=== PATIENT | female | born 1940 | race Caucasian/White ===

== ENCOUNTER → 2017-11-21 | Outpatient (CLI) | payer MEDICARE, BC, SELFPAY | PROVIDERS: Family Provider Family Medicine; Visit Provider Family Medicine | DX: I48.91 Unspecified atrial fibrillation (principal) | CPT/HCPCS: 93005 ==

== ENCOUNTER 2017-12-07 12:31 | Inpatient (IN) | payer MEDICARE, BC, SELFPAY ==
--- NOTE | 2017-12-07 | CT_ITS ---
CT hip RT wo con COMPARISON: None HISTORY: Recent injection for pain control right hip now complaining swelling and pain, mildly elevated white count TECHNIQUE: Multiple axial scans obtained from the iliac crests to the upper thighs and were performed without IV contrast in view of the decreased GFR. FINDINGS: There is an abnormal somewhat oval-shaped mass almost isodense to the major muscle groups of the hip and upper thigh. It measures 10.0 superior inferior dimension x 6.5 cm lateral to medial x 8.8 cm anterior posterior dimension. The CT number is most consistent with a seroma and/or evolving hematoma to seroma. The mass appears be located primarily in the trochanteric bursa centered around the greater trochanter causing only minimal mass effect on the gluteus minimus muscle. There is no significant inflammatory changes of the subcutaneous fat immediately superficial to the mass and therefore I favor a developing seroma versus abscess. There is minor asymmetrical joint space narrowing of the right hip joint. IMPRESSION: Probable seroma arising in and expanding the greater trochanteric bursa. Percutaneous drainage of this mass is consideration, the center of the mass is probably 7.5 cm deep to the skin surface.
[2017-12-07 12:46] VITALS: BP 120/53; PULSE 71; RESP 20; TEMP 36.7; O2SAT 95; BMI 24.3
--- NOTE | 2017-12-07 14:30 | HMH.ACPN ---
Internal Medicine - PN: Subj *Date: 12/07/17 *Time: 14:30 Interval history: Admitted with abscess versus hematoma of the right buttock. See the A history and physical. Exam Vital signs and Labs for Last 24 Hours: Temp Pulse Resp BP Pulse Ox 98.0 F 71 20 120/53 95 12/07/17 12:46 12/07/17 12:46 12/07/17 12:46 12/07/17 12:46 12/07/17 12:46 I & O for Last 24 hours: Intake & Output 12/05/17 12/06/17 12/07/17 12/08/17 11:59 11:59 11:59 11:59 Weight 155 lb 6.991 oz Assessment and Plan (1) Abscess Current visit: Yes Status: Acute Category: Medical Code(s): L02.91 - Cutaneous abscess, unspecified (2) Lumbar disc disease Current visit: Yes Status: Chronic Category: Medical Code(s): M51.9 - Unspecified thoracic, thoracolumbar and lumbosacral intervertebral disc disorder (3) Atrial fibrillation Current visit: Yes Status: Chronic Qualifiers: Atrial fibrillation type: chronic Qualified Code(s): I48.2 - Chronic atrial fibrillation Category: Medical Code(s): I48.91 - Unspecified atrial fibrillation (4) Multinodular goiter Current visit: Yes Status: Chronic Category: Medical Code(s): E04.2 - Nontoxic multinodular goiter (5) Valvular heart disease Current visit: Yes Status: Chronic Category: Medical Code(s): I38 - Endocarditis, valve unspecified (6) Asthma Current visit: Yes Status: Chronic Qualifiers: Asthma persistence: intermittent Category: Medical Code(s): J45.909 - Unspecified asthma, uncomplicated (7) Hyperuricemia Current visit: Yes Status: Chronic Category: Medical Code(s): E79.0 - Hyperuricemia without signs of inflammatory arthritis and tophaceous disease
[2017-12-07 14:46] LABS: Basophils % 0.2 % (0.1-2.0); Eosinophils # 0.1 K/mm3 (0.0-0.4); Hematocrit 41.2 % (37.0-47.0); Hemoglobin 13.5 g/dL (12.2-16.2); Lymphocytes # 0.5 K/mm3 (0.7-4.5); Lymphocytes % 5.6 K/mm3 (10-50); Mean Corpuscular HGB Conc 32.7 g/dL (31.8-35.4); Mean Corpuscular Hemoglobin 30.9 pg (27.0-31.2); Mean Corpuscular Volume 94.5 fl (81-99); Mean Platelet Volume 7.7 fl (7.4-10.4); Monocytes # 0.4 K/mm3 (0.1-1.0); Monocytes % 3.7 % (1.7-9.3); Neutrophils # 8.5 K/mm3 (1.8-7.8); Neutrophils % 89.6 % (37.0-80.0); Platelet Count 166 K/mm3 (142-424); Red Blood Count 4.36 M/mm3 (4.20-5.40); Red Cell Distribution Width 16.2 % (11.5-17.5); White Blood Count 9.4 K/mm3 (4.8-10.8)
[2017-12-07 14:51] LABS: MANUAL DIFFERENTIAL MANUAL DIFFERENTIAL (MANUAL DIFF)
[2017-12-07 15:07] LABS: Lymphocytes % 2 % (10-50); Monocytes % 4 % (2-9); Neutrophils % 91 % (42-76); Platelet Estimate Normal; RBC Morphology Normal; Total Cells Counted 100
[2017-12-07 15:38] LABS: Alanine Aminotransferase 33 U/L (12-78); Albumin/Globulin Ratio 1.7 (1.1-1.8); Alkaline Phosphatase 92 U/L (46-116); Anion Gap 8.9 mEq/L (5-15); Aspartate Amino Transferase 29 U/L (15-37); Bilirubin,Total 0.8 mg/dL (0.2-1.0); Blood Urea Nitrogen 24 mg/dL (7-18); Calcium 8.5 mg/dL (8.5-10.1); Carbon Dioxide 33 mmol/L (21.0-32.0); Chloride 103 mmol/L (98-107); Creatinine Clearance Estimated 37 mL/min (0-300); Estimated Glomerular Filt Rate 36 ml/min (>60); GFR (African American) 44 ML/MIN (>60); Globulin 2.4 gm/dl (1.3-3.2); Glucose 121 mg/dL (74-106); Potassium 3.9 mmoL/L (3.5-5.1); Sodium 141 mmol/L (136-145); Total Protein,Serum 6.4 gm/dL (6.4-8.2)
[2017-12-07 16:00] VITALS: BP 107/41; PULSE 78; RESP 20; TEMP 36.6; O2SAT 97
--- NOTE | 2017-12-07 17:23 | PC.NURSE ---
PATIENT WAS DIRECT ADMIT TODAY FROM OFFICE. PATIENT HAS AN ABCESS AND BRUISE ON HER RIGHT HIP FROM A INJECTION AT [facility] OCTOBER. PATIENT IS RECEIVING IV ANTIBOTICS AT THIS TIME. PATIENT RATED HER PAIN A 7 OUT OF 10, PAIN MEDICATIONS GIVEN. PATIENT IS RESTING IN BED, VITAL SIGNS ARE STABLE , LUNG SOUNDS CLEAR. NO DISTRESS NOTED, CALL MCCANN WITHIN REACH, WILL CONTINUE TO MONITOR.
[2017-12-07 19:58] VITALS: O2SAT 97
[2017-12-07 21:31] VITALS: BP 96/56; PULSE 77; RESP 20; TEMP 36.3; O2SAT 93
--- NOTE | 2017-12-08 05:55 | PC.NURSE ---
PT ASSEESSED AND NOTED TO HAVE BRUISING FROM (R) HIP TO (R) BUTTOCK. SHE C/O EARLY IN SHIFT ABOUT CRAMPING TO LEGS AND FEET. PT WAS CONCERNED ABOUT POTASSIUM LEVEL. IT WAS NOTED UPON REVIEW OF LABS THAT POTASSIUM LEVEL WAS 3.9. K-PAD WAS APPLIED TO PT PER MD ORDER. PT WAS ALSO CONCERNED ABOUT PM DOSE OF GABAPENTIN AND ZARELTO. MD WAS NOTIFIED OF PT CONCERNS. MD WAS ALSO CONSULTED ABOUT LOVENOX ORDER THAT WAS D/C. MD DID NOT WANT TO GIVE ZARELTO AND LOVENOX DUE TO PT HIP. METOPROLOL WAS ALSO HELD DUE TO LOW B/P. NO OTHER CONERNS AT THIS TIME. WILL CONTINUE TO MONITOR.
[2017-12-08 07:18] VITALS: BP 101/79; PULSE 68; RESP 18; TEMP 36.6; O2SAT 94
[2017-12-08 08:00] VITALS: BP 103/67; PULSE 71; RESP 18; TEMP 36.2; O2SAT 93
--- NOTE | 2017-12-08 08:08 | PC.NURSE ---
RECEIVED REPORT FROM RAHDA VEGA RN
--- NOTE | 2017-12-08 11:10 | HMH.GSCON ---
*Admission Date: 12/07/17 *Chief complaint: right hip pain *History of present illness: Ms. Gutierrez is a pleasant 77 year old lady with a history of multiple lower back surgeries with Dr. Sorin August at [facility] in [place], who also sees Dr. Kyler Elizalde at [facility] in [place] for related chronic pain. She had a right hip bursa injection with Dr. Elizalde in early October, which resulted in an enlarging, discolored and painful mass over the right hip. This has been ongoing for the past month, and the pain has been getting progressively worse. She presented to the hospital yesterday due to significant pain and difficulty getting around. Since admission, she says the pain has improved. Her nurse notes that she has been able to ambulate with minimal assistance to the bathroom. She is afebrile and hemodynamically stable. Her labs are normal except for a mildly elevated creatinine (1.4) with unknown baseline. Review of Systems - Review of Systems Review of systems:: pertinent systems reviewed and negative unless documented below [facility] History Medical History: Reports:: Atrial Fibrillation, Congestive Heart Failure Denies:: Cancer, Diabetes Mellitus Type 1, Diabetes Mellitus Type 2, MRSA Other Medical History: Reports: Arthritis, Cataracts, Fibromyalgia, Thyroid Disease Other Surgeries: Yes: Other (lower back surgery x3). No: Pacemaker Amputation: No Fractures: No - *Social History Educational Level: Completed High School Alcohol Intake: never Occupational Status: retired Housing: house Household Members: none - Psychiatric History Expresses thoughts of harming self/others: None Suicide Plan Description: No Plan *Family Hx:: Asthma Meds Home Medications Medication Instructions Recorded Confirmed Type Esomeprazole Magnesium [Nexium] 40 mg PO DAILY 12/07/17 12/07/17 History Furosemide [Furosemide 80mg Tab] 80 mg PO DAILY 12/07/17 12/07/17 History Potassium Chloride [Pot Chlor 10 10 meq PO DAILY 12/07/17 12/07/17 History mEq Tab] Sertraline HCl [Zoloft] 100 mg PO DAILY 12/07/17 12/07/17 History Spironolactone [Spironolactone 25 mg PO DAILY 12/07/17 12/07/17 History 25mg Tab] Allergies Allergy/AdvReac Type Severity Reaction Status Date / Time No Known Allergies Allergy Unverified 11/12/17 14:46 Exam Vital signs and Labs for Last 24 Hours: Temp Pulse Resp BP Pulse Ox 97.2 F L 71 18 103/67 93 L 12/08/17 08:00 12/08/17 08:00 12/08/17 08:00 12/08/17 08:00 12/08/17 08:00 Laboratory Results - last 24 hr 12/07/17 14:35: WBC 9.4, RBC 4.36, Hgb 13.5, Hct 41.2, MCV 94.5, MCH 30.9, MCHC 32.7, RDW 16.2, Plt Count 166, MPV 7.7, Neut % (Auto) 89.6 H, Lymph % (Auto) 5.6 L, [place] % (Auto) 3.7, Eos % (Auto) 1.0, Baso % (Auto) 0.2, Neut # (Auto) 8.5 H, Lymph # (Auto) 0.5 L, [place] # (Auto) 0.4, Eos # (Auto) 0.1, Baso # (Auto) 0.0, Total Counted 100, Neutrophils % (Manual) 91 H, Lymphocytes % (Manual) 2 L, Atypical Lymphs % 3.0, Monocytes % (Manual) 4, Platelet Estimate Normal, RBC Morphology Normal 12/07/17 14:35: Sodium 141, Potassium 3.9, Chloride 103, Carbon Dioxide 33 H, Anion Gap 8.9, BUN 24 H, Creatinine 1.40 H, Estimated Creat Clear 37, Estimated GFR 36 L, Est GFR ( Amer) 44 L, Glucose 121 H, Calcium 8.5, Total Bilirubin 0.8, AST 29, ALT 33, Alkaline Phosphatase 92, Total Protein 6.4, Albumin 4.0, Globulin 2.4, Albumin/Globulin Ratio 1.7 I & O for Last 24 hours: Intake & Output 12/05/17 12/06/17 12/07/17 12/08/17 23:59 23:59 23:59 23:59 Intake Total 660 / 660 50 / 50 Balance 660 / 660 50 / 50 Weight 155 lb 6.991 oz - Constitutional no acute distress, thin, cooperative - *Routine Respiratory Exam Absent: accessory muscle use, patient mechanically ventilated, wheezes - *Routine Cardiovascular Exam Present: RRR - *Routine Abdominal Exam Present: soft. Absent: tenderness, distended, rebound, guarding - Routine Back/Spine/Pelvis Exam Back/Spine: Absent
--- NOTE | 2017-12-08 11:16 | P.CONS_ITS ---
*Admission Date: 12/07/17 *Chief complaint: right hip pain *History of present illness: Ms. Gutierrez is a pleasant 77 year old lady with a history of multiple lower back surgeries with Dr. Sorin August at [facility] in [place], who also sees Dr. Kyler Elizalde at [facility] in [place] for related chronic pain. She had a right hip bursa injection with Dr. Elizalde in early October, which resulted in an enlarging, discolored and painful mass over the right hip. This has been ongoing for the past month, and the pain has been getting progressively worse. She presented to the hospital yesterday due to significant pain and difficulty getting around. Since admission, she says the pain has improved. Her nurse notes that she has been able to ambulate with minimal assistance to the bathroom. She is afebrile and hemodynamically stable. Her labs are normal except for a mildly elevated creatinine (1.4) with unknown baseline. Review of Systems - Review of Systems Review of systems:: pertinent systems reviewed and negative unless documented below [facility] History Medical History: Reports:: Atrial Fibrillation, Congestive Heart Failure Denies:: Cancer, Diabetes Mellitus Type 1, Diabetes Mellitus Type 2, MRSA Other Medical History: Reports: Arthritis, Cataracts, Fibromyalgia, Thyroid Disease Other Surgeries: Yes: Other (lower back surgery x3). No: Pacemaker Amputation: No Fractures: No - *Social History Educational Level: Completed High School Alcohol Intake: never Occupational Status: retired Housing: house Household Members: none - Psychiatric History Expresses thoughts of harming self/others: None Suicide Plan Description: No Plan *Family Hx:: Asthma Meds Home Medications Medication Instructions Recorded Confirmed Type Esomeprazole Magnesium [Nexium] 40 mg PO DAILY 12/07/17 12/07/17 History Furosemide [Furosemide 80mg Tab] 80 mg PO DAILY 12/07/17 12/07/17 History Potassium Chloride [Pot Chlor 10 10 meq PO DAILY 12/07/17 12/07/17 History mEq Tab] Sertraline HCl [Zoloft] 100 mg PO DAILY 12/07/17 12/07/17 History Spironolactone [Spironolactone 25 mg PO DAILY 12/07/17 12/07/17 History 25mg Tab] Allergies Allergy/AdvReac Type Severity Reaction Status Date / Time No Known Allergies Allergy Unverified 11/12/17 14:46 Exam Vital signs and Labs for Last 24 Hours: Temp Pulse Resp BP Pulse Ox 97.2 F L 71 18 103/67 93 L 12/08/17 08:00 12/08/17 08:00 12/08/17 08:00 12/08/17 08:00 12/08/17 08:00 Laboratory Results - last 24 hr 12/07/17 14:35: WBC 9.4, RBC 4.36, Hgb 13.5, Hct 41.2, MCV 94.5, MCH 30.9, MCHC 32.7, RDW 16.2, Plt Count 166, MPV 7.7, Neut % (Auto) 89.6 H, Lymph % (Auto) 5.6 L, [place] % (Auto) 3.7, Eos % (Auto) 1.0, Baso % (Auto) 0.2, Neut # (Auto) 8.5 H, Lymph # (Auto) 0.5 L, [place] # (Auto) 0.4, Eos # (Auto) 0.1, Baso # (Auto) 0.0, Total Counted 100, Neutrophils % (Manual) 91 H, Lymphocytes % (Manual) 2 L , Atypical Lymphs % 3.0, Monocytes % (Manual) 4, Platelet Estimate Normal, RBC Morphology Normal 12/07/17 14:35: Sodium 141, Potassium 3.9, Chloride 103, Carbon Dioxide 33 H, Anion Gap 8.9, BUN 24 H, Creatinine 1.40 H, Estimated Creat Clear 37, Estimated GFR 36 L, Est GFR ( Amer) 44 L, Glucose 121 H, Calcium 8.5, Total Bilirubin 0.8, AST 29, ALT 33, Alkaline Phosphatase 92, Total Protein 6.4, Albumin 4.0, Globulin 2.4, Albumin/Globulin Ratio 1.7 I & O for Last 24 hours: Intake & Output 12/05/17 12/06/17
--- NOTE | 2017-12-08 11:36 | P.CONPHA_ITS ---
- Pharmacy Consult Date: 12/08/17 Time: 11:34 Referring provider: DR. MCBRIDE Reason for Consult:: VANCOMYCIN DOSING Allergies and ADEs:: Allergies Allergy/AdvReac Type Severity Reaction Status Date / Time No Known Allergies Allergy Unverified 11/12/17 14:46 Home Medications:: Home Medications Medication Instructions Recorded Confirmed Type Esomeprazole Magnesium [Nexium] 40 mg PO DAILY 12/07/17 12/07/17 History Furosemide [Furosemide 80mg Tab] 80 mg PO DAILY 12/07/17 12/07/17 History Potassium Chloride [Pot Chlor 10 10 meq PO DAILY 12/07/17 12/07/17 History mEq Tab] Sertraline HCl [Zoloft] 100 mg PO DAILY 12/07/17 12/07/17 History Spironolactone [Spironolactone 25 mg PO DAILY 12/07/17 12/07/17 History 25mg Tab] Height: 1.7 m Weight: 70.505 kg Laboratory Results:: Laboratory Results - last 24 hr 12/07/17 14:35: WBC 9.4, RBC 4.36, Hgb 13.5, Hct 41.2, MCV 94.5, MCH 30.9, MCHC 32.7, RDW 16.2, Plt Count 166, MPV 7.7, Neut % (Auto) 89.6 H, Lymph % (Auto) 5.6 L, [place] % (Auto) 3.7, Eos % (Auto) 1.0, Baso % (Auto) 0.2, Neut # (Auto) 8.5 H, Lymph # (Auto) 0.5 L, [place] # (Auto) 0.4, Eos # (Auto) 0.1, Baso # (Auto) 0.0, Total Counted 100, Neutrophils % (Manual) 91 H, Lymphocytes % (Manual) 2 L , Atypical Lymphs % 3.0, Monocytes % (Manual) 4, Platelet Estimate Normal, RBC Morphology Normal 12/07/17 14:35: Sodium 141, Potassium 3.9, Chloride 103, Carbon Dioxide 33 H, Anion Gap 8.9, BUN 24 H, Creatinine 1.40 H, Estimated Creat Clear 37, Estimated GFR 36 L, Est GFR ( Amer) 44 L, Glucose 121 H, Calcium 8.5, Total Bilirubin 0.8, AST 29, ALT 33, Alkaline Phosphatase 92, Total Protein 6.4, Albumin 4.0, Globulin 2.4, Albumin/Globulin Ratio 1.7 Medical History: Reports:: Atrial Fibrillation, Congestive Heart Failure Denies:: Cancer, Diabetes Mellitus Type 1, Diabetes Mellitus Type 2, MRSA Assessment and Plan (1) Abscess Current visit: Yes Status: Acute Category: Medical Code(s): L02.91 - Cutaneous abscess, unspecified - Assessment and plan all Dx Assessment and Plan for all problems:: BASED ON PATIENT FACTORS, RECOMMEND VANCOMYCIN 1500 MG IV ONCE, FOLLOWED BY VANCOMYCIN 1 GM IV Q24H. PHARMACY WILL FOLLOW DAILY AND ADJUST APPROPRIATE.
--- NOTE | 2017-12-08 13:32 | HMH.ORTHOCON ---
*Admission Date: 12/07/17 *Chief complaint: Right buttock pain/ecchymosis *History of present illness: Ms. Gutierrez is a pleasant 77 year old lady with a history of multiple lower back surgeries with Dr. Sorin August at [facility] in [place], who also sees Dr. Kyler Elizalde at [facility] in [place] for related chronic pain. She had a right hip bursa injection with Dr. Elizalde in early October, which resulted in an enlarging, discolored and painful mass over the right hip. This has been ongoing for the past month, and the pain has been getting progressively worse. She presented to the hospital yesterday due to significant pain and difficulty getting around. Since admission, she says the pain has improved. Her nurse notes that she has been able to ambulate with minimal assistance to the bathroom. She is afebrile and hemodynamically stable. Her labs are normal except for a mildly elevated creatinine (1.4) with unknown baseline. [facility] History Medical History: Reports:: Atrial Fibrillation, Congestive Heart Failure Denies:: Cancer, Diabetes Mellitus Type 1, Diabetes Mellitus Type 2, MRSA Other Medical History: Reports: Arthritis, Cataracts, Fibromyalgia, Thyroid Disease Other Surgeries: Yes: Other (lower back surgery x3). No: Pacemaker Amputation: No Fractures: No - *Social History Educational Level: Completed High School Alcohol Intake: never Occupational Status: retired Housing: house Household Members: none - Psychiatric History Expresses thoughts of harming self/others: None Suicide Plan Description: No Plan *Family Hx:: Asthma Meds Home Medications Medication Instructions Recorded Confirmed Type Esomeprazole Magnesium [Nexium] 40 mg PO DAILY 12/07/17 12/07/17 History Furosemide [Furosemide 80mg Tab] 80 mg PO DAILY 12/07/17 12/07/17 History Potassium Chloride [Pot Chlor 10 10 meq PO DAILY 12/07/17 12/07/17 History mEq Tab] Sertraline HCl [Zoloft] 100 mg PO DAILY 12/07/17 12/07/17 History Spironolactone [Spironolactone 25 mg PO DAILY 12/07/17 12/07/17 History 25mg Tab] Allergies Allergy/AdvReac Type Severity Reaction Status Date / Time No Known Allergies Allergy Unverified 11/12/17 14:46 Exam Vital signs and Labs for Last 24 Hours: Temp Pulse Resp BP Pulse Ox 97.2 F L 71 18 103/67 93 L 12/08/17 08:00 12/08/17 08:00 12/08/17 08:00 12/08/17 08:00 12/08/17 08:00 Laboratory Results - last 24 hr 12/07/17 14:35: WBC 9.4, RBC 4.36, Hgb 13.5, Hct 41.2, MCV 94.5, MCH 30.9, MCHC 32.7, RDW 16.2, Plt Count 166, MPV 7.7, Neut % (Auto) 89.6 H, Lymph % (Auto) 5.6 L, [place] % (Auto) 3.7, Eos % (Auto) 1.0, Baso % (Auto) 0.2, Neut # (Auto) 8.5 H, Lymph # (Auto) 0.5 L, [place] # (Auto) 0.4, Eos # (Auto) 0.1, Baso # (Auto) 0.0, Total Counted 100, Neutrophils % (Manual) 91 H, Lymphocytes % (Manual) 2 L, Atypical Lymphs % 3.0, Monocytes % (Manual) 4, Platelet Estimate Normal, RBC Morphology Normal 12/07/17 14:35: Sodium 141, Potassium 3.9, Chloride 103, Carbon Dioxide 33 H, Anion Gap 8.9, BUN 24 H, Creatinine 1.40 H, Estimated Creat Clear 37, Estimated GFR 36 L, Est GFR ( Amer) 44 L, Glucose 121 H, Calcium 8.5, Total Bilirubin 0.8, AST 29, ALT 33, Alkaline Phosphatase 92, Total Protein 6.4, Albumin 4.0, Globulin 2.4, Albumin/Globulin Ratio 1.7 I & O for Last 24 hours: Intake & Output 12/06/17 12/07/17 12/08/17 12/09/17 11:59 11:59 11:59 11:59 Intake Total 710 / 710 Balance 710 / 710 Weight 155 lb 7 oz Narrative: The patient has resolving ecchymosis in the area of the right greater trochanter and a mass somewhat more posterior to the trochanter which appears somewhat fluctuant. NV is grossly intact in the involved R LE. Well healed incision from spine surgery is present.Her CT was reviewed on my home computer however I cannot seem to successfully log on to PACS on this one to review association of fluid with the hip joint vs a separate fluid collection. Aspiration of the f
--- NOTE | 2017-12-08 13:36 | P.CONS_ITS ---
*Admission Date: 12/07/17 *Chief complaint: Right buttock pain/ecchymosis *History of present illness: Ms. Gutierrez is a pleasant 77 year old lady with a history of multiple lower back surgeries with Dr. Sorin August at [facility] in [place], who also sees Dr. Kyler Elizalde at [facility] in [place] for related chronic pain. She had a right hip bursa injection with Dr. Elizalde in early October, which resulted in an enlarging, discolored and painful mass over the right hip. This has been ongoing for the past month, and the pain has been getting progressively worse. She presented to the hospital yesterday due to significant pain and difficulty getting around. Since admission, she says the pain has improved. Her nurse notes that she has been able to ambulate with minimal assistance to the bathroom. She is afebrile and hemodynamically stable. Her labs are normal except for a mildly elevated creatinine (1.4) with unknown baseline. [facility] History Medical History: Reports:: Atrial Fibrillation, Congestive Heart Failure Denies:: Cancer, Diabetes Mellitus Type 1, Diabetes Mellitus Type 2, MRSA Other Medical History: Reports: Arthritis, Cataracts, Fibromyalgia, Thyroid Disease Other Surgeries: Yes: Other (lower back surgery x3). No: Pacemaker Amputation: No Fractures: No - *Social History Educational Level: Completed High School Alcohol Intake: never Occupational Status: retired Housing: house Household Members: none - Psychiatric History Expresses thoughts of harming self/others: None Suicide Plan Description: No Plan *Family Hx:: Asthma Meds Home Medications Medication Instructions Recorded Confirmed Type Esomeprazole Magnesium [Nexium] 40 mg PO DAILY 12/07/17 12/07/17 History Furosemide [Furosemide 80mg Tab] 80 mg PO DAILY 12/07/17 12/07/17 History Potassium Chloride [Pot Chlor 10 10 meq PO DAILY 12/07/17 12/07/17 History mEq Tab] Sertraline HCl [Zoloft] 100 mg PO DAILY 12/07/17 12/07/17 History Spironolactone [Spironolactone 25 mg PO DAILY 12/07/17 12/07/17 History 25mg Tab] Allergies Allergy/AdvReac Type Severity Reaction Status Date / Time No Known Allergies Allergy Unverified 11/12/17 14:46 Exam Vital signs and Labs for Last 24 Hours: Temp Pulse Resp BP Pulse Ox 97.2 F L 71 18 103/67 93 L 12/08/17 08:00 12/08/17 08:00 12/08/17 08:00 12/08/17 08:00 12/08/17 08:00 Laboratory Results - last 24 hr 12/07/17 14:35: WBC 9.4, RBC 4.36, Hgb 13.5, Hct 41.2, MCV 94.5, MCH 30.9, MCHC 32.7, RDW 16.2, Plt Count 166, MPV 7.7, Neut % (Auto) 89.6 H, Lymph % (Auto) 5.6 L, [place] % (Auto) 3.7, Eos % (Auto) 1.0, Baso % (Auto) 0.2, Neut # (Auto) 8.5 H, Lymph # (Auto) 0.5 L, [place] # (Auto) 0.4, Eos # (Auto) 0.1, Baso # (Auto) 0.0, Total Counted 100, Neutrophils % (Manual) 91 H, Lymphocytes % (Manual) 2 L , Atypical Lymphs % 3.0, Monocytes % (Manual) 4, Platelet Estimate Normal, RBC Morphology Normal 12/07/17 14:35: Sodium 141, Potassium 3.9, Chloride 103, Carbon Dioxide 33 H, Anion Gap 8.9, BUN 24 H, Creatinine 1.40 H, Estimated Creat Clear 37, Estimated GFR 36 L, Est GFR ( Amer) 44 L, Glucose 121 H, Calcium 8.5, Total Bilirubin 0.8, AST 29, ALT 33, Alkaline Phosphatase 92, Total Protein 6.4, Albumin 4.0, Globulin 2.4, Albumin/Globulin Ratio 1.7 I & O for Last 24 hours: Intake & Output 12/06/17 12/07/17 12/08/17 12/09/17 11:59 11:59 11:59 11:59 Intake Total 710 / 710 Balance 710 / 710 [place]
--- NOTE | 2017-12-08 14:42 | HMH.ACPN ---
Internal Medicine - PN: Subj *Date: 12/08/17 *Time: 14:42 Interval history: She continues to have good pain and states that her pain medicine does not control her discomfort. See the consult reports by both Dr. Mclain and Dr. Nowak. Dr. Griffin was unsuccessful in aspirating fluid from the lesion. A seroma seems to be more likely than an abscess at this point. Dr. Griffin would like for radiology to evaluate the patient for possible fluoroscopic attempt at aspiration. The patient's son and his family were present and discussed all aspects of the case with them. Exam Vital signs and Labs for Last 24 Hours: Temp Pulse Resp BP Pulse Ox 97.2 F L 71 18 103/67 93 L 12/08/17 08:00 12/08/17 08:00 12/08/17 08:00 12/08/17 08:00 12/08/17 08:00 Laboratory Results - last 24 hr 12/07/17 14:35: WBC 9.4, RBC 4.36, Hgb 13.5, Hct 41.2, MCV 94.5, MCH 30.9, MCHC 32.7, RDW 16.2, Plt Count 166, MPV 7.7, Neut % (Auto) 89.6 H, Lymph % (Auto) 5.6 L, [place] % (Auto) 3.7, Eos % (Auto) 1.0, Baso % (Auto) 0.2, Neut # (Auto) 8.5 H, Lymph # (Auto) 0.5 L, [place] # (Auto) 0.4, Eos # (Auto) 0.1, Baso # (Auto) 0.0, Total Counted 100, Neutrophils % (Manual) 91 H, Lymphocytes % (Manual) 2 L, Atypical Lymphs % 3.0, Monocytes % (Manual) 4, Platelet Estimate Normal, RBC Morphology Normal 12/07/17 14:35: Sodium 141, Potassium 3.9, Chloride 103, Carbon Dioxide 33 H, Anion Gap 8.9, BUN 24 H, Creatinine 1.40 H, Estimated Creat Clear 37, Estimated GFR 36 L, Est GFR ( Amer) 44 L, Glucose 121 H, Calcium 8.5, Total Bilirubin 0.8, AST 29, ALT 33, Alkaline Phosphatase 92, Total Protein 6.4, Albumin 4.0, Globulin 2.4, Albumin/Globulin Ratio 1.7 Laboratory Tests 12/07/17 12/07/17 14:35 14:35 WBC 9.4 Potassium 3.9 BUN 24 H Creatinine 1.40 H I & O for Last 24 hours: Intake & Output 12/06/17 12/07/17 12/08/17 12/09/17 11:59 11:59 11:59 11:59 Intake Total 710 / 710 Balance 710 / 710 Weight 155 lb 7 oz - Constitutional no acute distress Comments: She is resting in bed. - *Routine Respiratory Exam Present: CTA bilaterally - *Routine Cardiovascular Exam Present: irregular rhythm - *Routine Abdominal Exam Present: soft. Absent: tenderness - Routine Back/Spine/Pelvis Exam Comments: Unchanged on exam. See Dr. Nowak's note. Assessment and Plan (1) Seroma Current visit: Yes Status: Acute Category: Medical (2) Abscess Current visit: Yes Status: Acute Category: Medical Code(s): L02.91 - Cutaneous abscess, unspecified (3) Lumbar disc disease Current visit: Yes Status: Chronic Category: Medical Code(s): M51.9 - Unspecified thoracic, thoracolumbar and lumbosacral intervertebral disc disorder (4) Atrial fibrillation Current visit: Yes Status: Chronic Qualifiers: Atrial fibrillation type: chronic Qualified Code(s): I48.2 - Chronic atrial fibrillation Category: Medical Code(s): I48.91 - Unspecified atrial fibrillation (5) Multinodular goiter Current visit: Yes Status: Chronic Category: Medical Code(s): E04.2 - Nontoxic multinodular goiter (6) Valvular heart disease Current visit: Yes Status: Chronic Category: Medical Code(s): I38 - Endocarditis, valve unspecified (7) Asthma Current visit: Yes Status: Chronic Qualifiers: Asthma persistence: intermittent Category: Medical Code(s): J45.909 - Unspecified asthma, uncomplicated (8) Hyperuricemia Current visit: Yes Status: Chronic Category: Medical Code(s): E79.0 - Hyperuricemia without signs of inflammatory arthritis and tophaceous disease Is the patient receiving the right drug, dose, and route?: Yes Could a more targeted ABx be ordered?: No
--- NOTE | 2017-12-08 14:46 | P.PN_ITS ---
Internal Medicine - PN: Subj *Date: 12/08/17 *Time: 14:42 Interval history: She continues to have good pain and states that her pain medicine does not control her discomfort. See the consult reports by both Dr. Mclain and Dr. Nowak. Dr. Griffin was unsuccessful in aspirating fluid from the lesion. A seroma seems to be more likely than an abscess at this point. Dr. Griffin would like for radiology to evaluate the patient for possible fluoroscopic attempt at aspiration. The patient's son and his family were present and discussed all aspects of the case with them. Exam Vital signs and Labs for Last 24 Hours: Temp Pulse Resp BP Pulse Ox 97.2 F L 71 18 103/67 93 L 12/08/17 08:00 12/08/17 08:00 12/08/17 08:00 12/08/17 08:00 12/08/17 08:00 Laboratory Results - last 24 hr 12/07/17 14:35: WBC 9.4, RBC 4.36, Hgb 13.5, Hct 41.2, MCV 94.5, MCH 30.9, MCHC 32.7, RDW 16.2, Plt Count 166, MPV 7.7, Neut % (Auto) 89.6 H, Lymph % (Auto) 5.6 L, [place] % (Auto) 3.7, Eos % (Auto) 1.0, Baso % (Auto) 0.2, Neut # (Auto) 8.5 H, Lymph # (Auto) 0.5 L, [place] # (Auto) 0.4, Eos # (Auto) 0.1, Baso # (Auto) 0.0, Total Counted 100, Neutrophils % (Manual) 91 H, Lymphocytes % (Manual) 2 L , Atypical Lymphs % 3.0, Monocytes % (Manual) 4, Platelet Estimate Normal, RBC Morphology Normal 12/07/17 14:35: Sodium 141, Potassium 3.9, Chloride 103, Carbon Dioxide 33 H, Anion Gap 8.9, BUN 24 H, Creatinine 1.40 H, Estimated Creat Clear 37, Estimated GFR 36 L, Est GFR ( Amer) 44 L, Glucose 121 H, Calcium 8.5, Total Bilirubin 0.8, AST 29, ALT 33, Alkaline Phosphatase 92, Total Protein 6.4, Albumin 4.0, Globulin 2.4, Albumin/Globulin Ratio 1.7 Laboratory Tests 12/07/17 12/07/17 14:35 14:35 WBC 9.4 Potassium 3.9 BUN 24 H Creatinine 1.40 H I & O for Last 24 hours: Intake & Output 12/06/17 12/07/17 12/08/17 12/09/17 11:59 11:59 11:59 11:59 Intake Total 710 / 710 Balance 710 / 710 Weight 155 lb 7 oz - Constitutional no acute distress Comments: She is resting in bed. - *Routine Respiratory Exam Present: CTA bilaterally - *Routine Cardiovascular Exam Present: irregular rhythm - *Routine Abdominal Exam Present: soft. Absent: tenderness - Routine Back/Spine/Pelvis Exam Comments: Unchanged on exam. See Dr. Nowak's note. Assessment and Plan (1) Seroma Current visit: Yes Status: Acute Category: Medical (2) Abscess Current visit: Yes Status: Acute Category: Medical Code(s): L02.91 - Cutaneous abscess, unspecified (3) Lumbar disc disease Current visit: Yes Status: Chronic Category: Medical Code(s): M51.9 - Unspecified thoracic, thoracolumbar and lumbosacral intervertebral disc disorder (4) Atrial fibrillation Current visit: Yes Status: Chronic Qualifiers: Atrial fibrillation type: chronic Qualified Code(s): I48.2 - Chronic atrial fibrillation Category: Medical Code(s): I48.91 - Unspecified atrial fibrillation (5) Multinodular goiter Current visit: Yes Status: Chronic Category: Medical Code(s): E04.2 - Nontoxic multinodular goiter (6) Valvular heart disease Current visit: Yes Status: Chronic Category: Medical Code(s): I38 - Endocarditis, valve unspecified (7) Asthma Current visit: Yes Status: Chronic Qualifiers: Asthma persistence: intermittent Category: Medical Code(s): J45.909 -
[2017-12-08 15:20] LABS: C-Reactive Protein < 0.2 mg/L (0.0-0.9)
--- NOTE | 2017-12-08 15:35 | P.CONPHA_ITS ---
[facility] Pharmacy VTE Monitoring - Patient Demographics Admission date: 12/08/17 Report Date: 12/08/17 Time: 15:35 Allergies/Adverse Reactions: No Known Allergies Allergy (Unverified 11/12/17 14:46) Height: 1.7 m Weight: 70.505 kg Patient Problems: Current Active Problems Abscess (Acute) Lumbar disc disease (Chronic) Atrial fibrillation (Chronic) Multinodular goiter (Chronic) Valvular heart disease (Chronic) Asthma (Chronic) Hyperuricemia (Chronic) Seroma (Acute) - VTE Risk Labs: VTE Related Lab Results Hgb 13.5 g/dL (12.2-16.2) 12/07/17 14:35 Hct 41.2 % (37.0-47.0) 12/07/17 14:35 Plt Count 166 K/mm3 (142-424) 12/07/17 14:35 BUN 24 mg/dL (7-18) H 12/07/17 14:35 Creatinine 1.40 mg/dL (0.55-1.02) H 12/07/17 14:35 Estimated Creat Clear 37 mL/min (0-300) 12/07/17 14:35 Was VTE Risk Assessment Performed: No VTE Risk Level: Low Risk - Prophylaxis VTE Prophylaxis Ordered?: Yes Types of VTE Prophylaxis: TEDS Knee High Location of Applied Device: Bilateral Lower Extremeties
[2017-12-08 16:00] VITALS: BP 109/58; PULSE 72; RESP 18; TEMP 35.9; O2SAT 93
[2017-12-08 16:51] LABS: Erythrocyte Sedimentation Rate 16 mm/hr (0-30)
[2017-12-08 20:00] VITALS: BP 127/59; PULSE 75; RESP 18; TEMP 36.3; O2SAT 94
[2017-12-09 04:00] VITALS: BP 96/59; PULSE 69; RESP 20; TEMP 36.7; O2SAT 90
--- NOTE | 2017-12-09 04:46 | PC.NURSE ---
rn aware of all vital signs
[2017-12-09 07:08] LABS: Basophils % 0.5 % (0.1-2.0); Eosinophils # 0.2 K/mm3 (0.0-0.4); Eosinophils % 2.9 % (0.1-12.0); Hematocrit 37.3 % (37.0-47.0); Hemoglobin 12.2 g/dL (12.2-16.2); Lymphocytes # 0.9 K/mm3 (0.7-4.5); Mean Corpuscular HGB Conc 32.7 g/dL (31.8-35.4); Mean Corpuscular Hemoglobin 31.2 pg (27.0-31.2); Mean Corpuscular Volume 95.4 fl (81-99); Mean Platelet Volume 7.2 fl (7.4-10.4); Monocytes # 0.4 K/mm3 (0.1-1.0); Neutrophils # 4.6 K/mm3 (1.8-7.8); Neutrophils % 75.6 % (37.0-80.0); Platelet Count 131 K/mm3 (142-424); Red Blood Count 3.92 M/mm3 (4.20-5.40); Red Cell Distribution Width 16.5 % (11.5-17.5); White Blood Count 6.1 K/mm3 (4.8-10.8)
[2017-12-09 07:21] LABS: Anion Gap 7.7 mEq/L (5-15); Blood Urea Nitrogen 22 mg/dL (7-18); Carbon Dioxide 33 mmol/L (21.0-32.0); Chloride 103 mmol/L (98-107); Creatinine Clearance Estimated 37 mL/min (0-300); Creatinine,Serum 1.45 mg/dL (0.55-1.02); Estimated Glomerular Filt Rate 35 ml/min (>60); GFR (African American) 42 ML/MIN (>60); Glucose 82 mg/dL (74-106); Potassium 3.7 mmoL/L (3.5-5.1); Sodium 140 mmol/L (136-145)
--- NOTE | 2017-12-09 07:57 | PC.NURSE ---
NO ACUTE CHANGES NOTED. PT HAS RESTED WELL THIS SHIFT. SHE CONTINUES TO HAVE BRUISING TO (R) HIP AND BUTTOCKS. SMALL BANDAID NOTED TO (R) HIP FROM PROCEDURE. SHE STATES THAT SHE STILL HAS SOME PAIN WITH AMBULATION. V/S HAVE REMAINED STABLE. NO OTHER COCNERNS NOTED AT THIS TIME TIME CONTINUE TO MONITOR.
--- NOTE | 2017-12-09 08:01 | PC.NURSE ---
REPORT HANDED OFF TO Александр BREWER
[2017-12-09 08:19] VITALS: BP 98/59; PULSE 72; RESP 18; TEMP 36.6; O2SAT 93
--- NOTE | 2017-12-09 09:00 | HMH.ACPN ---
Internal Medicine - PN: Subj *Date: 12/09/17 *Time: 09:00 Interval history: Hip hurts less and is sore; heat has helped; eating and drinking without problems; bowels have not moved and would like senokot; Has walked in room with walker Exam Vital signs and Labs for Last 24 Hours: Temp Pulse Resp BP Pulse Ox 97.8 F 72 18 98/59 93 L 12/09/17 08:19 12/09/17 08:19 12/09/17 08:19 12/09/17 08:19 12/09/17 08:19 Laboratory Results - last 24 hr 12/08/17 14:42: ESR 16 12/08/17 14:42: C-Reactive Protein < 0.2 12/09/17 06:15: WBC 6.1 D, RBC 3.92 L, Hgb 12.2, Hct 37.3, MCV 95.4, MCH 31.2, MCHC 32.7, RDW 16.5, Plt Count 131 L, MPV 7.2 L, Neut % (Auto) 75.6, Lymph % (Auto) 15.0, [place] % (Auto) 6.0, Eos % (Auto) 2.9, Baso % (Auto) 0.5, Neut # (Auto) 4.6, Lymph # (Auto) 0.9, [place] # (Auto) 0.4, Eos # (Auto) 0.2, Baso # (Auto) 0.0 12/09/17 06:15: Sodium 140, Potassium 3.7, Chloride 103, Carbon Dioxide 33 H, Anion Gap 7.7, BUN 22 H, Creatinine 1.45 H, Estimated Creat Clear 37, Estimated GFR 35 L, Est GFR ( Amer) 42 L, Glucose 82 I & O for Last 24 hours: Intake & Output 12/06/17 12/07/17 12/08/17 12/09/17 11:59 11:59 11:59 11:59 Intake Total 710 / 710 1090 / 1090 Balance 710 / 710 1090 / 1090 Weight 155 lb 7 oz 160 lb - Constitutional no acute distress - *Routine Respiratory Exam Present: CTA bilaterally - *Routine Cardiovascular Exam Present: irregular rhythm - *Routine Abdominal Exam Present: soft, normoactive bowel sounds. Absent: tenderness, distended, guarding - *Routine Rectal Exam Comments: right hip mis tender/sore with palpation - *Routine Extremities Exam Absent: edema, calf tenderness - *Routine Neurological Exam Present: alert, oriented X3 Assessment and Plan - Assessment and plan all Dx Assessment and Plan for all problems:: Dr. Reed will discuss will radiology possible US guided needle aspiration of the right hip mass; continue current TX
--- NOTE | 2017-12-09 09:03 | P.PN_ITS ---
Internal Medicine - PN: Subj *Date: 12/09/17 *Time: 09:00 Interval history: Hip hurts less and is sore; heat has helped; eating and drinking without problems; bowels have not moved and would like senokot; Has walked in room with walker Exam Vital signs and Labs for Last 24 Hours: Temp Pulse Resp BP Pulse Ox 97.8 F 72 18 98/59 93 L 12/09/17 08:19 12/09/17 08:19 12/09/17 08:19 12/09/17 08:19 12/09/17 08:19 Laboratory Results - last 24 hr 12/08/17 14:42: ESR 16 12/08/17 14:42: C-Reactive Protein < 0.2 12/09/17 06:15: WBC 6.1 D, RBC 3.92 L, Hgb 12.2, Hct 37.3, MCV 95.4, MCH 31.2, MCHC 32.7, RDW 16.5, Plt Count 131 L, MPV 7.2 L, Neut % (Auto) 75.6, Lymph % ( Auto) 15.0, [place] % (Auto) 6.0, Eos % (Auto) 2.9, Baso % (Auto) 0.5, Neut # (Auto ) 4.6, Lymph # (Auto) 0.9, [place] # (Auto) 0.4, Eos # (Auto) 0.2, Baso # (Auto) 0.0 12/09/17 06:15: Sodium 140, Potassium 3.7, Chloride 103, Carbon Dioxide 33 H, Anion Gap 7.7, BUN 22 H, Creatinine 1.45 H, Estimated Creat Clear 37, Estimated GFR 35 L, Est GFR ( Amer) 42 L, Glucose 82 I & O for Last 24 hours: Intake & Output 12/06/17 12/07/17 12/08/17 12/09/17 11:59 11:59 11:59 11:59 Intake Total 710 / 710 1090 / 1090 Balance 710 / 710 1090 / 1090 Weight 155 lb 7 oz 160 lb - Constitutional no acute distress - *Routine Respiratory Exam Present: CTA bilaterally - *Routine Cardiovascular Exam Present: irregular rhythm - *Routine Abdominal Exam Present: soft, normoactive bowel sounds. Absent: tenderness, distended, guarding - *Routine Rectal Exam Comments: right hip mis tender/sore with palpation - *Routine Extremities Exam Absent: edema, calf tenderness - *Routine Neurological Exam Present: alert, oriented X3 Assessment and Plan - Assessment and plan all Dx Assessment and Plan for all problems:: Dr. Reed will discuss will radiology possible US guided needle aspiration of the right hip mass; continue current TX
--- NOTE | 2017-12-09 14:07 | PC.NURSE ---
pt took teds off due to going home
--- NOTE | 2017-12-10 13:00 | HMH.DCSUM ---
General - General Admission date: 12/07/17 Discharge date: 12/09/17 HPI HPI: Ms. Gutierrez is a pleasant 77 year old lady with a history of multiple lower back surgeries with Dr. Sorin August at [facility] in [place]. She also sees Dr. Kyler Elizalde at [facility] in [place] for related chronic pain. She had a right hip bursa injection with Dr. Elizalde in early October, which resulted in an enlarging, discolored and painful mass over the right hip. This has been ongoing for the past month, and the pain has been getting progressively worse. She presented to the office and was directly admitted with a dx of abscess vs hematoma of the right buttock. Objective Vital signs: Temp Pulse Resp BP Pulse Ox 97.8 F 72 18 98/59 93 L 12/09/17 08:19 12/09/17 08:19 12/09/17 08:19 12/09/17 08:19 12/09/17 08:19 Narrative: - Constitutional no acute distress, thin, cooperative - *Routine Respiratory Exam Absent: accessory muscle use, wheezes - *Routine Cardiovascular Exam Present: RRR - *Routine Abdominal Exam Present: soft. Absent: tenderness, distended, rebound, guarding - Routine Back/Spine/Pelvis Exam Back/Spine: Absent: paraspinal tenderness, vertebral tenderness, scoliosis Pelvis: Present: buttock ecchymosis, swelling of right buttock with deep fluctuant mass over right greater trochanter, painful with active ROM but nontender to palpation. Hospital Course Hospital Course: The patient was admitted and started on abx and pain control. She had a CT that showed a fluid collection associated with the right hip joint, isointense to the muscle. It was felt to be a seroma but possibly a resolving hematoma. General surgery was consulted and felt this was a right trochanteric bursitis with enlarging hematoma or seroma following bursa injection just over 1 month ago. Given its association with a joint, he did not recommend surgical drainage. He felt she would need an orthopedic evaluation She was seen by Dr. Griffin. He felt she had resolving ecchymosis in the area of the right greater trochanter and a mass somewhat more posterior to the trochanter which appeared somewhat fluctuant. NV was grossly intact in the involved R LE. There was a well healed incision from spinal surgery. Aspiration of the fluid was attempted at her bedside using lidocaine 0.5 mL for the skin and an 18g needle. It was unsuccessful. He felt a specimen of fluid would be the single most useful item for dx. He spoke with radiology about CT or US guided aspiration. They decided against this and sent her home with heat and pain control. DS: Diagnosis - Discharge Diagnosis (1) Seroma Status: Acute (2) Asthma Status: Chronic (3) Atrial fibrillation Status: Chronic (4) Hyperuricemia Status: Chronic (5) Lumbar disc disease Status: Chronic (6) Multinodular goiter Status: Chronic (7) Valvular heart disease Status: Chronic Meds Home Medications Medication Instructions Recorded Confirmed Type Esomeprazole Magnesium [Nexium] 40 mg PO DAILY 12/07/17 12/07/17 History Furosemide [Furosemide 80mg Tab] 80 mg PO DAILY 12/07/17 12/07/17 History Potassium Chloride [Pot Chlor 10 10 meq PO DAILY 12/07/17 12/07/17 History mEq Tab] Sertraline HCl [Zoloft] 100 mg PO DAILY 12/07/17 12/07/17 History Spironolactone [Spironolactone 25 mg PO DAILY 12/07/17 12/07/17 History 25mg Tab] Allopurinol [Allopurinol 100mg 100 mg PO BID 12/08/17 12/08/17 History tablet] Celecoxib 200 mg PO DAILY 12/08/17 12/08/17 History Colchicine 0.6 mg PO DAILY 12/08/17 12/08/17 History Gabapentin [Neurontin 600mg 600 mg PO QID 12/08/17 12/08/17 History tablet] Levothyroxine Sodium 88 mcg PO DAILY 12/08/17 12/08/17 History [Levothyroxine 88mcg (0.088mg) Tab] Montelukast Sodium [Montelukast 10 mg PO DAILY 12/08/17 12/08/17 History 10mg Tab] Allergies Allergy/AdvReac Type Severity Reaction
--- NOTE | 2017-12-10 13:03 | P.DS_ITS ---
General - General Admission date: 12/07/17 Discharge date: 12/09/17 HPI HPI: Ms. Gutierrez is a pleasant 77 year old lady with a history of multiple lower back surgeries with Dr. Sorin August at [facility] in [place]. She also sees Dr. Kyler Elizalde at [facility] in [place] for related chronic pain. She had a right hip bursa injection with Dr. Elizalde in early October, which resulted in an enlarging, discolored and painful mass over the right hip. This has been ongoing for the past month, and the pain has been getting progressively worse. She presented to the office and was directly admitted with a dx of abscess vs hematoma of the right buttock. Objective Vital signs: Temp Pulse Resp BP Pulse Ox 97.8 F 72 18 98/59 93 L 12/09/17 08:19 12/09/17 08:19 12/09/17 08:19 12/09/17 08:19 12/09/17 08:19 Narrative: - Constitutional no acute distress, thin, cooperative - *Routine Respiratory Exam Absent: accessory muscle use, wheezes - *Routine Cardiovascular Exam Present: RRR - *Routine Abdominal Exam Present: soft. Absent: tenderness, distended, rebound, guarding - Routine Back/Spine/Pelvis Exam Back/Spine: Absent: paraspinal tenderness, vertebral tenderness, scoliosis Pelvis: Present: buttock ecchymosis, swelling of right buttock with deep fluctuant mass over right greater trochanter, painful with active ROM but nontender to palpation. Hospital Course Hospital Course: The patient was admitted and started on abx and pain control. She had a CT that showed a fluid collection associated with the right hip joint, isointense to the muscle. It was felt to be a seroma but possibly a resolving hematoma. General surgery was consulted and felt this was a right trochanteric bursitis with enlarging hematoma or seroma following bursa injection just over 1 month ago. Given its association with a joint, he did not recommend surgical drainage. He felt she would need an orthopedic evaluation She was seen by Dr. Griffin. He felt she had resolving ecchymosis in the area of the right greater trochanter and a mass somewhat more posterior to the trochanter which appeared somewhat fluctuant. NV was grossly intact in the involved R LE. There was a well healed incision from spinal surgery. Aspiration of the fluid was attempted at her bedside using lidocaine 0.5 mL for the skin and an 18g needle. It was unsuccessful. He felt a specimen of fluid would be the single most useful item for dx. He spoke with radiology about CT or US guided aspiration. They decided against this and sent her home with heat and pain control. DS: Diagnosis - Discharge Diagnosis (1) Seroma Status: Acute (2) Asthma Status: Chronic (3) Atrial fibrillation Status: Chronic (4) Hyperuricemia Status: Chronic (5) Lumbar disc disease Status: Chronic (6) Multinodular goiter Status: Chronic (7) Valvular heart disease Status: Chronic Meds Home Medications Medication Instructions Recorded Confirmed Type Esomeprazole Magnesium [Nexium] 40 mg PO DAILY 12/07/17 12/07/17 History Furosemide [Furosemide 80mg Tab] 80 mg PO DAILY 12/07/17 12/07/17 History Potassium Chloride [Pot Chlor 10 10 meq PO DAILY 12/07/17 12/07/17 History mEq Tab] Sertraline HCl [Zoloft] 100 mg PO DAILY 12/07/17 12/07/17 History Spironolactone [Spironolactone 25 mg PO DAILY 12/07/17 12/07/17 History 25mg Tab] Allopurinol
== END 2017-12-09 14:42 | disposition home or self-care (01) | DRG 921 ==
PROVIDERS: Orthopaedic Surgery; Admitting Provider Family Medicine; Family Provider Family Medicine; PCP Family Medicine; Visit Provider Family Medicine
DX: L76.34 Postprocedural seroma of skin and subcutaneous tissue following other procedure (principal); I48.2 Chronic atrial fibrillation; M51.9 Unspecified thoracic, thoracolumbar and lumbosacral intervertebral disc disorder; E04.2 Nontoxic multinodular goiter
CPT/HCPCS: 99222; 36415; 73700; 80048; 80053; 85007; 85025; 85651; 86140; G0378; J3370

== ENCOUNTER → 2018-05-29 17:11 | Outpatient (CLI) | payer MEDICARE, BC, SELFPAY ==
--- NOTE | 2018-05-29 17:26 | XR_ITS ---
XR chest 2V HISTORY: ITS.REASON: BRONCHITIS ORDERING PHYSICIAN: MALACHI Bustillos PATIENT AGE: 78 years COMPARISON: 05/25/2017 FINDINGS: There is mild cardiomegaly without failure. Lungs are clear of acute infiltrate. There is mild hyperinflation which may be seen with air trapping such as bronchitis. No lobar consolidation or collapse. No acute bony anomalies. There is mild chronic wedging of T12. IMPRESSION: Mild hyperinflation which may be seen with bronchitis or COPD with mild cardiomegaly
== END ==
PROVIDERS: Visit Provider Physician Assistant
DX: J40 Bronchitis, not specified as acute or chronic (principal)
CPT/HCPCS: 71046

== ENCOUNTER → 2018-10-06 13:34 | Outpatient (CLI) | payer MEDICARE, BC, SELFPAY ==
--- NOTE | 2018-10-06 13:40 | CI_ITS ---
Cerebrovascular Exam Indications: 780.4 Dizziness and giddiness. IMPRESSIONS 1. The bilateral vertebral arteries are patent with normal antegrade flow. 2. Study suggests 20-49% stenosis involving the right internal carotid artery. No change from the study of 02-Jun-2007. 3. Study suggests 20-49% stenosis involving the left internal carotid artery. No change from the study of 02-Jun-2007. Carotid duplex study. Complete study and Doppler flow study including spectral analysis, color and campo scale imaging. Height: Height: 170.2cm. Height: 67in. Weight: Weight: 71.2kg. Weight: 156.7lb. Body mass index: BMI: 24.6kg/m^2. Body surface area: BSA: 1.84m^2. Location: Vascular laboratory. Patient status: Outpatient. Tables: Arterial flow: + +--------+--------+ Location V sys V ed + +--------+--------+ Right CCA - proximal 44.8cm/s 10.2cm/s + +--------+--------+ Right CCA - distal 55.8cm/s 13.4cm/s + +--------+--------+ Right ECA 69.1cm/s 0.8cm/s + +--------+--------+ Right ICA - proximal 76.2cm/s 15.7cm/s + +--------+--------+ Right ICA - mid 81.7cm/s 15.7cm/s + +--------+--------+ Right ICA - distal 77cm/s 12.6cm/s + +--------+--------+ Right vertebral 77.8cm/s 13.4cm/s + +--------+--------+ Left CCA - proximal 70.7cm/s 12.6cm/s + +--------+--------+ Left CCA - mid 86.4cm/s 12.6cm/s + +--------+--------+ Left CCA - distal 71.5cm/s 10.2cm/s + +--------+--------+ Left ECA 62.9cm/s 1.6cm/s + +--------+--------+ Left ICA - proximal 58.1cm/s 14.9cm/s + +--------+--------+ Left ICA - mid 99.8cm/s 17.3cm/s + +--------+--------+ Left ICA - distal 84.1cm/s 17.3cm/s + +--------+--------+ Left vertebral 70.4cm/s -------- + +--------+--------+ Velocity ratios: + + + + + + Right, V sys Right, V ed Left, V sys Left, V ed + + + + + + Max ICA/dist CCA 1.46 1.17 1.4 1.7 + + + + + + (Report amended ) Electronically signed by: Sebastian Gar [id number]
== END ==
PROVIDERS: PCP Family Medicine; Visit Provider Family Medicine
DX: R42 Dizziness and giddiness (principal)
CPT/HCPCS: 93880

== ENCOUNTER → 2018-12-29 13:10 | Outpatient (POV) | payer MEDICARE, BC, SELFPAY ==
[2018-12-29 13:17] VITALS: BP 100/52; PULSE 64; RESP 18; O2SAT 98
--- NOTE | 2018-12-29 14:05 | XR_ITS ---
XR cervical spine 5V Ordering Physician: Carlene Linda Patient Age: 78 years: Female HISTORY: ITS.REASON: BACK AND NECK PAIN Neck and back pain. TECHNIQUE: Five-view cervical spine series COMPARISON no C-spine studies. CT chest November 2015 partially images lower C-spine FINDINGS Subtle dextrocurvature C-spine Degenerative changes throughout the C-spine. Cervical spondylosis: . Mild degenerative disc space narrowing C5/6, followed by C6/7. Trace Just over 1 mm minor anterior listhesis C5 on C6; and C4 on 5 . Degenerative facet changes bilaterally on left more so than right. Most pronounced degenerative facet changes to the LEFT at C 3/4 followed by C4/5. At C5/6. Less pronounced facet arthropathy hypertrophy on Right at at C3/4. . C7/T1. Mild Facet arthropathy bilaterally . Swimmer's view.. Satisfactory alignment through the cervical thoracic junction. . Demineralization. C1/C2 satisfactory. IMPRESSION: --------- 1 . Moderate Degenerative changes cervical spine.. Cervical spondylosis. Mild dextroscoliosis \ 2. Degenerative facet changes bilaterally, most evident on left.. ] Most pronounced facet arthropathy on left C3/4 followed by C4/5 & C5/C6 3. Degenerative disc space narrowing most evident C5-C6. With trace degenerative anterolisthesis most evident at this level.
--- NOTE | 2018-12-29 14:05 | XR_ITS ---
XR thoracic spine 3V Ordering Physician: Carlene Linda Patient Age: 78 years: Female left-sided HISTORY: ITS.REASON: BACK AND NECK PAIN left-sided back pain area of scapula. TECHNIQUE: AP and lateral thoracic spine COMPARISON :2 view chest May [address] chest November 2015 FINDINGS . Gradual mild levocurvature at the lower T-spine. ( Roughly 10 degrees when measured from inferior T5 to the superior aspect T11). This may have progressed very slightly when compared back to 2015 studies . Mild compensatory dextrocurvature of the above & below this. There is a mild wedge compression fracture at superior aspect T12. This is unchanged since [address] chest. 10 days 15% loss of height here. Stable. Degenerative disc space narrowing is quite pronounced at L1/2. Also narrowing at L 2/3. Posterior fusion lumbar spine with partially imaged pedicle screws entering posteriorly at L3. IMPRESSION: 1.No acute findings T-spine. Mild stable degenerative changes. . mild levoscoliosis lower T-spine. With perhaps scant progression since 2015 & 2017 2. Old stable mild wedge compression fracture T12. Unchanged since prior studies dating back to 2015
--- NOTE | 2018-12-30 08:31 | HMH.PMCON ---
Assessment and Plan (1) Neck pain Current visit: Yes Status: Chronic Category: Medical Code(s): M54.2 - Cervicalgia (2) Lumbar disc disease Current visit: No Status: Chronic Category: Medical Code(s): M51.9 - Unspecified thoracic, thoracolumbar and lumbosacral intervertebral disc disorder (3) Thoracic back pain Current visit: Yes Status: Chronic Category: Medical Code(s): M54.6 - Pain in thoracic spine - Assessment and plan all Dx Assessment and Plan for all problems:: We will get plain film x-rays of both the cervical and thoracic spine we will then do a cervical MRI if warranted and follow-up with patient after this. Dr. Elizabeth has reviewed this note and agrees with this plan of care. This note was dictated using voice recognition software and may contain errors or omissions HPI - Data of Consult Consult date: 12/30/18 Requesting Physician: Carlene Linda APRN Primary Care Provider: Cari Reed MD - Consult Narrative Reason for consult: Neck pain History of present illness: Ms. Gutierrez is a 78 year old female who presents today to discuss her neck pain. Patient had back surgery several years ago. Patient has low back pain as well however her biggest complaint today is her neck and thoracic spine. She has numbness and tingling in both arms and hands. She states standing for long periods of time increases her pain while rest decreases it. Patient has tried and failed physical therapy along with massage therapy. She is also utilized a TENS unit with no relief. She rates her pain today a 5 out of 10. Patient is currently being managed with [place] 7.5 mg 1 p.o. twice daily and gabapentin 600 mg 1 p.o. 4 times a day. She states that this is beneficial to her. I do believe this is a very appropriate regimen. CC: Carlene Linda APRN [facility] History I have reviewed the patient's past medical history: Yes Medical History: Reports:: Atrial Fibrillation, Congestive Heart Failure Denies:: Cancer, Diabetes Mellitus Type 1, Diabetes Mellitus Type 2, Internal Pacemaker, MRSA Other Medical History: Reports: Arthritis, Cataracts, Fibromyalgia, Thyroid Disease Laterality Cases: Right: Total Knee Replacement Other Surgeries: Yes: Cardiac Catheterization, Other (lower back surgery x3). No: Pacemaker Amputation: No Fractures: No - *Social History Smoking Status: Never smoker Alcohol Intake: never Occupational Status: retired Housing: house Household Members: none Travel in the last 8 weeks: None - Psychiatric History Expresses thoughts of harming self/others: None Suicide Plan Description: No Plan *Family Hx:: Asthma Review of Systems - Review of Systems ROS General: no recent weight change, no fever, no sleep disturbances Respiratory: no cough, no shortness of air, no recurring pulmonary infections Cardiovascular/Peripheral Vascular: No chest pain, No palpitations, no edema, no shortness of breath. Gastrointestinal: no incontinence, normal bowel movements reported Genitourinary: no incontinence Musculoskeletal: Neck pain, arm pain, back pain Psychiatric: normal mood/ affect Neurological: [denies weakness in extremities], [denies balance issues] Meds Home Medications Medication Instructions Recorded Confirmed Type Esomeprazole Magnesium [Nexium] 40 mg PO DAILY 12/07/17 12/07/17 History Furosemide [Furosemide 80mg Tab] 80 mg PO DAILY 12/07/17 12/07/17 History Potassium Chloride [Pot Chlor 10 10 meq PO DAILY 12/07/17 12/07/17 History mEq Tab] Sertraline HCl [Zoloft] 100 mg PO DAILY 12/07/17 12/07/17 History Spironolactone [Spironolactone 25 mg PO DAILY 12/07/17 12/07/17 History 25mg Tab] Allopurinol [Allopurinol 100mg 100 mg PO BID 12/08/17 12/08/17 History tablet] Celecoxib 200 mg PO DAILY 12/08/17 12/08/17 History Colchicine 0.6 mg PO DAILY 12/08/17 12/08/17 History Gabapentin [Neurontin 600mg 600 mg PO QID 12/08/17 12/08/17 History tablet]
--- NOTE | 2018-12-30 08:34 | P.CONS_ITS ---
Assessment and Plan (1) Neck pain Current visit: Yes Status: Chronic Category: Medical Code(s): M54.2 - Cervicalgia (2) Lumbar disc disease Current visit: No Status: Chronic Category: Medical Code(s): M51.9 - Unspecified thoracic, thoracolumbar and lumbosacral intervertebral disc disorder (3) Thoracic back pain Current visit: Yes Status: Chronic Category: Medical Code(s): M54.6 - Pain in thoracic spine - Assessment and plan all Dx Assessment and Plan for all problems:: We will get plain film x-rays of both the cervical and thoracic spine we will then do a cervical MRI if warranted and follow-up with patient after this. Dr. Elizabeth has reviewed this note and agrees with this plan of care. This note was dictated using voice recognition software and may contain errors or omissions HPI - Data of Consult Consult date: 12/30/18 Requesting Physician: Carlene Linda APRN Primary Care Provider: Cari Reed MD - Consult Narrative Reason for consult: Neck pain History of present illness: Ms. Gutierrez is a 78 year old female who presents today to discuss her neck pain. Patient had back surgery several years ago. Patient has low back pain as well however her biggest complaint today is her neck and thoracic spine. She has numbness and tingling in both arms and hands. She states standing for long periods of time increases her pain while rest decreases it. Patient has tried and failed physical therapy along with massage therapy. She is also utilized a TENS unit with no relief. She rates her pain today a 5 out of 10. Patient is currently being managed with Need[place] 7.5 mg 1 p.o. twice daily and gabapentin 600 mg 1 p.o. 4 times a day. She states that this is beneficial to her. I do believe this is a very appropriate regimen. CC: Carlene Linda APRN [facility] History I have reviewed the patient's past medical history: Yes Medical History: Reports:: Atrial Fibrillation, Congestive Heart Failure Denies:: Cancer, Diabetes Mellitus Type 1, Diabetes Mellitus Type 2, Internal Pacemaker, MRSA Other Medical History: Reports: Arthritis, Cataracts, Fibromyalgia, Thyroid Disease Laterality Cases: Right: Total Knee Replacement Other Surgeries: Yes: Cardiac Catheterization, Other (lower back surgery x3). No: Pacemaker Amputation: No Fractures: No - *Social History Smoking Status: Never smoker Alcohol Intake: never Occupational Status: retired Housing: house Household Members: none Travel in the last 8 weeks: None - Psychiatric History Expresses thoughts of harming self/others: None Suicide Plan Description: No Plan *Family Hx:: Asthma Review of Systems - Review of Systems ROS General: no recent weight change, no fever, no sleep disturbances Respiratory: no cough, no shortness of air, no recurring pulmonary infections Cardiovascular/Peripheral Vascular: No chest pain, No palpitations, no edema, no shortness of breath. Gastrointestinal: no incontinence, normal bowel movements reported Genitourinary: no incontinence Musculoskeletal: Neck pain, arm pain, back pain Psychiatric: normal mood/ affect Neurological: [denies weakness in extremities], [denies balance issues] Meds Home Medications Medication Instructions Recorded Confirmed Type Esomeprazole Magnesium [Nexium] 40 mg PO DAILY 12/07/17 12/07/17 History Furosemide [Furosemide 80mg Tab] 80 mg PO DAILY 12/07/17 12/07/17 History Potassium Chloride [Pot Chlor
== END ==
PROVIDERS: PCP Family Medicine; Visit Provider Clinical Nurse Specialist Family Health
DX: M54.2 Cervicalgia (principal); M51.36 Other intervertebral disc degeneration, lumbar region; M54.6 Pain in thoracic spine
CPT/HCPCS: 72050; 72072; 99202

== ENCOUNTER → 2019-01-01 13:41 | Outpatient (CLI) | payer MEDICARE, BC, SELFPAY ==
--- NOTE | 2019-01-01 13:44 | MR_ITS ---
MR cervical spine wo con, MR 3-d myelogram/MRCP HISTORY: PT states neck pain with bilateral Shoulder pain, upper and mid back pain. PT also states dizziness when getting up or lying down and some times will be off balance. ITS.REASON: NECK PAIN ORDERING PHYSICIAN: Luis Alfredo Elizabeth MD PATIENT AGE: 78 years Comparison: X-RAY 12/29/18 TECHNIQUE: Standard multiplanar multiecho sequences are performed without contrast. 3-D MIP and myelographic images are also rendered and reviewed FINDINGS: There is a moderate degree of motion artifact which does decrease fine detail. Sagittal images are very limited secondary to the motion artifact. There is normal alignment. There is mild motion artifact which secures fine detail. The craniocervical junction has an unremarkable appearance. C2-C3: Unremarkable. C3-C4: 3 mm anterolisthesis of C3 with bulging disc slightly eccentric toward the left and mild left-sided lateral recess narrowing. There is narrowing of the canal at this level at 9 mm. No cord flattening. There are facet hypertrophic changes on the left at this level C4-C5: Minimal bulging disc. Borderline narrowing of the canal. C5-C6: Degenerative disc disease with bulging disc. Small left paracentral/foraminal disc osteophyte complex is noted at this level. There is mild contour deformity along the anterior aspect of the cord from a bulging disc with narrowing of the canal. C6-C7: Unremarkable. C7-T1 mild degenerative disc disease with minimal bulging disc IMPRESSION: 1. Multilevel cervical spondylosis. These above details. Each level There is considerable motion artifact which does decrease fine detail. 2. C3-C4: 3 mm anterolisthesis of C3 with bulging disc slightly eccentric toward the left and mild left-sided lateral recess narrowing. There is narrowing of the canal at this level at 9 mm. No cord flattening. There are facet hypertrophic changes on the left at this level 3. C4-C5: Minimal bulging disc. Borderline narrowing of the canal. 4. C5-C6: Degenerative disc disease with bulging disc. Small left paracentral/foraminal disc osteophyte complex is noted at this level. There is mild contour deformity along the anterior aspect of the cord from a bulging disc with narrowing of the canal. 5. No extruded herniated disc evident
== END ==
PROVIDERS: PCP Family Medicine; Visit Provider Anesthesiology
DX: M54.2 Cervicalgia (principal)
CPT/HCPCS: 72141; 76376

== ENCOUNTER → 2019-01-13 10:44 | Outpatient (POV) | payer MEDICARE, BC, SELFPAY ==
[2019-01-13 10:57] VITALS: BP 133/56; PULSE 74; RESP 18; O2SAT 98; BMI 25.2
--- NOTE | 2019-01-13 11:39 | P.CONS_ITS ---
[facility] Pain Management SOAP Note Subjective:: Patient is a 78-year-old white female who presents today for follow-up after cervical MRI. She rates her pain today is 6 out of 10. Patient is currently on [place] and gabapentin from her primary care physician. Patient also on blood thinner. Patient has a old thoracic compression fracture that bothers her at times. Patient states that she believes she had a brace she would feel better. We will provide her one today. Patient slightly frustrated because we cannot do an injection today however I tried to explain that she is on blood thinner and were unable to do that today. ROS General: no recent weight change, no fever, no sleep disturbances Respiratory: no cough, no shortness of air, no recurring pulmonary infections Cardiovascular/Peripheral Vascular: No chest pain, No palpitations, no edema, no shortness of breath. Gastrointestinal: no incontinence, normal bowel movements reported Genitourinary: no incontinence Musculoskeletal: Neck pain, thoracic back pain Psychiatric: normal mood/ affect Neurological: [denies weakness in extremities], [denies balance issues] Objective:: Physical Exam General: Alert and oriented x3, no acute distress, pleasant and cooperative, [on room air] Lungs: Resps E/U, Symmetrical chest expansion, Eyes: PERRL Musculoskeletal: Flexion and extension of cervical and thoracic spine somewhat guarded secondary to pain, deep tendon reflexes normal, strength in upper and lower extremities [5/5], [abnormal gait noted] Neurological: speech clear, batch 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 Patient is on blood thinner and will have to come off of it prior to her injective therapy. will also be set up with a thoracic back brace. Dr. Elizabeth has reviewed this note and agrees with this plan of care. This note was dictated using voice recognition software and may contain errors or omissions
== END ==
PROVIDERS: PCP Family Medicine; Visit Provider Clinical Nurse Specialist Family Health
DX: M50.10 Cervical disc disorder with radiculopathy, unspecified cervical region (principal); Z87.39 Personal history of other diseases of the musculoskeletal system and connective tissue
CPT/HCPCS: 99213

== ENCOUNTER → 2019-02-10 09:52 | Outpatient (POV) | payer MEDICARE, BC, SELFPAY ==
[2019-02-10 09:54] VITALS: BP 129/72; PULSE 75; RESP 18; O2SAT 98; BMI 25.0
--- NOTE | 2019-02-10 16:32 | HMH.PAINSOAP ---
[facility] Pain Management SOAP Note Subjective:: Is a pleasant 78-year-old white female who we are treating for neck pain and cervical radiculopathy. Patient is following up after at C5-C6 cervical epidural steroid injection. She states her pain is actually gotten worse. She denies any relief even when she was numb. Patient states that turning her head is much more difficult. Patient would like to start getting her pain down so she can return to physical therapy and help build up some of her muscle strength. Patient does have permission to come off her anticoagulation therapy for injective therapy. Patient is aware of this. Patient has a positive Spurling's test. She is trying to stay as active as possible. She is continuing a home stretching regimen. Patient is unable to take anti-inflammatories due to her comorbidities. ROS General: no recent weight change, no fever, no sleep disturbances Respiratory: no cough, no shortness of air, no recurring pulmonary infections Cardiovascular/Peripheral Vascular: No chest pain, No palpitations, no edema, no shortness of breath. Gastrointestinal: no incontinence, normal bowel movements reported Genitourinary: no incontinence Musculoskeletal: Neck pain, arm pain Psychiatric: normal mood/ affect Neurological: [denies weakness in extremities], [denies balance issues] Objective:: Physical Exam General: Alert and oriented x3, no acute distress, pleasant and cooperative, [on room air] Lungs: Resps E/U, Symmetrical chest expansion, Eyes: PERRL Musculoskeletal: Flexion and extension of cervical spine somewhat guarded secondary to pain, deep tendon reflexes normal, strength in upper and lower extremities [5/5], [abnormal gait noted] Neurological: speech clear, research home 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 I will follow-up with the patient after and reassess her symptoms at that time. Dr. Elizabeth has reviewed this note and agrees with this plan of care. This note was dictated using voice recognition software and may contain errors or omissions
--- NOTE | 2019-02-10 16:35 | P.CONS_ITS ---
[facility] Pain Management SOAP Note Subjective:: Is a pleasant 78-year-old white female who we are treating for neck pain and cervical radiculopathy. Patient is following up after at C5-C6 cervical epidural steroid injection. She states her pain is actually gotten worse. She denies any relief even when she was numb. Patient states that turning her head is much more difficult. Patient would like to start getting her pain down so she can return to physical therapy and help build up some of her muscle strength. Patient does have permission to come off her anticoagulation therapy for injective therapy. Patient is aware of this. Patient has a positive Spurling's test. She is trying to stay as active as possible. She is continuing a home stretching regimen. Patient is unable to take anti- inflammatories due to her comorbidities. ROS General: no recent weight change, no fever, no sleep disturbances Respiratory: no cough, no shortness of air, no recurring pulmonary infections Cardiovascular/Peripheral Vascular: No chest pain, No palpitations, no edema, no shortness of breath. Gastrointestinal: no incontinence, normal bowel movements reported Genitourinary: no incontinence Musculoskeletal: Neck pain, arm pain Psychiatric: normal mood/ affect Neurological: [denies weakness in extremities], [denies balance issues] Objective:: Physical Exam General: Alert and oriented x3, no acute distress, pleasant and cooperative, [on room air] Lungs: Resps E/U, Symmetrical chest expansion, Eyes: PERRL Musculoskeletal: Flexion and extension of cervical spine somewhat guarded secondary to pain, deep tendon reflexes normal, strength in upper and lower extremities [5/5], [abnormal gait noted] Neurological: speech clear, buck presser equal, no gross sensory deficits Assessment:: 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 I will follow-up with the patient after and reassess her symptoms at that time. Dr. Elizabeth has reviewed this note and agrees with this plan of care. This note was dictated using voice recognition software and may contain errors or omissions
== END ==
PROVIDERS: PCP Family Medicine; Visit Provider Clinical Nurse Specialist Family Health
DX: M50.30 Other cervical disc degeneration, unspecified cervical region (principal); M54.02 Panniculitis affecting regions of neck and back, cervical region
CPT/HCPCS: 99213

== ENCOUNTER → 2019-03-23 13:31 | Outpatient (POV) | payer MEDICARE, BC, SELFPAY ==
[2019-03-23 13:51] VITALS: BP 109/38; PULSE 70; RESP 18; O2SAT 98; BMI 25.0
--- NOTE | 2019-03-24 08:54 | HMH.PAINSOAP ---
[facility] Pain Management SOAP Note Subjective:: Patient is a pleasant 79-year-old white female who presents today for follow-up after cervical medial branch block. Patient has gotten no relief of her pain she is continually wearing a cervical collar. She rates her pain a 4 out of 10 when she is not moving she is currently on [place]. Patient states that her family doctor has offered her morphine or OxyContin however she is in interested in moving forward with more oral narcotics due to side effects. Patient and I discussed an intrathecal pain pump I do believe it would be beneficial for her. She did not had a long discussion in regards to this. Patient is on anticoagulation therapy however she can come off of it for her injections. She states she is unable to do most things during the day. Patient's failed conservative therapy including oral narcotics, physical therapy, injection therapy both epidural injections and facet joint injections. ROS General: no recent weight change, no fever, no sleep disturbances Respiratory: no cough, no shortness of air, no recurring pulmonary infections Cardiovascular/Peripheral Vascular: No chest pain, No palpitations, no edema, no shortness of breath. Gastrointestinal: no incontinence, normal bowel movements reported Genitourinary: no incontinence Musculoskeletal: Neck pain Psychiatric: normal mood/ affect Neurological: [denies weakness in extremities], [denies balance issues] Objective:: Physical Exam General: Alert and oriented x3, no acute distress, pleasant and cooperative, [on room air] Lungs: Resps E/U, Symmetrical chest expansion, Eyes: PERRL Musculoskeletal: Flexion and extension of cervical spine somewhat guarded secondary to pain, deep tendon reflexes normal, strength in upper and lower extremities [5/5], [abnormal gait noted] Neurological: speech clear, dried fruit washer equal, no gross sensory deficits Assessment:: This is a cervical spine with cervical spondylosis and cervical facet arthropathy, postlaminectomy syndrome Plan:: I believe the patient will be a good candidate for intrathecal therapy. We will set her up for intrathecal pain pump trial. Along with psychological evaluation. Patient knows that she needs to be off of her [place] 48 hours prior to her intrathecal pain pump trial she also knows that she needs the office afterwards. Patient and I talked about realistic goal setting. I will follow-up with the patient after her trial and reassess her symptoms at that time. Dr. Elizabeth has reviewed this note and agrees with this plan of care. This note was dictated using voice recognition software and may contain errors or omissions
--- NOTE | 2019-03-24 08:58 | P.CONS_ITS ---
[facility] Pain Management SOAP Note Subjective:: Patient is a pleasant 79-year-old white female who presents today for follow-up after cervical medial branch block. Patient has gotten no relief of her pain she is continually wearing a cervical collar. She rates her pain a 4 out of 10 when she is not moving she is currently on [place]. Patient states that her family doctor has offered her morphine or OxyContin however she is in interested in moving forward with more oral narcotics due to side effects. Patient and I discussed an intrathecal pain pump I do believe it would be beneficial for her. She did not had a long discussion in regards to this. Patient is on anticoagulation therapy however she can come off of it for her injections. She states she is unable to do most things during the day. Patient's failed conservative therapy including oral narcotics, physical therapy, injection therapy both epidural injections and facet joint injections. ROS General: no recent weight change, no fever, no sleep disturbances Respiratory: no cough, no shortness of air, no recurring pulmonary infections Cardiovascular/Peripheral Vascular: No chest pain, No palpitations, no edema, no shortness of breath. Gastrointestinal: no incontinence, normal bowel movements reported Genitourinary: no incontinence Musculoskeletal: Neck pain Psychiatric: normal mood/ affect Neurological: [denies weakness in extremities], [denies balance issues] Objective:: Physical Exam General: Alert and oriented x3, no acute distress, pleasant and cooperative, [on room air] Lungs: Resps E/U, Symmetrical chest expansion, Eyes: PERRL Musculoskeletal: Flexion and extension of cervical spine somewhat guarded secondary to pain, deep tendon reflexes normal, strength in upper and lower extremities [5/5], [abnormal gait noted] Neurological: speech clear, logging supervisor equal, no gross sensory deficits Assessment:: This is a cervical spine with cervical spondylosis and cervical facet arthropathy, postlaminectomy syndrome Plan:: I believe the patient will be a good candidate for intrathecal therapy. We will set her up for intrathecal pain pump trial. Along with psychological evaluation. Patient knows that she needs to be off of her [place] 48 hours prior to her intrathecal pain pump trial she also knows that she needs the office afterwards. Patient and I talked about realistic goal setting. I will follow- up with the patient after her trial and reassess her symptoms at that time. Dr. Elizabeth has reviewed this note and agrees with this plan of care. This note was dictated using voice recognition software and may contain errors or omissions
--- NOTE | 2019-05-06 09:22 | PC.PHONENOTE ---
Pt called and talked to myself at 09 to let staff knows she does not want to have the pain pump trial because god has answered her prayers and pt also stated she want not having that much pain and she wanted to cancel her appointment at this time.
== END ==
PROVIDERS: PCP Family Medicine; Visit Provider Clinical Nurse Specialist Family Health
DX: M47.812 Spondylosis without myelopathy or radiculopathy, cervical region; M54.03 Panniculitis affecting regions of neck and back, cervicothoracic region; M96.1 Postlaminectomy syndrome, not elsewhere classified
CPT/HCPCS: 99212

== ENCOUNTER → 2019-08-20 15:05 | Outpatient (CLI) | payer MEDICARE, BC, SELFPAY ==
--- NOTE | 2019-08-20 | ECG_ITS ---
APPROVED REPORT Exam: Resting ECG HR:113 bpm ECG Measurements Heart Rate 113 AXES CA P 76 QRSd 78 QRS 61 QT 308 T 46 QTc 422 <Conclusion> Atrial flutter with variable AV block Nonspecific ST abnormality Abnormal ECG Electronically signed by : Jairon Andrade, 08/21/2019 09:44:43
--- NOTE | 2019-08-20 15:13 | XR_ITS ---
PROCEDURE: XR CHEST 2V CLINICAL HISTORY: SOB Shortness of air COMPARISON: [facility] CT CHEST W/O CONTRAST from 11/30/2015 CXR CHEST(2 VIEWS-NOT PORTABLE) from 10/12/2016 CXR CHEST(2 VIEWS-NOT PORTABLE) from 05/25/2017 CXR2V XR chest 2V from 05/29/2018 FINDINGS: Mild cardiomegaly without failure. There are coronary artery calcifications. Mild atelectatic changes in the right lung base. There is mild chronic wedging involving T12. Inter pedicular screws are present at L2 and L3. No acute bony abnormalities. IMPRESSION: Cardiomegaly with right basilar atelectasis Dictated by: Sebastian Gar MD 08/20/2019 17:28 Electronically signed by Sebastian Gar MD in [place] 08/20/2019 17:28
== END ==
PROVIDERS: PCP Family Medicine; Visit Provider Family Medicine
DX: R06.02 Shortness of breath (principal)
CPT/HCPCS: 71046; 93005

== ENCOUNTER → 2019-09-18 11:46 | Outpatient (CLI) | payer MEDICARE, BC, SELFPAY ==
--- NOTE | 2019-09-18 | CA_ITS ---
APPROVED REPORT Exam: Pharmacologic Technologist: frankie schneider, Ht: 5 ft 8 in Wt: 158 lbs BSA: 1.85 m2 HR: 68 bpm BP: 151/62 mmHg Rhythm: NSR Indications: SOB< Palpatations Medical History Medical History: HTN, Smoking Medications: Metoprolol,,,,, Gabapentin,,,,, Synthroid,,,,, Lasix,,,,, Nexium,,,,, XaRELTO,,,,, CeleBREX,,,,, Singulair,,,,, SpirOnolactone,,,,, Potassium,,,,, SertraliINE,,,,, Allergies: No known drug allergies Cardiac Risk Factors: Smoking, HTN Stress Test Details Test: LEXISCAN HR Resting HR: 68 bpm Max Heart Rate (APMHR): 140 bpm Max HR Achieved: 91 bpm Target HR (85% APMHR): 119 bpm % of APMHR: 65 Recovery HR: 80 bpm BP Resting BP: 151.0/62.0 mmHg Max BP: 151.0/62.0 mmHg Recovery BP: 144.0/63.0 mmHg ECG Resting ECG: NSR Clinical Reason for Termination: Completed Protocol Exercise duration: 04:05 min Highest Stage Achieved: Stress ECG Conclusion DURING INFUSION OF LEXISCAN PATIENT HAD NO CHEST PAIN BUT DID HAVE SOA. NO ARRHYTHMIAS/ECTOPY. <1.5MM ST SEGMENT CHANGES. NON-DIAGNOSTIC. Test Summary REST . . . . . . . Sitting REST 07:43 . . 68 . 151/ 62 . . Stage 1 . . . . . . . Cardiolite injected Stage 1 01:00 . . 79 . . . . Stage 2 01:00 . . 87 . . . . Stage 3 01:00 . . 88 . 134/ 69 . . Stage 4 01:00 . . 86 . . . . Stage 4 01:05 . . 84 . 139/ 56 . Stop exercise at 04:05 RECOVERY 01:00 . . 84 . . . . RECOVERY 02:00 . . 80 . . . . RECOVERY 03:00 . . 84 . . . . RECOVERY 04:00 . . 82 . 142/ 56 . . RECOVERY 04:17 . . 78 . 142/ 56 . . Electronically signed by : Levon Lewis, 09/22/2019 14:58:10
--- NOTE | 2019-09-18 11:59 | NM_ITS ---
APPROVED REPORT Exam: Nuclear Stress Test Indication: SHORT OF BREATH, A-FIB, PALPITATION Patient Location: Outpatient Stress Tech: Rosemarie JOE Tech:Ami CainringtonBERTRAM RT(R)(N) Ht: 5 ft 7 in Wt: 158 lbs Bra Size: 40 B HR: 68 bpm BP: 151/62 mmHg BSA: 1.83 m2 BMI: 24.7 History: SHORT OF BREATH, A-FIB, PALPITATION Procedure: Patient received a 0.4 mg of intravenous Lexiscan, resting heart rate 62 bpm, resting blood pressure 161/62 mmHg, with Lexiscan maximum heart rate achived was 87 bpm which is % of the maximum predicted heart rate and blood pressure was 134/69 mmHg. With Lexiscan, patient denied any complaint of chest pain. Cardiac Stress and Resting SPECT Images: Cardiac Stress and Resting SPECT images were obtained using technetium 99m Myoview 31.7 mCi stress and 10.20 mCi at rest. NORMAL EF 68% No fixed or revwersable defects that would indicate infarction or ischemia Conclusion: NORMAL EF 68% No fixed or revwersable defects that would indicate infarction or ischemia Electronically signed by : Sebastian Gar MD 09/18/2019 18:17:14
--- NOTE | 2019-09-18 13:31 | HMH.ITSHM ---
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 [] SINGULAR METOPROLOL NEXIUM XARELTO CELBREX FUROSEMIDE
== END ==
PROVIDERS: PCP Family Medicine; Visit Provider Internal Medicine Cardiovascular Disease
DX: I20.8 Other forms of angina pectoris (principal)
CPT/HCPCS: 78452; 93017; A9502; J2785

== ENCOUNTER → 2019-12-29 12:28 | Outpatient (CLI) | payer MEDICARE, BC, SELFPAY ==
[2019-12-29 12:39] LABS: Adenovirus F 40/41, stool Not Detected (NotDetected); Astrovirus Not Detected (NotDetected); Campylobacter Not Detected (NotDetected); Clostridium Difficile A/B, PCR Not Detected (NotDetected); Cryptosporidium Not Detected (NotDetected); Cyclospora Cayetanesis Not Detected (NotDetected); Entamoeba histolytica Not Detected (NotDetected); Enteroaggregative E coli Not Detected (NotDetected); Enterotoxigenic E coli Not Detected (NotDetected); Giardia lamblia Not Detected (NotDetected); Norovirus Not Detected (NotDetected); Plesimonas Shigalloides, PCR Not Detected (NotDetected); Rotavirus A Not Detected (NotDetected); Salmonella, PCR Not Detected (NotDetected); Sapovirus Not Detected (NotDetected); Shiga-like toxin E coli Not Detected (NotDetected); Shigella Enterovasive E coli Not Detected (NotDetected); Vibrio Cholerae Not Detected (NotDetected); Vibrio, PCR Not Detected (NotDetected); Yersinia Entercolitica, PCR Not Detected (NotDetected)
[2019-12-29 16:23] LABS: Enteropathogenic E coli Detected (NotDetected)
== END ==
PROVIDERS: Visit Provider Family Medicine
DX: R19.7 Diarrhea, unspecified (principal); A04.0 Enteropathogenic Escherichia coli infection
CPT/HCPCS: 87506

== ENCOUNTER → 2019-12-30 15:44 | Outpatient (CLI) | payer MEDICARE, BC, SELFPAY ==
--- NOTE | 2019-12-30 16:31 | XR_ITS ---
PROCEDURE: XR KNEE RT 3V CLINICAL INDICATION: ACUTE RIGHT KNEE PAIN COMPARISON: KNEE3L KNEE-3 VIEWS-LT from 02/01/2014 FINDINGS: There has been a prior total knee replacement with good alignment. No evidence of orthopedic complication. There is a small suprapatellar effusion. IMPRESSION: Status post total knee replacement with small effusion Dictated by: Sebastian Gar MD 12/30/2019 19:07 Electronically signed by Sebastian Gar MD in [place] 12/30/2019 19:07
== END ==
PROVIDERS: PCP Nurse Practitioner Family; Visit Provider Nurse Practitioner Family
DX: M25.562 Pain in left knee (principal)
CPT/HCPCS: 73562

== ENCOUNTER → 2020-04-21 17:47 | Outpatient (CLI) | payer MEDICARE, BC, SELFPAY ==
[2020-04-21 20:10] LABS: Magnesium 2.1 mg/dl (1.6-2.3)
== END ==
DX: I48.19 Other persistent atrial fibrillation (principal)
CPT/HCPCS: 36415; 83735

== ENCOUNTER → 2020-06-21 12:08 | Outpatient (CLI) | payer MEDICARE, BC, SELFPAY | PROVIDERS: PCP Family Medicine; Visit Provider Family Medicine | DX: I48.0 Paroxysmal atrial fibrillation (principal) | CPT/HCPCS: 93225; 93226 ==

== ENCOUNTER 2020-07-12 14:40 | Inpatient (IN) | payer MEDICARE, BC, SELFPAY ==
[2020-07-12] VITALS (23 sets, daily range): BP systolic 99–125; BP diastolic 39–84; PULSE 67–89; RESP 16–20; TEMP 36.4–37.2; O2SAT 95–99; BMI 25.7
--- NOTE | 2020-07-12 14:53 | PC.NURSE ---
Pt arrived to the floor at this time via w/c
--- NOTE | 2020-07-12 14:57 | XR_ITS ---
PROCEDURE: XR CHEST 2V CLINICAL HISTORY: shortness of breath COMPARISON: CT [facility] CT CHEST W/O CONTRAST from 11/30/2015 CR CXR CHEST(2 VIEWS-NOT PORTABLE) from 05/25/2017 CR CXR2V XR chest 2V from 05/29/2018 CR XR CHEST 2V from 08/20/2019 FINDINGS: There is mild cardiomegaly without failure. The lungs are clear without infiltrates, suspicious nodules, or pleural effusions. Chronic wedging is noted at T12 unchanged IMPRESSION: No acute findings. Dictated by: Sebastian Gar MD 07/12/2020 21:31 Sebastian Gar MD in [place] 07/12/2020 21:31
--- NOTE | 2020-07-12 15:29 | P.CONPHA_ITS ---
[facility] Pharmacy VTE Monitoring - Patient Demographics Admission date: 07/12/20 Report Date: 07/12/20 Time: 15:30 Allergies/Adverse Reactions: Patient Allergies No Known Allergies Allergy (Verified 02/20/19 09:38) Height: 1.7 m Weight: 74.644 kg - Prophylaxis VTE Prophylaxis Ordered?: Yes Types of VTE Prophylaxis: TEDS Knee High, Pharmacological Location of Applied Device: Bilateral Lower Extremeties Pharmacologic Type: Other (XARELTO) - VTE Diagnosis Confirmed Treatment or plan recommended: Continue Current Treatment
[2020-07-12 15:37] LABS: Basophils % 0.3 % (0.1-2.0); Eosinophils # 0.1 K/mm3 (0.0-0.4); Eosinophils % 0.8 % (0.1-12.0); Lymphocytes # 0.4 K/mm3 (0.7-4.5); Lymphocytes % 6.2 % (10-50); Mean Corpuscular HGB Conc 31.6 g/dL (31.8-35.4); Mean Corpuscular Hemoglobin 31.8 pg (27.0-31.2); Mean Corpuscular Volume 100.5 fl (81-99); Mean Platelet Volume 9.6 fl (7.4-10.4); Monocytes # 0.1 K/mm3 (0.1-1.0); Monocytes % 2.1 % (1.7-9.3); Neutrophils # 5.6 K/mm3 (1.8-7.8); Neutrophils % 90.6 % (37.0-80.0); Platelet Count 163 K/mm3 (142-424); Red Blood Count 2.51 M/mm3 (4.20-5.40); Red Cell Distribution Width 17.2 % (11.5-17.5); White Blood Count 6.2 K/mm3 (4.8-10.8)
[2020-07-12 15:43] LABS: Hematocrit 25.2 % (37.0-47.0)
[2020-07-12 15:44] LABS: MANUAL DIFFERENTIAL MANUAL DIFFERENTIAL (MANUAL DIFF)
[2020-07-12 15:45] LABS: Alanine Aminotransferase 14 U/L (12-78); Albumin Level 3.9 g/dl (3.5-5.0); Albumin/Globulin Ratio 1.7 (1.1-1.8); Alkaline Phosphatase 53 U/L (38-126); Anion Gap 9.3 mEq/L (5-15); Aspartate Amino Transferase 33 U/L (14-36); Bilirubin,Total 0.6 mg/dl (0.2-1.3); Blood Urea Nitrogen 16 mg/dl (7-17); Calcium 8.6 mg/dl (8.4-10.2); Carbon Dioxide 35 mmol/L (22.0-30.0); Chloride 96 mmol/L (98-107); Creatinine Clearance Estimated 52 mL/min (50-200); Estimated Glomerular Filt Rate 60 ml/min (>60); GFR (African American) 73 ML/MIN (>60); Globulin 2.3 g/dL (1.3-3.2); Glucose 128 mg/dl (74-100); Potassium 3.3 mmoL/L (3.5-5.1); Sodium 137 mmol/L (136-145); Total Protein,Serum 6.2 g/dl (6.3-8.2)
--- NOTE | 2020-07-12 15:46 | PC.NURSE ---
reported critical h/h to rianna avitia. also verified that she wanted to continue with the xarelto.
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
[2020-07-12 16:12] LABS: Troponin I < 0.01 ng/ml (0.00-0.034)
[2020-07-12 16:16] LABS: Thyroid Stimulating Hormone 6.49 uIU/mL (0.465-4.68)
--- NOTE | 2020-07-12 16:25 | HMH.PHAINT ---
HOME MEDICATIONS RECONCILED FROM MD OFFICE MED LIST AND FILL HISTORY.
--- NOTE | 2020-07-12 16:47 | INFXCTL.NOTE ---
Notified Dr. Henry of consult. Stated he would see her in the AM.
[2020-07-12 17:08] LABS: Lymphocytes % 8 % (10-50); Monocytes % 1 % (2-9); Neutrophils % 91 % (42-76); Platelet Estimate Normal; RBC Morphology Normal; Total Cells Counted 100
[2020-07-12 17:09] LABS: Macrocytosis 1+
[2020-07-12 17:10] LABS: Hypochromasia 1+
--- NOTE | 2020-07-12 18:18 | PC.NURSE ---
blood ready at this time
--- NOTE | 2020-07-12 19:43 | PC.NURSE ---
PT DIRECT ADMIT FOR INFUSION OF RBC'S, CURRENTLY ON 2L NC WHICH SHE STATES THAT SHE WEARS AT HOME, HISTORY OF CHF NOTED PT HAS MILD BILATERAL EDEMA OF THE LOWER EXT. PT AO*4 AND ABLE TO FOLLOW ALL COMMANDS AND ANSWER QUESTIONS. PT DENIES LOWER BACK PAIN AND IS NEGATIVE FOR S/S OF TRANSFUSION REACTIONS. PT ABLE TO AMBULATE TO RR PER SELF WITH MINIMUM ASSISTANCE, DOES COMPLAIN OF SOME SOA WITH AMBULATION BUT O2 SATS REMAIN IN THE MID TO HIGH 90'S. BOWEL SOUNDS ARE ACTIVE *4, ABD IS SOFT AND NON-TENDER ON PALPATION.
[2020-07-13] VITALS (22 sets, daily range): BP systolic 93–129; BP diastolic 34–60; PULSE 50–76; RESP 14–19; TEMP 36.4–37; O2SAT 88–99; BMI 25.3; BMI 25.2
[2020-07-13 00:44] LABS: Hemoglobin 8.7 g/dL (12.2-16.2)
--- NOTE | 2020-07-13 01:26 | PC.NURSE ---
Pt received @ [facility] no reaction noted
--- NOTE | 2020-07-13 04:34 | PC.NURSE ---
pt A&OX4 . lungs CTA. pt denies any pain. 02 @ 2L pt c/o of SOA on exertion but returns back to baseline quickly. 02 sats 95-98. pt ambulates to BR with stand by assistance.
[2020-07-13 06:35] LABS: Basophils % 0.4 % (0.1-2.0); Eosinophils # 0.1 K/mm3 (0.0-0.4); Eosinophils % 2.4 % (0.1-12.0); Hematocrit 27.2 % (37.0-47.0); Lymphocytes # 0.7 K/mm3 (0.7-4.5); Lymphocytes % 21.2 % (10-50); Mean Corpuscular HGB Conc 32.9 g/dL (31.8-35.4); Mean Corpuscular Hemoglobin 30.6 pg (27.0-31.2); Mean Corpuscular Volume 92.8 fl (81-99); Mean Platelet Volume 7.7 fl (7.4-10.4); Monocytes # 0.2 K/mm3 (0.1-1.0); Monocytes % 6.6 % (1.7-9.3); Neutrophils # 2.4 K/mm3 (1.8-7.8); Neutrophils % 69.4 % (37.0-80.0); Platelet Count 151 K/mm3 (142-424); Red Blood Count 2.94 M/mm3 (4.20-5.40); Red Cell Distribution Width 18.5 % (11.5-17.5); White Blood Count 3.5 K/mm3 (4.8-10.8)
--- NOTE | 2020-07-13 06:54 | HMH.GSCON ---
*Admission Date: 07/12/20 *Reason for consult:: Symtomatic anemia *History of present illness: Ms. Gutierrez is an 80-year-old female with a history of hyperlipidemia, lumbar disc disease, fibromyalgia, multinodular goiter, paroxysmal atrial fibrillation/flutter, valvular heart disease, who presented to the office of [facility] today feeling extremely weak, muscle weakness with difficulty with walking, shortness of breath, and intermittent chest pain. She is on home oxygen. She states the chest pain comes and goes. The shortness of breath is mainly with exertion. She does wear her oxygen when not sitting. She is afraid that she is losing blood. She was seen in the office also on June 25, 2020 complaining with black stools and some blood in the toilet. Hemoglobin and hematocrit at that time were 11.4 and 33.8. Stool for occult blood was positive. She was started on iron and was to have a GI appointment which was scheduled for August 04, 2020. She states that initially she cured see the blood in the stool. When she was started on iron supplementation she developed black stools however. She does state that she had a colonoscopy several years ago in [place]. Review of Systems - Review of Systems Review of systems:: pertinent systems reviewed and negative unless documented below - *Neurologic Reports abnormal walking, Denies abnormal speech, Denies confusion, Denies frequent falls, Denies headache(s) [facility] History Medical History: Reports:: Arrhythmia, Atrial Fibrillation, Congestive Heart Failure, Chronic Obstructive Pulmonary Disease (COPD), Coronary Artery Disease, Depression, Gastroesophageal Reflux Disease(GERD), Home Oxygen, Hyperlipidemia Denies:: Cancer, Diabetes Mellitus Type 1, Diabetes Mellitus Type 2, Internal Pacemaker, MRSA, Seizures *Have you ever received a pneumonia vaccine?: Yes *Have you received a flu vaccine this season?: Yes Other Medical History: Reports: Anemia, Arthritis, Cataracts, Fibromyalgia, Thyroid Disease Laterality Cases: Right: Total Knee Replacement, Bilateral: Tonsillectomy Other Surgeries: Yes: Cardiac Catheterization, Thyroidectomy, Other (lower back surgery x3). No: Pacemaker Amputation: No Fractures: No - *Social History Last grade of school completed: High school graduate Smoking Status: Never smoker Alcohol Intake: never *Occupational Status:: retired Housing: house Household Members: none *Travel in the last 8 weeks: None - Psychiatric History Pschychiatric History:: Reports:: Depression Family Hx:: Stroke Meds Home Medications Medication Instructions Recorded Confirmed Type Esomeprazole Magnesium [Nexium] 40 mg PO DAILY 12/07/17 07/12/20 History Potassium Chloride [Pot Chlor 10 10 meq PO DAILY 12/07/17 07/12/20 History mEq Tab] Sertraline HCl [Zoloft] 100 mg PO DAILY 12/07/17 07/12/20 History Gabapentin [Neurontin 600mg 600 mg PO QID 12/08/17 07/12/20 History tablet] Levothyroxine Sodium 88 mcg PO DAILY 12/08/17 07/12/20 History [Levothyroxine 88mcg (0.088mg) Tab] allopurinoL [Allopurinol 100mg 200 mg PO DAILY 12/08/17 07/12/20 History tablet] Rivaroxaban [Xarelto 15mg tablet] 15 mg PO PM 12/29/18 07/12/20 History Acetaminophen [Tylenol 500mg 1,000 mg PO Q6HP PRN 07/12/20 07/12/20 History tablet] Aspirin [Aspirin 81mg EC Tab] 81 mg PO DAILY 07/12/20 07/12/20 History Atorvastatin Calcium [Lipitor 40mg 40 mg PO HS 07/12/20 07/12/20 History Tab] Budesonide/Formoterol Fumarate 2 puffs IH BID 07/12/20 07/12/20 History [Symbicort 160-4.5 Mcg Inhaler] Ferrous Gluconate [Ferrous 324 mg PO BID 07/12/20 07/12/20 History Gluconate 324mg Tab] Furosemide [Furosemide 40MG tAB] 40 mg PO DAILY 07/12/20 07/12/20 History Hydrocodone/Acetaminophen [Lortab 1 tab PO TIDP PRN 07/12/20 07/12/20 History 7.5/325mg tablet] Metoprolol Succinate [Metoprolol 50 mg PO DAILY 07/12/20 07/12/20 History Succinate 50mg Tablet*] Montelukast
--- NOTE | 2020-07-13 07:54 | HMH.ACPN2 ---
Internal Medicine - PN: Subj *Date: 07/13/20 *Time: 07:54 Interval history: Patient states she had an okay night. She slept at intervals. Her back and neck have been bothering her. She is ambulated to the bathroom with help. She has had no further stools. She denies nausea, vomiting, and abdominal pain. She states her breathing is okay. She is had no further chest pain. She did receive 2 units of packed red blood cells after which her hemoglobin was 8.7. This a.m. her hemoglobin is 9 with a white blood cell count of 3.5. Hematocrit is 27.2. Blood chemistries show slightly low potassium at 3.3. Troponin I was normal. TSH was slightly elevated at 6.49.Chest x-ray revealed no acute findings. She was seen by Dr. Henry in consultation who plans for EGD today. Exam Vital signs and Labs for Last 24 Hours: Temp Pulse Resp BP Pulse Ox 98.3 F 75 16 121/59 L 98 07/13/20 04:00 07/13/20 04:00 07/13/20 04:00 07/13/20 04:00 07/13/20 04:00 Laboratory Results - last 24 hr 07/12/20 15:27: WBC 6.2, RBC 2.51 L, Hgb 8.0 L, Hct 25.2 L, MCV 100.5 H, MCH 31.8 H, MCHC 31.6 L, RDW 17.2, Plt Count 163, MPV 9.6, Neut % (Auto) 90.6 H, Lymph % (Auto) 6.2 L, [place] % (Auto) 2.1, Eos % (Auto) 0.8, Baso % (Auto) 0.3, Neut # (Auto) 5.6, Lymph # (Auto) 0.4 L, [place] # (Auto) 0.1, Eos # (Auto) 0.1, Baso # (Auto) 0.0, Total Counted 100, Neutrophils % (Manual) 91 H, Lymphocytes % (Manual) 8 L, Monocytes % (Manual) 1 L, Platelet Estimate Normal, RBC Morphology Normal, Hypochromasia 1+, Macrocytosis 1+ 07/12/20 15:27: Sodium 137, Potassium 3.3 L, Chloride 96 L, Carbon Dioxide 35 H, Anion Gap 9.3, BUN 16, Creatinine 0.90, Estimated Creat Clear 52, Estimated GFR 60, Est GFR ( Amer) 73, Glucose 128 H, Calcium 8.6, Total Bilirubin 0.6, AST 33, ALT 14, Alkaline Phosphatase 53, Total Protein 6.2 L, Albumin 3.9, Globulin 2.3, Albumin/Globulin Ratio 1.7 07/12/20 15:27: Troponin I < 0.01, TSH 6.49 H 07/12/20 15:27: Blood Type O Positive, Antibody Screen Negative, Crossmatch (AHG) See Detail 07/12/20 17:19: Blood Type Confirm O Positive 07/13/20 00:35: Hgb 8.7 L, Hct 27.0 L 07/13/20 05:45: WBC 3.5 L D, RBC 2.94 L, Hgb 9.0 L, Hct 27.2 L, MCV 92.8, MCH 30.6, MCHC 32.9, RDW 18.5 H, Plt Count 151, MPV 7.7, Neut % (Auto) 69.4, Lymph % (Auto) 21.2, [place] % (Auto) 6.6, Eos % (Auto) 2.4, Baso % (Auto) 0.4, Neut # (Auto) 2.4, Lymph # (Auto) 0.7, [place] # (Auto) 0.2, Eos # (Auto) 0.1, Baso # (Auto) 0.0 I & O for Last 24 hours: Intake & Output 07/10/20 07/11/20 07/12/20 07/13/20 11:59 11:59 11:59 11:59 Intake Total 971 / 971 Balance 971 / 971 Weight 161 lb 8 oz Microbiology Reports for the Last 24 Hours: Microbiology 07/12/20 15:00 Nasopharyngeal Coronavirus COVID-19 PCR - Final - Constitutional no acute distress Comments: Getting ready to go to the bathroom. - *Routine Respiratory Exam Present: CTA bilaterally (Anteriorly and posteriorly) - *Routine Cardiovascular Exam Present: RRR (Monitor showing sinus rhythm.) - *Routine Abdominal Exam Present: soft, normoactive bowel sounds. Absent: tenderness, distended - *Routine Extremities Exam Present: TATY stockings. Absent: edema - *Routine Neurological Exam Present: alert, oriented X3 Assessment and Plan (1) Symptomatic anemia Current visit: Yes Status: Acute Category: Medical Code(s): D64.9 - Anemia, unspecified (2) Shortness of breath Current visit: Yes Status: Acute Category: Medical Code(s): R06.02 - Shortness of breath (3) Chest pain Current visit: Yes Status: Acute Category: Medical Code(s): R07.9 - Chest pain, unspecified (4) Paroxysmal atrial fibrillation Current visit: Yes Status: Chronic Category: Medical Code(s): I48.0 - Paroxysmal atrial fibrillation (5) Hypothyroidism Current visit: Yes Status: Chronic Category: Medical Code(s): E03.9 - Hypothyroidism, unspecified (6) Fibromyalgia Current visit: Yes
--- NOTE | 2020-07-13 08:08 | HMH.SCOPE ---
- Procedure: Date: 07/13/20 Procedure Performed:: Esophagogastroduodenoscopy Indications:: Patient is an 80-year-old female with multiple medical comorbidities on Xarelto for intermittent atrial fibrillation. She had presented to her primary care provider's office several weeks ago with some symptoms consistent with melena and what she describes as visible blood in her stool. She was scheduled for gastroenterology consultation which was scheduled for August 04. She was started on iron supplementation. She presented yesterday with progressive symptomatic anemia and was admitted for inpatient management and surgical consultation. Performing Provider:: Bill Henry MD Referring Provider:: Omkar Reed MD Sedation:: MAC sedation with propofol Procedure:: Patient was taken to endoscopy procedure room. She was positioned in lateral decubitus position. Adequate intravenous sedation was achieved with anesthesia titration of propofol. Olympus endoscope was inserted via the oropharynx and advanced through the esophagus. Between approximately 35 and 37 cm the gastroesophageal junction was encountered. She had minimal Schatzki's ring. Stomach was cannulated and insufflated. Retroflexion revealed moderate sliding hiatal hernia. There is some minor nonerosive gastritis within the antrum. There were no erosions or ulcerations. She has some minor pyloric stenosis but the endoscope was able to be advanced beyond the pylorus and into the duodenum. Duodenal bulb and duodenal sweep are unremarkable. No biopsies were obtained due to the patient's anticoagulation. Stomach was desufflated and the endoscope was withdrawn. Findings:: Moderate hiatal hernia Minimal antral nonerosive gastritis Recommendations:: No source on upper endoscopy as a definite etiologic factor for anemia and GI blood loss. Patient will need colonoscopy at some point. Complications:: None immediately apparent Estimated blood obtained (mL): 0
--- NOTE | 2020-07-13 08:13 | HMH.ANESCL ---
[facility] Anesthesia Checklist - Patient Identification Patient Identification: Arm Band, Verbal (Name & ) - Structural Data Admitted From: Inpatient Planned Operative Procedure/s: EGD Consent for Planned Operative Procedure(s) Verified: Yes Verified Documents: Surgical Consent, History and Physical, Cardiac Clearance - NPO Status Verified Time NPO: 00:00 - Chart Verification Results Verified: CBC, BMP, PT, PTT, INR - Additional verifications Anesthesia Reactions: No - Airway Assessment C-Spine Mobility Assessed: Yes TMJ Mobility Assessed: Yes Dentition: Poor Dentition (No upper teeth) - Neurological Assessment Level of Consciousness: Awake, Alert, Appropriate, Follows Commands Hx Seizures: No Numbness or tingling in extremities: No - Anesthesia Plan Anesthesia Risk discussed: Yes Anesthesia Plan: Verified ASA Class: IV (Emergent) Anesthesia Type: MAC [facility] History I have reviewed the patient's past medical history: Yes Medical History: Reports:: Arrhythmia, Atrial Fibrillation, Congestive Heart Failure, Chronic Obstructive Pulmonary Disease (COPD), Coronary Artery Disease, Depression, Gastroesophageal Reflux Disease(GERD), Home Oxygen, Hyperlipidemia Denies:: Cancer, Diabetes Mellitus Type 1, Diabetes Mellitus Type 2, Internal Pacemaker, MRSA, Seizures *Have you ever received a pneumonia vaccine?: Yes *Have you received a flu vaccine this season?: Yes Other Medical History: Reports: Anemia, Arthritis, Cataracts, Fibromyalgia, Thyroid Disease Anesthesia experience/problems:: None Laterality Cases: Right: Total Knee Replacement, Bilateral: Tonsillectomy Other Surgeries: Yes: Cardiac Catheterization, Thyroidectomy, Other (lower back surgery x3). No: Pacemaker Amputation: No Fractures: No - *Social History Last grade of school completed: High school graduate Smoking Status: Never smoker Alcohol Intake: never Substance Use Type: denies use *Occupational Status:: retired Housing: house Household Members: none *Travel in the last 8 weeks: None - Psychiatric History Pschychiatric History:: Reports:: Depression Family Hx:: Stroke
--- NOTE | 2020-07-13 10:39 | HMH.CNCARD ---
History of Present Illness Consult date: 07/13/20 Requesting physician: Cari Reed Consult reason: atrial fibrillation Chief complaint: fatigue, SOB Additional Medical History:: 1. Atrial fibrillation with cardioversion x2 2. Long-term anticoagulation with Xarelto 3. CHF 4. COPD 5. GERD 6. Hyperlipidemia History of present illness: This is an 80-year-old female who presented to the emergency department with complaints of weakness, fatigue, and shortness of breath. She states that she has not felt well for the last several weeks and she has been having issues with her blood levels being low. She does report that she did have some blood in her stool and she was found to be iron deficient so she started iron supplementation. Since then she has been unable to tell if her stools have blood because they are dark and tarry from the iron. Upon admission her hemoglobin was 8 and her hematocrit was 25.2. The patient states that she has been more short of breath as well since her blood levels have been dropping. She states that just walking from room to room in her house can cause her to be extremely short of breath and fatigued, is most likely secondary to her profound anemia. She did state that she had some chest pain last week. She states that this was a left-sided chest aching. It did not radiate. It was associated with shortness of breath. She does report having a history of atrial fibrillation. She sees Dr. Argueta for this. She has been on long-term anticoagulation with Xarelto for this. This has currently been stopped. She states that she did have a stress test recently and was referred to a Dr. Avila. Her metoprolol and another medication were adjusted and she is supposed to go back to see him in a few weeks. She states that no cardiac catheterization was ordered and she is unable to tell me what the results of the stress test were. We will try to get these results from [facility]. She denies any chest pain or pressure this week. No lower extremity edema. She denies any fever, chills, nausea, vomiting, diarrhea, PND or orthopnea. The patient did undergo an EGD this morning which showed no signs of bleeding. She states that they are discussing a possible colonoscopy as well. The patient denies any history of ID or coronary artery disease. She states that she has had 2 heart caths in the past which were both normal. [facility] History I have reviewed the patient's past medical history: Yes Medical History: Reports:: Arrhythmia, Atrial Fibrillation, Congestive Heart Failure, Chronic Obstructive Pulmonary Disease (COPD), Depression, Gastroesophageal Reflux Disease(GERD), Home Oxygen, Hyperlipidemia Denies:: Cancer, Diabetes Mellitus Type 1, Diabetes Mellitus Type 2, Internal Pacemaker, MRSA, Seizures *Have you ever received a pneumonia vaccine?: Yes *Have you received a flu vaccine this season?: Yes Other Medical History: Reports: Anemia, Arthritis, Cataracts, Fibromyalgia, Thyroid Disease Anesthesia experience/problems:: None Laterality Cases: Right: Total Knee Replacement, Bilateral: Tonsillectomy Other Surgeries: Yes: Cardiac Catheterization, Thyroidectomy, Other (lower back surgery x3). No: Pacemaker Amputation: No Fractures: No - *Social History Last grade of school completed: High school graduate Smoking Status: Never smoker Alcohol Intake: never Substance Use Type: denies use *Occupational Status:: retired Housing: house Household Members: none *Travel in the last 8 weeks: None - Psychiatric History Pschychiatric History:: Reports:: Depression Family Hx:: Stroke Meds Home Medications Medication Instructions Recorded Confirmed Type Esomeprazole Magnesium [Nexium] 40 mg PO DAILY 12/07/17 07/12/20 History Potassium Chloride [Pot Chlor 10 10 meq PO DAILY 12/07/17 07/12/20 History mEq Tab] Sertraline HCl [Zoloft] 100 mg PO DAILY 12/07/17 07/12/20 History Gabapentin [Neurontin 600mg 600 mg PO QID 12/08/17 08
--- NOTE | 2020-07-13 12:40 | ECG_ITS ---
APPROVED REPORT Exam: Resting ECG HR:69 bpm ECG Measurements Heart Rate 69 AXES HI 172 P 71 QRSd 84 QRS 45 QT 404 T 50 QTc 432 <Conclusion> Normal sinus rhythm ST abnormality, unchanged from prior Abnormal ECG Electronically signed by : Jairon Andrade, 07/13/2020 17:31:31
--- NOTE | 2020-07-13 18:16 | PC.NURSE ---
Pt is alert and oriented x4. She has rested in bed this shift except to ambulate to the bathroom. She uses a cane and 1 assist. Appetite has been good. Only complaint was neck/back pain, she was given prn hydrocodone with success. No other complaints or concerns at this time. Will continue to monitor.
[2020-07-13 19:31] LABS: Chloride 105 mmol/L (98-107); Potassium 3.5 mmoL/L (3.5-5.1); Sodium 139 mmol/L (136-145)
[2020-07-13 19:34] LABS: Anion Gap 8.5 mEq/L (5-15); Blood Urea Nitrogen 15 mg/dl (7-17); Calcium 8.1 mg/dl (8.4-10.2); Carbon Dioxide 29 mmol/L (22.0-30.0); Creatinine Clearance Estimated 51 mL/min (50-200); Estimated Glomerular Filt Rate 60 ml/min (>60); GFR (African American) 73 ML/MIN (>60); Glucose 119 mg/dl (74-100)
[2020-07-14] VITALS (8 sets, daily range): BP systolic 110–142; BP diastolic 55–77; PULSE 60–71; RESP 16–18; TEMP 36.8–37.1; O2SAT 92–98; BMI 25.9
--- NOTE | 2020-07-14 05:38 | PC.NURSE ---
Pt is A&Ox4 and has ambulated to the BR several times thi shift with staff SBA and tolerated well. Lungs CTA. Pt denies any SOA. Chronic pain reported to neck and back, medicated with Tylenol and pt resting well on reassessment. TEDS in place to BLE. Pt denies any nausea. VSS, call light within reach, will continue to monitor.
[2020-07-14 06:00] LABS: Basophils % 0.4 % (0.1-2.0); Eosinophils # 0.2 K/mm3 (0.0-0.4); Eosinophils % 5.3 % (0.1-12.0); Hematocrit 29.8 % (37.0-47.0); Hemoglobin 9.4 g/dL (12.2-16.2); Lymphocytes # 0.8 K/mm3 (0.7-4.5); Lymphocytes % 24.8 % (10-50); Mean Corpuscular HGB Conc 31.7 g/dL (31.8-35.4); Mean Corpuscular Hemoglobin 30.8 pg (27.0-31.2); Mean Corpuscular Volume 97.3 fl (81-99); Mean Platelet Volume 8.1 fl (7.4-10.4); Monocytes # 0.2 K/mm3 (0.1-1.0); Monocytes % 7.3 % (1.7-9.3); Neutrophils % 62.3 % (37.0-80.0); Platelet Count 163 K/mm3 (142-424); Red Blood Count 3.06 M/mm3 (4.20-5.40); Red Cell Distribution Width 18.1 % (11.5-17.5); White Blood Count 3.1 K/mm3 (4.8-10.8)
[2020-07-14 06:02] LABS: Chloride 109 mmol/L (98-107)
[2020-07-14 06:03] LABS: Potassium 3.9 mmoL/L (3.5-5.1); Sodium 140 mmol/L (136-145)
[2020-07-14 06:06] LABS: Anion Gap 6.9 mEq/L (5-15); Blood Urea Nitrogen 14 mg/dl (7-17); Calcium 8.2 mg/dl (8.4-10.2); Carbon Dioxide 28 mmol/L (22.0-30.0); Creatinine Clearance Estimated 52 mL/min (50-200); Estimated Glomerular Filt Rate 69 ml/min (>60); GFR (African American) 83 ML/MIN (>60); Glucose 88 mg/dl (74-100)
[2020-07-14 06:20] LABS: CEA 3.9 ng/mL (0.0-4.7)
--- NOTE | 2020-07-14 07:17 | HMH.GSPN ---
Subjective Patient reports: no new complaints Progress Note: A&P (1) Symptomatic anemia Status: Acute Assessment and plan: Currently stable with no sign of definitive ongoing blood loss. Clear liquids for now with GoLYTELY bowel prep ordered for later this afternoon. Gastroenterology consultation pending (likely colonoscopy tomorrow per gastroenterology). Current Visit: Yes (2) Shortness of breath Status: Acute Current Visit: Yes (3) Chest pain Status: Acute Current Visit: Yes (4) Paroxysmal atrial fibrillation Status: Chronic Current Visit: Yes (5) Hypothyroidism Status: Chronic Current Visit: Yes (6) Fibromyalgia Status: Chronic Current Visit: Yes (7) Lumbar disc disease Status: Chronic Current Visit: No (8) Multinodular goiter Status: Chronic Current Visit: No (9) Valvular heart disease Status: Chronic Current Visit: No Exam Vital signs and Labs for Last 24 Hours: Temp Pulse Resp BP Pulse Ox 98.2 F 68 16 120/59 L 92 L 07/14/20 04:03 07/14/20 04:03 07/14/20 04:03 07/14/20 04:03 07/14/20 04:03 Laboratory Results - last 24 hr 07/12/20 15:27: Carcinoembryonic Ag 3.9 07/13/20 19:20: Sodium 139, Potassium 3.5, Chloride 105, Carbon Dioxide 29, Anion Gap 8.5, BUN 15, Creatinine 0.90, Estimated Creat Clear 51, Estimated GFR 60, Est GFR ( Amer) 73, Glucose 119 H, Calcium 8.1 L 07/14/20 05:36: WBC 3.1 L, RBC 3.06 L, Hgb 9.4 L, Hct 29.8 L, MCV 97.3, MCH 30.8, MCHC 31.7 L, RDW 18.1 H, Plt Count 163, MPV 8.1, Neut % (Auto) 62.3, Lymph % (Auto) 24.8, [place] % (Auto) 7.3, Eos % (Auto) 5.3, Baso % (Auto) 0.4, Neut # (Auto) 2.0, Lymph # (Auto) 0.8, [place] # (Auto) 0.2, Eos # (Auto) 0.2, Baso # (Auto) 0.0 07/14/20 05:36: Sodium 140, Potassium 3.9, Chloride 109 H, Carbon Dioxide 28, Anion Gap 6.9, BUN 14, Creatinine 0.80, Estimated Creat Clear 52, Estimated GFR 69, Est GFR ( Amer) 83, Glucose 88 D, Calcium 8.2 L I & O for Last 24 hours: Intake & Output 07/11/20 07/12/20 07/13/20 07/14/20 11:59 11:59 11:59 11:59 Intake Total 971 / 971 1339 / 1339 Output Total Balance 971 / 971 1137 / 1137 Weight 161 lb 8 oz 165 lb 5.723 oz - Constitutional no acute distress - *Routine Respiratory Exam Absent: respiratory distress - *Routine Cardiovascular Exam Present: RRR - *Routine Neurological Exam Present: alert - Routine Psychiatric Exam Present: normal affect
--- NOTE | 2020-07-14 08:35 | HMH.ACPN2 ---
Internal Medicine - PN: Subj *Date: 07/14/20 *Time: 08:35 Interval history: Patient states she is feeling better this morning. Her weakness has improved slightly. She is currently on a liquid diet for possible colonoscopy by Dr. Au tomorrow. Exam Vital signs and Labs for Last 24 Hours: Temp Pulse Resp BP Pulse Ox 98.2 F 71 17 130/77 95 07/14/20 07:51 07/14/20 07:51 07/14/20 07:51 07/14/20 07:51 07/14/20 07:51 Laboratory Results - last 24 hr 07/12/20 15:27: Carcinoembryonic Ag 3.9 07/13/20 19:20: Sodium 139, Potassium 3.5, Chloride 105, Carbon Dioxide 29, Anion Gap 8.5, BUN 15, Creatinine 0.90, Estimated Creat Clear 51, Estimated GFR 60, Est GFR ( Amer) 73, Glucose 119 H, Calcium 8.1 L 07/14/20 05:36: WBC 3.1 L, RBC 3.06 L, Hgb 9.4 L, Hct 29.8 L, MCV 97.3, MCH 30.8, MCHC 31.7 L, RDW 18.1 H, Plt Count 163, MPV 8.1, Neut % (Auto) 62.3, Lymph % (Auto) 24.8, [place] % (Auto) 7.3, Eos % (Auto) 5.3, Baso % (Auto) 0.4, Neut # (Auto) 2.0, Lymph # (Auto) 0.8, [place] # (Auto) 0.2, Eos # (Auto) 0.2, Baso # (Auto) 0.0 07/14/20 05:36: Sodium 140, Potassium 3.9, Chloride 109 H, Carbon Dioxide 28, Anion Gap 6.9, BUN 14, Creatinine 0.80, Estimated Creat Clear 52, Estimated GFR 69, Est GFR ( Amer) 83, Glucose 88 D, Calcium 8.2 L I & O for Last 24 hours: Intake & Output 07/11/20 07/12/20 07/13/20 07/14/20 11:59 11:59 11:59 11:59 Intake Total 971 / 971 1699 / 1699 Output Total 352 / 352 Balance 971 / 971 1347 / 1347 Weight 161 lb 8 oz 165 lb 5.723 oz - Constitutional no acute distress - *Routine Respiratory Exam Present: CTA bilaterally - *Routine Cardiovascular Exam Present: RRR - *Routine Abdominal Exam Present: soft, normoactive bowel sounds. Absent: tenderness - *Routine Extremities Exam Absent: cyanosis, clubbing, edema - *Routine Skin Exam Present: warm. Absent: rash - *Routine Neurological Exam Present: alert, oriented X3 Assessment and Plan (1) Symptomatic anemia Current visit: Yes Status: Acute Category: Medical Code(s): D64.9 - Anemia, unspecified (2) Shortness of breath Current visit: Yes Status: Acute Category: Medical Code(s): R06.02 - Shortness of breath (3) Chest pain Current visit: Yes Status: Acute Category: Medical Code(s): R07.9 - Chest pain, unspecified (4) Paroxysmal atrial fibrillation Current visit: Yes Status: Chronic Category: Medical Code(s): I48.0 - Paroxysmal atrial fibrillation (5) Hypothyroidism Current visit: Yes Status: Chronic Category: Medical Code(s): E03.9 - Hypothyroidism, unspecified (6) Fibromyalgia Current visit: Yes Status: Chronic Category: Medical Code(s): M79.7 - Fibromyalgia (7) Lumbar disc disease Current visit: No Status: Chronic Category: Medical Code(s): M51.9 - Unspecified thoracic, thoracolumbar and lumbosacral intervertebral disc disorder (8) Multinodular goiter Current visit: No Status: Chronic Category: Medical Code(s): E04.2 - Nontoxic multinodular goiter (9) Valvular heart disease Current visit: No Status: Chronic Category: Medical Code(s): I38 - Endocarditis, valve unspecified - Assessment and plan all Dx Assessment and Plan for all problems:: Patient is being followed by surgery. She is on a clear liquid diet in preparation for colonoscopy by GI tomorrow. H&H is stable.
--- NOTE | 2020-07-14 09:54 | P.PN_ITS ---
Subjective Date: 07/14/20 Time: 09:54 Principal diagnosis: Anemia, PAF Interval history: 80-year-old white female in bedside chair in no acute distress. States she is feeling a little bit stronger and better since receiving the blood transfusion yesterday. She is having some neck discomfort related to the weight of her heart monitor and her clothing. She is asking to have it removed. She denies any palpitations, chest pain, pressure or tightness. Exam Vital signs and Labs for Last 24 Hours: Temp Pulse Resp BP Pulse Ox 98.2 F 71 17 130/77 95 07/14/20 07:51 07/14/20 07:51 07/14/20 07:51 07/14/20 07:51 07/14/20 08:00 Laboratory Results - last 24 hr 07/12/20 15:27: Carcinoembryonic Ag 3.9 07/13/20 19:20: Sodium 139, Potassium 3.5, Chloride 105, Carbon Dioxide 29, Anion Gap 8.5, BUN 15, Creatinine 0.90, Estimated Creat Clear 51, Estimated GFR 60, Est GFR ( Amer) 73, Glucose 119 H, Calcium 8.1 L 07/14/20 05:36: WBC 3.1 L, RBC 3.06 L, Hgb 9.4 L, Hct 29.8 L, MCV 97.3, MCH 30.8, MCHC 31.7 L, RDW 18.1 H, Plt Count 163, MPV 8.1, Neut % (Auto) 62.3, Lymph % (Auto) 24.8, [place] % (Auto) 7.3, Eos % (Auto) 5.3, Baso % (Auto) 0.4, Neut # (Auto) 2.0, Lymph # (Auto) 0.8, [place] # (Auto) 0.2, Eos # (Auto) 0.2, Baso # (Auto) 0.0 07/14/20 05:36: Sodium 140, Potassium 3.9, Chloride 109 H, Carbon Dioxide 28, Anion Gap 6.9, BUN 14, Creatinine 0.80, Estimated Creat Clear 52, Estimated GFR 69, Est GFR ( Amer) 83, Glucose 88 D, Calcium 8.2 L I & O for Last 24 hours: Intake & Output 07/11/20 07/12/20 07/13/2020 11:59 11:59 11:59 11:59 Intake Total 971 / 971 1699 / 1699 Output Total 352 / 352 Balance 971 / 971 1347 / 1347 Weight 161 lb 8 oz 165 lb 5.723 oz - *Routine HEENT Exam Head: Present: normocephalic Eye: Present: EOMI, PERRL ENT: Present: mucous membranes moist - *Routine Respiratory Exam Present: CTA bilaterally - *Routine Cardiovascular Exam Present: RRR - *Routine Extremities Exam Absent: cyanosis, clubbing, edema - *Routine Neurological Exam Present: alert, oriented X3 Progress Note: A&P (1) Symptomatic anemia Status: Acute Current Visit: Yes (2) Shortness of breath Status: Acute Current Visit: Yes (3) Chest pain Status: Acute Current Visit: Yes (4) Paroxysmal atrial fibrillation Status: Chronic Current Visit: Yes (5) Hypothyroidism Status: Chronic Current Visit: Yes (6) Fibromyalgia Status: Chronic Current Visit: Yes (7) Lumbar disc disease Status: Chronic Current Visit: No (8) Multinodular goiter Status: Chronic Current Visit: No (9) Valvular heart disease Status: Chronic Current Visit: No Assessment and Plan for All Diagnoses:: 1. Telemetry continues to show sinus rhythm. We will remove the patient's environmental monitoring technician while she is up during the day but she has agreed to have it replaced at night when she is sleeping. Since restarting amiodarone I would like to obtain an EKG tomorrow morning to evaluate the QT interval. We will hold off on anticoagulation due to the patient's anemia. Hopefully the amio darone will hold her in sinus rhythm. 2. Anemia, status post transfusion with hemoglobin now greater than 9. Plans for colonoscopy are tomorrow. 3. Hypertension, controlled on metoprolol. 4. Hyperlipidemia, on statin therapy.
--- NOTE | 2020-07-14 14:22 | PC.NURSE ---
Addendum entered by Darlin Guerra RN 07/14/20 16:43: Pt uses 2L NC prn Original Note: Patient is alert and oriented x4. She has been up to the chair today for a little bit then went back to bed for a nap. She has tolerated her liquid diet well. She has had multiple small loose stools. She states her bottom feels raw, barrier cream given to her for comfort. [place] x1 given for complaint of neck/lower back pain. Upon reassessment she reported relief. Consent for colonoscopy tomorrow is signed and on the chart. No other questions or complaints at this time. Will continue to monitor.
[2020-07-15] VITALS (22 sets, daily range): BP systolic 83–149; BP diastolic 34–71; PULSE 60–90; RESP 14–22; TEMP 36.6–37.2; O2SAT 90–99; BMI 25.5
--- NOTE | 2020-07-15 01:13 | PC.NURSE ---
pt finished golite at 0100
--- NOTE | 2020-07-15 06:19 | PC.NURSE ---
pt has rested well since finishing go lite at 0100, no acute changes this shift, daughter has remained at bedside, no complaints reported this shift
--- NOTE | 2020-07-15 08:38 | HMH.ACPN2 ---
Internal Medicine - PN: Subj *Date: 07/15/20 *Time: 08:38 Interval history: Patient states she is feeling well other than some GI upset from the colon prep. She is scheduled for colonoscopy sometime today. She denies any other pain and states she slept off and on last night. Exam Vital signs and Labs for Last 24 Hours: Temp Pulse Resp BP Pulse Ox 98.4 F 81 22 123/61 97 07/15/20 08:00 07/15/20 08:00 07/15/20 08:00 07/15/20 08:00 07/15/20 08:00 I & O for Last 24 hours: Intake & Output 07/12/20 07/13/20 07/14/20 07/15/20 11:59 11:59 11:59 11:59 Intake Total 971 / 971 1699 / 1699 2801 / 2801 Output Total 352 / 352 200 / 200 Balance 971 / 971 1347 / 1347 2601 / 2601 Weight 161 lb 8 oz 165 lb 5.723 oz 163 lb - Constitutional no acute distress - *Routine Respiratory Exam Present: CTA bilaterally - *Routine Cardiovascular Exam Present: RRR - *Routine Abdominal Exam Present: soft, normoactive bowel sounds. Absent: tenderness - *Routine Extremities Exam Absent: cyanosis, clubbing, edema - *Routine Skin Exam Present: warm. Absent: rash - *Routine Neurological Exam Present: alert, oriented X3 Assessment and Plan (1) Symptomatic anemia Current visit: Yes Status: Acute Category: Medical Code(s): D64.9 - Anemia, unspecified (2) Shortness of breath Current visit: Yes Status: Acute Category: Medical Code(s): R06.02 - Shortness of breath (3) Chest pain Current visit: Yes Status: Acute Category: Medical Code(s): R07.9 - Chest pain, unspecified (4) Paroxysmal atrial fibrillation Current visit: Yes Status: Chronic Category: Medical Code(s): I48.0 - Paroxysmal atrial fibrillation (5) Hypothyroidism Current visit: Yes Status: Chronic Category: Medical Code(s): E03.9 - Hypothyroidism, unspecified (6) Fibromyalgia Current visit: Yes Status: Chronic Category: Medical Code(s): M79.7 - Fibromyalgia (7) Lumbar disc disease Current visit: No Status: Chronic Category: Medical Code(s): M51.9 - Unspecified thoracic, thoracolumbar and lumbosacral intervertebral disc disorder (8) Multinodular goiter Current visit: No Status: Chronic Category: Medical Code(s): E04.2 - Nontoxic multinodular goiter (9) Valvular heart disease Current visit: No Status: Chronic Category: Medical Code(s): I38 - Endocarditis, valve unspecified - Assessment and plan all Dx Assessment and Plan for all problems:: Patient scheduled for colonoscopy today. It will either be performed by Dr. Au or Dr. Henry.
--- NOTE | 2020-07-15 09:04 | HMH.PNCARD ---
Subjective Date: 07/15/20 Time: 09:04 Principal diagnosis: Anemia, PAF Interval history: 80-year-old white female in bed in no acute distress. Some discomfort related to colon prep overnight. Telemetry shows continued sinus rhythm overnight. Discussed need for patient to follow-up with [facility] for further options of her treatment for atrial fibrillation. She relates intolerance to amiodarone on 2 different occasions in the remote past but unable to elaborate on what that intolerance was. Pending results of the colonoscopy today patient may or may not be restarted on anticoagulation therapy. Exam Vital signs and Labs for Last 24 Hours: Temp Pulse Resp BP Pulse Ox 98.4 F 81 22 123/61 97 07/15/20 08:00 07/15/20 08:00 07/15/20 08:00 07/15/20 08:00 07/15/20 08:00 I & O for Last 24 hours: Intake & Output 07/12/20 07/13/20 07/14/20 07/15/20 11:59 11:59 11:59 11:59 Intake Total 971 / 971 1699 / 1699 2801 / 2801 Output Total 352 / 352 200 / 200 Balance 971 / 971 1347 / 1347 2601 / 2601 Weight 161 lb 8 oz 165 lb 5.723 oz 163 lb - *Routine HEENT Exam Head: Present: normocephalic Eye: Present: EOMI, PERRL ENT: Present: mucous membranes moist - *Routine Respiratory Exam Present: CTA bilaterally - *Routine Cardiovascular Exam Present: RRR - *Routine Neurological Exam Present: alert, oriented X3 Progress Note: A&P (1) Symptomatic anemia Status: Acute Current Visit: Yes (2) Shortness of breath Status: Acute Current Visit: Yes (3) Chest pain Status: Acute Current Visit: Yes (4) Paroxysmal atrial fibrillation Status: Chronic Current Visit: Yes (5) Hypothyroidism Status: Chronic Current Visit: Yes (6) Fibromyalgia Status: Chronic Current Visit: Yes (7) Lumbar disc disease Status: Chronic Current Visit: No (8) Multinodular goiter Status: Chronic Current Visit: No (9) Valvular heart disease Status: Chronic Current Visit: No Assessment and Plan for All Diagnoses:: Proceeding with colonoscopy today. Continue amiodarone therapy for maintenance of sinus rhythm in a patient with history of paroxysmal atrial fibrillation and prior ablation therapy. Consideration for anticoagulation pending results of colonoscopy. Possibly home later today.
--- NOTE | 2020-07-15 09:45 | PC.NURSE ---
Pt taken by bed to Pre-Op by OR staff at this time.
--- NOTE | 2020-07-15 11:21 | P.PCN_ITS ---
[facility] Procedure Note Procedure Note:: Colonoscopy Procedure Report: Colonoscopy with cold snare polypectomy Endoscopist: Jone Au II, MD Referring physician: Omkar Reed MD Date of Procedure: July 15, 2020 Equipment: Olympus 180 variable stiffness pediatric colonoscope Sedation: MAC sedation Indication: Mrs. Gutierrez is an 80-year-old female who is here for hospitalization secondary to gastrointestinal hemorrhage. The patient presented with symptomatic anemia with exertional dyspnea. Her hemoglobin and hematocrit had dropped down to 8.0 and 25.2. She did receive iron and blood transfusions to my knowledge. She was on oral iron previously. She did report some black stools but likely associated with the iron supplementation. She did not have hematochezia or bright red rectal bleeding to my knowledge. She was Hemoccult positive. Dr. Bill Henry performed upper endoscopy and she did have a larger hiatal hernia but otherwise normal. The patient did have a colonoscopy 10 to 15 years ago in [place]. She reports no abdominal pain, weight loss or change in bowel habits. Her brother had colon cancer in his late 60s. Procedure: Prior to the procedure, a history and physical exam was performed, and patient's medications and allergies were reviewed. The risks, benefits and alternatives of the sedation and procedure were discussed with the patient. All questions were answered and informed consent was obtained. The patient was brought to the procedure room. Patient identification and proposed procedure were verified by the physician and the nurse. The patient was placed in a left lateral decubitus position and the scope was passed under direct vision. Throughout the procedure, the patient's blood pressure, pulse, and oxygen saturations were monitored continuously. The colonoscopy was accomplished without difficulty. The patient tolerated the procedure well. Findings: On digital rectal examination there was normal rectal tone. There were no external hemorrhoids. The colonoscope was introduced through the anal canal to the rectum and advanced to the cecum. The ileocecal valve and appendiceal orifice were identified. The scope was advanced a short distance into the ileum which appeared grossly normal. The scope was then withdrawn into the colon. There were 7 colon polyps (ascending x3, transverse x3 and descending x1 that ranged in size from 3 to 5 mm) and were all removed via cold snare polypectomy. There were scattered diverticuli throughout the descending and sigmoid colon (LEFT colon). The rectum itself was normal. Upon retroflexion within the rectum there were grade 1-2 internal hemorrhoids. The preparation was excellent throughout with [place] Preparation Score of 9. The cecal time was 12 minutes. Impression: 1. Diminutive colonic polyps x7 2. Extensive left-sided diverticulosis 3. Grade 1 internal hemorrhoids Plan: I do not know whether she had true diverticular hemorrhage since she did not have marked hematochezia/bright red rectal hemorrhage. She may have iron deficiency anemia that is exacerbated by the Xarelto. There was no clear source of iron deficiency anemia on the colonoscopy. Sometimes, a large hiatal hernia can be associated with Charlie's erosions. I would recommend monitoring and if she has recurrent anemia after iron administration, would consider second look endoscopy.
--- NOTE | 2020-07-15 12:07 | PC.NURSE ---
Received report from Christy in post-op @ this time.
--- NOTE | 2020-07-15 19:12 | PC.NURSE ---
Pt has done well since returning from colonoscopy. Pt has c/o chronic back pain in which she was treated per MAR w/ adequate relief. Voiding w/o difficulty. Requires standby assistance and use of cane when ambulating to bathroom. Has tolerated cardiac diet. Pt is currently sitting up in bed talking on telephone. No needs voiced. Report given to Ann Noriega RN.
[2020-07-16] VITALS: BP 119/61; PULSE 69; PULSE 70; RESP 16; TEMP 37.1; O2SAT 99
--- NOTE | 2020-07-16 03:53 | PC.NURSE ---
Pt has rested well with eyes closed this shift with no c/o pain. Alert and oriented x4. Tolerated ra well when awake, requested 2 lnc for comfort while sleeping. Pt noted to get SOA with ambulating to and from bathroom with standby assist from staff and use of cane. Tolerated 2 lnc well with no complaints. Bilateral lungs noted clear t/o upon auscultation. +1 pitting edema noted to ble. NSR noted on member certification manager this shift thus far. Refused teds. VSS. Remains safe. Call light within reach. Will continue to monitor.
[2020-07-16 04:00] VITALS: BP 113/52; PULSE 70; PULSE 83; RESP 18; TEMP 37.1; O2SAT 92
[2020-07-16 05:00] VITALS: BMI 26.4
[2020-07-16 08:00] VITALS: BP 116/48; PULSE 70; PULSE 87; RESP 20; TEMP 37.1; O2SAT 92
[2020-07-16 08:34] LABS: Basophils % 0.8 % (0.1-2.0); Eosinophils # 0.2 K/mm3 (0.0-0.4); Eosinophils % 4.2 % (0.1-12.0); Hematocrit 28.7 % (37.0-47.0); Hemoglobin 9.3 g/dL (12.2-16.2); Lymphocytes # 0.5 K/mm3 (0.7-4.5); Lymphocytes % 12.6 % (10-50); Mean Corpuscular HGB Conc 32.5 g/dL (31.8-35.4); Mean Corpuscular Hemoglobin 30.7 pg (27.0-31.2); Mean Corpuscular Volume 94.3 fl (81-99); Mean Platelet Volume 8.2 fl (7.4-10.4); Monocytes # 0.2 K/mm3 (0.1-1.0); Monocytes % 5.8 % (1.7-9.3); Neutrophils # 2.9 K/mm3 (1.8-7.8); Neutrophils % 76.6 % (37.0-80.0); Platelet Count 168 K/mm3 (142-424); Red Blood Count 3.04 M/mm3 (4.20-5.40); White Blood Count 3.7 K/mm3 (4.8-10.8)
--- NOTE | 2020-07-16 08:40 | P.PN_ITS ---
Internal Medicine - PN: Subj *Date: 07/16/20 *Time: 08:40 Interval history: Patient states she is feeling well this morning. She has been able to eat since her colonoscopy and denies any pain. She slept well last night. She wants to go home today. Exam Vital signs and Labs for Last 24 Hours: Temp Pulse Resp BP Pulse Ox 98.8 F 83 18 113/52 L 92 L 07/16/20 04:00 07/16/20 04:00 07/16/20 04:00 07/16/20 04:00 07/16/20 04:00 Laboratory Results - last 24 hr 07/16/20 08:20: WBC 3.7 L, RBC 3.04 L, Hgb 9.3 L, Hct 28.7 L, MCV 94.3, MCH 30.7, MCHC 32.5, RDW 17.0, Plt Count 168, MPV 8.2, Neut % (Auto) 76.6, Lymph % (Auto) 12.6, [place] % (Auto) 5.8, Eos % (Auto) 4.2, Baso % (Auto) 0.8, Neut # (Auto) 2.9, Lymph # (Auto) 0.5 L, [place] # (Auto) 0.2, Eos # (Auto) 0.2, Baso # (Auto) 0.0 I & O for Last 24 hours: Intake & Output 07/13/20 07/14/20 07/15/20 07/16/20 11:59 11:59 11:59 11:59 Intake Total 971 / 971 1699 / 1699 2801 / 2801 1614 / 1614 Output Total 352 / 352 200 / 200 1200 / 1200 Balance 971 / 971 1347 / 1347 2601 / 2601 414 / 414 Weight 161 lb 8 oz 165 lb 5.723 oz 163 lb 168 lb 9 oz - Constitutional no acute distress - *Routine Respiratory Exam Present: CTA bilaterally - *Routine Cardiovascular Exam Present: RRR - *Routine Abdominal Exam Present: soft, normoactive bowel sounds. Absent: tenderness - *Routine Extremities Exam Absent: cyanosis, clubbing, edema - *Routine Skin Exam Present: warm. Absent: rash - *Routine Neurological Exam Present: alert, oriented X3 Assessment and Plan (1) Symptomatic anemia Current visit: Yes Status: Acute Category: Medical Code(s): D64.9 - Anemia, unspecified (2) Shortness of breath Current visit: Yes Status: Acute Category: Medical Code(s): R06.02 - Shortness of breath (3) Chest pain Current visit: Yes Status: Acute Category: Medical Code(s): R07.9 - Chest pain, unspecified (4) Paroxysmal atrial fibrillation Current visit: Yes Status: Chronic Category: Medical Code(s): I48.0 - Paroxysmal atrial fibrillation (5) Hypothyroidism Current visit: Yes Status: Chronic Category: Medical Code(s): E03.9 - Hypothyroidism, unspecified (6) Fibromyalgia Current visit: Yes Status: Chronic Category: Medical Code(s): M79.7 - Fibromyalgia (7) Lumbar disc disease Current visit: No Status: Chronic Category: Medical Code(s): M51.9 - Unspecified thoracic, thoracolumbar and lumbosacral intervertebral disc disorder (8) Multinodular goiter Current visit: No Status: Chronic Category: Medical Code(s): E04.2 - Nont oxic multinodular goiter (9) Valvular heart disease Current visit: No Status: Chronic Category: Medical Code(s): I38 - Endocarditis, valve unspecified - Assessment and plan all Dx Assessment and Plan for all problems:: Dr. Au colonoscopy note reviewed. He did not find a source of bleeding. He feels she likely has iron deficiency anemia and will need some iron. Will discuss with Dr. Reed today.
[2020-07-16 08:48] LABS: Chloride 109 mmol/L (98-107); Potassium 4.1 mmoL/L (3.5-5.1); Sodium 138 mmol/L (136-145)
[2020-07-16 08:51] LABS: Anion Gap 8.1 mEq/L (5-15); Blood Urea Nitrogen 5 mg/dl (7-17); Calcium 8.2 mg/dl (8.4-10.2); Carbon Dioxide 25 mmol/L (22.0-30.0); Creatinine Clearance Estimated 53 mL/min (50-200); Estimated Glomerular Filt Rate 53 ml/min (>60); GFR (African American) 64 ML/MIN (>60); Glucose 122 mg/dl (74-100)
--- NOTE | 2020-07-18 21:52 | HMH.DCSUM ---
General - General Admission date:: 07/12/20 Discharge date: 07/16/20 HPI HPI: Ms. Gutierrez is an 80-year-old female with a history of hyperlipidemia, lumbar disc disease, fibromyalgia, multinodular goiter, paroxysmal atrial fibrillation/flutter, valvular heart disease, who presented to the office of [facility] today feeling extremely weak, muscle weakness with difficulty with walking, shortness of breath, and intermittent chest pain. She states the chest pain comes and goes. The shortness of breath is mainly with exertion. She does wear her oxygen when not sitting. She is afraid that she is losing blood. She was seen in the office also on June 25, 2020 complaining with black stools and some blood in the toilet. Hemoglobin and hematocrit at that time were 11.4 and 33.8. Stool for occult blood was positive. She was started on iron and was to have a GI appointment which was scheduled for August 04, 2020. During this interval of time she has progressively gotten weaker and more symptomatic. 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 She wore a Holter monitor for 48 hours which revealed atrial flutter with a 4-1 conduction. At the time of this exam patient looked as if she did not feel well. H&H today was 7.5/22.3. She denied chest pain and shortness of breath. She also denied abdominal pain. She states her stools are definitely black due to the iron. She denies nausea and feels she has been eating and drinking normally. Dr. Reed was consulted and she was admitted for blood administration with a GI consult. Hospital Course Hospital Course: Patient's chest x-ray showed nothing acute. She was admitted and GI was consulted and 2 units of packed red blood cells were ordered. Most of her home medications were reordered which included a PPI. Gastroenterology was not going to be able to see the patient for a few days, therefore a surgical consult was ordered for an EGD. The patient was seen by Dr. Henry and he performed an upper upper endoscopy. The EGD showed a mild hiatal hernia and minimal antral nonerosive gastritis. It did not reveal a source for her anemia and GI blood loss. Her Xarelto was discontinued and cardiology was consulted. Her TSH was elevated therefore her levothyroxine dose was increased. Her p.o. potassium was also increased due to some hypokalemia. She was seen in consultation by cardiology and they started her on amiodarone 200 mg daily for suppression of her A. fib and felt it was fine to continue to hold her Xarelto as she was in sinus rhythm. They felt if the amiodarone kept her in sinus rhythm, they may not have to restart her on any anticoagulation. They also were considering a loop recorder to monitor her for atrial fib while on the amiodarone. The patient remained in sinus rhythm and cardiology did discuss the need for the patient to follow-up with EP the [facility] for further options of her treatment for atrial fib. The patient was prepped for colonoscopy by GI. Her stools remain dark, however her weakness did improve after blood transfusion. She was seen by Dr. Au and he performed a colonoscopy. It showed 7 colon polyps, extensive left-sided diverticulosis, and grade 1 hemorrhoids. He felt she may have iron deficiency anemia that was exacerbated by Xarelto. He found no clear source of bleeding on her colonoscopy. He recommended monitoring the patient and if she had recurrent anemia after iron administration, to consider a second endoscopy. The patient was able to tolerate a diet after her colonoscopy and wanted to go home. Her H&H was stable and she will undergo iron infusions on an outpatient basis. Objective Vital signs: Temp Pulse Resp BP Pulse Ox 98.8 F 87 20 116/48 L 92 L 07/16/20 08:00 07/16/20 08:00 07/16/20 08:00 07/16/20 08:00 07/16/20 08:00 Narrative: - Constitutional no acute distress
== END 2020-07-16 12:05 | disposition home or self-care (01) | DRG 812 ==
PROVIDERS: Internal Medicine Gastroenterology; Nurse Practitioner Family; Surgery; Admitting Provider Family Medicine; PCP Family Medicine; Visit Provider Family Medicine
PROC: 0DJ08ZZ Inspection of Upper Intestinal Tract, Via Natural or Artificial Opening Endoscopic (ICD-10-PCS; CPT 43235; principal; 2020-07-13 07:30)
PROC: 0DJD8ZZ Inspection of Lower Intestinal Tract, Via Natural or Artificial Opening Endoscopic (ICD-10-PCS; CPT 45378; principal; 2020-07-15 13:30)
DX: D50.9 Iron deficiency anemia, unspecified (principal); I10 Essential (primary) hypertension; E04.2 Nontoxic multinodular goiter; I48.0 Paroxysmal atrial fibrillation; K29.70 Gastritis, unspecified, without bleeding; Z79.01 Long term (current) use of anticoagulants; Z79.52 Long term (current) use of systemic steroids; Z79.82 Long term (current) use of aspirin; D12.2 Benign neoplasm of ascending colon; D12.4 Benign neoplasm of descending colon; D12.3 Benign neoplasm of transverse colon; J44.9 Chronic obstructive pulmonary disease, unspecified; Z99.81 Dependence on supplemental oxygen
CPT/HCPCS: 43235; 45385; 36415; 71046; 80048; 80053; 82378; 84443; 84484; 85007; 85014; 85018; 85025; 86850; 88305; 93005; J1756; P9016; U0003

== ENCOUNTER → 2020-08-09 13:38 | Outpatient (POV) | payer MEDICARE, BC, SELFPAY | PROVIDERS: Visit Provider Dermatology | DX: Z00.00 Encounter for general adult medical examination without abnormal findings (principal) ==

== ENCOUNTER → 2020-11-21 13:56 | Outpatient (CLI) | payer MEDICARE, BC, SELFPAY ==
--- NOTE | 2020-11-21 13:58 | MR_ITS ---
PROCEDURE: MR CERVICAL SPINE WO CON CLINICAL INDICATION: DDD, TRAPEZIUS MUSCLE SPASM Bilateral neck pain radiating into the shoulders. COMPARISON: MR SPCERVWO MR cervical spine wo con from 01/01/2019 TECHNIQUE: Standard multiplanar multiecho sequences are performed without contrast. 3-D MIP and myelographic images are also rendered and reviewed FINDINGS: Retro cerebellar prominent CSF collection noted not significantly changed and may represent alo cisterna magna as a normal variant C2-C3: Mild right-sided foraminal narrowing from uncovertebral hypertrophy. C3-C4: There is 4 mm anterolisthesis of C3 on C4 which has developed since the previous exam. There is degenerative disc disease at that level with canal stenosis of 8 mm and minimal impingement upon the cord anteriorly and posteriorly from the laminal hypertrophy. C4-C5: Degenerative disc disease with bulging disc with 2 mm anterolisthesis of C4. C5-C6: Degenerative disc disease with 3 mm anterolisthesis of C5 on C6. There is buckling of the cord at this level with kyphosis at C5 on C6. The anterolisthesis has developed compared to the previous exam. C6-C7: Degenerate disc disease with mild bulging disc C7-T1: Degenerate disc disease with 2 mm anterolisthesis of C7 IMPRESSION: Abnormal MRI of the cervical spine with multilevel cervical spondylosis with anterolisthesis of C3 on C4 C4 on C5 and C5 on C6 all of which has developed since the previous exam. Please see above for detailed description at each level. Dictated by: Sebastian Gar MD 12/12/2020 10:39 Sebastian Gar MD in [place] 12/12/2020 10:39
--- NOTE | 2020-11-21 15:14 | XR_ITS ---
PROCEDURE: XR CHEST 2V CLINICAL HISTORY: BRONCHITIS COMPARISON: CT [facility]WO CT CHEST W/O CONTRAST from 11/30/2015 CR CXR2V XR chest 2V from 05/29/2018 CR XR CHEST 2V from 08/20/2019 CR XR CHEST 2V from 07/12/2020 FINDINGS: Lung chamorro are well-expanded and appear clear of infiltrate. Mild generalized cardiomegaly however the vascularity is normal and there is no pleural fluid. There is mild arthrosclerotic calcification of the aortic arch. There is stable mild wedging of the T12 vertebral body. IMPRESSION: No acute findings. Dictated by: Dr. Acosta Main MD 11/21/2020 15:28 Dr. Acosta Main MD in [place] 11/21/2020 15:28
[2020-11-21 16:44] LABS: Basophils % 0.4 % (0.1-2.0); Eosinophils # 0.1 K/mm3 (0.0-0.4); Hematocrit 40.2 % (37.0-47.0); Hemoglobin 12.6 g/dL (12.2-16.2); Lymphocytes # 0.8 K/mm3 (0.7-4.5); Mean Corpuscular HGB Conc 31.4 g/dL (31.8-35.4); Mean Corpuscular Hemoglobin 28.7 pg (27.0-31.2); Mean Corpuscular Volume 91.3 fl (81-99); Mean Platelet Volume 7.5 fl (7.4-10.4); Monocytes # 0.2 K/mm3 (0.1-1.0); Monocytes % 2.7 % (1.7-9.3); Neutrophils # 7.5 K/mm3 (1.8-7.8); Platelet Count 243 K/mm3 (142-424); White Blood Count 8.7 K/mm3 (4.8-10.8)
[2020-11-21 16:50] LABS: MANUAL DIFFERENTIAL MANUAL DIFFERENTIAL (MANUAL DIFF)
[2020-11-21 18:47] LABS: Eosinophils % 2 % (0-3); Lymphocytes % 10 % (10-50); Monocytes % 5 % (2-9); Neutrophils % 83 % (42-76); Total Cells Counted 100
[2020-11-21 18:48] LABS: Hypochromasia 1+; Platelet Estimate Normal; RBC Morphology Normal
[2020-11-23 10:02] LABS: Covid-19 Nasal PCR Sendout P&C Negative
== END ==
PROVIDERS: PCP Family Medicine; Visit Provider Nurse Practitioner
DX: Z03.818 Encounter for observation for suspected exposure to other biological agents ruled out (principal); J40 Bronchitis, not specified as acute or chronic; M50.30 Other cervical disc degeneration, unspecified cervical region; M62.838 Other muscle spasm
CPT/HCPCS: 36415; 71046; 72141; 76376; 85007; 85025; U0004

== ENCOUNTER → 2020-12-12 17:58 | Outpatient (CLI) | payer MEDICARE, BC, SELFPAY ==
--- NOTE | 2020-12-12 18:09 | XR_ITS ---
PROCEDURE: XR CHEST 2V CLINICAL HISTORY: PERICARDITIS Chest pain COMPARISON: CT CHWO CT CHEST W/O CONTRAST from 11/30/2015 CR XR CHEST 2V from 08/20/2019 CR XR CHEST 2V from 07/12/2020 CR XR CHEST 2V from 11/21/2020 FINDINGS: Mild cardiomegaly with mild pulmonary venous congestion. Minimal atelectatic change left lung base. There is mild wedging involving T12 which is unchanged. IMPRESSION: Mild cardiomegaly with mild CHF and minimal atelectatic change in left lung base Dictated by: Sebastian Gar MD 12/12/2020 19:38 Sebastian Gar MD in [place] 12/12/2020 19:38
== END ==
PROVIDERS: PCP Family Medicine; Visit Provider Family Medicine
DX: I31.8 Other specified diseases of pericardium (principal)
CPT/HCPCS: 71046

== ENCOUNTER → 2020-12-14 15:11 | Outpatient (CLI) | payer MEDICARE, BC, SELFPAY ==
--- NOTE | 2020-12-14 15:14 | CA_ITS ---
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 105.00 (50-130 cm/s) AI PHT 655.00 ms AO Peak GR. 4.40 mmHg AO Mean GR. 2.70 (<5 mmHg) AO VTI 20.74 (18-25 cm) MATEO (VTI) 2.48 (2.5-4.5 cm2) Tricuspid Valve TR P. Velocity 252.00 cm/s RAP Estimate 10.00 mmHg RVSP 35.40 mmHg Left Ventricle Left atrium is moderately enlarged, left ventricle is normal size, mild concentric left ventricular hypertrophy, visually estimated ejection fraction 55% with no regional wall motion abnormality, diastolic parameters are inconclusive. Right Ventricle Right atrium and right ventricle are mildly enlarged with normal contractility. Aortic Valve Aortic valve is thickened and calcified without aortic stenosis, there is mild aortic insufficiency. Mitral Valve Mitral valve has mitral annular calcification, leaflets are minimally thickened, there is no mitral stenosis, there is mild mitral regurgitation. Tricuspid Valve Tricuspid valve grossly normal, there is mild tricuspid regurgitation, tricuspid regurgitation jet velocity is inadequate for calculation of the right ventricular systolic pressure. Pulmonic Valve Pulmonic valve is poorly visualized. Great Vessels Aortic root is normal size. Pericardium Small pericardial effusion noted. Conclusion 1. Moderately enlarged left atrium, normal left ventricular size, mild concentric left ventricular hypertrophy, visually estimated ejection fraction 55% with no regional wall motion abnormality, diastolic parameters are inconclusive. 2. Thickened and calcified aortic valve without significant aortic stenosis, there is mild aortic insufficiency. 3. Mild mitral and tricuspid regurgitation. 4. Small pericardial effusion noted. Electronically signed by : Boo Roldan, 12/15/2020 15:56:46
== END ==
PROVIDERS: PCP Family Medicine; Visit Provider Family Medicine
DX: I31.8 Other specified diseases of pericardium (principal)
CPT/HCPCS: 93306

== ENCOUNTER → 2021-05-24 17:40 | Outpatient (CLI) | payer MEDICARE, BC, SELFPAY ==
--- NOTE | 2021-05-24 | XR_ITS ---
PROCEDURE INFORMATION: Exam: XR Chest Exam date and time: 05/24/2021 12:00 AM Age: 81 years old Clinical indication: Shortness of breath; Patient HX: SOB; Cough; Bronchitis TECHNIQUE: Imaging protocol: XR of the chest. Views: 2 views. COMPARISON: CR XR CHEST 2V 12/12/2020 6:03 PM FINDINGS: Lungs: Hyperexpanded lung chamorro consistent with COPD . No focal consolidation Pleural spaces: Unremarkable. No pleural effusion. No pneumothorax. Heart/Mediastinum: Cardiomegaly Bones/joints: Unremarkable. IMPRESSION: Hyperexpanded lung chamorro consistent with COPD
== END ==
PROVIDERS: PCP Family Medicine; Visit Provider Nurse Practitioner Family
DX: J40 Bronchitis, not specified as acute or chronic (principal)
CPT/HCPCS: 71046

== ENCOUNTER → 2021-05-30 10:43 | Outpatient (CLI) | payer MEDICARE, BC, SELFPAY ==
--- NOTE | 2021-05-30 10:47 | MR_ITS ---
PROCEDURE: MR CERVICAL SPINE WO CON CLINICAL INDICATION: CERVICAL DISC DISEASE When flexion of neck, pt has a loss of balance. Lt sided neck pain. Symptoms xyrs. COMPARISON: MR SPCERVWO MR cervical spine wo con from 01/01/2019 TECHNIQUE: Standard multiplanar multiecho sequences are performed without contrast. 3-D MIP and myelographic images are also rendered and reviewed FINDINGS: This exam is very limited secondary to motion artifact despite repeating the exam. There is slight reversal of the cervical lordosis which may be due to patient positioning or muscle spasm There is slight reversal The craniocervical junction has an unremarkable appearance. C2-C3: Mild bulging disc. C3-C4: Degenerative disc disease. There is 3 mm anterolisthesis of C3 on C4 which has developed since the previous exam. There is bulging disc. Mild hypertrophic changes are present along the lamina as well. There is resultant canal stenosis with some mild impingement on the cord anteriorly. Mild left-sided foraminal narrowing. C4-C5: Degenerative disc disease. Mild bulging disc with borderline canal stenosis. Bilateral foraminal narrowing from facet hypertrophic change. C5-C6: Moderate to severe degenerative disc disease with 3 mm anterolisthesis of C5 with canal stenosis. There is mild kyphosis at this level with impingement upon the cord anteriorly with contour deformity. Left-sided foraminal narrowing noted. These findings have somewhat progressed compared to the previous exam. C6-C7: Mild bulging disc. C7-T1: Mild bulging disc with 2 mm anterolisthesis of C7. IMPRESSION: Very limited study secondary to motion artifact. Abnormal MRI of the cervical spine with multilevel cervical spondylosis canal stenosis and foraminal narrowing. Please see above for detailed description at each level. The spondylosis changes have somewhat progressed compared to the previous exam Dictated by: Sebastian Gar MD 05/31/2021 08:05 Sebastian Gar MD in [place] 05/31/2021 08:05
== END ==
PROVIDERS: PCP Family Medicine; Visit Provider Nurse Practitioner Family
DX: M50.90 Cervical disc disorder, unspecified, unspecified cervical region (principal)
CPT/HCPCS: 72141; 76376

== ENCOUNTER 2021-07-08 11:44 | Observation (INO) | payer MEDICARE, BC, SELFPAY ==
[2021-07-08] VITALS (9 sets, daily range): BP systolic 110–156; BP diastolic 57–121; PULSE 74–88; RESP 16–22; TEMP 36.6–37.1; O2SAT 96–100; BMI 26.6; BMI 27.1
--- NOTE | 2021-07-08 13:00 | XR_ITS ---
PROCEDURE INFORMATION: Exam: XR Chest Exam date and time: 07/08/2021 1:00 PM Age: 81 years old Clinical indication: Shortness of breath; Additional info: SOA, recent bronchitis TECHNIQUE: Imaging protocol: XR of the chest. Views: 2 views. COMPARISON: CR XR CHEST 2V 05/24/2021 5:54 PM FINDINGS: Lungs: Subtle patchy airspace disease within the right lung base suggested. Follow-up. Pleural spaces: Unremarkable. No pleural effusion. No pneumothorax. Heart/Mediastinum: Cardiac silhouette is enlarged. Bones/joints: Unremarkable. IMPRESSION: Subtle patchy airspace disease within the right lung base suggested. Follow-up. Lungs are otherwise well aerated.
--- NOTE | 2021-07-08 13:13 | HMH.EDGENADL ---
ED Disposition Clinical Impression: Blood loss anemia, Occult blood in stools Dyspnea Qualifiers: Dyspnea type: dyspnea on exertion Qualified Code(s): R06.00 - Dyspnea, unspecified Pneumonia Qualifiers: Pneumonia type: due to unspecified organism Laterality: right Lung location: middle lobe of lung Qualified Code(s): J18.9 - Pneumonia, unspecified organism Disposition: Admitted as Observation Condition on Discharge: Fair Referrals: Cari Reed MD [Primary Care Provider] - - Critical Care Critical Care Time: No Attestation: On 07/08/21, the high probability of a clinically significant, sudden or life threatening deterioration of the following system(s) required my full and direct attention, intervention and personal management. The time I documented below is in addition to time spent performing reported procedures but includes the following listed in this critical care notation. Medical Decision Making - Gonzalo Inquiry Pt receiving controlled substance: No Vital Signs: 07/08/21 12:44 07/08/21 13:19 07/08/21 13:47 Temperature 98.8 F Temperature Source Oral Pulse Rate 81 88 Pulse Rate [Right Radial] 78 Respiratory Rate 22 Blood Pressure 156/121 H 112/65 Blood Pressure [Right Arm] 129/57 L Blood Pressure Mean 132 80 Blood Pressure Mean [Right Arm] 81 Blood Pressure Source [Right Arm] Automatic Cuff Blood Pressure Position [Right Arm] Sitting 02 Sat by Pulse Oximetry 98 99 99 Oxygen Delivery Method Nasal Cannula Oxygen Flow Rate (LPM) 3 - Lab Data Lab Results 07/08/21 13:30: WBC 8.2, RBC 3.58 L, Hgb 10.2 L, Hct 31.5 L, MCV 88.0, MCH 28.6, MCHC 32.5, RDW 14.9, Plt Count 189, MPV 8.2, Neut % (Auto) 87.1 H, Lymph % (Auto) 6.4 L, [place] % (Auto) 3.4, Eos % (Auto) 2.7, Baso % (Auto) 0.6, Neut # (Auto) 7.2, Lymph # (Auto) 0.5 L, [place] # (Auto) 0.3, Eos # (Auto) 0.2, Baso # (Auto) 0.1, Total Counted 100, Neutrophils % (Manual) 81 H, Lymphocytes % (Manual) 15, Monocytes % (Manual) 4, Platelet Estimate Normal, RBC Morphology Normal 07/08/21 13:30: Sodium 140, Potassium 4.2, Chloride 100, Carbon Dioxide 32 H, Anion Gap 12.2, BUN 19 H, Creatinine 1.00, Estimated Creat Clear 53, Estimated GFR 53 L, Est GFR ( Amer) 64, Glucose 107 H, Calcium 8.2 L, Total Bilirubin 0.6, AST 29, ALT 14, Alkaline Phosphatase 53, Troponin I < 0.01, Total Protein 6.3, Albumin 3.9, Globulin 2.4, Albumin/Globulin Ratio 1.6 07/08/21 13:30: Lactate 1.2 07/08/21 13:42: Stool Occult Blood Positive A 07/08/21 15:09: SARS-CoV-2 (PCR) Not detected, Influenza A Untype (PCR) Not detected, Influenza Type B (PCR) Not detected Result diagrams: 07/08/21 13:30 07/08/21 13:30 Orders (Tests/Meds): ORDERS Category Date Time Status Troponin I Q3H Lab 07/08/21 17:00 Ordered Troponin I Q3H Lab 07/08/21 20:00 Ordered Blood Culture Stat Micro 07/08/21 13:30 Received - Radiology Data #1 Image(s): Chest Image Reviewed: Yes I reviewed the patient's radiology image, Yes I have reviewed radiologist's interpretation PROCEDURE INFORMATION: Exam: XR Chest Exam date and time: 07/08/2021 1:00 PM Age: 81 years old Clinical indication: Shortness of breath; Additional info: SOA, recent bronchitis TECHNIQUE: Imaging protocol: XR of the chest. Views: 2 views. COMPARISON: CR XR CHEST 2V 05/24/2021 5:54 PM FINDINGS: Lungs: Subtle patchy airspace disease within the right lung base suggested. Follow-up. Pleural spaces: Unremarkable. No pleural effusion. No pneumothorax. Heart/Mediastinum: Cardiac silhouette is enlarged. Bones/joints: Unremarkable. IMPRESSION: Subtle patchy airspace disease within the right lung base suggested. Follow-up. Lungs are otherwise well aerated. - ECG Data Tracing #1 EKG interpreted by Abbe Brambila MD: Rhythm: Atrial fibrillation with controlled ventricular response Rate: 80 A
--- NOTE | 2021-07-08 13:53 | ECG_ITS ---
APPROVED REPORT Exam: Resting ECG HR:80 bpm ECG Measurements Heart Rate 80 AXES QRSd 78 QRS 51 QT 404 T 96 QTc 465 Conclusion Atrial fibrillation Nonspecific ST and T wave abnormality Abnormal ECG Electronically signed by : Jairon Andrade MD 07/09/2021 09:00:03
[2021-07-08 14:07] LABS: Occult Blood,Stool Positive (Negative)
[2021-07-08 14:37] LABS: Basophils # 0.1 K/mm3 (0-0.2); Basophils % 0.6 % (0.1-2.0); Eosinophils # 0.2 K/mm3 (0.0-0.4); Eosinophils % 2.7 % (0.1-12.0); Hematocrit 31.5 % (37.0-47.0); Hemoglobin 10.2 g/dL (12.2-16.2); Lymphocytes # 0.5 K/mm3 (0.7-4.5); Lymphocytes % 6.4 % (10-50); Mean Corpuscular HGB Conc 32.5 g/dL (31.8-35.4); Mean Corpuscular Hemoglobin 28.6 pg (27.0-31.2); Mean Platelet Volume 8.2 fl (7.4-10.4); Monocytes # 0.3 K/mm3 (0.1-1.0); Monocytes % 3.4 % (1.7-9.3); Neutrophils # 7.2 K/mm3 (1.8-7.8); Neutrophils % 87.1 % (37.0-80.0); Platelet Count 189 K/mm3 (142-424); Red Blood Count 3.58 M/mm3 (4.20-5.40); Red Cell Distribution Width 14.9 % (11.5-17.5); White Blood Count 8.2 K/mm3 (4.8-10.8)
[2021-07-08 14:39] LABS: MANUAL DIFFERENTIAL MANUAL DIFFERENTIAL (MANUAL DIFF)
[2021-07-08 14:42] LABS: Alanine Aminotransferase 14 U/L (12-78); Albumin Level 3.9 g/dl (3.5-5.0); Albumin/Globulin Ratio 1.6 (1.1-1.8); Alkaline Phosphatase 53 U/L (38-126); Anion Gap 12.2 mEq/L (5-15); Aspartate Amino Transferase 29 U/L (14-36); Bilirubin,Total 0.6 mg/dl (0.2-1.3); Blood Urea Nitrogen 19 mg/dl (7-17); Calcium 8.2 mg/dl (8.4-10.2); Carbon Dioxide 32 mmol/L (22.0-30.0); Chloride 100 mmol/L (98-107); Creatinine Clearance Estimated 53 mL/min (50-200); Estimated Glomerular Filt Rate 53 ml/min (>60); GFR (African American) 64 ML/MIN (>60); Globulin 2.4 g/dL (1.3-3.2); Glucose 107 mg/dl (74-100); Lactic Acid 1.2 mmol/L (0.7-2.1); Potassium 4.2 mmoL/L (3.5-5.1); Sodium 140 mmol/L (136-145); Total Protein,Serum 6.3 g/dl (6.3-8.2)
[2021-07-08 14:47] LABS: Lymphocytes % 15 % (10-50); Monocytes % 4 % (2-9); Neutrophils % 81 % (42-76); Platelet Estimate Normal; RBC Morphology Normal; Total Cells Counted 100
[2021-07-08 14:53] LABS: Troponin I < 0.01 ng/ml (0.00-0.034)
[2021-07-08 15:15] LABS: Coronavirus 19, PCR Not Detected (NotDetected); Influenza A, PCR Not Detected (NotDetected); Influenza B, PCR Not Detected (NotDetected)
--- NOTE | 2021-07-08 15:23 | PC.NURSE ---
called tool profiling machine set up operator to call dr peck for pt
[2021-07-08 17:40] LABS: Troponin I < 0.01 ng/ml (0.00-0.034)
--- NOTE | 2021-07-08 19:01 | PC.NURSE ---
PT ARRIVED TO FLOOR AT 185
--- NOTE | 2021-07-08 19:47 | PC.NURSE ---
Report given to Kiko Robledo RN. Pt to floor at 1900. S
[2021-07-08 21:19] LABS: Troponin I 0.02 ng/ml (0.00-0.034)
[2021-07-09] VITALS (8 sets, daily range): BP systolic 99–133; BP diastolic 57–77; PULSE 57–90; RESP 18–20; TEMP 36.6–36.9; O2SAT 90–98; BMI 27.2
[2021-07-09 06:46] LABS: Basophils % 0.4 % (0.1-2.0); Eosinophils # 0.2 K/mm3 (0.0-0.4); Eosinophils % 3.4 % (0.1-12.0); Hematocrit 30.5 % (37.0-47.0); Hemoglobin 9.7 g/dL (12.2-16.2); Lymphocytes # 0.8 K/mm3 (0.7-4.5); Lymphocytes % 16.4 % (10-50); Mean Corpuscular HGB Conc 31.7 g/dL (31.8-35.4); Mean Corpuscular Hemoglobin 28.5 pg (27.0-31.2); Mean Corpuscular Volume 89.7 fl (81-99); Mean Platelet Volume 8.7 fl (7.4-10.4); Monocytes # 0.3 K/mm3 (0.1-1.0); Monocytes % 6.6 % (1.7-9.3); Neutrophils # 3.5 K/mm3 (1.8-7.8); Neutrophils % 73.2 % (37.0-80.0); Platelet Count 150 K/mm3 (142-424); Red Cell Distribution Width 14.7 % (11.5-17.5); White Blood Count 4.8 K/mm3 (4.8-10.8)
--- NOTE | 2021-07-09 11:07 | HMH.HP ---
*Admission Date: 07/08/21 *Chief complaint: Shortness of breath *History of present illness: Ms Gutierrez is an 81 year old female patient of Dr. Almeida with an extensive medical history. 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 Fib. Patient for the past month or so she has had more difficulty breathing and was recently diagnosed with a recurrence of A. fib and was started on Amiodarone. She states her SOB has gotten worse over the past week and she got to the point that she was SOB after just taking a few steps so she came to the ER for an evaluation. She denies fever and chills and productive cough. [facility] History Medical History: Reports:: Arrhythmia, Atrial Fibrillation, Congestive Heart Failure, Chronic Obstructive Pulmonary Disease (COPD), Coronary Artery Disease, Depression, Gastroesophageal Reflux Disease(GERD), Home Oxygen, Hyperlipidemia Denies:: Cancer, Diabetes Mellitus Type 1, Diabetes Mellitus Type 2, Internal Pacemaker, MRSA, Seizures *Have you ever received a pneumonia vaccine?: Yes *Have you received a flu vaccine this season?: Yes Other Medical History: Reports: Anemia, Arthritis, Cataracts, Fibromyalgia, Thyroid Disease Laterality Cases: Bilateral: Tonsillectomy Other Surgeries: Yes: Cardiac Catheterization, Thyroidectomy, Other (lower back surgery x3, Watchman left atrial appendage closure device). No: Pacemaker Amputation: No Fractures: No - *Social History Last grade of school completed: High school graduate Smoking Status: Former smoker Tobacco Type: cigarettes Alcohol Intake: never Substance Use Type: denies use *Occupational Status:: retired Housing: house Household Members: none *Travel in the last 8 weeks: None - Psychiatric History Pschychiatric History:: Reports:: Depression Family Hx:: No significant family history Review of Systems - Constitutional Denies excessive sweating - Eyes Denies blurry vision - ENT Denies difficulty swallowing - *Cardiovascular Denies chest pain - *Respiratory Denies coughing up blood - *Gastrointestinal Denies abdominal pain - *Genitourinary Denies vaginal discharge - *Musculoskeletal Denies muscle cramps - Integumentary/Breasts Denies rash - *Neurologic Denies dizziness, Denies headache(s) Meds Home Medications Medication Instructions Recorded Confirmed Type Esomeprazole Magnesium [Nexium] 40 mg PO DAILY 12/07/17 07/08/21 History Potassium Chloride [Pot Chlor 10 10 meq PO DAILY 12/07/17 07/08/21 History mEq Tab] Sertraline HCl [Zoloft] 100 mg PO DAILY 12/07/17 07/08/21 History Gabapentin [Neurontin 600mg 600 mg PO QID 12/08/17 07/08/21 History tablet] Levothyroxine Sodium 88 mcg PO DAILY 12/08/17 07/08/21 History [Levothyroxine 88mcg (0.088mg) Tab] allopurinoL [Allopurinol 100mg 200 mg PO DAILY 12/08/17 07/08/21 History tablet] Acetaminophen [Tylenol 500mg 1,000 mg PO Q6HP PRN 07/12/20 07/08/21 History tablet] Aspirin [Aspirin 81mg EC Tab] 81 mg PO DAILY 07/12/20 07/08/21 History Atorvastatin Calcium [Lipitor 40mg 40 mg PO HS 07/12/20 07/08/21 History Tab] Budesonide/Formoterol Fumarate 2 puffs IH BID 07/12/20 07/08/21 History [Symbicort 160-4.5 Mcg Inhaler] Ferrous Gluconate [Ferrous 324 mg PO BID 07/12/20 07/08/21 History Gluconate 324mg Tab] Furosemide [Furosemide 40MG tAB*] 40 mg PO DAILY 07/12/20 07/08/21 History Hydrocodone/Acetaminophen [Lortab 1 tab PO TIDP PRN 07/12/20 07/08/21 History 7.5/325mg tablet] Montelukast Sodium [Singulair 10mg 10 mg PO PM 07/12/20 07/08/21 History tablet] Nitroglycerin [Nitrostat 0.4mg SL 0.4 mg SL Q5MINP PRN 07/12/20 07/08/21 History Tablet] predniSONE [Deltasone 10mg tablet] 10 mg PO DAILY 07/12/20 07/08/21 History Amiodarone HCl 200 mg PO DAILY 07/09/21 07/09/21 History Metoprolol Succinate [Metoprolol 25 mg PO DAILY 07/09/21 07/09/21 History Succinate 25mg Tablet*] Allergies Al
--- NOTE | 2021-07-09 11:18 | HMH.PHAVTE ---
[facility] Pharmacy VTE Monitoring - Patient Demographics Admission date: 07/09/21 Report Date: 07/09/21 Time: 11:18 Allergies/Adverse Reactions: Patient Allergies No Known Allergies Allergy (Verified 02/20/19 09:38) Height: 1.7 m Weight: 78.67 kg Patient Problems: Current Active Problems Blood loss anemia (Acute) Occult blood in stools (Acute) Dyspnea (Acute) Pneumonia (Acute) - VTE Risk Labs: VTE Related Lab Results Hgb 9.7 g/dL (12.2-16.2) L 07/09/21 06:24 Hct 30.5 % (37.0-47.0) L 07/09/21 06:24 Plt Count 150 K/mm3 (142-424) 07/09/21 06:24 BUN 19 mg/dl (7-17) H 07/08/21 13:30 Creatinine 1.00 mg/dl (0.52-1.04) 07/08/21 13:30 Estimated Creat Clear 53 mL/min (50-200) 07/08/21 13:30 - Prophylaxis Types of VTE Prophylaxis: TEDS Knee High Location of Applied Device: Bilateral Lower Extremeties (TATY HOSE ORDERED)
--- NOTE | 2021-07-09 18:59 | PC.NURSE ---
No acute changes. VSS. Remains on 3.5 L NC. Alert and oriented.
[2021-07-10] VITALS (8 sets, daily range): BP systolic 98–123; BP diastolic 43–71; PULSE 61–105; RESP 16–20; TEMP 36.4–37.1; O2SAT 93–100; BMI 27.1; BMI 26.9
--- NOTE | 2021-07-10 04:52 | PC.NURSE ---
Patient has had uneventful night; no s/s of acute distress noted, call light within reach, bed at lowest level for safety; will continue to monitor.
[2021-07-10 06:09] LABS: Basophils % 0.4 % (0.1-2.0); Eosinophils # 0.1 K/mm3 (0.0-0.4); Eosinophils % 1.9 % (0.1-12.0); Hematocrit 32.6 % (37.0-47.0); Hemoglobin 10.3 g/dL (12.2-16.2); Lymphocytes # 0.7 K/mm3 (0.7-4.5); Lymphocytes % 11.7 % (10-50); Mean Corpuscular HGB Conc 31.6 g/dL (31.8-35.4); Mean Corpuscular Hemoglobin 28.4 pg (27.0-31.2); Mean Corpuscular Volume 89.7 fl (81-99); Mean Platelet Volume 7.9 fl (7.4-10.4); Monocytes # 0.3 K/mm3 (0.1-1.0); Monocytes % 5.2 % (1.7-9.3); Neutrophils # 4.9 K/mm3 (1.8-7.8); Neutrophils % 80.8 % (37.0-80.0); Platelet Count 171 K/mm3 (142-424); Red Blood Count 3.63 M/mm3 (4.20-5.40); Red Cell Distribution Width 14.7 % (11.5-17.5); White Blood Count 6.1 K/mm3 (4.8-10.8)
[2021-07-10 06:28] LABS: Chloride 99 mmol/L (98-107)
[2021-07-10 06:29] LABS: Potassium 4.3 mmoL/L (3.5-5.1); Sodium 140 mmol/L (136-145)
[2021-07-10 06:31] LABS: Alanine Aminotransferase 10 U/L (12-78); Alkaline Phosphatase 55 U/L (38-126); Aspartate Amino Transferase 22 U/L (14-36); Bilirubin,Total 0.4 mg/dl (0.2-1.3); Blood Urea Nitrogen 17 mg/dl (7-17); Creatinine Clearance Estimated 49 mL/min (50-200); Estimated Glomerular Filt Rate 48 ml/min (>60); GFR (African American) 58 ML/MIN (>60)
[2021-07-10 06:32] LABS: Albumin Level 3.7 g/dl (3.5-5.0); Albumin/Globulin Ratio 1.5 (1.1-1.8); Calcium 8.4 mg/dl (8.4-10.2); Carbon Dioxide 36 mmol/L (22.0-30.0); Globulin 2.4 g/dL (1.3-3.2); Glucose 103 mg/dl (74-100); Total Protein,Serum 6.1 g/dl (6.3-8.2)
[2021-07-10 06:33] LABS: Anion Gap 9.3 mEq/L (5-15)
--- NOTE | 2021-07-10 08:47 | HMH.ACPN2 ---
Internal Medicine - PN: Subj *Date: 07/10/21 *Time: 08:47 Interval history: Patient reports continued shortness of breath with walking to the bathroom with her oxygen on. She denies chest pain. Her biggest complaint is that she wants salt to add to her food. Labs this morning reveal hemoglobin of 10.3 and hematocrit 32.6. White blood cell count is 6100. Blood chemistries show normal electrolytes with a BUN of 17 and creatinine of 1.1. Liver function studies are not elevated. Troponin I's been normal x3. Stool for occult blood did return positive. Exam Vital signs and Labs for Last 24 Hours: Temp Pulse Resp BP Pulse Ox 98.4 F 105 H 20 98/71 L 96 07/10/21 08:00 07/10/21 08:00 07/10/21 08:00 07/10/21 08:00 07/10/21 08:00 Laboratory Results - last 24 hr 07/10/21 05:13: WBC 6.1 D, RBC 3.63 L, Hgb 10.3 L, Hct 32.6 L, MCV 89.7, MCH 28.4, MCHC 31.6 L, RDW 14.7, Plt Count 171, MPV 7.9, Neut % (Auto) 80.8 H, Lymph % (Auto) 11.7, [place] % (Auto) 5.2, Eos % (Auto) 1.9, Baso % (Auto) 0.4, Neut # (Auto) 4.9, Lymph # (Auto) 0.7, [place] # (Auto) 0.3, Eos # (Auto) 0.1, Baso # (Auto) 0.0 07/10/21 05:13: Sodium 140, Potassium 4.3, Chloride 99, Carbon Dioxide 36 H, Anion Gap 9.3, BUN 17, Creatinine 1.10 H, Estimated Creat Clear 49, Estimated GFR 48 L, Est GFR ( Amer) 58 L, Glucose 103 H, Calcium 8.4, Total Bilirubin 0.4, AST 22, ALT 10 L D, Alkaline Phosphatase 55, Total Protein 6.1 L, Albumin 3.7, Globulin 2.4, Albumin/Globulin Ratio 1.5 I & O for Last 24 hours: Intake & Output 07/07/21 07/08/21 07/09/21 07/10/21 11:59 11:59 11:59 11:59 Intake Total 840 / 840 1610 / 1610 Output Total 900 / 900 Balance 840 / 840 710 / 710 Weight 173 lb 7 oz 173 lb - Constitutional no acute distress Comments: Conversant - *Routine Respiratory Exam Present: CTA bilaterally (Anteriorly and posteriorly) - *Routine Cardiovascular Exam Present: irregular rhythm (Monitor showing atrial fib with ventricular rate in the 70s) - *Routine Abdominal Exam Present: soft, normoactive bowel sounds. Absent: tenderness - *Routine Extremities Exam Absent: edema, calf tenderness - *Routine Neurological Exam Present: alert, oriented X3 Assessment and Plan (1) Blood loss anemia Status: Acute Category: Medical Code(s): D50.0 - Iron deficiency anemia secondary to blood loss (chronic) (2) Dyspnea Status: Acute Qualifiers: Dyspnea type: dyspnea on exertion Qualified Code(s): R06.00 - Dyspnea, unspecified Category: Medical Code(s): R06.00 - Dyspnea, unspecified (3) Occult blood in stools Status: Acute Category: Medical Code(s): R19.5 - Other fecal abnormalities (4) Pneumonia Status: Acute Qualifiers: Pneumonia type: due to unspecified organism Laterality: right Lung location: middle lobe of lung Qualified Code(s): J18.9 - Pneumonia, unspecified organism Category: Medical Code(s): J18.9 - Pneumonia, unspecified organism (5) Shortness of breath Status: Acute Category: Medical Code(s): R06.02 - Shortness of breath (6) Symptomatic anemia Status: Acute Category: Medical Code(s): D64.9 - Anemia, unspecified (7) Atrial fibrillation Status: Chronic Qualifiers: Atrial fibrillation type: chronic Category: Medical Code(s): I48.91 - Unspecified atrial fibrillation (8) Hypothyroidism Status: Chronic Category: Medical Code(s): E03.9 - Hypothyroidism, unspecified (9) Valvular heart disease Status: Chronic Category: Medical Code(s): I38 - Endocarditis, valve unspecified (10) CAD (coronary artery disease) Status: Acute Category: Medical Code(s): I25.10 - Atherosclerotic heart disease of [place] coronary artery without angina pectoris (11) CHF (congestive heart failure) Status: Acute Category: Medical Code(s): I50.9 - Heart failure, unspecified (12) COPD (chronic obstructive pulmonary disease) Status: Acute Category: Me
--- NOTE | 2021-07-10 17:02 | PC.NURSE ---
Pt has been pleasant and cooperative this shift. A&O X4. No complaints of pain or SOA. Pt is currently receiving O2 via NC @ 3 LPM with sats. >90%. Lung sounds are diminished. No edema noted. Skin is C/D/I. Telemetry reveals controlled a-fib. Pt ambulates with stand-by assistance and uses a cane. Pt sat up in the recliner today for several hours. Urine is clear and yellow. No BM thus far this shift. Pt has been instructed to provide a sputum sample and a specimen cup is at bedside. 20 G peripheral IV in the RT wrist is patent and SL. VSS. Call light within reach. Will continue to monitor.
[2021-07-11] VITALS (10 sets, daily range): BP systolic 102–126; BP diastolic 54–67; PULSE 76–100; RESP 16–22; TEMP 36.7–37.1; O2SAT 94–98; BMI 27.5
--- NOTE | 2021-07-11 08:50 | HMH.ACPN2 ---
Internal Medicine - PN: Subj *Date: 07/11/21 *Time: 08:50 Interval history: Patient did sleep some last night. She had some discomfort in her right lower back. She calls it pleurisy. No pain with deep inspiration. Was walking to the bathroom and back she is extremely short of breath. She did have a shower yesterday without incident. She is eating but still complains of not having any salt. She is voiding QS. Assisted patient to the bathroom and she did quite well with her cane. She does not know when she has another appointment with her supervisor [employer]. 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 Exam Vital signs and Labs for Last 24 Hours: Temp Pulse Resp BP Pulse Ox 98.5 F 85 16 120/64 97 07/11/21 07:24 07/11/21 07:24 07/11/21 07:24 07/11/21 07:24 07/11/21 07:24 I & O for Last 24 hours: Intake & Output 07/08/21 07/09/21 07/10/21 07/11/21 11:59 11:59 11:59 11:59 Intake Total 840 / 840 1610 / 1610 410 / 410 Output Total 900 / 900 Balance 840 / 840 710 / 710 410 / 410 Weight 173 lb 7 oz 171 lb 15.369 oz 175 lb 8 oz Microbiology Reports for the Last 24 Hours: Microbiology 07/08/21 13:30 Blood Blood Culture - Preliminary NO GROWTH AFTER 48 HOURS 07/08/21 13:30 Blood Blood Culture - Preliminary NO GROWTH AFTER 48 HOURS - Constitutional no acute distress - *Routine Respiratory Exam Present: CTA bilaterally (Anteriorly and posteriorly) - *Routine Cardiovascular Exam Present: irregular rhythm (Monitor showing atrial fib) - *Routine Abdominal Exam Present: soft, normoactive bowel sounds. Absent: tenderness - *Routine Extremities Exam Absent: edema, calf tenderness - *Routine Neurological Exam Present: alert, oriented X3 Assessment and Plan (1) Blood loss anemia Status: Acute Category: Medical Code(s): D50.0 - Iron deficiency anemia secondary to blood loss (chronic) (2) Dyspnea Status: Acute Qualifiers: Dyspnea type: dyspnea on exertion Qualified Code(s): R06.00 - Dyspnea, unspecified Category: Medical Code(s): R06.00 - Dyspnea, unspecified (3) Occult blood in stools Status: Acute Category: Medical Code(s): R19.5 - Other fecal abnormalities (4) Pneumonia Status: Acute Qualifiers: Pneumonia type: due to unspecified organism Laterality: right Lung location: middle lobe of lung Qualified Code(s): J18.9 - Pneumonia, unspecified organism Category: Medical Code(s): J18.9 - Pneumonia, unspecified organism (5) Shortness of breath Status: Acute Category: Medical Code(s): R06.02 - Shortness of breath (6) Symptomatic anemia Status: Acute Category: Medical Code(s): D64.9 - Anemia, unspecified (7) Atrial fibrillation Status: Chronic Qualifiers: Atrial fibrillation type: chronic Category: Medical Code(s): I48.91 - Unspecified atrial fibrillation (8) Hypothyroidism Status: Chronic Category: Medical Code(s): E03.9 - Hypothyroidism, unspecified (9) Valvular heart disease Status: Chronic Category: Medical Code(s): I38 - Endocarditis, valve unspecified (10) CAD (coronary artery disease) Status: Acute Category: Medical Code(s): I25.10 - Atherosclerotic heart disease of [place] coronary artery without angina pectoris (11) CHF (congestive heart failure) Status: Acute Category: Medical Code(s): I50.9 - Heart failure, unspecified (12) COPD (chronic obstructive pulmonary disease) Status: Acute Category: Medical Code(s): J44.9 - Chronic obstructive pulmonary disease, unspecified (13) GERD (gastroesophageal reflux disease) Status: Acute Category: Medical Code(s): K21.9 - Gastro-esophageal reflux disease without esophagitis (14) Presence of Watchman left atrial appendage closure device Status: Acute Category: Medical Code(s): Z95.818 - Presence of other cardiac implants and grafts
--- NOTE | 2021-07-11 10:22 | SW/DCPLANNER ---
This patient stated that she currently has home O2 thru [facility]. Patient plans on discharging to her [facility] for a period of time once medically stable. I will follow up with this patient at time of discharge if there are any new orders. Patient could potentially discharge home later today.
--- NOTE | 2021-07-11 16:04 | HMH.PULMCON ---
*Admission Date: 07/08/21 *Reason for consult:: Shortness of breath *History of present illness: Ms. Gutierrez is a 81-year-old female no significant smoking history, carries a personal diagnosis of asthma has been on Symbicort along with those as needed, had a prior extensive pulmonary work-up as per the patient including transbronchial biopsy that all resulted negative during which her shortness of breath was attributed to atrial fibrillation, chronic oxygen dependent hypoxic respiratory failure on 2 to 3 L oxygen supplementation presented to hospital on 07/08 with worsening respiratory distress with a chest x-ray showing bilateral, prominent right lower lobe pulmonary infiltrates and patient was initiated on ceftriaxone at that point and pulmonary was called today for further plan of care. Patient started his amiodarone for her uncontrolled atrial fibrillation 3 days prior to current presentation [facility] History Medical History: Reports:: Arrhythmia, Atrial Fibrillation, Congestive Heart Failure, Chronic Obstructive Pulmonary Disease (COPD), Coronary Artery Disease, Depression, Gastroesophageal Reflux Disease(GERD), Home Oxygen, Hyperlipidemia Denies:: Cancer, Diabetes Mellitus Type 1, Diabetes Mellitus Type 2, Internal Pacemaker, MRSA, Seizures *Have you ever received a pneumonia vaccine?: Yes *Have you received a flu vaccine this season?: Yes Other Medical History: Reports: Anemia, Arthritis, Cataracts, Fibromyalgia, Thyroid Disease Laterality Cases: Bilateral: Tonsillectomy Other Surgeries: Yes: Cardiac Catheterization, Thyroidectomy, Other (lower back surgery x3, Watchman left atrial appendage closure device). No: Pacemaker Amputation: No Fractures: No - *Social History Last grade of school completed: High school graduate Smoking Status: Former smoker Tobacco Type: cigarettes Alcohol Intake: never Substance Use Type: denies use *Occupational Status:: retired Housing: house Household Members: none *Travel in the last 8 weeks: None - Psychiatric History Pschychiatric History:: Reports:: Depression Family Hx:: No significant family history ROS - Cons Denies anorexia, Denies body ache(s) - ENT Denies difficulty swallowing - Card Reports shortness of breath, Reports shortness of breath with activity, Reports leg swelling - Resp Respiratory: Reports shortness of breath, Denies chest congestion, Denies excessive phlegm production, Denies coughing up blood, Denies pain with breathing - GI Gastrointestingal: Denies: abdominal pain - [place] Musculoskeletal: Reports joint pain Meds Home Medications Medication Instructions Recorded Confirmed Type Esomeprazole Magnesium [Nexium] 40 mg PO DAILY 12/07/17 07/08/21 History Potassium Chloride [Pot Chlor 10 10 meq PO DAILY 12/07/17 07/08/21 History mEq Tab] Sertraline HCl [Zoloft] 100 mg PO DAILY 12/07/17 07/08/21 History Gabapentin [Neurontin 600mg 600 mg PO QID 12/08/17 07/08/21 History tablet] Levothyroxine Sodium 88 mcg PO DAILY 12/08/17 07/08/21 History [Levothyroxine 88mcg (0.088mg) Tab] allopurinoL [Allopurinol 100mg 200 mg PO DAILY 12/08/17 07/08/21 History tablet] Acetaminophen [Tylenol 500mg 1,000 mg PO Q6HP PRN 07/12/20 07/08/21 History tablet] Aspirin [Aspirin 81mg EC Tab] 81 mg PO DAILY 07/12/20 07/08/21 History Atorvastatin Calcium [Lipitor 40mg 40 mg PO HS 07/12/20 07/08/21 History Tab] Budesonide/Formoterol Fumarate 2 puffs IH BID 07/12/20 07/08/21 History [Symbicort 160-4.5 Mcg Inhaler] Ferrous Gluconate [Ferrous 324 mg PO BID 07/12/20 07/08/21 History Gluconate 324mg Tab] Furosemide [Furosemide 40MG tAB*] 40 mg PO DAILY 07/12/20 07/08/21 History Hydrocodone/Acetaminophen [Lortab 1 tab PO TIDP PRN 07/12/20 07/08/21 History 7.5/325mg tablet] Montelukast Sodium [Singulair 10mg 10 mg PO PM 07/12/20 07/08/21 History tablet] Nitroglycerin [Nitrostat 0.4mg SL 0.4 mg SL Q5MINP PRN 07/12/20 07/08/21 History Tablet]
--- NOTE | 2021-07-11 16:36 | PC.NURSE ---
Pt has been pleasant and cooperative this shift. A&O X4. No complaints of pain or SOA. Pt is currently receiving O2 via NC @ 3 LPM with sats. >90%. Lungs CTA. No edema noted. Skin is C/D/I. Telemetry reveals controlled a-fib. Pt ambulates with stand-by assistance and uses a cane. Pt sat up in the recliner today for several hours. Urine is clear and yellow. No BM thus far this shift. Pt has been instructed to provide a sputum sample and a specimen cup is at bedside. 20 G peripheral IV in the RT wrist is patent and SL. VSS. Call light within reach. Will continue to monitor.
[2021-07-12] VITALS: BP 117/69; PULSE 96; RESP 18; TEMP 36.9; O2SAT 98
[2021-07-12 04:00] VITALS: BP 110/58; PULSE 83; RESP 17; TEMP 37; O2SAT 90
--- NOTE | 2021-07-12 04:09 | PC.NURSE ---
Pt A&O. has rested well this shift. No c/o pain. On 3L NC, Lungs diminished. Pt able to ambulate with stand by assist. IV patent. Pt able to make needs known to staff, VSS, call light in reach, no concerns at this time.
[2021-07-12 05:00] VITALS: BMI 27.1
[2021-07-12 08:00] VITALS: BP 119/58; PULSE 82; RESP 18; TEMP 36.8; O2SAT 96
--- NOTE | 2021-07-12 09:11 | HMH.ACPN2 ---
Internal Medicine - PN: Subj *Date: 07/12/21 *Time: 09:11 Interval history: Patient is ready to go home. She states her biggest problems yesterday were heartburn and coughing spasm. These resolved. She denies chest pain. She ambulates to the bathroom. Shortness of breath has improved but is still present with any activity. She was seen by Dr. Spring yesterday. She was told she needed this chest CT. He recommended to continue Symbicort and changed to Levaquin. Exam Vital signs and Labs for Last 24 Hours: Temp Pulse Resp BP Pulse Ox 98.2 F 82 18 119/58 L 96 07/12/21 08:00 07/12/21 08:00 07/12/21 08:00 07/12/21 08:00 07/12/21 08:00 I & O for Last 24 hours: Intake & Output 07/09/21 07/10/21 07/11/21 07/12/21 11:59 11:59 11:59 11:59 Intake Total 840 / 840 1610 / 1610 770 / 770 1130 / 1130 Output Total 900 / 900 Balance 840 / 840 710 / 710 770 / 770 1130 / 1130 Weight 173 lb 7 oz 171 lb 15.369 oz 175 lb 8 oz 173 lb 2 oz - Constitutional no acute distress - *Routine Respiratory Exam Present: CTA bilaterally (Anteriorly and posteriorly) - *Routine Cardiovascular Exam Present: RRR (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 Heart rate is very regular.) - *Routine Abdominal Exam Present: soft, normoactive bowel sounds. Absent: tenderness - *Routine Extremities Exam Absent: edema, calf tenderness - *Routine Neurological Exam Present: alert, oriented X3 Assessment and Plan (1) Blood loss anemia Status: Acute Category: Medical Code(s): D50.0 - Iron deficiency anemia secondary to blood loss (chronic) (2) Dyspnea Status: Acute Qualifiers: Dyspnea type: dyspnea on exertion Qualified Code(s): R06.00 - Dyspnea, unspecified Category: Medical Code(s): R06.00 - Dyspnea, unspecified (3) Occult blood in stools Status: Acute Category: Medical Code(s): R19.5 - Other fecal abnormalities (4) Pneumonia Status: Acute Qualifiers: Pneumonia type: due to unspecified organism Laterality: right Lung location: middle lobe of lung Qualified Code(s): J18.9 - Pneumonia, unspecified organism Category: Medical Code(s): J18.9 - Pneumonia, unspecified organism (5) Shortness of breath Status: Acute Category: Medical Code(s): R06.02 - Shortness of breath (6) Symptomatic anemia Status: Acute Category: Medical Code(s): D64.9 - Anemia, unspecified (7) Atrial fibrillation Status: Chronic Qualifiers: Atrial fibrillation type: chronic Category: Medical Code(s): I48.91 - Unspecified atrial fibrillation (8) Hypothyroidism Status: Chronic Category: Medical Code(s): E03.9 - Hypothyroidism, unspecified (9) Valvular heart disease Status: Chronic Category: Medical Code(s): I38 - Endocarditis, valve unspecified (10) CAD (coronary artery disease) Status: Acute Category: Medical Code(s): I25.10 - Atherosclerotic heart disease of [place] coronary artery without angina pectoris (11) CHF (congestive heart failure) Status: Acute Category: Medical Code(s): I50.9 - Heart failure, unspecified (12) COPD (chronic obstructive pulmonary disease) Status: Acute Category: Medical Code(s): J44.9 - Chronic obstructive pulmonary disease, unspecified (13) GERD (gastroesophageal reflux disease) Status: Acute Category: Medical Code(s): K21.9 - Gastro-esophageal reflux disease without esophagitis (14) Presence of Watchman left atrial appendage closure device Status: Acute Category: Medical Code(s): Z95.818 - Presence of other cardiac implants and grafts - Assessment and plan all Dx Assessment and Plan for all problems:: Will be discharged to home today.
--- NOTE | 2021-07-12 09:48 | HMH.PHAINT ---
MEDICATION DISCHARGE COUNSELING COMPLETE. PATIENT DIDN'T HAVE ANY QUESTIONS ABOUT ANTIBIOTIC SHE WAS BEING SENT HOME WITH. I WENT OVER ROUTE AND POTENTIAL SIDE EFFECTS TO BE AWARE OF. SHE ASKED ABOUT IRON TABLETS AND WHERE SHE COULD BUY SOME OR GET A PRESCRIPTION. SHE SAID SHE WOULD ASK NURSE TO GET A PRESCRIPTION FOR HER.
--- NOTE | 2021-07-12 10:22 | HMH.ACPN ---
Internal Medicine - PN: Subj *Date: 07/12/21 *Time: 10:22 Exam Vital signs and Labs for Last 24 Hours: Temp Pulse Resp BP Pulse Ox 98.2 F 82 18 119/58 L 96 07/12/21 08:00 07/12/21 08:00 07/12/21 08:00 07/12/21 08:00 07/12/21 08:00 I & O for Last 24 hours: Intake & Output 07/09/21 07/10/21 07/11/21 07/12/21 23:59 23:59 23:59 23:59 Intake Total 2089 770 / 770 1010 / 1010 480 / 480 Output Total 900 / 900 Balance 2089 -130 / -130 1010 / 1010 480 / 480 Weight 78.67 kg 78 kg 79.605 kg 78.528 kg Assessment and Plan (1) Blood loss anemia Status: Acute Category: Medical Code(s): D50.0 - Iron deficiency anemia secondary to blood loss (chronic) (2) Dyspnea Status: Acute Qualifiers: Dyspnea type: dyspnea on exertion Qualified Code(s): R06.00 - Dyspnea, unspecified Category: Medical Code(s): R06.00 - Dyspnea, unspecified (3) Occult blood in stools Status: Acute Category: Medical Code(s): R19.5 - Other fecal abnormalities (4) Pneumonia Status: Acute Qualifiers: Pneumonia type: due to unspecified organism Laterality: right Lung location: middle lobe of lung Qualified Code(s): J18.9 - Pneumonia, unspecified organism Category: Medical Code(s): J18.9 - Pneumonia, unspecified organism (5) Shortness of breath Status: Acute Category: Medical Code(s): R06.02 - Shortness of breath (6) Symptomatic anemia Status: Acute Category: Medical Code(s): D64.9 - Anemia, unspecified (7) Atrial fibrillation Status: Chronic Qualifiers: Atrial fibrillation type: chronic Category: Medical Code(s): I48.91 - Unspecified atrial fibrillation (8) Hypothyroidism Status: Chronic Category: Medical Code(s): E03.9 - Hypothyroidism, unspecified (9) Valvular heart disease Status: Chronic Category: Medical Code(s): I38 - Endocarditis, valve unspecified (10) CAD (coronary artery disease) Status: Acute Category: Medical Code(s): I25.10 - Atherosclerotic heart disease of [place] coronary artery without angina pectoris (11) CHF (congestive heart failure) Status: Acute Category: Medical Code(s): I50.9 - Heart failure, unspecified (12) COPD (chronic obstructive pulmonary disease) Status: Acute Category: Medical Code(s): J44.9 - Chronic obstructive pulmonary disease, unspecified (13) GERD (gastroesophageal reflux disease) Status: Acute Category: Medical Code(s): K21.9 - Gastro-esophageal reflux disease without esophagitis (14) Presence of Watchman left atrial appendage closure device Status: Acute Category: Medical Code(s): Z95.818 - Presence of other cardiac implants and grafts The patient's infection will respond to the chosen ABx?: Yes (EMPIRIC THERAPY) Is the patient receiving the right drug, dose, and route?: Yes Could a more targeted ABx be ordered?: No (CULTURES PENDING)
[2021-07-12 15:44] VITALS: BP 110/54; PULSE 59; RESP 18; TEMP 36.8; O2SAT 97
[2021-07-12 18:11] VITALS: O2SAT 98
--- NOTE | 2021-07-14 12:43 | HMH.DCSUM ---
General - General Admission date:: 07/08/21 Discharge date: 07/12/21 HPI HPI: Ms Gutierrez is an 81 year old female patient of Dr. Reed's with an extensive medical history. 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 Fib. Patient for the past month or so had more difficulty breathing and was recently diagnosed with a recurrence of A. fib and was started on Amiodarone. She stated her SOB became worse over the previous week and she got to the point that she was SOB after just taking a few steps. Thus she presented to the ER for an evaluation. She denied fever and chills and productive cough. Hospital Course Hospital Course: Patient did improve after admission. She continued with oxygen at 2 to 3 L. Although her breathing did improve she continually described shortness of breath with minimal exertion. She denied chest pain. She was able to ambulate in the room and did sit up in a chair for long periods of time. She was seen by Dr. Spring, Pulmonology. He related the possibility of interstitial lung disease. He did not feel recent initiation of amiodarone was a causative factor but secondary to pneumonia or volume overload. He did suggest a repeat CT scan in the future. He noted negative blood cultures and her improvement. He felt patient could be discharged home on Symbicort along with albuterol every 6 hours as needed and to be evaluated further as an outpatient. On 07/12 patient was feeling much better. She was eating well and felt her breathing had improved somewhat. She was continually short of breath with ambulation. She was felt to be stable to be discharged. Patient was discharged home in stable and satisfactory condition. She was to follow-up with Dr. Reed on 07/12/2021. She was to continue with meds as per medication reconciliation sheet to include Omnicef 300 mg twice daily for total of 10 days. Objective Vital signs: Temp Pulse Resp BP Pulse Ox 98.3 F 59 L 18 110/54 L 98 07/12/21 15:44 07/12/21 15:44 07/12/21 15:44 07/12/21 15:44 07/12/21 18:11 Narrative: Exam Vital signs and Labs for Last 24 Hours: Temp Pulse Resp BP Pulse Ox 98.2 F 82 18 119/58 L 96 07/12/21 08:00 07/12/21 08:00 08/18/21 08:00 07/12/21 08:00 07/12/21 08:00 I & O for Last 24 hours: Intake & Output 07/09/21 07/10/21 07/11/21 07/12/21 11:59 11:59 11:59 11:59 Intake Total 840 / 840 1610 / 1610 770 / 770 1130 / 1130 Output Total 900 / 900 Balance 840 / 840 710 / 710 770 / 770 1130 / 1130 Weight 173 lb 7 oz 171 lb 15.369 oz 175 lb 8 oz 173 lb 2 oz - Constitutional no acute distress - *Routine Respiratory Exam Present: CTA bilaterally (Anteriorly and posteriorly) - *Routine Cardiovascular Exam Present: 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 Heart rate is very regular.) - *Routine Abdominal Exam Present: soft, normoactive bowel sounds. Absent: tenderness - *Routine Extremities Exam Absent: edema, calf tenderness - *Routine Neurological Exam Present: alert, oriented X3 Results Completed studies during hospitalization [Text1]: 07/08/2021 CXR IMPRESSION: Subtle patchy airspace disease within the right lung base suggested. Follow-up. Lungs are otherwise well aerated. 07/08/2021 EKG Conclusion Atrial fibrillation Nonspecific ST and T wave abnormality Abnormal ECG 07/08/21 13:30: WBC 8.2, RBC 3.58 L, Hgb 10.2 L, Hct 31.5 L, MCV 88.0, MCH 28.6, MCHC 32.5, RDW 14.9, Plt Count 189, MPV 8.2, Neut % (Auto) 87.1 H, Lymph % (Auto) 6.4 L, [place] % (Auto) 3.4, Eos % (Auto) 2.7, Baso % (Auto) 0.6, Neut # (Auto) 7.2, Lymph # (Auto) 0.5 L, [place] # (Auto) 0.3, Eos # (Auto) 0.2, Baso # (Auto) 0.1, Total Counted 100, Neutrophils % (Manual) 81 H, Lymphocytes % (Manual) 15, Monocytes % (Manual) 4, Platelet Estimate Normal, RBC Morphology Normal 07/08/21 13:30: Sodium 140, Potassium 4.2, Chloride 100, Carbon Dioxide 32 H, Anion G
== END 2021-07-12 17:40 | disposition home or self-care (01) ==
LOC: UTC 11:47 → ER 12:40 → 2ND 16:06
PROVIDERS: Admitting Provider Family Medicine; Emergency Provider Emergency Medicine; PCP Family Medicine; Visit Provider Family Medicine
DX: J18.9 Pneumonia, unspecified organism (principal); J44.9 Chronic obstructive pulmonary disease, unspecified; Z99.81 Dependence on supplemental oxygen; D50.0 Iron deficiency anemia secondary to blood loss (chronic); I38 Endocarditis, valve unspecified; I48.91 Unspecified atrial fibrillation; Z20.822 Contact with and (suspected) exposure to COVID-19; Z79.899 Other long term (current) drug therapy; I50.9 Heart failure, unspecified; I11.0 Hypertensive heart disease with heart failure; I25.10 Atherosclerotic heart disease of native coronary artery without angina pectoris; J96.11 Chronic respiratory failure with hypoxia; K21.9 Gastro-esophageal reflux disease without esophagitis; Z95.818 Presence of other cardiac implants and grafts
CPT/HCPCS: G0378; 36415; 71046; 80053; 82272; 83605; 84484; 85007; 85025; 87040; 93005; 94761; 96365; 99283; G0328; J2405; U0003

== ENCOUNTER 2021-07-24 10:41 | Outpatient (CLI) | payer MEDICARE, BC, SELFPAY ==
[2021-07-24] VITALS (8 sets, daily range): BP systolic 121–145; BP diastolic 66–89; PULSE 110–123; RESP 16–18; TEMP 37.7–39.2; O2SAT 96–100
--- NOTE | 2021-07-24 12:24 | PC.NURSE ---
Pt temp on assessment before infusion is 102.5, talked with pharmacy and agreed that we wait to medicate with tylenol to keep pt baseline to monitor for reaction. Once the infusion is complete will medicate as needed
== END 2021-07-24 14:10 | disposition home or self-care (01) ==
PROVIDERS: PCP Family Medicine; Visit Provider Family Medicine
DX: U07.1 COVID-19 (principal)
CPT/HCPCS: 96365

== ENCOUNTER → 2021-09-08 17:05 | Outpatient (CLI) | payer MEDICARE, BC, SELFPAY ==
--- NOTE | 2021-09-08 17:14 | XR_ITS ---
PROCEDURE INFORMATION: Exam: XR Chest Exam date and time: 09/08/2021 5:14 PM Age: 81 years old Clinical indication: Shortness of breath; Additional info: Copd with exacerbation TECHNIQUE: Imaging protocol: XR of the chest. Views: 2 views. COMPARISON: CR XR CHEST 2V 07/08/2021 1:04 PM FINDINGS: Lungs: Chronic findings of COPD with scattered areas of pleuroparenchymal scarring, unchanged. Subsegmental atelectasis/scarring along the interlobar fissures, lingula, and lung bases. No focal consolidation. No appreciable pulmonary edema. Pleural spaces: No pleural effusion. No pneumothorax. Heart/Mediastinum: Cardiomediastinal silhouette is unchanged, accounting for differences in technique. Bones/joints: No acute osseous abnormality. Soft tissues: Unremarkable. IMPRESSION: No evidence of acute cardiopulmonary disease.
[2021-09-08 17:27] LABS: Basophils % 0.3 % (0.1-2.0); Eosinophils # 0.1 K/mm3 (0.0-0.4); Eosinophils % 0.8 % (0.1-12.0); Hematocrit 32.2 % (37.0-47.0); Lymphocytes # 0.4 K/mm3 (0.7-4.5); Lymphocytes % 6.6 % (10-50); Mean Corpuscular Hemoglobin 26.8 pg (27.0-31.2); Mean Corpuscular Volume 86.2 fl (81-99); Mean Platelet Volume 9.3 fl (7.4-10.4); Monocytes # 0.1 K/mm3 (0.1-1.0); Monocytes % 2.1 % (1.7-9.3); Neutrophils # 5.9 K/mm3 (1.8-7.8); Neutrophils % 90.2 % (37.0-80.0); Platelet Count 178 K/mm3 (142-424); Red Blood Count 3.73 M/mm3 (4.20-5.40); Red Cell Distribution Width 15.5 % (11.5-17.5); White Blood Count 6.6 K/mm3 (4.8-10.8)
[2021-09-08 17:35] LABS: MANUAL DIFFERENTIAL MANUAL DIFFERENTIAL (MANUAL DIFF)
[2021-09-08 18:29] LABS: Alanine Aminotransferase 15 U/L (12-78); Albumin Level 3.7 g/dl (3.5-5.0); Albumin/Globulin Ratio 1.6 (1.1-1.8); Alkaline Phosphatase 64 U/L (38-126); Anion Gap 6.8 mEq/L (5-15); Aspartate Amino Transferase 26 U/L (14-36); Bilirubin,Total 0.5 mg/dl (0.2-1.3); Blood Urea Nitrogen 17 mg/dl (7-17); Calcium 8.8 mg/dl (8.4-10.2); Carbon Dioxide 33 mmol/L (22.0-30.0); Chloride 103 mmol/L (98-107); Estimated Glomerular Filt Rate 69 ml/min (>60); GFR (African American) 83 ML/MIN (>60); Globulin 2.3 g/dL (1.3-3.2); Glucose 135 mg/dl (74-100); Potassium 3.8 mmoL/L (3.5-5.1); Sodium 139 mmol/L (136-145)
[2021-09-08 18:32] LABS: Lymphocytes % 4 % (10-50); Monocytes % 1 % (2-9); Neutrophils % 91 % (42-76); Total Cells Counted 100
[2021-09-08 18:33] LABS: Hypochromasia 1+; Platelet Estimate Normal
== END ==
PROVIDERS: Visit Provider Family Medicine
DX: J44.1 Chronic obstructive pulmonary disease with (acute) exacerbation (principal)
CPT/HCPCS: 36415; 71046; 80053; 85007; 85025

== ENCOUNTER → 2021-11-13 12:57 | Outpatient (CLI) | payer MEDICARE, BC, SELFPAY ==
--- NOTE | 2021-11-13 13:14 | XR_ITS ---
PROCEDURE: XR CHEST 2V CLINICAL HISTORY: COUGH COMPARISON: CT [facility] CT CHEST W/O CONTRAST from 11/30/2015 CR XR CHEST 2V from 05/24/2021 CR XR CHEST 2V from 07/08/2021 CR XR CHEST 2V from 09/08/2021 FINDINGS: There is cardiomegaly without failure. Patchy density is noted in the right upper lobe inferiorly suggesting an area infiltrate. In the left hilar region there is what appears to represent an umbrella type filter device. Please correlate with patient's surgical history. There is mild wedging of the T12 vertebral body similar to the previous exam. Wedging of the T5 vertebral body also noted in appears progressed compared to the previous study. IMPRESSION: Cardiomegaly with patchy infiltrate in the right upper lobe. Umbrella type filter device in the left hilar region. Slight increase wedging of T5 with loss of height anteriorly of approximately 40 percent. Dictated by: Sebastian Gar MD 11/13/2021 15:53 Sebastian Gar MD in [place] 11/13/2021 15:53
[2021-11-13 14:57] LABS: Chloride 92 mmol/L (98-107)
[2021-11-13 14:58] LABS: Potassium 3.1 mmoL/L (3.5-5.1); Sodium 138 mmol/L (136-145)
[2021-11-13 15:00] LABS: Alanine Aminotransferase 13 U/L (12-78); Aspartate Amino Transferase 36 U/L (14-36); Blood Urea Nitrogen 12 mg/dl (7-17); Estimated Glomerular Filt Rate 53 ml/min (>60); GFR (African American) 64 ML/MIN (>60)
[2021-11-13 15:01] LABS: Albumin Level 4.2 g/dl (3.5-5.0); Albumin/Globulin Ratio 1.8 (1.1-1.8); Alkaline Phosphatase 77 U/L (38-126); Anion Gap 12.1 mEq/L (5-15); Bilirubin,Total 0.6 mg/dl (0.2-1.3); Calcium 8.7 mg/dl (8.4-10.2); Carbon Dioxide 37 mmol/L (22.0-30.0); Globulin 2.4 g/dL (1.3-3.2); Glucose 122 mg/dl (74-100); Magnesium 1.8 mg/dl (1.6-2.3); Total Protein,Serum 6.6 g/dl (6.3-8.2)
[2021-11-13 15:10] LABS: NT Pro Brain Natriuretic Pep. 2040 pg/mL (0-450)
[2021-11-13 15:32] LABS: Thyroid Stimulating Hormone 4.74 uIU/mL (0.465-4.68)
[2021-11-13 15:36] LABS: Basophils # 0.1 K/mm3 (0-0.2); Basophils % 0.9 % (0.1-2.0); Eosinophils # 0.4 K/mm3 (0.0-0.4); Eosinophils % 7.6 % (0.1-12.0); Hematocrit 30.2 % (37.0-47.0); Hemoglobin 8.8 g/dL (12.2-16.2); Lymphocytes # 0.7 K/mm3 (0.7-4.5); Lymphocytes % 13.4 % (10-50); Mean Corpuscular HGB Conc 29.3 g/dL (31.8-35.4); Mean Corpuscular Hemoglobin 22.6 pg (27.0-31.2); Mean Corpuscular Volume 77.3 fl (81-99); Mean Platelet Volume 7.6 fl (7.4-10.4); Monocytes # 0.3 K/mm3 (0.1-1.0); Monocytes % 5.6 % (1.7-9.3); Neutrophils % 72.5 % (37.0-80.0); Platelet Count 240 K/mm3 (142-424); Red Cell Distribution Width 16.2 % (11.5-17.5); White Blood Count 5.5 K/mm3 (4.8-10.8)
== END ==
PROVIDERS: Visit Provider Family Medicine
DX: R06.02 Shortness of breath (principal); R05.9 Cough, unspecified; R60.9 Edema, unspecified; R53.1 Weakness
CPT/HCPCS: 36415; 71046; 80053; 83735; 83880; 84443; 85025

== ENCOUNTER 2021-11-21 14:35 | Emergency (ER) | payer MEDICARE, BC, SELFPAY ==
--- NOTE | 2021-11-21 | ECG_ITS ---
APPROVED REPORT Exam: Resting ECG HR:73 bpm ECG Measurements Heart Rate 73 AXES CA 188 P 59 QRSd 82 QRS 27 QT 446 T 36 QTc 491 Conclusion Normal sinus rhythm Nonspecific T wave abnormality Prolonged QT Abnormal ECG Electronically signed by : Jairon Andrade MD 11/22/2021 13:23:49
[2021-11-21 14:37] VITALS: BP 134/57; PULSE 80; RESP 24; TEMP 36.6; O2SAT 94; BMI 28.3
--- NOTE | 2021-11-21 14:53 | XR_ITS ---
PROCEDURE: XR CHEST PORTABLE CLINICAL HISTORY: soa COMPARISON: CT [facility] CT CHEST W/O CONTRAST from 11/30/2015 CR XR CHEST 2V from 07/08/2021 CR XR CHEST 2V from 09/08/2021 CR XR CHEST 2V from 11/13/2021 FINDINGS: Mild cardiomegaly without failure. Atelectatic changes right upper lobe No acute bony abnormalities. IMPRESSION: Cardiomegaly with right upper lobe atelectasis Dictated by: Sebastian Gar MD 11/21/2021 15:08 Sebastian Gar MD in [place] 11/21/2021 15:08
--- NOTE | 2021-11-21 14:54 | HMH.EDGENADL ---
ED Disposition Clinical Impression: Bronchitis, Cardiomegaly Disposition: Home, Self-Care Condition on Discharge: Good Instructions: Acute Bronchitis, DI for Heart Failure Additional Instructions: follow up PCP next week, return to the ER for worse or any concerns Referrals: Cari Reed MD [Primary Care Provider] - Time of Disposition: 16:17 - Critical Care Critical Care Time: No Attestation: On 11/21/21, the high probability of a clinically significant, sudden or life threatening deterioration of the following system(s) required my full and direct attention, intervention and personal management. The time I documented below is in addition to time spent performing reported procedures but includes the following listed in this critical care notation. Medical Decision Making - Gonzalo Inquiry Pt receiving controlled substance: No Vital Signs: 11/21/21 14:37 Temperature 98 F Temperature Source Oral Pulse Rate [Radial] 80 Respiratory Rate 24 Blood Pressure [Right Arm] 134/57 L Blood Pressure Mean [Right Arm] 82 Blood Pressure Position [Right Arm] Sitting 02 Sat by Pulse Oximetry 94 L Oxygen Delivery Method Nasal Cannula Oxygen Flow Rate (LPM) 4 - Lab Data Lab Results 11/21/21 15:03: WBC 5.3, RBC 3.77 L, Hgb 8.4 L, Hct 28.9 L, MCV 76.7 L, MCH 22.3 L, MCHC 29.1 L, RDW 17.1, Plt Count 271, MPV 10.4, Neut % (Auto) 69.0, Lymph % (Auto) 18.0, [place] % (Auto) 6.0, Eos % (Auto) 5.7, Baso % (Auto) 1.4, Neut # (Auto) 3.6, Lymph # (Auto) 1.0, [place] # (Auto) 0.3, Eos # (Auto) 0.3, Baso # (Auto) 0.1 11/21/21 15:03: Sodium 137, Potassium 3.1 L, Chloride 94 L, Carbon Dioxide 36 H, Anion Gap 10.1, BUN 13, Creatinine 1.00, Estimated Creat Clear 51, Estimated GFR 53 L, Est GFR ( Amer) 64, Glucose 110 H, Calcium 9.2, Total Bilirubin 0.5, AST 43 H, ALT 15, Alkaline Phosphatase 82, Troponin I < 0.01, Total Protein 6.8, Albumin 4.1, Globulin 2.7, Albumin/Globulin Ratio 1.5 11/21/21 15:03: Lactate 0.8 11/21/21 15:03: NT-Pro-B Natriuret Pep 2960 H Result diagrams: 11/21/21 15:03 11/21/21 15:03 Orders (Tests/Meds): ORDERS Category Date Time Status Rapid Influenza A&B Antigens Stat Lab 11/21/21 14:55 Ordered Troponin I Q3H Lab 11/21/21 18:00 Ordered Troponin I Q3H Lab 11/21/21 21:00 Ordered Blood Culture Stat Micro 11/21/21 15:03 Received - ECG Data Tracing #1 ekg by zen ensr, qrs narrow, no st elev Medical Decision Narrative: 415pm reeval, appears well, lungs clear, vss, cxr improving, has abx to finish, has home o2 baseline , ok with plan to f/u pcp next week General Adult HPI - General Stated complaint: pain left arm Time Seen by Provider: 11/21/21 14:54 Limitations: No Limitations - History of Present Illness HPI narrative: c/o prod cough, soa, left arm pain, several days . constant, recent on abx for pneumonia 5 days, todya no better Onset (ago): week(s) Radiation: non-radiation Severity: moderate Relieving factors: none Exacerbating factors: none Associated symptoms: denies other symptoms - Related Data Home Medications Medication Instructions Recorded Confirmed Esomeprazole Magnesium [Nexium] 40 mg PO DAILY 12/07/17 11/21/21 Potassium Chloride [Pot Chlor 10 10 meq PO DAILY 12/07/17 11/21/21 mEq Tab] Sertraline HCl [Zoloft] 100 mg PO DAILY 12/07/17 11/21/21 Gabapentin [Neurontin 600mg 600 mg PO QID 12/08/17 11/21/21 tablet] Levothyroxine Sodium 88 mcg PO DAILY 12/08/17 11/21/21 [Levothyroxine 88mcg (0.088mg) Tab] allopurinoL [Allopurinol 100mg 200 mg PO DAILY 12/08/17 11/21/21 tablet] Acetaminophen [Tylenol 500mg 1,000 mg PO Q6HP PRN 08/18/20 12/28/21 tablet] Aspirin [Aspirin 81mg EC Tab] 81 mg PO DAILY 07/12/20 11/21/21 Atorvastatin Calcium [Lipitor 40mg 40 mg PO HS 07/12/20 11/21/21 Tab] Budesonide/Formoterol Fumarate 2 puffs IH BID 07/12/20 11/21/21 [Symbicort 160-4.5 Mcg Inhaler] Ferrous Gluconate [Ferrous 324 mg PO BID
[2021-11-21 15:13] LABS: Basophils # 0.1 K/mm3 (0-0.2); Basophils % 1.4 % (0.1-2.0); Eosinophils # 0.3 K/mm3 (0.0-0.4); Eosinophils % 5.7 % (0.1-12.0); Hematocrit 28.9 % (37.0-47.0); Hemoglobin 8.4 g/dL (12.2-16.2); Mean Corpuscular HGB Conc 29.1 g/dL (31.8-35.4); Mean Corpuscular Hemoglobin 22.3 pg (27.0-31.2); Mean Corpuscular Volume 76.7 fl (81-99); Mean Platelet Volume 10.4 fl (7.4-10.4); Monocytes # 0.3 K/mm3 (0.1-1.0); Neutrophils # 3.6 K/mm3 (1.8-7.8); Platelet Count 271 K/mm3 (142-424); Red Blood Count 3.77 M/mm3 (4.20-5.40); Red Cell Distribution Width 17.1 % (11.5-17.5); White Blood Count 5.3 K/mm3 (4.8-10.8)
[2021-11-21 15:23] LABS: Chloride 94 mmol/L (98-107); Sodium 137 mmol/L (136-145)
[2021-11-21 15:24] LABS: Potassium 3.1 mmoL/L (3.5-5.1)
[2021-11-21 15:26] LABS: Alanine Aminotransferase 15 U/L (12-78); Albumin Level 4.1 g/dl (3.5-5.0); Albumin/Globulin Ratio 1.5 (1.1-1.8); Alkaline Phosphatase 82 U/L (38-126); Anion Gap 10.1 mEq/L (5-15); Aspartate Amino Transferase 43 U/L (14-36); Bilirubin,Total 0.5 mg/dl (0.2-1.3); Blood Urea Nitrogen 13 mg/dl (7-17); Carbon Dioxide 36 mmol/L (22.0-30.0); Creatinine Clearance Estimated 51 mL/min (50-200); Estimated Glomerular Filt Rate 53 ml/min (>60); GFR (African American) 64 ML/MIN (>60); Globulin 2.7 g/dL (1.3-3.2); Total Protein,Serum 6.8 g/dl (6.3-8.2)
[2021-11-21 15:27] LABS: Calcium 9.2 mg/dl (8.4-10.2); Glucose 110 mg/dl (74-100); Lactic Acid 0.8 mmol/L (0.7-2.1)
[2021-11-21 15:36] LABS: NT Pro Brain Natriuretic Pep. 2960 pg/mL (0-450)
[2021-11-21 15:39] LABS: Troponin I < 0.01 ng/ml (0.00-0.034)
[2021-11-21 16:35] VITALS: BP 132/74; PULSE 78; RESP 25; TEMP 36.6; O2SAT 94
== END 2021-11-21 16:36 | disposition home or self-care (01) ==
PROVIDERS: Emergency Provider Emergency Medicine; PCP Family Medicine
DX: J20.9 Acute bronchitis, unspecified (principal); I42.8 Other cardiomyopathies; I48.0 Paroxysmal atrial fibrillation; J44.9 Chronic obstructive pulmonary disease, unspecified; I25.10 Atherosclerotic heart disease of native coronary artery without angina pectoris; K21.9 Gastro-esophageal reflux disease without esophagitis; E78.5 Hyperlipidemia, unspecified; F33.1 Major depressive disorder, recurrent, moderate
CPT/HCPCS: 71045; 80053; 83605; 83880; 84484; 85025; 87040; 93005; 99282

== ENCOUNTER → 2022-02-20 13:28 | Outpatient (CLI) | payer MEDICARE, BC, SELFPAY ==
--- NOTE | 2022-02-20 13:37 | CA_ITS ---
FINAL REPORT TECHNIQUE: Grayscale, color Doppler and duplex Doppler ultrasound of the kidneys, aorta and renal arteries was performed. Multiple velocities were measured. CLINICAL HISTORY: dyspnea o2 dependent, HTN FINDINGS: Aorta velocity: 84 cm/sec Right kidney: 8.7 cm. No evidence of hydronephrosis or mass. Right intrarenal RI: 0.77 Right renal artery velocity: 172 cm/sec. Right RAR (Renal artery-Aortic Ratio): 2.1 Left Kidney: 8.2 cm. No evidence of hydronephrosis or mass. Left intrarenal RI: 0.83 Left renal artery velocity: 129 cm/sec. Left RAR (Renal Artery-Aortic Ratio): 1.5 IMPRESSION: No evidence of significant renal artery stenosis. CT angiogram or postcontrast MR angiogram would be more sensitive for evaluation of possible renal artery stenosis. Reviewed, Interpreted and Dictated by Bill Chiang III, MD Transcribed by Marita Jacobson Authenticated by Bill Chiang III, MD on 02/21/2022 08:45:20 AM [facility]
--- NOTE | 2022-02-20 13:37 | CA_ITS ---
APPROVED REPORT EXAM: Comprehensive 2D, Doppler, and color-flow Echocardiogram Roll Shop Supervisor: Cassidy Montelongo CRT Ht: 5 ft 7 in Wt: 162lbs BSA: 1.85 BP: 122/82 mmHg Indications: Post covid, Congestive Heart Failure, Hyperlipidemia, Hypertension/watchman device, ex smoker 2D Dimensions LVOT 1.25 cm (M/F) 1.5-2.5 LA Volume 67.50 mL LA Volume Index 36.50 mL/m2 (M/F) 16-34 M-Mode Dimensions RVDd 3.79 cm (0.9-2.6) LA Diam 5.06 cm (1.9-4.0) LVDd 3.79 cm (3.5-5.7) Ao Diam 3.33 cm (2.0-3.7) LVDs 2.93 cm (3.5-5.7) IVSd 1.75 cm (0.6-1.1) PWd 0.75 cm (0.6-1.1) EF (Teich) 46.40% FS 22.70% EDV (Teich) 61.60 mL TAPSE 1.17 (<1.7) ESV (Teich) 33.00 mL LV Diastology E Decel Time 147.00 (160-240 msec) E/A Ratio 0.49 MED E' 12.30 (< 7 cm/sec) MED A' 4.10 cm/s E'/MED E' Ratio 9.33 (>14) LAT E' 4.20 (<10 cm/sec) LAT A' 12.10 cm/s E/LAT E' Ratio 27.33 (>14) Aortic Valve AI PHT 356.00 ms AO Peak GR. 11.00 mmHg Mitral Valve MV E Max Dimas. 115.00 (40-130 cm/s) MV A Velocity 234.00 (40-130 cm/s) E/A Ratio 0.49 MV Decel. Time 147.00 (160-240 ms) MV PHT 43.00 ms Pulmonary Valve PV Peak Velocity 205.00 (50-150 cm/s) Tricuspid Valve TR P. Velocity 405.00 cm/s RAP Estimate 10.00 mmHg RVSP 75.50 mmHg Left Ventricle Left atrium is moderately enlarged, left ventricle is normal size, mild concentric left ventricular hypertrophy, estimated ejection fraction 55% with no regional wall motion abnormality, diastolic parameters are inconclusive. Right Ventricle Right atrium is moderately enlarged, left ventricle moderately dilated with normal contractility. Aortic Valve Aortic valve is thickened and calcified without aortic stenosis, there is mild aortic insufficiency. Mitral Valve Mitral leaflets are minimally thickened, there is mild mitral regurgitation. Tricuspid Valve Tricuspid valve is minimally thickened, there is moderate to severe tricuspid regurgitation, calculated right ventricular systolic pressure is 75 mmHg. Pulmonic Valve Pulmonic valve is poorly visualized. Great Vessels Aortic root is normal size. Inferior vena cava is mildly dilated with normal inspiratory collapse. Pericardium No significant pericardial effusion. Conclusion 1. Moderate biatrial enlargement, normal left ventricular size, mild concentric left ventricular hypertrophy, visually estimated ejection fraction 55% with no regional wall motion abnormality, diastolic parameters are inconclusive. 2. Moderately enlarged right ventricle with normal contractility. 3. Thickened and calcified aortic valve with mild aortic insufficiency. 4. Mild mitral and moderate to severe tricuspid regurgitation, calculated right ventricular systolic pressure 75 mmHg. 5. No significant pericardial effusion. 6. Inferior vena cava is mildly dilated with normal inspiratory collapse. Electronically signed by : Boo Roldan MD 02/20/2022 20:06:09
--- NOTE | 2022-02-20 13:50 | CT_ITS ---
FINAL REPORT TECHNIQUE: Axial CT images were performed using a high-resolution protocol from the lung apices through the upper abdomen. Coronal reformats were submitted. This study was performed with techniques to keep radiation doses as low as reasonably achievable (ALARA). Individualized dose reduction techniques using automated exposure control or adjustment of mA and/or kV according to the patient's size were employed. CLINICAL HISTORY: I25.10 - Atherosclerotic heart disease of [place] coronary... FINDINGS: There is no axillary adenopathy. There is no hilar or mediastinal mass or adenopathy. Heart size is normal. There are postoperative changes in the left atrial appendage. There is no pericardial or pleural effusion. Limited images of the upper abdomen are unremarkable. On the lung window images there is moderate peripheral interstitial fibrosis which is greatest in the lung bases. There is no evidence of emphysema. There is no evidence of bronchiectasis. IMPRESSION: Moderate peripheral interstitial fibrosis, greatest in the lung bases. Reviewed, Interpreted and Dictated by Bill Chiang III, MD Transcribed by Rachel Lane Authenticated by Bill Chiang III, MD on 02/20/2022 04:03:07 PM [facility]
--- NOTE | 2022-02-20 16:08 | XR_ITS ---
FINAL REPORT CLINICAL HISTORY: dyspnea COMPARISON: 11/21/2021 FINDINGS: TWO VIEWS OF THE CHEST There is cardiomegaly. The mediastinum is unremarkable. The lungs are clear. There is no pneumothorax. IMPRESSION: No acute cardiopulmonary process. Reviewed, Interpreted and Dictated by Bill Chiang III, MD Transcribed by Marita Jacobson Authenticated by Bill Chiang III, MD on 02/21/2022 08:44:54 AM [facility]
[2022-02-20 16:55] LABS: Basophils % 0.5 % (0.1-2.0); Eosinophils % 0.7 % (0.1-12.0); Hematocrit 28.5 % (37.0-47.0); Hemoglobin 8.4 g/dL (12.2-16.2); Lymphocytes # 0.4 K/mm3 (0.7-4.5); Lymphocytes % 7.4 % (10-50); Mean Corpuscular HGB Conc 29.6 g/dL (31.8-35.4); Mean Corpuscular Hemoglobin 20.6 pg (27.0-31.2); Mean Corpuscular Volume 69.4 fl (81-99); Mean Platelet Volume 8.5 fl (7.4-10.4); Monocytes # 0.2 K/mm3 (0.1-1.0); Neutrophils # 5.2 K/mm3 (1.8-7.8); Neutrophils % 88.4 % (37.0-80.0); Platelet Count 213 K/mm3 (142-424); Red Blood Count 4.11 M/mm3 (4.20-5.40); Red Cell Distribution Width 19.2 % (11.5-17.5); White Blood Count 5.9 K/mm3 (4.8-10.8)
[2022-02-20 17:09] LABS: MANUAL DIFFERENTIAL MANUAL DIFFERENTIAL (MANUAL DIFF)
[2022-02-20 17:16] LABS: Alanine Aminotransferase 21 U/L (12-78); Albumin Level 4.5 g/dl (3.5-5.0); Alkaline Phosphatase 72 U/L (38-126); Anion Gap 11.5 mEq/L (5-15); Aspartate Amino Transferase 32 U/L (14-36); Bilirubin,Direct 0.1 mg/dl (0.0-0.4); Bilirubin,Indirect 0.7 mg/dL (0.0-0.9); Bilirubin,Total 0.8 mg/dl (0.2-1.3); Bilirubin,Unconjugated 0.7 mg/dL (0.0-1.1); Blood Urea Nitrogen 18 mg/dl (7-17); Calcium 8.8 mg/dl (8.4-10.2); Carbon Dioxide 34 mmol/L (22.0-30.0); Chloride 95 mmol/L (98-107); Chol/HDL Ratio 3.3 (1-3.5); Cholesterol 158 mg/dl (140-200); Estimated Glomerular Filt Rate 69 ml/min (>60); GFR (African American) 83 ML/MIN (>60); Glucose 176 mg/dl (74-100); HDL Cholesterol 48 mg/dl (40-60); Potassium 3.5 mmoL/L (3.5-5.1); Sodium 137 mmol/L (136-145); Total Protein,Serum 6.6 g/dl (6.3-8.2); Triglycerides 100 mg/dl (30-150); VLDL Cholesterol 20 mg/dL (0-40)
[2022-02-20 17:25] LABS: NT Pro Brain Natriuretic Pep. 2140 pg/mL (0-450)
[2022-02-20 17:32] LABS: Free T4 (Free Thyroxine) 1.47 ng/dl (0.78-2.19)
[2022-02-20 17:47] LABS: Thyroid Stimulating Hormone 1.94 uIU/mL (0.465-4.68)
[2022-02-20 17:53] LABS: Anisocytosis 2+; Hypochromasia 2+; Lymphocytes % 3 % (10-50); Microcytosis 2+; Monocytes % 7 % (2-9); Neutrophils % 90 % (42-76); Platelet Estimate Normal; Rouleaux 1+; Total Cells Counted 100
[2022-02-21 16:28] LABS: Iron 24 ug/dL (37-170)
[2022-02-21 16:37] LABS: Total Iron Binding Capacity 484 ug/dL (265-497)
[2022-03-02 16:23] LABS: 1,25 Dihydroxy Vitamin D 78 pg/mL (.); 1,25-Dihydroxy, Vitamin D-2 <10 pg/mL (.); 1,25-Dihydroxy, Vitamin D-3 78 pg/mL (.)
== END ==
PROVIDERS: Physician Assistant; PCP Family Medicine; Visit Provider Internal Medicine
DX: R06.00 Dyspnea, unspecified; I25.10 Atherosclerotic heart disease of native coronary artery without angina pectoris; I10 Essential (primary) hypertension; D50.0 Iron deficiency anemia secondary to blood loss (chronic); Z86.79 Personal history of other diseases of the circulatory system; Z95.818 Presence of other cardiac implants and grafts
CPT/HCPCS: 36415; 71046; 71250; 80048; 80061; 80076; 82652; 83540; 83550; 83880; 84439; 84443; 85007; 85025; 85044; 93306; 93976

== ENCOUNTER → 2022-02-21 12:57 | Outpatient (CLI) | payer MEDICARE, BC, SELFPAY ==
--- NOTE | 2022-02-21 | CA_ITS ---
APPROVED REPORT Exam: Pharmacologic Technologist: Kymberly Mroillo, Ht: 5 ft 4 in Wt: 163 lbs BSA: 1.79 m2 HR: 109 bpm BP: 137/71 mmHg Rhythm: A flutter with variable AV conduction, low voltage QRS, ST-T abns Medical History Medical History: HTN Medications: Omeprazole,,,,, Levothyroxine,,,,, Metoprolol,,,,, Asa,,,,, Gabapentin,,,,, Allopurinol,,,,, Acetaminophen,,,,, Prednisone,,,,, Budesonide,,,,, Potassium,,,,, CyclobenAPRINE,,,,, [place]AST,,,,, Cardiac Risk Factors: HTN Stress Test Details Test: LEXISCAN HR Resting HR: 104 bpm Max Heart Rate (APMHR): 138.545216 bpm Max HR Achieved: 122 bpm Target HR (85% APMHR): 117.713185 bpm % of APMHR: 88.41 Recovery HR: 110 bpm BP Resting BP: 137/71 mmHg Max BP: 137/71 mmHg Recovery BP: 120.0/58.0 mmHg ECG Resting ECG: A flutter with variable AV conduction, low voltage QRS, ST-T abns Clinical Exercise duration: 04:01 min Highest Stage Achieved: Stress ECG Conclusion During lexiscan pt experinced SOA and malaise. No CP noted. No arrhythmias noted. No significant ST changes. Unremarkable lexiscan stress. Myoview images reported separately. Electronically signed by : Boo Roldan MD 02/21/2022 19:16:52
--- NOTE | 2022-02-21 13:06 | NM_ITS ---
APPROVED REPORT Exam: Nuclear Stress Test Indication: HTN, SOB, ABN EKG Patient Location: Outpatient Stress Tech: Kymberly JOE Tech:BERTRAM Cisneros RT (R)(N)(M) Ht: 5 ft 7 in Wt: 163 lbs Bra Size: G HR: 140 bpm BP: 137/71 mmHg BSA: 1.85 m2 BMI: 25.5 History: HTN, SOB, ABN EKG Procedure: Patient received a 0.4 mg of intravenous Lexiscan, resting heart rate 104 bpm, resting blood pressure 137/71 mmHg, with Lexiscan maximum heart rate achived was 122 bpm which is Less than 85 % of the maximum predicted heart rate and blood pressure was 127/64 mmHg. With Lexiscan, patient denied any complaint of chest pain. Electrocardiogram Resting electrocardiogram shows sinus rhythm, with Lexiscan there is less than 1.[address] segment depression noted from the baseline EKG. The EKG portion of the Lexiscan is nondiagnostic. Cardiac Stress and Resting SPECT Images: Cardiac Stress and Resting SPECT images were obtained using technetium 99m Myoview 30.2 mCi stress and 9.93 mCi at rest. Gated SPECT for analysis of segmental wall motion and calculation of the ejection fraction also done. Cardiac stress and rest SPECT images show uniform myocardial activity without segmental perfusion abnormality, computer derived ejection fraction is 61% with no regional wall motion abnormality, right ventricle is normal size and contractility. Conclusion: 1. The EKG portion of the Lexiscan is nondiagnostic. 2. No scintigraphic evidence of reversible ischemia seen, computer derived ejection fraction is 61% with no regional wall motion abnormality, right ventricle is normal size and contractility. 3. Normal Lexiscan Myoview study. Electronically signed by : Boo Roldan MD 02/21/2022 19:18:57
== END ==
PROVIDERS: PCP Family Medicine; Visit Provider Internal Medicine
DX: I10 Essential (primary) hypertension (principal); R06.00 Dyspnea, unspecified; Z86.79 Personal history of other diseases of the circulatory system; Z95.818 Presence of other cardiac implants and grafts; Z98.890 Other specified postprocedural states; I48.20 Chronic atrial fibrillation, unspecified
CPT/HCPCS: 78452; 93017; A9502; J2785

== ENCOUNTER → 2022-02-23 08:00 | Outpatient (CLI) | payer MEDICARE, BC, SELFPAY ==
--- NOTE | 2022-02-23 08:00 | PC.NURSE ---
PFT complete without incident. Albuterol 0.083% given via HHN, per written protocol, Pt tolerated tx well.
== END ==
PROVIDERS: PCP Family Medicine; Visit Provider Internal Medicine
DX: R06.00 Dyspnea, unspecified (principal)
CPT/HCPCS: 94060; 94726; 94729

== ENCOUNTER → 2022-03-06 13:26 | Outpatient (CLI) | payer MEDICARE, BC, SELFPAY ==
[2022-03-06 14:37] LABS: Chloride 96 mmol/L (98-107); Potassium 3.8 mmoL/L (3.5-5.1); Sodium 137 mmol/L (136-145)
[2022-03-06 14:40] LABS: Blood Urea Nitrogen 16 mg/dl (7-17); Estimated Glomerular Filt Rate 60 ml/min (>60); GFR (African American) 72 ML/MIN (>60)
[2022-03-06 14:41] LABS: Anion Gap 11.8 mEq/L (5-15); Calcium 8.3 mg/dl (8.4-10.2); Carbon Dioxide 33 mmol/L (22.0-30.0); Glucose 155 mg/dl (74-100)
== END ==
PROVIDERS: Physician Assistant; PCP Family Medicine; Visit Provider Internal Medicine
DX: I25.10 Atherosclerotic heart disease of native coronary artery without angina pectoris; I27.20 Pulmonary hypertension, unspecified; I50.9 Heart failure, unspecified; J44.9 Chronic obstructive pulmonary disease, unspecified; K21.9 Gastro-esophageal reflux disease without esophagitis; R06.00 Dyspnea, unspecified; R94.31 Abnormal electrocardiogram [ECG] [EKG]; Z86.79 Personal history of other diseases of the circulatory system; Z95.818 Presence of other cardiac implants and grafts; Z98.890 Other specified postprocedural states; I11.0 Hypertensive heart disease with heart failure; I48.20 Chronic atrial fibrillation, unspecified
CPT/HCPCS: 36415; 80048

== ENCOUNTER → 2022-03-07 10:49 | Outpatient (CLI) | payer MEDICARE, BC, SELFPAY ==
--- NOTE | 2022-03-07 10:49 | FL_ITS ---
FINAL REPORT CLINICAL HISTORY: choking with eating FT 3:14 FINDINGS: MODIFIED BARIUM SWALLOW HISTORY: Dysphagia. FINDINGS: Fluoroscopy was provided for the speech pathologist to evaluate the swallowing mechanism. The patient was given several different consistencies of barium while the swallow was visualized fluoroscopically. The report of the speech pathologist should be consulted prior to making dietary decisions. IMPRESSION: Modified barium swallow under fluoroscopic guidance. Please see speech pathologist's report for further details and dietary recommendations. Fluoroscopy time was 3 minutes, 14 seconds 30 cine runs were saved Reviewed, Interpreted and Dictated by Anirudh Miller MD Transcribed by Daphne Obrien PA-C Authenticated by Anirudh Miller MD on 03/09/2022 11:17:10 AM [facility]
--- NOTE | 2022-03-07 13:49 | HMH.SLMBS2 ---
Speech & Language Evaluation Speech/Language Mod Barium Swallow Start: 03/07/22 13:04 Freq: once Status: Complete Protocol: Document 03/07/22 13:04 RITA (Rec: 03/07/22 13:49 [email or web address] [id number]) General Information General Current Food Consistency Regular,Thin Liquids Dentition Upper Only,Poor Dentition Oxygen Status Nasal Cannula Facial Symmetry Symmetrical Patient Orientation Situation Ability to Follow Directions Excellent Communication Ability No Impairment MBS Recommendations Diet Dietary Recommendations Regular,Thin Liquids Treatment/Strategies Strategy/Precaution Recommend Sitting Upright (90 deg),Small Bites and Sips,Alternate Liquids/Solids Mod Barium Swallow Impressions Summary and Impressions Oral Phase Impression Minimal Impairment Oral Phase Summary Patient's oral phase was minimally impaired due to poor dentition on bottom of oral cavity. Mastication time was slightly extended. Pharyngeal Phase Impression Mild Impairment Pharyngeal Phase Summary Patient's pharyngeal phase was mildly impaired due to premature spillage to the level of the valleculae observed with all trials presented. She demonstrated a natural posterior head posture during many trials. Transient flash penetration was noted during trials of thin via cup and straw. Initiation of the swallow and velar elevation were both mildly delayed. Incomplete epiglottic inversion was also observed. She demonstrated residue on the base of tongue and minimal residue in the pyriform sinuses with a trial of thin via cup that cleared with an additional swallow. She also exhibited minimal base of tongue residue on pudding and solid food trials. She performed a second swallow to clear remaining residue on pudding, mechanical soft, and solid food trials. One dry
== END ==
PROVIDERS: PCP Family Medicine; Visit Provider Nurse Practitioner Family
DX: R13.10 Dysphagia, unspecified (principal)
CPT/HCPCS: 70371; 92611

== ENCOUNTER 2022-03-14 11:55 | Observation (INO) | payer MEDICARE, BC, SELFPAY ==
[2022-03-14] VITALS (10 sets, daily range): BP systolic 114–148; BP diastolic 54–86; PULSE 72–101; RESP 16–18; TEMP 36.8–36.9; O2SAT 94–99; BMI 26.7; BMI 25.9
--- NOTE | 2022-03-14 11:52 | ECG_ITS ---
APPROVED REPORT Exam: Resting ECG HR:88 bpm ECG Measurements Heart Rate 88 AXES QRSd 87 QRS 70 QT 392 T 40 QTc 437 Conclusion ATRIAL FIBRILLATION LOW QRS VOLTAGE IN PRECORDIAL LEADS [QRS DEFLECTION < 1.0 mV IN CHEST LEADS] NONSPECIFIC ST & T-WAVE ABNORMALITY ABNORMAL RHYTHM ECG UNCONFIRMED REPORT Electronically signed by : Jairon Andrade MD 03/15/2022 11:48:33
--- NOTE | 2022-03-14 12:05 | PC.NURSE ---
Call light within reach of patient; no other needs at this time
[2022-03-14 12:09] LABS: Coronavirus 19, PCR Not Detected (NotDetected); Influenza A, PCR Not Detected (NotDetected); Influenza B, PCR Not Detected (NotDetected)
--- NOTE | 2022-03-14 13:25 | HMH.EDGENADL ---
ED Disposition Clinical Impression: CHF (congestive heart failure) Qualifiers: Heart failure type: unspecified Heart failure chronicity: acute on chronic Qualified Code(s): I50.9 - Heart failure, unspecified Disposition: Admitted as Observation Condition on Discharge: [facility] - Critical Care Critical Care Time: No Attestation: On 03/14/22, the high probability of a clinically significant, sudden or life threatening deterioration of the following system(s) required my full and direct attention, intervention and personal management. The time I documented below is in addition to time spent performing reported procedures but includes the following listed in this critical care notation. Medical Decision Making - Gonzalo Inquiry Pt receiving controlled substance: No Vital Signs: 03/14/22 12:02 03/14/22 12:28 03/14/22 13:00 Temperature 98.5 F Temperature Source Oral Pulse Rate 77 91 H Pulse Rate [Left Radial] 72 Respiratory Rate 17 Blood Pressure 148/76 H 126/76 Blood Pressure [Right Arm] 147/77 H Blood Pressure Mean [Right Arm] 100 02 Sat by Pulse Oximetry 94 L 96 98 Oxygen Delivery Method Nasal Cannula Nasal Cannula Nasal Cannula Oxygen Flow Rate (LPM) 4 4 4 03/14/22 13:21 03/14/22 13:31 Temperature Temperature Source Pulse Rate 88 89 Pulse Rate [Left Radial] Respiratory Rate Blood Pressure 128/54 L 136/73 Blood Pressure [Right Arm] Blood Pressure Mean [Right Arm] 02 Sat by Pulse Oximetry 96 97 Oxygen Delivery Method Nasal Cannula Nasal Cannula Oxygen Flow Rate (LPM) 4 4 - Lab Data Lab Results 03/14/22 12:04: SARS-CoV-2 (PCR) Not detected, Influenza A Untype (PCR) Not detected, Influenza Type B (PCR) Not detected 03/14/22 12:13: WBC 6.6, RBC 3.94 L, Hgb 9.1 L, Hct 30.9 L, MCV 78.5 L, MCH 23.1 L, MCHC 29.4 L, RDW 27.7 H*, Plt Count 202, MPV 8.6, Neut % (Auto) 87.9 H, Lymph % (Auto) 5.1 L, [place] % (Auto) 3.8, Eos % (Auto) 2.3, Baso % (Auto) 0.8, Neut # (Auto) 5.8, Lymph # (Auto) 0.3 L, [place] # (Auto) 0.3, Eos # (Auto) 0.2, Baso # (Auto) 0.1, Total Counted 100, Neutrophils % (Manual) 89 H, Lymphocytes % (Manual) 7 L, Monocytes % (Manual) 4, Platelet Estimate Normal, Hypochromasia 2+, Microcytosis 1+ 03/14/22 12:13: Sodium 136, Potassium 3.5, Chloride 97 L, Carbon Dioxide 34 H, Anion Gap 8.5, BUN 14, Creatinine 0.90, Estimated Creat Clear 52, Estimated GFR 60, Est GFR ( Amer) 72, Glucose 99, Calcium 8.2 L, Total Bilirubin 0.9, AST 39 H, ALT 21, Alkaline Phosphatase 65, Troponin I < 0.01, NT-Pro-B Natriuret Pep 3280 H, Total Protein 6.3, Albumin 3.9, Globulin 2.4, Albumin/Globulin Ratio 1.6 Result diagrams: 03/14/22 12:13 03/14/22 12:13 Orders (Tests/Meds): ED MEDICATIONS Discontinued Medications Generic Name Dose Route Start Last Admin Trade Name Freq PRN Reason Stop Dose Admin Furosemide 80 mg 03/14/22 13:26 03/14/22 14:04 Furosemide 40mg/4ml Vial IV 03/14/22 13:27 80 mg ONCE ONE Administration ORDERS Category Date Time Status Troponin I Q3H Lab 03/14/22 16:30 Ordered Troponin I Q3H Lab 03/14/22 19:30 Ordered - Radiology Data #1 Image(s): Chest Image Reviewed: Yes I reviewed the patient's radiology image, Yes I have reviewed radiologist's interpretation Procedure(s): XR chest portable Accession Number(s): [id number] cc: Cari Reed MD; Bill Chiang MD~ FINAL REPORT CLINICAL HISTORY: soa x 4 mos COMPARISON: February 20, 2022 FINDINGS: A single view of the chest was obtained. The heart is enlarged. The mediastinum is unremarkable. There is mild atelectasis in the right lung. There is no acute pulmonary abnormality. There is no pleural effusion. There is no pneumothorax. There is no acute osseous abnormality. IMPRESSION: Mild right lung atelectasis. Reviewed, Interpreted and Dictated by Bill Chiang III, MD Transcribed by Alexia Beal Authenticated by Bill Chiang III, MD on 03/14/2022 02:0
[2022-03-14 13:35] LABS: Basophils # 0.1 K/mm3 (0-0.2); Basophils % 0.8 % (0.1-2.0); Eosinophils # 0.2 K/mm3 (0.0-0.4); Eosinophils % 2.3 % (0.1-12.0); Hematocrit 30.9 % (37.0-47.0); Hemoglobin 9.1 g/dL (12.2-16.2); Lymphocytes # 0.3 K/mm3 (0.7-4.5); Lymphocytes % 5.1 % (10-50); Mean Corpuscular HGB Conc 29.4 g/dL (31.8-35.4); Mean Corpuscular Hemoglobin 23.1 pg (27.0-31.2); Mean Corpuscular Volume 78.5 fl (81-99); Mean Platelet Volume 8.6 fl (7.4-10.4); Monocytes # 0.3 K/mm3 (0.1-1.0); Monocytes % 3.8 % (1.7-9.3); Neutrophils # 5.8 K/mm3 (1.8-7.8); Neutrophils % 87.9 % (37.0-80.0); Platelet Count 202 K/mm3 (142-424); Red Blood Count 3.94 M/mm3 (4.20-5.40); White Blood Count 6.6 K/mm3 (4.8-10.8)
--- NOTE | 2022-03-14 13:35 | PC.NURSE ---
ED MD at
[2022-03-14 13:36] LABS: Chloride 97 mmol/L (98-107); Potassium 3.5 mmoL/L (3.5-5.1); Sodium 136 mmol/L (136-145)
[2022-03-14 13:38] LABS: Blood Urea Nitrogen 14 mg/dl (7-17); Creatinine Clearance Estimated 52 mL/min (50-200); Estimated Glomerular Filt Rate 60 ml/min (>60); GFR (African American) 72 ML/MIN (>60)
[2022-03-14 13:39] LABS: Alanine Aminotransferase 21 U/L (12-78); Albumin Level 3.9 g/dl (3.5-5.0); Albumin/Globulin Ratio 1.6 (1.1-1.8); Alkaline Phosphatase 65 U/L (38-126); Anion Gap 8.5 mEq/L (5-15); Aspartate Amino Transferase 39 U/L (14-36); Bilirubin,Total 0.9 mg/dl (0.2-1.3); Carbon Dioxide 34 mmol/L (22.0-30.0); Globulin 2.4 g/dL (1.3-3.2); Total Protein,Serum 6.3 g/dl (6.3-8.2)
--- NOTE | 2022-03-14 13:39 | PC.NURSE ---
ED MD on phone with Dr. Reed; Radiology at
[2022-03-14 13:40] LABS: Calcium 8.2 mg/dl (8.4-10.2); Glucose 99 mg/dl (74-100)
[2022-03-14 13:42] LABS: Red Cell Distribution Width 27.7 % (11.5-17.5)
--- NOTE | 2022-03-14 13:42 | PC.NURSE ---
CHUY Rodriguez spoke with Care Management about admission and gave patient an update.
[2022-03-14 13:44] LABS: MANUAL DIFFERENTIAL MANUAL DIFFERENTIAL (MANUAL DIFF)
[2022-03-14 13:55] LABS: NT Pro Brain Natriuretic Pep. 3280 pg/mL (0-450)
[2022-03-14 13:59] LABS: Troponin I < 0.01 ng/ml (0.00-0.034)
[2022-03-14 14:21] LABS: Hypochromasia 2+; Lymphocytes % 7 % (10-50); Microcytosis 1+; Monocytes % 4 % (2-9); Neutrophils % 89 % (42-76); Platelet Estimate Normal; Total Cells Counted 100
--- NOTE | 2022-03-14 14:27 | PC.NURSE ---
patient using bed side commode with assistance from myself; no complications noted
--- NOTE | 2022-03-14 14:39 | HMH.PHAVTE ---
[facility] Pharmacy VTE Monitoring - Patient Demographics Admission date: 03/14/22 Report Date: 03/14/22 Time: 14:39 Allergies/Adverse Reactions: Patient Allergies No Known Allergies Allergy (Verified 03/14/22 11:20) Height: 1.7 m Weight: 77.564 kg Patient Problems: Current Active Problems CHF (congestive heart failure) (Acute) - VTE Risk Labs: VTE Related Lab Results Hgb 9.1 g/dL (12.2-16.2) L 03/14/22 12:13 Hct 30.9 % (37.0-47.0) L 03/14/22 12:13 Plt Count 202 K/mm3 (142-424) 03/14/22 12:13 BUN 14 mg/dl (7-17) 03/14/22 12:13 Creatinine 0.90 mg/dl (0.52-1.04) 03/14/22 12:13 Estimated Creat Clear 52 mL/min (50-200) 03/14/22 12:13 Clinical Trial Participant: No - Prophylaxis VTE Prophylaxis Ordered?: Yes Types of VTE Prophylaxis: TEDS Knee High
--- NOTE | 2022-03-14 14:54 | HMH.PHAINT ---
MEDICATION RECONCILIATION COMPLETE USING LIST FROM MOST RECENT CARDIOLOGY OFFICE VISIT AND EXTERNAL PHARMACY FILL HISTORY.
--- NOTE | 2022-03-14 15:06 | PC.NURSE ---
MALACHI Chau at BS
--- NOTE | 2022-03-14 15:39 | HMH.HP ---
*Admission Date: 03/14/22 *Chief complaint: SOA *History of present illness: Sent from Dr. Lewis's office. He states that she is very short of breath on exam in his office and he feels she is in congestive heart failure and requires admission for diuresis. He requests Lasix 80 mg IV in the emergency department. The patient states that she has been very short of breath for the past 3 to 4 months but over the past couple of weeks even worse. She says that her air chipper has told her that at times her lips turned blue. She has severe dyspnea on exertion. She has orthopnea. She denies paroxysmal nocturnal dyspnea. She does have some swelling of her legs and possibly of her abdomen. (above as per ER physician) Further to above note the patient just recently underwent cardioversion in October for A. fib. She had COVID at the end of last year and since that time, has gone from 2 L of oxygen continuously to 4 L of oxygen due to shortness of breath. She states cardiology was unsure if it was COVID that it caused the lung damage or the amiodarone that she was on for A. fib. She has also been anemic and has seen Dr. Henry. She is supposed to now have an appointment with Dr. Logan for evaluation. Her hemoglobin was low at 9.1 and her BNP was elevated at 3280. Her chest x-ray showed mild right lung atelectasis. She was admitted for diuresis. [facility] History I have reviewed the patient's past medical history: Yes Medical History: Reports:: Arrhythmia, Atrial Fibrillation, Congestive Heart Failure, Chronic Obstructive Pulmonary Disease (COPD), Coronary Artery Disease, Depression, Gastroesophageal Reflux Disease(GERD), Home Oxygen, Hyperlipidemia Denies:: Cancer, Diabetes Mellitus Type 1, Diabetes Mellitus Type 2, Internal Pacemaker, MRSA, Seizures *Have you ever received a pneumonia vaccine?: Yes *Have you received a flu vaccine this season?: Yes Other Medical History: Reports: Anemia, Arthritis, Cataracts, Fibromyalgia, Thyroid Disease Laterality Cases: Bilateral: Tonsillectomy Other Surgeries: Yes: Cardiac Catheterization, Thyroidectomy, Other (lower back surgery x3, Watchman left atrial appendage closure device). No: Pacemaker Amputation: No Fractures: No - *Social History Smoking Status: Former smoker Tobacco Type: cigarettes Alcohol Intake: never Substance Use Type: denies use *Occupational Status:: retired Housing: house Household Members: none *Travel in the last 8 weeks: None - Psychiatric History Pschychiatric History:: Reports:: Depression Family Hx:: Stroke Review of Systems - Constitutional Denies chills, Denies fever(s) - Eyes Denies blurry vision, Denies double vision - ENT Denies nasal congestion, Denies sore throat - *Cardiovascular Reports rapid, pounding, or irregular heartbeat, Denies chest pain - *Respiratory Reports cough, Reports shortness of breath - *Gastrointestinal Denies abdominal pain, Denies loose stools, Denies nausea, Denies vomiting - *Genitourinary Denies difficulty urinating, Denies painful urination - *Musculoskeletal Reports muscle weakness, Denies body aches - *Neurologic Reports headache(s), Reports dizziness Meds Home Medications Medication Instructions Recorded Confirmed Type Esomeprazole Magnesium [Nexium] 40 mg PO DAILY 12/07/17 03/14/22 History Sertraline HCl [Zoloft] 100 mg PO DAILY 12/07/17 03/14/22 History potassium chloride 10 mEq 10 meq PO DAILY 12/07/17 03/14/22 History tablet,extended release(part/cryst) Gabapentin [Neurontin 600mg 600 mg PO QID 12/08/17 03/14/22 History tablet] Levothyroxine Sodium 88 mcg PO DAILYDM 12/08/17 03/14/22 History [Levothyroxine 88mcg (0.088mg) Tab] allopurinoL [Allopurinol 100mg 200 mg PO DAILY 12/08/17 03/14/22 History tablet] Aspirin [Aspirin 81mg EC Tab] 81 mg PO DAILY 07/12/20 03/14/22 History Budesonide/Formoterol Fumarate 2 puffs IH BID 07/12/20 03/14/22 History [Symbicort 160-4.5 Mcg Inhaler] F
--- NOTE | 2022-03-14 15:48 | PC.NURSE ---
Patient to 2nf floor with KRISTINA Love by wheel
[2022-03-14 16:52] LABS: Troponin I < 0.01 ng/ml (0.00-0.034)
--- NOTE | 2022-03-14 19:15 | PC.NURSE ---
Report received from Sophia Ni RN
--- NOTE | 2022-03-14 19:20 | PC.NURSE ---
Pt to OB unit at this time via hospital bed.
[2022-03-15] VITALS: BP 118/71; PULSE 62; PULSE 80; RESP 17; TEMP 36.8; O2SAT 97
[2022-03-15 04:00] VITALS: PULSE 60
--- NOTE | 2022-03-15 04:10 | PC.NURSE ---
PT HAS RESTED WELL AND HAS BEEN PLEASANT THIS SHIFT. C/O MILD CRAMPING TO HANDS RELIEVED BY PRN TYLENOL. VSS. IV PATENT TO LEFT AC. LUNGS CTAB. NO EDEMA NOTED. BOWELS ACTIVE X4 QUADRANTS. PT IS A&O X4. TELE CONTINUES TO READ A-FIB OVERNIGHT. PT AMBULATES WELL WITH X1 ASSIST TO BSC. HAS VOIDED ONCE WITH 250ML OUT. CALL LIGHT IN REACH.
[2022-03-15 04:15] VITALS: BP 122/56; PULSE 74; RESP 17; TEMP 36.7; O2SAT 99
[2022-03-15 05:41] VITALS: BMI 25.9
[2022-03-15 07:38] LABS: Basophils % 0.9 % (0.1-2.0); Eosinophils # 0.3 K/mm3 (0.0-0.4); Eosinophils % 5.6 % (0.1-12.0); Hematocrit 29.8 % (37.0-47.0); Hemoglobin 8.8 g/dL (12.2-16.2); Lymphocytes # 0.8 K/mm3 (0.7-4.5); Lymphocytes % 17.2 % (10-50); Mean Corpuscular HGB Conc 29.4 g/dL (31.8-35.4); Mean Corpuscular Hemoglobin 23.2 pg (27.0-31.2); Mean Corpuscular Volume 78.8 fl (81-99); Mean Platelet Volume 8.8 fl (7.4-10.4); Monocytes # 0.4 K/mm3 (0.1-1.0); Monocytes % 7.8 % (1.7-9.3); Neutrophils # 3.2 K/mm3 (1.8-7.8); Neutrophils % 68.5 % (37.0-80.0); Platelet Count 193 K/mm3 (142-424); Red Blood Count 3.78 M/mm3 (4.20-5.40); White Blood Count 4.7 K/mm3 (4.8-10.8)
[2022-03-15 07:39] LABS: Red Cell Distribution Width 28.2 % (11.5-17.5)
[2022-03-15 07:40] LABS: Chloride 98 mmol/L (98-107); Potassium 3.3 mmoL/L (3.5-5.1); Sodium 137 mmol/L (136-145)
[2022-03-15 07:43] LABS: Anion Gap 6.3 mEq/L (5-15); Blood Urea Nitrogen 17 mg/dl (7-17); Carbon Dioxide 36 mmol/L (22.0-30.0); Creatinine Clearance Estimated 51 mL/min (50-200); Estimated Glomerular Filt Rate 60 ml/min (>60); GFR (African American) 72 ML/MIN (>60)
[2022-03-15 07:44] LABS: Calcium 7.9 mg/dl (8.4-10.2); Glucose 89 mg/dl (74-100)
[2022-03-15 08:00] VITALS: BP 128/53; PULSE 80; RESP 17; TEMP 36.8; O2SAT 98
--- NOTE | 2022-03-15 09:47 | HMH.ACPN2 ---
Internal Medicine - PN: Subj *Date: 03/15/22 *Time: 09:47 Interval history: The patient states that she slept well. She is in no respiratory distress. She is not complaining. She has had some heart rhythm disturbance that she is aware of as an outpatient which led up to her admission. She is going to be seen by cardiology this morning. I am concerned about her hemoglobin being 8.8. Her potassium is low at 3.3. I will supplement with p.o. potassium. Exam Vital signs and Labs for Last 24 Hours: Temp Pulse Resp BP Pulse Ox 98.0 F 74 17 122/56 L 99 03/15/22 04:15 03/15/22 04:15 03/15/22 04:15 03/15/22 04:15 03/15/22 04:15 Laboratory Results - last 24 hr 03/14/22 12:04: SARS-CoV-2 (PCR) Not detected, Influenza A Untype (PCR) Not detected, Influenza Type B (PCR) Not detected 03/14/22 12:13: WBC 6.6, RBC 3.94 L, Hgb 9.1 L, Hct 30.9 L, MCV 78.5 L, MCH 23.1 L, MCHC 29.4 L, RDW 27.7 H*, Plt Count 202, MPV 8.6, Neut % (Auto) 87.9 H, Lymph % (Auto) 5.1 L, [place] % (Auto) 3.8, Eos % (Auto) 2.3, Baso % (Auto) 0.8, Neut # (Auto) 5.8, Lymph # (Auto) 0.3 L, [place] # (Auto) 0.3, Eos # (Auto) 0.2, Baso # (Auto) 0.1, Total Counted 100, Neutrophils % (Manual) 89 H, Lymphocytes % (Manual) 7 L, Monocytes % (Manual) 4, Platelet Estimate Normal, Hypochromasia 2+, Microcytosis 1+ 03/14/22 12:13: Sodium 136, Potassium 3.5, Chloride 97 L, Carbon Dioxide 34 H, Anion Gap 8.5, BUN 14, Creatinine 0.90, Estimated Creat Clear 52, Estimated GFR 60, Est GFR ( Amer) 72, Glucose 99, Calcium 8.2 L, Total Bilirubin 0.9, AST 39 H, ALT 21, Alkaline Phosphatase 65, Troponin I < 0.01, NT-Pro-B Natriuret Pep 3280 H, Total Protein 6.3, Albumin 3.9, Globulin 2.4, Albumin/Globulin Ratio 1.6 03/14/22 16:15: Troponin I < 0.01 03/15/22 07:07: WBC 4.7 L D, RBC 3.78 L, Hgb 8.8 L, Hct 29.8 L, MCV 78.8 L, MCH 23.2 L, MCHC 29.4 L, RDW 28.2 H*, Plt Count 193, MPV 8.8, Neut % (Auto) 68.5, Lymph % (Auto) 17.2, [place] % (Auto) 7.8, Eos % (Auto) 5.6, Baso % (Auto) 0.9, Neut # (Auto) 3.2, Lymph # (Auto) 0.8, [place] # (Auto) 0.4, Eos # (Auto) 0.3, Baso # (Auto) 0.0 03/15/22 07:07: Sodium 137, Potassium 3.3 L, Chloride 98, Carbon Dioxide 36 H, Anion Gap 6.3, BUN 17, Creatinine 0.90, Estimated Creat Clear 51, Estimated GFR 60, Est GFR ( Amer) 72, Glucose 89, Calcium 7.9 L I & O for Last 24 hours: Intake & Output 03/12/22 03/13/22 03/14/22 03/15/22 11:59 11:59 11:59 11:59 Intake Total 360 / 360 Output Total 1100 / 1100 Balance -740 / -740 Weight 167 lb - Constitutional no acute distress - *Routine HEENT Exam Head: Present: normocephalic Eye: Present: EOMI, PERRL ENT: Present: mucous membranes moist - *Routine Neck Exam Present: supple, JVD (Mild). Absent: lymphadenopathy - *Routine Respiratory Exam Present: decreased breath sounds, rales (Few bibasilar fibrotic) - *Routine Cardiovascular Exam Present: irregular rhythm (80) - *Routine Abdominal Exam Present: soft, normoactive bowel sounds. Absent: tenderness, distended - *Routine Extremities Exam Present: edema (Trace) - *Routine Skin Exam Present: warm. Absent: rash - *Routine Neurological Exam Present: alert, oriented X3 Assessment and Plan (1) CHF (congestive heart failure) Status: Acute Qualifiers: Heart failure type: unspecified Heart failure chronicity: acute on chronic Qualified Code(s): I50.9 - Heart failure, unspecified Category: Medical Code(s): I50.9 - Heart failure, unspecified (2) Anemia Status: Chronic Qualifiers: Anemia type: unspecified type Qualified Code(s): D64.9 - Anemia, unspecified Category: Medical Code(s): D64.9 - Anemia, unspecified (3) CAD (coronary artery disease) Status: Chronic Qualifiers: Coronary Disease-Associated Artery/Lesion type: [place] artery [place] vs. transplanted heart: [place] heart Associated angina: without angina Qualified Code(s): I25.10 - Atherosclerotic heart disease of [place] spence
--- NOTE | 2022-03-15 10:53 | PC.NURSE ---
wishes for cardiology to see pt. before discharge, awaiting cardiology.
--- NOTE | 2022-03-15 11:47 | HMH.PNCARD ---
Subjective Date: 03/15/22 Time: 11:20 Principal diagnosis: chf Interval history: This is an 82-year-old white female who was admitted to the hospital from cardiology office yesterday for an acute exacerbation of diastolic congestive heart failure and tachycardia. She was diuresed with IV Lasix and did diurese well with significant improvement in her shortness of breath. Her tachycardia has also improved with getting metoprolol tartrate 25 mg 4 times daily. She states that she feels much better today. Her shortness of breath is significantly improved. She states she has some mild shortness of breath but nowhere near as bad as it was yesterday. She denies any chest pain or pressure. She denies any fever, chills, nausea, vomiting, diarrhea, PND or orthopnea. Her lower extremity edema has resolved as well. Exam Vital signs and Labs for Last 24 Hours: Temp Pulse Resp BP Pulse Ox 98.2 F 80 17 128/53 L 98 03/15/22 08:00 03/15/22 08:00 03/15/22 08:00 03/15/22 08:00 03/15/22 08:00 Laboratory Results - last 24 hr 03/14/22 12:04: SARS-CoV-2 (PCR) Not detected, Influenza A Untype (PCR) Not detected, Influenza Type B (PCR) Not detected 03/14/22 12:13: WBC 6.6, RBC 3.94 L, Hgb 9.1 L, Hct 30.9 L, MCV 78.5 L, MCH 23.1 L, MCHC 29.4 L, RDW 27.7 H*, Plt Count 202, MPV 8.6, Neut % (Auto) 87.9 H, Lymph % (Auto) 5.1 L, [place] % (Auto) 3.8, Eos % (Auto) 2.3, Baso % (Auto) 0.8, Neut # (Auto) 5.8, Lymph # (Auto) 0.3 L, [place] # (Auto) 0.3, Eos # (Auto) 0.2, Baso # (Auto) 0.1, Total Counted 100, Neutrophils % (Manual) 89 H, Lymphocytes % (Manual) 7 L, Monocytes % (Manual) 4, Platelet Estimate Normal, Hypochromasia 2+, Microcytosis 1+ 03/14/22 12:13: Sodium 136, Potassium 3.5, Chloride 97 L, Carbon Dioxide 34 H, Anion Gap 8.5, BUN 14, Creatinine 0.90, Estimated Creat Clear 52, Estimated GFR 60, Est GFR ( Amer) 72, Glucose 99, Calcium 8.2 L, Total Bilirubin 0.9, AST 39 H, ALT 21, Alkaline Phosphatase 65, Troponin I < 0.01, NT-Pro-B Natriuret Pep 3280 H, Total Protein 6.3, Albumin 3.9, Globulin 2.4, Albumin/Globulin Ratio 1.6 03/14/22 16:15: Troponin I < 0.01 03/15/22 07:07: WBC 4.7 L D, RBC 3.78 L, Hgb 8.8 L, Hct 29.8 L, MCV 78.8 L, MCH 23.2 L, MCHC 29.4 L, RDW 28.2 H*, Plt Count 193, MPV 8.8, Neut % (Auto) 68.5, Lymph % (Auto) 17.2, [place] % (Auto) 7.8, Eos % (Auto) 5.6, Baso % (Auto) 0.9, Neut # (Auto) 3.2, Lymph # (Auto) 0.8, [place] # (Auto) 0.4, Eos # (Auto) 0.3, Baso # (Auto) 0.0 03/15/22 07:07: Sodium 137, Potassium 3.3 L, Chloride 98, Carbon Dioxide 36 H, Anion Gap 6.3, BUN 17, Creatinine 0.90, Estimated Creat Clear 51, Estimated GFR 60, Est GFR ( Amer) 72, Glucose 89, Calcium 7.9 L I & O for Last 24 hours: Intake & Output 03/12/22 03/13/22 03/14/22 03/15/22 23:59 23:59 23:59 23:59 Intake Total 360 / 360 Output Total 750 / 750 850 / 850 Balance -390 / -390 -850 / -850 Weight 168 lb 5 oz 167 lb - Constitutional no acute distress, average body habitus - *Routine HEENT Exam Head: Present: normocephalic, atraumatic Eye: Present: EOMI, PERRL ENT: Present: mucous membranes moist - *Routine Neck Exam Present: supple, full ROM, normal carotid upstroke. Absent: JVD, carotid bruit, lymphadenopathy - *Routine Respiratory Exam Present: CTA bilaterally - *Routine Cardiovascular Exam Present: RRR, Normal S1, Normal S2. Absent: murmur - *Routine Abdominal Exam Present: soft, normoactive bowel sounds. Absent: tenderness, distended - *Routine Extremities Exam Present: full ROM, pulses intact, normal capillary refill. Absent: cyanosis, clubbing, edema - *Routine Skin Exam Present: intact, warm. Absent: erythema, rash - *Routine Neurological Exam Present: alert, oriented X3, CN II-XII intact. Absent: sensory deficit, motor deficit Progress Note: A&P (1) CHF (congestive heart failure) Status: Acute (2) Anemia Status: Chronic (3) CAD (coronary artery disease) Status: Chronic (4) COPD (chronic obstr
--- NOTE | 2022-03-15 13:59 | HMH.PHAINT ---
I spoke with the patient today about her medication list. Went over the new medications, medications she was to continue, medication that they were changing the dose on, and the medications she was to stop taking. When we spoke, there were no questions or concerns. The patient was provided a copy of the medication list and informed on where she could pickle cutter the medications.
--- NOTE | 2022-03-15 14:05 | PC.NURSE ---
Discharge education provided. Questions encouraged and answered. Pt. v/u.
--- NOTE | 2022-03-15 14:37 | PC.NURSE ---
Pt. left unit via wheelchair, accompanied by staff x1 and mobile homes repairer.
--- NOTE | 2022-03-15 16:45 | HMH.DCSUM ---
General - General Admission date:: 03/14/22 Discharge date: 03/15/22 HPI HPI: Sent from Dr. Lewis's office. He states that she is very short of breath on exam in his office and he feels she is in congestive heart failure and requires admission for diuresis. He requests Lasix 80 mg IV in the emergency department. The patient states that she has been very short of breath for the past 3 to 4 months but over the past couple of weeks even worse. She says that her barrel turner has told her that at times her lips turned blue. She has severe dyspnea on exertion. She has orthopnea. She denies paroxysmal nocturnal dyspnea. She does have some swelling of her legs and possibly of her abdomen. (above as per ER physician) Further to above note the patient just recently underwent cardioversion in October for A. fib. She had COVID at the end of last year and since that time, has gone from 2 L of oxygen continuously to 4 L of oxygen due to shortness of breath. She states cardiology was unsure if it was COVID that it caused the lung damage or the amiodarone that she was on for A. fib. She has also been anemic and has seen Dr. Henry. She is supposed to now have an appointment with Dr. Logan for evaluation. Her hemoglobin was low at 9.1 and her BNP was elevated at 3280. Her chest x-ray showed mild right lung atelectasis. She was admitted for diuresis. Hospital Course Hospital Course: The patient was given Lasix. She responded well and diuresed over 500 cc initially and continue to diurese after reaching the medical floor. Dr. Reed briefly discussed the case with Dr. Lewis and he wanted to try her on 25 mg of metoprolol tartrate 4 times a day. The metoprolol succinate was discontinued per his request. By 03/15/2022, she had slept well and was in no respiratory distress. Her potassium was supplemented as it was low at 3.3. She was seen in consultation by cardiology who felt her edema had resolved and her shortness of breath had significantly improved. They wanted to increase her oral Lasix to 80 mg daily and increase her spironolactone to 100 mg daily on an outpatient basis. They wanted her to continue the metoprolol 25 mg every 6 hours as well. She will follow-up in their office in 1 to 2 weeks. Objective Vital signs: Temp Pulse Resp BP Pulse Ox 98.2 F 80 17 128/53 L 98 03/15/22 08:00 03/15/22 08:00 03/15/22 08:00 03/15/22 08:00 03/15/22 08:00 Narrative: - Constitutional no acute distress - *Routine HEENT Exam Head: Present: normocephalic Eye: Present: EOMI, PERRL ENT: Present: mucous membranes moist - *Routine Neck Exam Present: supple. Absent: lymphadenopathy - *Routine Respiratory Exam Present: CTA bilaterally - *Routine Cardiovascular Exam Present: irregularly irregular - *Routine Abdominal Exam Present: soft, normoactive bowel sounds. Absent: tenderness - *Routine Rectal Exam Rectal:: deferred - *Routine Genitalia Exam Genitalia:: deferred - *Routine Extremities Exam Present: edema (bilateral lower extremities). Absent: cyanosis, clubbing - *Routine Skin Exam Present: warm. Absent: rash - *Routine Neurological Exam Present: alert, oriented X3 Results Labs on day of discharge: Labs from last 24 hours 03/15/22 03/15/22 03/14/22 07:07 07:07 16:15 WBC 4.7 L D RBC 3.78 L Hgb 8.8 L Hct 29.8 L MCV 78.8 L MCH 23.2 L MCHC 29.4 L RDW 28.2 H* Plt Count 193 MPV 8.8 Neut % (Auto) 68.5 Lymph % (Auto) 17.2 [place] % (Auto) 7.8 Eos % (Auto) 5.6 Baso % (Auto) 0.9 Neut # (Auto) 3.2 Lymph # (Auto) 0.8 [place] # (Auto) 0.4 Eos # (Auto) 0.3 Baso # (Auto) 0.0 Sodium 137 Potassium 3.3 L Chloride 98 Carbon Dioxide 36 H Anion Gap 6.3 BUN 17 Creatinine 0.90 Estimated Creat Clear 51 Estimated GFR 60 Est GFR ( Amer) 72 Glucose 89 Calcium 7.9 L Troponin I < 0.01
--- NOTE | 2022-03-16 13:56 | CARE MANAGER ---
Spoke with patient during follow-up phone call, patient states that hse is weak but doing well patient picked up all her prescriptions and also has her follow-up appointments. No further needs at this time.
== END 2022-03-15 14:35 | disposition home or self-care (01) ==
LOC: ER 13:41 → 2ND 18:13 → OB 18:46
PROVIDERS: Admitting Provider Family Medicine; Emergency Provider Emergency Medicine; PCP Family Medicine; Visit Provider Family Medicine
DX: I50.33 Acute on chronic diastolic (congestive) heart failure (principal); Z20.822 Contact with and (suspected) exposure to COVID-19; D64.9 Anemia, unspecified; I25.10 Atherosclerotic heart disease of native coronary artery without angina pectoris; J44.9 Chronic obstructive pulmonary disease, unspecified; K21.9 Gastro-esophageal reflux disease without esophagitis; J84.10 Pulmonary fibrosis, unspecified; I27.20 Pulmonary hypertension, unspecified; E79.0 Hyperuricemia without signs of inflammatory arthritis and tophaceous disease; I48.0 Paroxysmal atrial fibrillation; I11.0 Hypertensive heart disease with heart failure; E03.9 Hypothyroidism, unspecified
CPT/HCPCS: G0378; 36415; 71045; 80048; 80053; 83880; 84484; 85007; 85025; 93005; 94760; 99285; C9803; U0003; U0005

== ENCOUNTER → 2022-04-02 12:36 | Outpatient (CLI) | payer MEDICARE, BC, SELFPAY ==
[2022-04-02 12:54] LABS: Basophils # 0.1 K/mm3 (0-0.2); Basophils % 0.9 % (0.1-2.0); Eosinophils # 0.1 K/mm3 (0.0-0.4); Eosinophils % 1.4 % (0.1-12.0); Hematocrit 40.4 % (37.0-47.0); Hemoglobin 12.8 g/dL (12.2-16.2); Lymphocytes # 0.7 K/mm3 (0.7-4.5); Lymphocytes % 7.9 % (10-50); Mean Corpuscular HGB Conc 31.8 g/dL (31.8-35.4); Mean Corpuscular Hemoglobin 26.3 pg (27.0-31.2); Mean Corpuscular Volume 82.8 fl (81-99); Mean Platelet Volume 9.3 fl (7.4-10.4); Monocytes # 0.3 K/mm3 (0.1-1.0); Monocytes % 3.3 % (1.7-9.3); Neutrophils # 7.3 K/mm3 (1.8-7.8); Neutrophils % 86.5 % (37.0-80.0); Platelet Count 185 K/mm3 (142-424); Red Blood Count 4.88 M/mm3 (4.20-5.40); White Blood Count 8.4 K/mm3 (4.8-10.8)
[2022-04-02 12:57] LABS: Red Cell Distribution Width 25.5 % (11.5-17.5)
[2022-04-02 12:59] LABS: MANUAL DIFFERENTIAL MANUAL DIFFERENTIAL (MANUAL DIFF)
[2022-04-02 13:23] LABS: Chloride 95 mmol/L (98-107); Potassium 4.7 mmoL/L (3.5-5.1); Sodium 136 mmol/L (136-145)
[2022-04-02 13:26] LABS: Anion Gap 10.7 mEq/L (5-15); Blood Urea Nitrogen 20 mg/dl (7-17); Calcium 9.9 mg/dl (8.4-10.2); Carbon Dioxide 35 mmol/L (22.0-30.0); Estimated Glomerular Filt Rate 53 ml/min (>60); GFR (African American) 64 ML/MIN (>60); Glucose 131 mg/dl (74-100); Magnesium 2.1 mg/dl (1.6-2.3)
[2022-04-02 13:36] LABS: Hypochromasia 1+; Lymphocytes % 11 % (10-50); Monocytes % 3 % (2-9); Neutrophils % 85 % (42-76); Platelet Estimate Normal; Total Cells Counted 100
== END ==
PROVIDERS: Visit Provider Internal Medicine
DX: I10 Essential (primary) hypertension (principal); I25.10 Atherosclerotic heart disease of native coronary artery without angina pectoris; I50.9 Heart failure, unspecified; R06.00 Dyspnea, unspecified; Z86.79 Personal history of other diseases of the circulatory system; Z95.818 Presence of other cardiac implants and grafts; Z98.890 Other specified postprocedural states; I48.20 Chronic atrial fibrillation, unspecified
CPT/HCPCS: 36415; 80048; 83735; 85007; 85025; 94762

== ENCOUNTER → 2022-05-31 10:09 | Outpatient (CLI) | payer MEDICARE, BC, SELFPAY ==
--- NOTE | 2022-05-31 10:14 | NM_ITS ---
FINAL REPORT CLINICAL HISTORY: CTPEH, DYSPNEA FINDINGS: NUCLEAR MEDICINE VENTILATION AND PERFUSION IMAGING TECHNIQUE: V/Q scan is performed utilizing 34.1 technetium 99 M DTPA aerosol and IV administration of 7.84 technetium 99 M MAA. Images were obtained in AP, PA, lateral, and oblique projections. FINDINGS There are several small subsegmental perfusion defects. There are no segmental or larger defects. Perfusion is overall better than ventilation. IMPRESSION: Low probability for pulmonary embolus. Reviewed, Interpreted and Dictated by Bill Chiang III, MD Transcribed by Bryce Hutchins Authenticated and [facility]
--- NOTE | 2022-05-31 11:23 | XR_ITS ---
FINAL REPORT CLINICAL HISTORY: SOB VQ SCAN ALSO DONE TODAY COMPARISON: 03/14/2022 FINDINGS: TWO-VIEW CHEST There is cardiomegaly. The mediastinum is normal. There is mild atelectasis or scar in the lungs with partially improved aeration since the previous. There is no pneumothorax. IMPRESSION: Mild atelectasis or scar with partially improved aeration. Reviewed, Interpreted and Dictated by Bill Chiang III, MD Transcribed by Marita Jacobson Authenticated and [facility]
== END ==
PROVIDERS: PCP Family Medicine; Visit Provider Internal Medicine Pulmonary Disease
DX: R06.00 Dyspnea, unspecified (principal); R06.02 Shortness of breath
CPT/HCPCS: 71046; 78582; A9540; A9567

== ENCOUNTER → 2022-06-05 09:57 | Outpatient (POV) | payer MEDICARE, BC, SELFPAY | PROVIDERS: Visit Provider Dermatology | DX: Z00.00 Encounter for general adult medical examination without abnormal findings (principal) ==

== ENCOUNTER 2022-06-12 18:11 | Emergency (ER) | payer MEDICARE, BC, SELFPAY ==
[2022-06-12 18:13] VITALS: BP 103/53; PULSE 65; RESP 20; TEMP 37.1; O2SAT 93; BMI 24.9
--- NOTE | 2022-06-12 18:24 | XR_ITS ---
PROCEDURE INFORMATION: Exam: XR Pelvis Exam date and time: 06/12/2022 7:12 PM Age: 82 years old Clinical indication: Injury or trauma; Fall; Blunt trauma (contusions or hematomas); Bilateral; Hip TECHNIQUE: Imaging protocol: Radiologic exam of the pelvis. Views: 1 or 2 view. COMPARISON: CR [id number] HIP RT 2-3V W/PELVIS IF PERFOR 10/12/2016 12:35 PM FINDINGS: Bones/joints: [id number] degenerative changes of the hips. No acute fracture. Soft tissues: Unremarkable. IMPRESSION: No acute findings.
--- NOTE | 2022-06-12 18:24 | XR_ITS ---
PROCEDURE INFORMATION: Exam: XR Chest Exam date and time: 06/12/2022 7:08 PM Age: 82 years old Clinical indication: Injury or trauma; Fall; Blunt trauma (contusions or hematomas) TECHNIQUE: Imaging protocol: Radiologic exam of the chest. Views: 2 views. COMPARISON: CR XR CHEST 2V 05/31/2022 11:23 AM FINDINGS: Lungs: No consolidation. Pleural spaces: No pneumothorax. Heart/Mediastinum: Progressive cardiomegaly notably involving the right heart which is likely partially projectional secondary to patient positioning. Bones/joints: No acute fracture. IMPRESSION: Progressive cardiomegaly notably involving the right heart.
--- NOTE | 2022-06-12 18:24 | CT_ITS ---
PROCEDURE INFORMATION: Exam: CT Thoracic Spine Without Contrast Exam date and time: 06/12/2022 7:01 PM Age: 82 years old Clinical indication: Injury or trauma; Fall; Blunt trauma (contusions or hematomas); Additional info: Fal TECHNIQUE: Imaging protocol: Computed tomography of the thoracic spine without contrast. Radiation optimization: All CT scans at this facility use at least one of these dose optimization techniques: automated exposure control; mA and/or kV adjustment per patient size (includes targeted exams where dose is matched to clinical indication); or iterative reconstruction. COMPARISON: CT chest 02/20/2022 FINDINGS: Bones/joints: Osteopenia. Degenerative changes. Mild height loss T5 and 12 which appears stable. No acute fracture or dislocation. Soft tissues: Unremarkable. Vasculature: Calcified atherosclerosis. No aortic aneurysm. Lungs: Dependent hypoventilatory changes. Heart: Cardiomegaly. Coronary artery calcifications. Spleen: There are multiple splenic calcifications likely on the basis of prior granulomatous exposure. IMPRESSION: Chronic changes without acute process.
--- NOTE | 2022-06-12 18:24 | CT_ITS ---
PROCEDURE INFORMATION: Exam: CT Cervical Spine Without Contrast Exam date and time: 06/12/2022 6:52 PM Age: 82 years old Clinical indication: Injury or trauma; Fall; Blunt trauma; Additional info: Fal TECHNIQUE: Imaging protocol: Computed tomography of the cervical spine without contrast. Radiation optimization: All CT scans at this facility use at least one of these dose optimization techniques: automated exposure control; mA and/or kV adjustment per patient size (includes targeted exams where dose is matched to clinical indication); or iterative reconstruction. COMPARISON: MR CERVICAL SPINE WO CON 05/30/2021 11:03 AM FINDINGS: Bones/joints: Scoliosis with advanced multilevel degenerative changes. Grade 1 anterolisthesis at C3-C4 and C4-C5. No acute fracture or dislocation. Lungs: Lung apices are normal. Soft tissues: No soft tissue swelling. IMPRESSION: Chronic changes without acute process.
--- NOTE | 2022-06-12 18:24 | CT_ITS ---
PROCEDURE INFORMATION: Exam: CT Head Without Contrast Exam date and time: 06/12/2022 6:52 PM Age: 82 years old Clinical indication: Injury or trauma; Fall; Blunt trauma (contusions or hematomas); Consciousness not specified TECHNIQUE: Imaging protocol: Computed tomography of the head without contrast. Radiation optimization: All CT scans at this facility use at least one of these dose optimization techniques: automated exposure control; mA and/or kV adjustment per patient size (includes targeted exams where dose is matched to clinical indication); or iterative reconstruction. COMPARISON: MR CERVICAL SPINE WO CON 05/30/2021 11:03 AM FINDINGS: Brain: White matter changes compatible with small vessel occlusive change. No mass. No hemorrhage. Cerebral ventricles: No ventriculomegaly. Paranasal sinuses: No fluid levels. Mastoid air cells: Visualized mastoid air cells are well aerated. Bones/joints: No acute fracture. Soft tissues: Left posterior parietooccipital soft tissue swelling. IMPRESSION: Soft tissue injury without acute intracranial abnormality.
[2022-06-12 19:30] VITALS: BP 112/52; PULSE 71; O2SAT 94
--- NOTE | 2022-06-12 19:41 | PC.NURSE ---
Patient is back in room from xray. Family at bedside. Patient requested water, however , due to pending xrays patient was advised to wait until they result per protocol.
--- NOTE | 2022-06-12 20:14 | HMH.EDFALL ---
ED Disposition Clinical Impression: Concussion without loss of consciousness Qualifiers: Encounter type: initial encounter Qualified Code(s): S06.0X0A - Concussion without loss of consciousness, initial encounter Acute cervical sprain Qualifiers: Encounter type: initial encounter Qualified Code(s): S13.9XXA - Sprain of joints and ligaments of unspecified parts of neck, initial encounter Acute thoracic myofascial strain Qualifiers: Encounter type: initial encounter Qualified Code(s): S29.019A - Strain of muscle and tendon of unspecified wall of thorax, initial encounter Disposition: Home, Self-Care Condition on Discharge: Good Instructions: DI for Concussion Additional Instructions: resume meds at this time Referrals: Cari Reed MD [Primary Care Provider] - - Critical Care Critical Care Time: No Attestation: On 06/12/22, the high probability of a clinically significant, sudden or life threatening deterioration of the following system(s) required my full and direct attention, intervention and personal management. The time I documented below is in addition to time spent performing reported procedures but includes the following listed in this critical care notation. Medical Decision Making - Medical Records Medical records reviewed: Yes: I reviewed the patient's medical records. - Gonzalo Inquiry Pt receiving controlled substance: No Vital Signs: 06/12/22 18:13 06/12/22 19:30 Temperature 98.7 F Temperature Source Oral Pulse Rate 71 Pulse Rate [Right] 65 Respiratory Rate 20 Blood Pressure 112/52 L Blood Pressure [Right Arm] 103/53 L Blood Pressure Mean 63 Blood Pressure Mean [Right Arm] 69 02 Sat by Pulse Oximetry 93 L 94 L Oxygen Delivery Method Nasal Cannula Oxygen Flow Rate (LPM) 3 3 - Radiology Data #1 Image(s): Chest, Pelvis Image Reviewed: Yes I have reviewed radiologist's interpretation Preliminary Findings: No Fracture Seen - CT Data CT Scan: Head, C-Spine, T-Spine Time Received: 20:[address] Reviewed: Yes: I have viewed the radiologist's interpretation Preliminary Findings: Abnormal, No Fracture Seen Medical Decision Narrative: has acute fall with head and neck abd back contusion but no fx or cord syndrome Fall HPI - General Chief Complaint: Fall Stated Complaint: ao 06/12@1700 FELL BACKWARDS,HIT HEAD,BACK Time Seen by Provider: 06/12/22 20:00 Mode of Arrival: Wheelchair Source of Information: Patient, Spouse, Medical Record Limitations: No Limitations Description of Symptoms (Recalled from ER Triage Doc. by RN): pt states tripped over O2 tubing and fell back into a cabinet. pt c/o head, back pain - History of Present Illness HPI Narrative: trip type fall with back pain MD complaint: fall Onset (ago): hour(s) Fall from: standing Fall witnessed: yes, by family Place fall occurred: home Loss of consciousness: none Prolonged down time: no Symptoms prior to fall: none Context: tripped/slipped Location of injury: head, neck, back Severity: moderate Associated symptoms (after fall): denies - Related Data Home Medications Medication Instructions Recorded Confirmed Esomeprazole Magnesium [Nexium] 40 mg PO DAILY 12/07/17 06/07/22 Sertraline HCl [Zoloft] 100 mg PO DAILY 12/07/17 06/07/22 potassium chloride 10 mEq 10 meq PO DAILY 12/07/17 06/07/22 tablet,extended release(part/cryst) Gabapentin [Neurontin 600mg 600 mg PO QID 12/08/17 06/07/22 tablet] Levothyroxine Sodium 88 mcg PO DAILYDM 12/08/17 06/07/22 [Levothyroxine 88mcg (0.088mg) Tab] allopurinoL [Allopurinol 100mg 200 mg PO DAILY 12/08/17 06/07/22 tablet] Aspirin [Aspirin 81mg EC Tab] 81 mg PO DAILY 07/12/20 06/07/22 Budesonide/Formoterol Fumarate 2 puffs IH BID 07/12/20 06/07/22 [Symbicort 160-4.5 Mcg Inhaler] Hydrocodone/Acetaminophen [Lortab 1 tab PO TIDP PRN 07/12/20 06/07/22 7.5/325mg tablet] Montelukast Sodium [Singulair 10mg 10 mg PO PM
[2022-06-12 20:20] VITALS: BP 112/60; PULSE 76; RESP 20; TEMP 37.1; O2SAT 94
[2022-06-12 20:37] VITALS: BP 99/52; PULSE 82; RESP 16; TEMP 36.8; O2SAT 96
--- NOTE | 2022-06-12 20:46 | PC.NURSE ---
DISCHARGE INSTRUCTIONS GIVEN. PT STATES SHE HAS NORCO AT HOME THAT SHE CAN TAKE FOR PAIN IF SHE NEEDS IT. PT DENIES PAIN MEDICATION NEEDS UPON DISCHARGE.
== END 2022-06-12 20:47 | disposition home or self-care (01) ==
PROVIDERS: Emergency Provider Emergency Medicine; PCP Family Medicine
DX: S06.0X0A Concussion without loss of consciousness, initial encounter (principal); S13.9XXA Sprain of joints and ligaments of unspecified parts of neck, initial encounter; S29.019A Strain of muscle and tendon of unspecified wall of thorax, initial encounter; Z79.82 Long term (current) use of aspirin; Z79.899 Other long term (current) drug therapy; Z79.51 Long term (current) use of inhaled steroids; I48.91 Unspecified atrial fibrillation; J44.9 Chronic obstructive pulmonary disease, unspecified; I50.9 Heart failure, unspecified; I25.10 Atherosclerotic heart disease of native coronary artery without angina pectoris; F32.A Depression, unspecified; K21.9 Gastro-esophageal reflux disease without esophagitis; E78.5 Hyperlipidemia, unspecified; Z99.81 Dependence on supplemental oxygen
CPT/HCPCS: 70450; 71046; 72125; 72128; 72170; 99285

== ENCOUNTER 2022-06-27 11:10 | Emergency (ER) | payer MEDICARE, BC, SELFPAY ==
[2022-06-27] VITALS (9 sets, daily range): BP systolic 99–155; BP diastolic 48–64; PULSE 61–88; RESP 17–21; TEMP 37.1–37.2; O2SAT 88–99; BMI 25.5
--- NOTE | 2022-06-27 11:28 | HMH.EDUTC ---
[facility] [place] Disposition Clinical Impression: Closed head injury Qualifiers: Encounter type: initial encounter Qualified Code(s): S09.90XA - Unspecified injury of head, initial encounter Head ache Qualifiers: Headache type: unspecified Headache chronicity pattern: unspecified pattern Intractability: not intractable Qualified Code(s): R51.9 - Headache, unspecified Disposition: Still a Patient Condition on Discharge: Fair Instructions: DI for Acute Pain -- Adult Referrals: Cari Reed MD [Primary Care Provider] - Time of Disposition: 13:56 Medical Decision Making - Medical Records Medical records reviewed: No: I reviewed the patient's medical records. - Gonzalo Inquiry Pt receiving controlled substance: No Vital Signs: 06/27/22 11:28 06/27/22 12:01 06/27/22 12:11 Temperature 98.9 F 98.8 F Temperature Source Oral Oral Pulse Rate 83 Pulse Rate [Left] 74 88 Respiratory Rate 21 20 Blood Pressure Blood Pressure [Right Arm] 105/48 L 155/64 H Blood Pressure Mean Blood Pressure Mean [Right Arm] 67 94 Blood Pressure Source [Right Arm] Automatic Cuff Blood Pressure Position [Right Arm] Sitting 02 Sat by Pulse Oximetry 88 L 95 Oxygen Delivery Method Nasal Cannula Oxygen Flow Rate (LPM) 2 06/27/22 12:33 06/27/22 13:03 06/27/22 13:33 Temperature Temperature Source Pulse Rate 61 74 Pulse Rate [Left] Respiratory Rate Blood Pressure 110/61 108/52 L 99/58 L Blood Pressure [Right Arm] Blood Pressure Mean 77 70 68 Blood Pressure Mean [Right Arm] Blood Pressure Source [Right Arm] Blood Pressure Position [Right Arm] 02 Sat by Pulse Oximetry 99 93 L 93 L Oxygen Delivery Method Oxygen Flow Rate (LPM) - Lab Data Lab Results 06/27/22 12:20: WBC 10.2, RBC 4.41, Hgb 13.2, Hct 42.2, MCV 95.5, MCH 30.0, MCHC 31.4 L, RDW 17.0, Plt Count 166, MPV 8.4, Neut % (Auto) 77.8, Lymph % (Auto) 9.9 L, [place] % (Auto) 7.4, Eos % (Auto) 3.0, Baso % (Auto) 1.8, Neut # (Auto) 8.0 H, Lymph # (Auto) 1.0, [place] # (Auto) 0.8, Eos # (Auto) 0.3, Baso # (Auto) 0.2 06/27/22 12:20: Sodium 135 L, Potassium 4.2, Chloride 95 L, Carbon Dioxide 37 H, Anion Gap 7.2, BUN 19 H, Creatinine 1.00, Estimated Creat Clear 50, Estimated GFR 53 L, Est GFR ( Amer) 64, Glucose 95, Calcium 9.4, Magnesium 2.1, Total Bilirubin 1.2, AST 37 H, ALT 16, Alkaline Phosphatase 115, Troponin I 0.01, C-Reactive Protein 43.4 H, Total Protein 6.7, Albumin 3.9, Globulin 2.8, Albumin/Globulin Ratio 1.4 06/27/22 12:38: Urine Color Yellow, Urine Appearance Clear, Urine pH 7.0, Ur Specific [place] 1.010, Urine Protein Negative, Urine Glucose (UA) Negative, Urine Ketones Negative, Urine Blood Trace-i, Urine Nitrate Negative, Urine Bilirubin Negative, Urine Urobilinogen 0.2, Ur Leukocyte Esterase Negative, Urine RBC None, Urine WBC None, Ur Squamous Epith Cells None, Urine Bacteria Trace Result diagrams: 06/27/22 12:20 06/27/22 12:20 Orders (Tests/Meds): ED MEDICATIONS Discontinued Medications Generic Name Dose Route Start Last Admin Trade Name Freq PRN Reason Stop Dose Admin Albuterol/Ipratropium 3 ml 06/27/22 12:06 06/27/22 12:11 Ipratropium/Albuterol 3 Ml Neb 06/27/22 12:07 3 ml ONCE ONE Administration ORDERS Category Date Time Status Rapid PCR Covid and Flu A/B Stat Lab 06/27/22 13:42 Ordered Troponin I Q3H Lab 06/27/22 15:15 Ordered Troponin I Q3H Lab 06/27/22 18:15 Ordered Urine Culture Stat Micro 06/27/22 12:06 Received [facility] [place] HPI - General Stated complaint: AO 06/12/22 Fall; lt arm pain; rt leg pain Time Seen by Provider: 06/27/22 11:28 - History of Present Illness Provider Complaint: She states that she fell 2 weeks ago. She hit her head when she fell. Since then she has had a headache and dizziness. She denies any fever and chills. - Related Data Home Medications Medication Instructions Recorded Confirmed Esomeprazole Magnesium [Nexium] 40 mg PO DAILY 12/07/17
--- NOTE | 2022-06-27 12:06 | XR_ITS ---
FINAL REPORT CLINICAL HISTORY: SOA COMPARISON: 06/12/2022 FINDINGS: A single portable view of the chest was obtained. There is cardiomegaly and mild pulmonary vascular congestion. The mediastinum is within normal limits. There is linear atelectasis the right mid lung. The bony thorax is intact. IMPRESSION: Linear atelectasis in the right mid lung. Reviewed, Interpreted and Dictated by Bill Chiang III, MD Transcribed by Rachel Lane Authenticated and [facility]
--- NOTE | 2022-06-27 12:09 | PC.NURSE ---
pt assisted to bed side commode for urine sample
--- NOTE | 2022-06-27 12:12 | PC.NURSE ---
respiratory called for duoneb for pt
--- NOTE | 2022-06-27 12:13 | HMH.EDGENADL ---
ED Disposition Clinical Impression: Chest pain Qualifiers: Chest pain type: intercostal pain Qualified Code(s): R07.82 - Intercostal pain Disposition: Home, Self-Care Condition on Discharge: Good Instructions: DI for Acute Pain -- Adult Prescriptions: Lidocaine [Lidocaine 5% patch] 1 patch TP Q12 PRN #5 patch PRN Reason: Moderate Pain Transmission Status: Received by [facility] Referrals: Cari Reed MD [Primary Care Provider] - - Critical Care Critical Care Time: No Attestation: On 06/27/22, the high probability of a clinically significant, sudden or life threatening deterioration of the following system(s) required my full and direct attention, intervention and personal management. The time I documented below is in addition to time spent performing reported procedures but includes the following listed in this critical care notation. Medical Decision Making - Gonzalo Inquiry Pt receiving controlled substance: No Gonzalo was queried for this patient: No Vital Signs: 06/27/22 11:28 06/27/22 12:01 06/27/22 12:11 Temperature 98.9 F 98.8 F Temperature Source Oral Oral Pulse Rate 83 Pulse Rate [Left] 74 88 Respiratory Rate 21 20 Blood Pressure Blood Pressure [Right Arm] 105/48 L 155/64 H Blood Pressure Mean Blood Pressure Mean [Right Arm] 67 94 Blood Pressure Source [Right Arm] Automatic Cuff Blood Pressure Position [Right Arm] Sitting 02 Sat by Pulse Oximetry 88 L 95 Oxygen Delivery Method Nasal Cannula Oxygen Flow Rate (LPM) 2 06/27/22 12:33 06/27/22 13:03 06/27/22 13:33 Temperature Temperature Source Pulse Rate 61 74 Pulse Rate [Left] Respiratory Rate Blood Pressure 110/61 108/52 L 99/58 L Blood Pressure [Right Arm] Blood Pressure Mean 77 70 68 Blood Pressure Mean [Right Arm] Blood Pressure Source [Right Arm] Blood Pressure Position [Right Arm] 02 Sat by Pulse Oximetry 99 93 L 93 L Oxygen Delivery Method Oxygen Flow Rate (LPM) 06/27/22 14:03 06/27/22 14:33 06/27/22 15:50 Temperature 98.8 F Temperature Source Oral Pulse Rate 76 80 82 Pulse Rate [Left] Respiratory Rate 18 18 17 Blood Pressure 118/64 123/62 119/61 Blood Pressure [Right Arm] Blood Pressure Mean 76 82 Blood Pressure Mean [Right Arm] Blood Pressure Source [Right Arm] Blood Pressure Position [Right Arm] 02 Sat by Pulse Oximetry 99 98 Oxygen Delivery Method Room Air Oxygen Flow Rate (LPM) - Lab Data Lab Results 06/27/22 12:20: WBC 10.2, RBC 4.41, Hgb 13.2, Hct 42.2, MCV 95.5, MCH 30.0, MCHC 31.4 L, RDW 17.0, Plt Count 166, MPV 8.4, Neut % (Auto) 77.8, Lymph % (Auto) 9.9 L, [place] % (Auto) 7.4, Eos % (Auto) 3.0, Baso % (Auto) 1.8, Neut # (Auto) 8.0 H, Lymph # (Auto) 1.0, [place] # (Auto) 0.8, Eos # (Auto) 0.3, Baso # (Auto) 0.2 06/27/22 12:20: Sodium 135 L, Potassium 4.2, Chloride 95 L, Carbon Dioxide 37 H, Anion Gap 7.2, BUN 19 H, Creatinine 1.00, Estimated Creat Clear 50, Estimated GFR 53 L, Est GFR ( Amer) 64, Glucose 95, Calcium 9.4, Magnesium 2.1, Total Bilirubin 1.2, AST 37 H, ALT 16, Alkaline Phosphatase 115, Troponin I 0.01, C-Reactive Protein 43.4 H, Total Protein 6.7, Albumin 3.9, Globulin 2.8, Albumin/Globulin Ratio 1.4 06/27/22 12:38: Urine Color Yellow, Urine Appearance Clear, Urine pH 7.0, Ur Specific [place] 1.010, Urine Protein Negative, Urine Glucose (UA) Negative, Urine Ketones Negative, Urine Blood Trace-i, Urine Nitrate Negative, Urine Bilirubin Negative, Urine Urobilinogen 0.2, Ur Leukocyte Esterase Negative, Urine RBC None, Urine WBC None, Ur Squamous Epith Cells None, Urine Bacteria Trace 06/27/22 14:00: SARS-CoV-2 (PCR) Not detected, Influenza A Untype (PCR) Not detected, Influenza Type B (PCR) Not detected Result diagrams: 06/27/22 12:20 06/27/22 12:20 Orders (Tests/Meds): ED MEDICATIONS Discontinued Medications Generic Name Dose Route Start Last Admin Trade Name Freq PRN Reason Stop Dose Ad
--- NOTE | 2022-06-27 12:19 | ECG_ITS ---
APPROVED REPORT Exam: Resting ECG HR:84 bpm ECG Measurements Heart Rate 84 AXES QRSd 78 QRS 46 QT 355 T 45 QTc 396 Conclusion ATRIAL FIBRILLATION MODERATE ST DEPRESSION [0.05+ mV ST DEPRESSION] ABNORMAL ECG UNCONFIRMED REPORT Electronically signed by : Jairon Andrade MD 07/04/2022 21:02:03
[2022-06-27 12:38] LABS: Basophils # 0.2 K/mm3 (0-0.2); Basophils % 1.8 % (0.1-2.0); Eosinophils # 0.3 K/mm3 (0.0-0.4); Hematocrit 42.2 % (37.0-47.0); Hemoglobin 13.2 g/dL (12.2-16.2); Lymphocytes % 9.9 % (10-50); Mean Corpuscular HGB Conc 31.4 g/dL (31.8-35.4); Mean Corpuscular Volume 95.5 fl (81-99); Mean Platelet Volume 8.4 fl (7.4-10.4); Monocytes # 0.8 K/mm3 (0.1-1.0); Monocytes % 7.4 % (1.7-9.3); Neutrophils % 77.8 % (37.0-80.0); Platelet Count 166 K/mm3 (142-424); Red Blood Count 4.41 M/mm3 (4.20-5.40); White Blood Count 10.2 K/mm3 (4.8-10.8)
--- NOTE | 2022-06-27 12:39 | PC.NURSE ---
in/out cath and sent to lab
[2022-06-27 12:42] LABS: Microscopic, Urine URINE MICROSCOPIC (MICROSCOPIC)
[2022-06-27 12:45] LABS: Appearance,Urine CLEAR (Clear); Bilirubin,Urine Negative (Negative); Blood, Urine TRACE-I (Negative); Color,Urine YELLOW (Yellow); Glucose,Urine (UA) Negative (Negative); Ketones,Urine Negative (Negative); Leukocyte Esterase,Urine Negative (Negative); Nitrate,Urine Negative (Negative); Protein,Urine Negative (Negative); Urobilinogen,Urine 0.2 EU/dl (0.2)
[2022-06-27 12:45] LABS: Alanine Aminotransferase 16 U/L (12-78); Albumin Level 3.9 g/dl (3.5-5.0); Albumin/Globulin Ratio 1.4 (1.1-1.8); Alkaline Phosphatase 115 U/L (38-126); Anion Gap 7.2 mEq/L (5-15); Aspartate Amino Transferase 37 U/L (14-36); Bilirubin,Total 1.2 mg/dl (0.2-1.3); Blood Urea Nitrogen 19 mg/dl (7-17); Calcium 9.4 mg/dl (8.4-10.2); Carbon Dioxide 37 mmol/L (22.0-30.0); Chloride 95 mmol/L (98-107); Creatinine Clearance Estimated 50 mL/min (50-200); Estimated Glomerular Filt Rate 53 ml/min (>60); GFR (African American) 64 ML/MIN (>60); Globulin 2.8 g/dL (1.3-3.2); Glucose 95 mg/dl (74-100); Magnesium 2.1 mg/dl (1.6-2.3); Potassium 4.2 mmoL/L (3.5-5.1); Sodium 135 mmol/L (136-145); Total Protein,Serum 6.7 g/dl (6.3-8.2)
[2022-06-27 12:50] LABS: C-Reactive Protein 43.4 mg/L (0-4)
[2022-06-27 13:00] LABS: Troponin I 0.01 ng/ml (0.00-0.034)
[2022-06-27 13:02] LABS: Bacteria,Urine Trace /lpf
--- NOTE | 2022-06-27 13:52 | PC.NURSE ---
rounded on pt, pt sleeping at this time
[2022-06-27 14:06] LABS: Coronavirus 19, PCR Not Detected (NotDetected); Influenza A, PCR Not Detected (NotDetected); Influenza B, PCR Not Detected (NotDetected)
--- NOTE | 2022-06-27 14:29 | PC.NURSE ---
rounded on pt at this time, pt resting in bed, visitor at BS. Pt states no needs at this time. will continue to monitor
--- NOTE | 2022-06-27 15:29 | PC.NURSE ---
lidocaine patch applied to pt chest
== END 2022-06-27 16:05 | disposition home or self-care (01) ==
LOC: UTC 11:17 → COUGHCL 11:45 → ER 11:46
PROVIDERS: Emergency Provider Student in an Organized Health Care Education/Training Program; PCP Family Medicine
DX: S09.90XS Unspecified injury of head, sequela (principal); R51.9 Headache, unspecified; R07.82 Intercostal pain; R42 Dizziness and giddiness; W19.XXXS Unspecified fall, sequela
CPT/HCPCS: 71045; 80053; 81001; 83735; 84484; 85025; 86140; 87086; 93005; 99284; C9803; U0003; U0005

== ENCOUNTER → 2022-07-19 12:49 | Outpatient (CLI) | payer MEDICARE, BC, SELFPAY | PROVIDERS: PCP Family Medicine; Visit Provider Internal Medicine Pulmonary Disease | DX: R06.02 Shortness of breath (principal) | CPT/HCPCS: 93306 ==

== ENCOUNTER → 2022-09-24 12:06 | Outpatient (CLI) | payer MEDICARE, BC, SELFPAY ==
[2022-09-24 12:28] LABS: Basophils % 0.5 % (0.1-2.0); Eosinophils # 0.1 K/mm3 (0.0-0.4); Eosinophils % 1.1 % (0.1-12.0); Hematocrit 42.3 % (37.0-47.0); Hemoglobin 13.9 g/dL (12.2-16.2); Lymphocytes # 0.5 K/mm3 (0.7-4.5); Lymphocytes % 5.8 % (10-50); Mean Corpuscular HGB Conc 32.8 g/dL (31.8-35.4); Mean Corpuscular Hemoglobin 32.2 pg (27.0-31.2); Mean Corpuscular Volume 98.3 fl (81-99); Mean Platelet Volume 8.5 fl (7.4-10.4); Monocytes # 0.3 K/mm3 (0.1-1.0); Monocytes % 3.5 % (1.7-9.3); Neutrophils # 7.9 K/mm3 (1.8-7.8); Neutrophils % 89.1 % (37.0-80.0); Platelet Count 168 K/mm3 (142-424); Red Cell Distribution Width 14.5 % (11.5-17.5); White Blood Count 8.9 K/mm3 (4.8-10.8)
[2022-09-24 12:32] LABS: MANUAL DIFFERENTIAL MANUAL DIFFERENTIAL (MANUAL DIFF)
[2022-09-24 13:07] LABS: Alanine Aminotransferase 17 U/L (12-78); Albumin Level 4.1 g/dl (3.5-5.0); Alkaline Phosphatase 75 U/L (38-126); Aspartate Amino Transferase 29 U/L (14-36); Bilirubin,Direct 0.1 mg/dl (0.0-0.4); Bilirubin,Indirect 0.7 mg/dL (0.0-0.9); Bilirubin,Total 0.8 mg/dl (0.2-1.3); Bilirubin,Unconjugated 0.8 mg/dL (0.0-1.1); Blood Urea Nitrogen 18 mg/dl (7-17); Carbon Dioxide 35 mmol/L (22.0-30.0); Chloride 92 mmol/L (98-107); Chol/HDL Ratio 4.7 (1-3.5); Cholesterol 219 mg/dl (140-200); Estimated Glomerular Filt Rate 47 ml/min (>60); GFR (African American) 57 ML/MIN (>60); Glucose 103 mg/dl (74-100); HDL Cholesterol 47 mg/dl (40-60); Sodium 139 mmol/L (136-145); Total Protein,Serum 6.4 g/dl (6.3-8.2); Triglycerides 161 mg/dl (30-150); VLDL Cholesterol 32 mg/dL (0-40)
[2022-09-24 13:19] LABS: Direct LDL Cholesterol 137.23 mg/dL (100-129)
[2022-09-24 13:31] LABS: Anion Gap 16.1 mEq/L (5-15); Potassium 4.1 mmoL/L (3.5-5.1)
[2022-09-24 14:54] LABS: Lymphocytes % 12 % (10-50); Monocytes % 1 % (2-9); Neutrophils % 86 % (42-76); Platelet Estimate Normal; RBC Morphology Normal; Total Cells Counted 100
[2022-09-24 15:14] LABS: Free Thyroxine Index 2.5 ug/dL (5.93-13.13); T4 (Thyroxine) 6.7 ug/dl (5.53-11.0); Triiodothryronine (T3) Uptake 38 % (23.5-40.5)
[2022-09-24 15:27] LABS: Thyroid Stimulating Hormone 3.02 uIU/mL (0.465-4.68)
== END ==
PROVIDERS: PCP Family Medicine; Visit Provider Physician Assistant
DX: I25.10 Atherosclerotic heart disease of native coronary artery without angina pectoris; I27.20 Pulmonary hypertension, unspecified; I38 Endocarditis, valve unspecified; I63.9 Cerebral infarction, unspecified; J44.9 Chronic obstructive pulmonary disease, unspecified; K21.9 Gastro-esophageal reflux disease without esophagitis; R06.09 Other forms of dyspnea; R09.89 Other specified symptoms and signs involving the circulatory and respiratory systems; R94.31 Abnormal electrocardiogram [ECG] [EKG]; Z95.818 Presence of other cardiac implants and grafts; I11.9 Hypertensive heart disease without heart failure; E11.9 Type 2 diabetes mellitus without complications; I48.20 Chronic atrial fibrillation, unspecified
CPT/HCPCS: 36415; 80048; 80061; 80076; 84436; 84443; 84479; 85007; 85025

== ENCOUNTER → 2022-09-28 12:41 | Outpatient (CLI) | payer MEDICARE, BC, SELFPAY ==
--- NOTE | 2022-09-28 12:54 | CT_ITS ---
FINAL REPORT CLINICAL HISTORY: cough, sob FINDINGS: Before and after the administration of intravenous contrast, axial images through the chest were performed by computed tomography. This study was performed with techniques to keep radiation doses as low as reasonably achievable, (ALARA). Individualized dose reduction techniques using automated exposure control or adjustment of mA and/or kV according to the patient's size were employed. There is no aortic aneurysm or dissection. There is postoperative change in the left atrial appendage. There is no axillary adenopathy. There is no hilar or mediastinal adenopathy. The heart size is normal. There is no pericardial or pleural effusion. Limited images of the upper abdomen are unremarkable. There is mild scarring/fibrosis. No suspicious infiltrate or nodule identified. IMPRESSION: No acute process. Reviewed, Interpreted and Dictated by Bill Chiang III, MD Transcribed by Bryce Hutchins Authenticated and . [facility]
--- NOTE | 2022-09-28 13:01 | US_ITS ---
FINAL REPORT CLINICAL HISTORY: CLAUDICATION,REST PAIN,EX SMOKER,SKIN LESIONS BILATERAL FEET FINDINGS: COMPLETE ANKLE/BRACHIAL INDICES BILATERAL Complete ankle brachial indices were obtained. The right WENDY is 0.88. The left WENDY is 1.2. IMPRESSION: Mild peripheral vascular disease on the right. WENDY within normal limits on the left. Reviewed, Interpreted and Dictated by Bill Chiang III, MD Transcribed by Marita Jacobson Authenticated and [facility]
== END ==
PROVIDERS: PCP Family Medicine; Visit Provider Physician Assistant
DX: I27.20 Pulmonary hypertension, unspecified (principal); I38 Endocarditis, valve unspecified; R05.9 Cough, unspecified; R06.09 Other forms of dyspnea; R09.89 Other specified symptoms and signs involving the circulatory and respiratory systems; I10 Essential (primary) hypertension; I25.10 Atherosclerotic heart disease of native coronary artery without angina pectoris; K21.9 Gastro-esophageal reflux disease without esophagitis; R94.31 Abnormal electrocardiogram [ECG] [EKG]; Z95.818 Presence of other cardiac implants and grafts; I48.20 Chronic atrial fibrillation, unspecified
CPT/HCPCS: 71270; 93923; Q9967

== ENCOUNTER 2022-10-12 08:49 | Day surgery (SDC) | payer MEDICARE, BC, SELFPAY ==
[2022-10-12] VITALS (10 sets, daily range): BP systolic 113–134; BP diastolic 49–78; PULSE 72–90; RESP 17–20; O2SAT 95–98; BMI 25.2
--- NOTE | 2022-10-12 07:25 | IR_ITS ---
APPROVED REPORT Patient Location: Outpatient PROCEDURES Catheter placement in the left common iliac artery Left common iliac artery antegrade angiogram with unilateral runoff to the left foot Catheter placed in the right common iliac artery Right common iliac artery with retrograde angiogram with unilateral runoff to the right foot INDICATION Cataño claudication class V, Abnormal WENDY Informed consent was obtained prior to the procedure. COMPLICATIONS NONE Estimated Blood Loss: LESS THAN 10 ML TECHNIQUE 1% lidocaine used anesthetize the right groin the right femoral artery was accessed via the Salinger technique and a 5 Estonian sheath was placed in the right femoral artery. Under fluoroscopic guidance a rim catheter was advanced to the left common iliac artery where antegrade angiography was performed. The catheter was then pulled back to the right common iliac artery where retrograde angiography was performed with unilateral runoff to the right foot. At the end of the procedure the apparatus was removed the groin is reprepped closure change sheath was removed good hemostasis was achieved using Perclose device patient was transferred to the postop putting in stable condition ANGIOGRAPHIC RESULTS Left common internal and external iliac arteries are widely patent the left common femoral artery has mild atheromatous plaque nothing greater than 20 to 30%. The left superficial femoral artery is widely patent with no focal atherosclerotic plaque and has extremely slow inline flow to a minimally diseased left popliteal artery. The left profunda femoris artery is normal. Below the knee the anterior tibialis artery posterior tibialis artery and peroneal arteries are initially patent. There is extremely slow flow below the knee where the peroneal artery stops at mid calf. The anterior tibialis artery does not appear to extend beyond the mid calf. There is slow flow with severe diffuse small vessel vasculopathy involving the posterior tibialis artery which eventually does arrive to the left foot. Right common internal and external iliac arteries are normal. Right common femoral artery is normal. Right profunda femoris artery is normal. Right superficial femoral artery has mild to moderate nonflow limiting atheromatous plaque and provides inline flow to a moderate diffusely diseased but patent right popliteal artery. Nothing more than 30 to 40% stenoses in the popliteal artery. Below the knee the anterior posterior tibialis arteries to originate and are approximately patent as is the peroneal artery. At mid calf the peroneal artery tapers and is subtotally occluded. The posterior tibialis artery does have flow into the left foot however it is extremely slow. The left anterior tibialis artery appears to subtotally occluded in the distal portion of the calf IMPRESSION Patent macrovascular vessels as described above with severe infra geniculate small vessel vasculopathy as described above none of which is amenable to either percutaneous or surgical revascularization PLAN 1. Medical management for PAD 2. Xarelto 2.5 twice daily plus aspirin 81 mg daily 3. LDL less than 55 to be achieved with high intensity statin 4. Supportive care Electronically signed by : Levon Lewis MD 10/12/2022 10:55:18
[2022-10-12 09:11] LABS: Basophils # 0.1 K/mm3 (0-0.2); Basophils % 1.1 % (0.1-2.0); Eosinophils # 0.2 K/mm3 (0.0-0.4); Eosinophils % 3.2 % (0.1-12.0); Hematocrit 42.9 % (37.0-47.0); Hemoglobin 14.1 g/dL (12.2-16.2); Lymphocytes # 0.9 K/mm3 (0.7-4.5); Mean Corpuscular HGB Conc 32.9 g/dL (31.8-35.4); Mean Corpuscular Hemoglobin 31.9 pg (27.0-31.2); Mean Corpuscular Volume 96.9 fl (81-99); Mean Platelet Volume 7.9 fl (7.4-10.4); Monocytes # 0.4 K/mm3 (0.1-1.0); Monocytes % 6.1 % (1.7-9.3); Neutrophils # 4.9 K/mm3 (1.8-7.8); Neutrophils % 75.5 % (37.0-80.0); Platelet Count 179 K/mm3 (142-424); Red Blood Count 4.42 M/mm3 (4.20-5.40); Red Cell Distribution Width 14.1 % (11.5-17.5); White Blood Count 6.5 K/mm3 (4.8-10.8)
[2022-10-12 09:56] LABS: Chloride 95 mmol/L (98-107); Potassium 4.5 mmoL/L (3.5-5.1); Sodium 139 mmol/L (136-145)
[2022-10-12 09:59] LABS: Anion Gap 13.5 mEq/L (5-15); Blood Urea Nitrogen 24 mg/dl (7-17); Calcium 9.5 mg/dl (8.4-10.2); Carbon Dioxide 35 mmol/L (22.0-30.0); Creatinine Clearance Estimated 38 mL/min (50-200); Estimated Glomerular Filt Rate 39 ml/min (>60); GFR (African American) 47 ML/MIN (>60); Glucose 82 mg/dl (74-100)
== END 2022-10-12 13:41 | disposition home or self-care (01) ==
PROVIDERS: PCP Family Medicine; Visit Provider Internal Medicine
DX: I11.0 Hypertensive heart disease with heart failure (principal); I77.1 Stricture of artery; I25.10 Atherosclerotic heart disease of native coronary artery without angina pectoris; I27.20 Pulmonary hypertension, unspecified; I48.20 Chronic atrial fibrillation, unspecified; I38 Endocarditis, valve unspecified; I50.32 Chronic diastolic (congestive) heart failure; J44.9 Chronic obstructive pulmonary disease, unspecified; K21.9 Gastro-esophageal reflux disease without esophagitis; I70.213 Atherosclerosis of native arteries of extremities with intermittent claudication, bilateral legs; Z95.818 Presence of other cardiac implants and grafts; Z87.891 Personal history of nicotine dependence; Z79.899 Other long term (current) drug therapy
CPT/HCPCS: 36245; 36415; 75716; 80048; 85025; 99152; C1725; C1760; C1769; C1894; J1644; Q9966

== ENCOUNTER → 2022-12-18 13:09 | Outpatient (CLI) | payer MEDICARE, BC, SELFPAY ==
[2022-12-18 13:30] LABS: Basophils # 0.1 K/mm3 (0-0.2); Eosinophils # 0.1 K/mm3 (0.0-0.4); Eosinophils % 1.7 % (0.1-12.0); Hematocrit 40.8 % (37.0-47.0); Hemoglobin 13.6 g/dL (12.2-16.2); Lymphocytes # 0.5 K/mm3 (0.7-4.5); Lymphocytes % 5.5 % (10-50); Mean Corpuscular HGB Conc 33.3 g/dL (31.8-35.4); Mean Corpuscular Hemoglobin 32.3 pg (27.0-31.2); Mean Platelet Volume 8.5 fl (7.4-10.4); Monocytes # 0.2 K/mm3 (0.1-1.0); Monocytes % 2.3 % (1.7-9.3); Neutrophils # 7.4 K/mm3 (1.8-7.8); Neutrophils % 89.5 % (37.0-80.0); Platelet Count 163 K/mm3 (142-424); Red Cell Distribution Width 14.4 % (11.5-17.5); White Blood Count 8.3 K/mm3 (4.8-10.8)
[2022-12-18 13:33] LABS: MANUAL DIFFERENTIAL MANUAL DIFFERENTIAL (MANUAL DIFF)
[2022-12-18 14:03] LABS: Anion Gap 14.3 mEq/L (5-15); Blood Urea Nitrogen 14 mg/dl (7-17); Calcium 9.1 mg/dl (8.4-10.2); Carbon Dioxide 33 mmol/L (22.0-30.0); Chloride 94 mmol/L (98-107); Estimated Glomerular Filt Rate 47 ml/min (>60); GFR (African American) 57 ML/MIN (>60); Glucose 122 mg/dl (74-100); Magnesium 2.3 mg/dl (1.6-2.3); Potassium 4.3 mmoL/L (3.5-5.1); Sodium 137 mmol/L (136-145)
[2022-12-18 14:10] LABS: Lymphocytes % 5 % (10-50); Monocytes % 3 % (2-9); Neutrophils % 92 % (42-76); Total Cells Counted 100
[2022-12-18 14:11] LABS: Platelet Estimate Normal; RBC Morphology Normal
== END ==
PROVIDERS: PCP Family Medicine; Visit Provider Internal Medicine
DX: I27.20 Pulmonary hypertension, unspecified (principal); I48.91 Unspecified atrial fibrillation; R06.02 Shortness of breath; Z79.899 Other long term (current) drug therapy; D64.9 Anemia, unspecified; R06.09 Other forms of dyspnea
CPT/HCPCS: 36415; 80048; 83735; 85007; 85025

== ENCOUNTER → 2023-01-01 12:05 | Outpatient (CLI) | payer MEDICARE, BC, SELFPAY ==
[2023-01-01 13:09] LABS: Basophils % 0.3 % (0.1-2.0); Eosinophils # 0.1 K/mm3 (0.0-0.4); Eosinophils % 0.5 % (0.1-12.0); Hematocrit 45.2 % (37.0-47.0); Hemoglobin 14.5 g/dL (12.2-16.2); Lymphocytes # 0.7 K/mm3 (0.7-4.5); Lymphocytes % 6.5 % (10-50); Mean Corpuscular HGB Conc 32.2 g/dL (31.8-35.4); Mean Corpuscular Volume 96.5 fl (81-99); Mean Platelet Volume 8.2 fl (7.4-10.4); Monocytes # 0.5 K/mm3 (0.1-1.0); Monocytes % 4.6 % (1.7-9.3); Neutrophils % 88.1 % (37.0-80.0); Platelet Count 194 K/mm3 (142-424); Red Blood Count 4.68 M/mm3 (4.20-5.40); Red Cell Distribution Width 14.2 % (11.5-17.5); White Blood Count 10.2 K/mm3 (4.8-10.8)
[2023-01-01 13:12] LABS: MANUAL DIFFERENTIAL MANUAL DIFFERENTIAL (MANUAL DIFF)
[2023-01-01 13:21] LABS: Lymphocytes % 11 % (10-50); Monocytes % 10 % (2-9); Neutrophils % 79 % (42-76); Platelet Estimate Normal; RBC Morphology Normal; Total Cells Counted 100
[2023-01-01 14:09] LABS: Chloride 97 mmol/L (98-107); Potassium 3.8 mmoL/L (3.5-5.1); Sodium 138 mmol/L (136-145)
[2023-01-01 14:11] LABS: Blood Urea Nitrogen 17 mg/dl (7-17); Estimated Glomerular Filt Rate 47 ml/min (>60); GFR (African American) 57 ML/MIN (>60)
[2023-01-01 14:12] LABS: Alanine Aminotransferase 19 U/L (12-78); Albumin Level 4.5 g/dl (3.5-5.0); Alkaline Phosphatase 66 U/L (38-126); Anion Gap 11.8 mEq/L (5-15); Aspartate Amino Transferase 33 U/L (14-36); Bilirubin,Direct 0.3 mg/dl (0.0-0.4); Bilirubin,Indirect 0.8 mg/dL (0.0-0.9); Bilirubin,Total 1.1 mg/dl (0.2-1.3); Bilirubin,Unconjugated 0.8 mg/dL (0.0-1.1); Calcium 9.2 mg/dl (8.4-10.2); Carbon Dioxide 33 mmol/L (22.0-30.0); Cholesterol 201 mg/dl (140-200); Glucose 95 mg/dl (74-100); Magnesium 2.3 mg/dl (1.6-2.3); Triglycerides 167 mg/dl (30-150); VLDL Cholesterol 33 mg/dL (0-40)
[2023-01-01 14:13] LABS: Chol/HDL Ratio 4.5 (1-3.5); HDL Cholesterol 45 mg/dl (40-60)
[2023-01-01 14:24] LABS: Direct LDL Cholesterol 131.29 mg/dL (100-129); NT Pro Brain Natriuretic Pep. 2250 pg/mL (0-450)
[2023-01-01 14:29] LABS: Free T4 (Free Thyroxine) 1.37 ng/dl (0.78-2.19)
[2023-01-01 14:45] LABS: Thyroid Stimulating Hormone 4.58 uIU/mL (0.465-4.68)
== END ==
PROVIDERS: PCP Family Medicine; Visit Provider Internal Medicine
DX: I25.10 Atherosclerotic heart disease of native coronary artery without angina pectoris; I27.20 Pulmonary hypertension, unspecified; I10 Essential (primary) hypertension; I38 Endocarditis, valve unspecified; I50.9 Heart failure, unspecified; I51.7 Cardiomegaly; I73.9 Peripheral vascular disease, unspecified; R25.2 Cramp and spasm; R55 Syncope and collapse; R94.31 Abnormal electrocardiogram [ECG] [EKG]; Z86.79 Personal history of other diseases of the circulatory system; Z98.890 Other specified postprocedural states
CPT/HCPCS: 36415; 80048; 80061; 80076; 83735; 83880; 84439; 84443; 85007; 85025

== ENCOUNTER 2023-01-24 11:51 | Observation (INO) | payer MEDICARE, BC, SELFPAY ==
--- NOTE | 2023-01-24 12:01 | PC.NURSE ---
Pt arrived to the floor at this time
--- NOTE | 2023-01-24 12:03 | EXP.HP ---
History of Present Illness *Admission Date: 01/24/23 *Reason for visit:: CHF *History of present illness: Ms. Gutierrez is an 82yo female with a fairly complicated medical history. She follows with cardiology at [facility] for her coronary artery disease, valvular heart disease, paroxysmal A-fib, pulmonary hypertension, and heart failure. She states over the past few days, she has been getting progressively more short of breath at home. She is currently on 3 to 4 L of oxygen continually at home along with neb treatments. She states these were not helping. She was seen in the cardiology office today and was felt to be in acute on chronic heart failure. They wanted her directly admitted for diuretic therapy and placement of a CardioMEMS device tomorrow. [facility] Disclaimer: The information contained in this section may have been updated after the patient was seen, as this information can be updated by other users. 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 Moderate persistent asthma Multinodular goiter PAD (peripheral artery disease) Paroxysmal atrial fibrillation Presence of Watchman left atrial appendage closure device Pulmonary fibrosis Severe pulmonary hypertension Valvular heart disease Surgical History (Updated 01/24/23 @ 12:56 by MALACHI Bustillos) History of arthroscopic knee surgery History of back surgery History of cardiac cath History of cardiac radiofrequency ablation History of cataract surgery History of cholecystectomy History of colonoscopy History of hemorrhoidectomy History of lumbar fusion History of right knee joint replacement History of surgery on right wrist History of thyroidectomy History of tonsillectomy S/P ablation of atrial fibrillation Family History Other Stroke Social History Smoking Status: Former smoker alcohol intake: never substance use type: denies use current occupational status: retired Travel in the last 8 weeks: None household members: none housing: house current occupation: [employer] current occupational exposures/hazards: No caffeine: No Review of Systems Constitutional Constitutional: Reports fatigue, Denies headache(s) and Reports weakness Eyes Eyes: Denies blurry vision and Denies diplopia ENT Ears, Nose, Mouth, and Throat: Denies headache(s), Denies nasal congestion, Denies sore throat and Denies vertigo *Cardiovascular Cardiovascular: Denies chest pain, Reports dyspnea, Reports irregular heart rhythm and Reports leg edema *Respiratory Respiratory: Reports cough and Reports dyspnea *Gastrointestinal Gastrointestinal: Denies abdominal pain, Denies loose stools, Denies nausea and Denies vomiting *Genitourinary Genitourinary: Denies dysuria *Musculoskeletal Musculoskeletal: Denies arthralgias and Denies myalgias *Neurologic Neurologic: Denies headache(s), Denies vertigo and Reports weakness Endocrine Endocrine: Reports fatigue Meds Home Medications and Allergies Home Medications Medication Instructions Recorded Confirmed Type esomeprazole magnesium 40 mg 40 mg PO DAILY GERD 12/07/17 01/24/23 History capsule,delayed release potassium chloride 10 mEq 10 meq PO DAILY Supplement 12/07/17 01/24/23 History tablet,extended release(part/cryst) sertraline 100 mg tablet 100 mg PO DAILY Depression 12/07/17 01/24/23 History allopurinol 100 mg tablet 200 mg PO DAILY GOUT 12/08/17 01/24/23 History gabapentin 600 mg tablet 600 mg PO QID NEUROPATHY
[2023-01-24 12:09] VITALS: BP 125/78; PULSE 80; RESP 17; TEMP 36.5; O2SAT 94; BMI 24.9
[2023-01-24 12:41] LABS: Coronavirus 19, PCR Not Detected (NotDetected); Influenza A, PCR Not Detected (NotDetected); Influenza B, PCR Not Detected (NotDetected)
[2023-01-24 13:12] LABS: Basophils % 0.5 % (0.1-2.0); Eosinophils # 0.2 K/mm3 (0.0-0.4); Eosinophils % 2.4 % (0.1-12.0); Hemoglobin 13.6 g/dL (12.2-16.2); Lymphocytes # 0.5 K/mm3 (0.7-4.5); Lymphocytes % 7.1 % (10-50); Mean Corpuscular HGB Conc 32.3 g/dL (31.8-35.4); Mean Corpuscular Hemoglobin 30.9 pg (27.0-31.2); Mean Corpuscular Volume 95.4 fl (81-99); Mean Platelet Volume 8.4 fl (7.4-10.4); Monocytes # 0.2 K/mm3 (0.1-1.0); Monocytes % 3.2 % (1.7-9.3); Neutrophils # 5.9 K/mm3 (1.8-7.8); Neutrophils % 86.7 % (37.0-80.0); Platelet Count 169 K/mm3 (142-424); White Blood Count 6.8 K/mm3 (4.8-10.8)
--- NOTE | 2023-01-24 13:18 | HMH.PHAINT1 ---
Pharmacy Intervention Comments: Medication reconciliation completed using external fill history
[2023-01-24 13:19] LABS: MANUAL DIFFERENTIAL MANUAL DIFFERENTIAL (MANUAL DIFF)
[2023-01-24 13:21] LABS: Chloride 93 mmol/L (98-107); Sodium 137 mmol/L (136-145)
[2023-01-24 13:24] LABS: Blood Urea Nitrogen 15 mg/dl (7-17); Calcium 9.2 mg/dl (8.4-10.2); Carbon Dioxide 35 mmol/L (22.0-30.0); Creatinine Clearance Estimated 44 mL/min (50-200); Estimated Glomerular Filt Rate 47 ml/min (>60); GFR (African American) 57 ML/MIN (>60); Glucose 114 mg/dl (74-100)
[2023-01-24 13:32] LABS: NT Pro Brain Natriuretic Pep. 3010 pg/mL (0-450)
--- NOTE | 2023-01-24 15:02 | EXP.CARD.PN ---
Subjective Subjective Date: 01/24/23 Time: 15:03 Principal diagnosis: acute on chronic diastolic CHF Exam Data for Last 24 hours Vital signs and Labs for Last 24 Hours: Temp Pulse Resp BP Pulse Ox 97.7 F 80 17 125/78 94 L 01/24/23 12:09 01/24/23 12:09 01/24/23 12:09 01/24/23 12:09 01/24/23 12:09 Laboratory Results - last 24 hr 01/24/23 12:21: SARS-CoV-2 (PCR) Not detected, Influenza A Untype (PCR) Not detected, Influenza Type B (PCR) Not detected 01/24/23 13:00: WBC 6.8, RBC 4.40, Hgb 13.6, Hct 42.0, MCV 95.4, MCH 30.9, MCHC 32.3, RDW 14.0, Plt Count 169, MPV 8.4, Neut % (Auto) 86.7 H, Lymph % (Auto) 7.1 L, [place] % (Auto) 3.2, Eos % (Auto) 2.4, Baso % (Auto) 0.5, Neut # (Auto) 5.9, Lymph # (Auto) 0.5 L, [place] # (Auto) 0.2, Eos # (Auto) 0.2, Baso # (Auto) 0.0 01/24/23 13:00: Sodium 137, Potassium 4.0, Chloride 93 L, Carbon Dioxide 35 H, Anion Gap 13.0, BUN 15, Creatinine 1.10 H, Estimated Creat Clear 44, Estimated GFR 47 L, Est GFR ( Amer) 57 L, Glucose 114 H, Calcium 9.2, NT-Pro-B Natriuret Pep 3010 H I & O for Last 24 hours: Intake & Output 01/21/23 01/22/23 01/23/23 01/24/23 23:59 23:59 23:59 23:59 Weight 159 lb 3 oz Progress Note: A&P Assessment and plan (1) Acute on chronic diastolic CHF (congestive heart failure): Status: Acute (2) Paroxysmal atrial fibrillation: Status: Chronic (3) Valvular heart disease: Status: Chronic (4) Hypothyroidism: Status: Chronic (5) CAD (coronary artery disease): Status: Chronic (6) COPD (chronic obstructive pulmonary disease): Status: Chronic (7) GERD (gastroesophageal reflux disease): Status: Chronic (8) Presence of Watchman left atrial appendage closure device: Status: Acute (9) HTN (hypertension): Status: Chronic (10) Diastolic dysfunction: Status: Acute (11) PAD (peripheral artery disease): Status: Acute (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 see below: Urgent visit for CHF/dyspnea. SOB with activity Has been getting choked/coughing, coughing so hard she feels she is going to pass out, she feels terrible when she has a coughing episode, she felt she was going to last night. Wants to get IV lasix, cant breath, cant increase po lasix, states it makes her legs cramp. Dizziness & lightheadedness Swelling in ankles & legs Numbness in feet & hands Fatigue PAD-with Medical management On Xarelto 2.5 twice daily plus aspirin 81 mg daily for polyvascular disease CAD with mild non flow-limiting disease last cath 3 to 5 years ago in [place]. BP is low today.Patient weight down 6 lbs Atrial fibrillation, rate controlled, watchman's device implant in 08/2020. History of atrial fibrillation and multiple cardioversions. She was on amiodarone in 10/2021 and took it for about 5 weeks. CHF-Diastolic heart failure-dyspnea, progressive and worsening since her visit 2 days ago. Discussed fluid restrictions. Recording daily weights. If gains >2 lbs/day or >5lbs/week can adjust diuretics upward or call with instructions. Moderate tricuspid regurgitation-stable. Mild aortic insufficiency.-stable. Pulmonary HTN is present, progressive and worsening dyspnea. Pulmonary fibrosis is present on CT, follows pulmonology. Iron deficiency anemia is present. Plan: Offered hospital admission for acute on chronic diastolic CHF, she is agreeable. Will plan for Cardiomem implant tomorrow secondary to acute on chronic diastolic CHF. admit for IV diuretics due to acute on chronic diastolic CHF. Stop Lasix. Start Bumex 1 mg IV BID. HOLD XARELTO TODAY AND TOMORROW
[2023-01-24 15:11] VITALS: BP 122/70; PULSE 76; RESP 18; TEMP 36.6; O2SAT 92
[2023-01-24 16:00] VITALS: PULSE 85
[2023-01-24 17:19] LABS: Lymphocytes % 8 % (10-50); Monocytes % 2 % (2-9); Neutrophils % 90 % (42-76); Total Cells Counted 100
[2023-01-24 17:20] LABS: Platelet Estimate Normal; RBC Morphology Normal
--- NOTE | 2023-01-24 17:51 | PC.NURSE ---
Pt has c/o cramping to BLE. Has ambulated in room and BR with assist x1 and cane. Tolerated well. Pt is currently sitting up in chair. called for clarification of med orders. Hold IV Bumex this dose due to previous administration of PO Bumex at 1316. SCDs for VTE.
[2023-01-24 20:00] VITALS: BP 138/62; PULSE 81; RESP 16; TEMP 37.1; O2SAT 97
[2023-01-24 20:02] VITALS: PULSE 90
[2023-01-24 23:54] VITALS: BP 101/58; PULSE 71; RESP 18; TEMP 37.1; O2SAT 95
[2023-01-25] VITALS (21 sets, daily range): BP systolic 104–140; BP diastolic 48–80; PULSE 60–95; RESP 15–22; TEMP 36.6–37.1; O2SAT 90–98; BMI 26.4
--- NOTE | 2023-01-25 02:53 | PC.NURSE ---
RESTING IN BED. NO C/O PAIN OR LEG CRAMPS SINCE HAVING GONE TO BED. NO C/O SOA. REPORTS A PERSISTANT DRY COUGH. LUNGS DECREASED IN BASES.HAS BEEN NPO SINCE SD FOR CARIAC CATH/CARDIOMEM INSERTION IN THE AM. 02 AT 3LNC, 02 SATS 95%. VITAL SIGNS STABLE/AFEBRILE. TELEMETRY READINGS AFIB/ CONTROLLED RATE/BBB.
--- NOTE | 2023-01-25 07:15 | IR_ITS ---
APPROVED REPORT Patient Location: [facility]patient[facility] Public Welfare Director: BERTRAM Cochran RT (R) PROCEDURES Right heart catheterization Right femoral vein central access Catheter placement in the left pulmonary artery Left pulmonary artery selective angiogram Placement of Cardiomem-pulmonary artery sensor in the left pulmonary artery Post pulmonary artery sensor right heart catheterization INDICATION Left pulmonary artery pressure measuring, Medically necessary to keep patient in the hospital, Acute on chronic CHF exacerbation Informed consent was obtained prior to the procedure. COMPLICATIONS NONE Estimated Blood Loss: LESS THAN 10 ML TECHNIQUE One percent lidocaine was used to anesthetize the right groin. The right femoral vein was accessed via the Seldinger technique and an 11 Turkish sheath was placed in the right femoral vein. A Buxton-Christiano catheter was floated into the pulmonary artery and a right heart catheterization was performed along with cardiac output using the Stephanie correlation. The Buxton-Christiano catheter was then wedged into the left pulmonary artery and a pulmonary artery angiogram was performed. Following this an nitinol wire was placed into the pulmonary artery and the Buxton-Christiano catheter was removed. The Cardiomem pulmonary artery sensor was deployed in the left pulmonary artery. Following this the Buxton-Christiano catheter was placed back into the pulmonary artery and repeat right heart catheterization was performed. The device was then synchronized with the pulmonary artery tracings. At the end of the procedure the patient was transferred to the postop holding area in stable condition for sheath removal. ANGIOGRAPHIC RESULTS HEMODYNAMICS: Right atrial pressure is 8 mm Hg. Right ventricular pressure is 40/5 mm Hg. Pulmonary arterial pressure is 42/18 mm Hg. Pulmonary artery occlusion pressure is 15 mm Hg. SATURATIONS: RA is 59% %. PA is 63% %. Femoral artery saturation: 93% Hemoglobin 13.4 Cardiac output 4.3 Cardiac index 2.3 Thick cardiac output: L/m IMPRESSION Successful placement of Cardiomem pulmonary artery sensor into the pulmonary artery Successful pulmonary artery angiogram Successful right heart catheterization PLAN 1. Continue management of congestive heart failure Electronically signed by : Levon Lewis MD 01/25/2023 16:26:46
--- NOTE | 2023-01-25 08:18 | EXP.ACUTE.PN ---
Subjective *Date: 01/25/23 *Time: 08:18 Interval history: Patient states she is feeling about the same today. Still has shortness of breath. Patient states she had leg cramps all night long and had difficulty getting any relief. They seem to be slightly better this morning but she was unable to sleep throughout the night. She is n.p.o. this morning for CardioMEMS procedure. Medical Exam Vital signs and Labs for Last 24 Hours: Vital Signs Temp Pulse Pulse Resp BP Pulse Ox 01/25/23 06:21 93 L 01/25/23 04:00 97.8 F 60 17 111/60 96 01/25/23 02:04 95 01/25/23 00:25 70 01/24/23 23:54 98.7 F 71 18 101/58 L 95 01/24/23 20:00 97 01/24/23 20:00 98.7 F 81 16 138/62 97 01/24/23 20:02 90 01/24/23 16:00 85 01/24/23 15:11 97.9 F 76 18 122/70 92 L 01/24/23 12:09 97.7 F 80 17 125/78 94 L Intake and Output 01/24/23 01/25/23 01/25/23 19:59 03:59 11:59 Intake Total 720 / 720 Output Total 0 / 1000 800 / 1000 200 / 1000 Balance 720 / -280 -800 / -280 -200 / -280 Intake: Intake, Oral Amount 720 / 720 Output: Output, Urine Amount 0 / 1000 800 / 1000 200 / 1000 Other: Number of Unmeasured Voids 1 Number of Bowel Movements 1 Weight 159 lb 3 oz 168 lb 12.8 oz Patient Weight 01/25/23 11:59 Weight 168 lb 12.8 oz Laboratory Results - last 24 hr 01/24/23 12:21: SARS-CoV-2 (PCR) Not detected, Influenza A Untype (PCR) Not detected, Influenza Type B (PCR) Not detected 01/24/23 13:00: WBC 6.8, RBC 4.40, Hgb 13.6, Hct 42.0, MCV 95.4, MCH 30.9, MCHC 32.3, RDW 14.0, Plt Count 169, MPV 8.4, Neut % (Auto) 86.7 H, Lymph % (Auto) 7.1 L, [place] % (Auto) 3.2, Eos % (Auto) 2.4, Baso % (Auto) 0.5, Neut # (Auto) 5.9, Lymph # (Auto) 0.5 L, [place] # (Auto) 0.2, Eos # (Auto) 0.2, Baso # (Auto) 0.0, Total Counted 100, Neutrophils % (Manual) 90 H, Lymphocytes % (Manual) 8 L, Monocytes % (Manual) 2, Platelet Estimate Normal, RBC Morphology Normal 01/24/23 13:00: Sodium 137, Potassium 4.0, Chloride 93 L, Carbon Dioxide 35 H, Anion Gap 13.0, BUN 15, Creatinine 1.10 H, Estimated Creat Clear 44, Estimated GFR 47 L, Est GFR ( Amer) 57 L, Glucose 114 H, Calcium 9.2, NT-Pro-B Natriuret Pep 3010 H I & O for Labs for Last 24 Hours: Intake & Output 01/22/23 01/23/23 01/24/23 01/25/23 11:59 11:59 11:59 11:59 Intake Total 720 / 720 Output Total 1000 / 1000 Balance -280 / -280 Weight 168 lb 12.8 oz Constitutional: Present no acute distress Respiratory: Present decreased breath sounds and wheezes Comment:: Irregularly irregular GI: Present soft and normal bowel sounds; Absent distention or tenderness Extremities: Present edema (Trace lower extremity edema); Absent clubbing or cyanosis Skin: Present intact Neuro: Present alert and awake Assessment and Plan *Assessment and plan (1) Acute on chronic diastolic CHF (congestive heart failure): Status: Acute Category: Medical Code(s): I50.33 - Acute on chronic diastolic (congestive) heart failure (2) Paroxysmal atrial fibrillation: Status: Chronic Category: Medical Code(s): I48.0 - Paroxysmal atrial fibrillation (3) Valvular heart disease: Status: Chronic Category: Medical Code(s): I38 - Endocarditis, valve unspecified (4) Hypothyroidism: Status: Chronic Category: Medical Code(s): E03.9 - Hypothyroidism, unspecified (5) CAD (coronary artery disease): Status: Chronic Qualifiers: Coronary Disease-Associated Artery/Lesion type: [place] artery [place] vs. transplanted heart: [place] heart Associated angina: without angina Qualified Code(s): I25.10 - Atherosclerotic heart disease of [place] coronary artery without angina pectoris Category: Medical Code(s): I25.10 - Atherosclerotic heart disease of [place] coronary artery without angina pectoris (6) COPD (chronic obstructive pulmonary disease):
[2023-01-25 09:08] LABS: Basophils # 0.1 K/mm3 (0-0.2); Basophils % 2.5 % (0.1-2.0); Eosinophils # 0.1 K/mm3 (0.0-0.4); Eosinophils % 1.8 % (0.1-12.0); Hematocrit 39.6 % (37.0-47.0); Hemoglobin 13.4 g/dL (12.2-16.2); Lymphocytes # 0.7 K/mm3 (0.7-4.5); Lymphocytes % 13.7 % (10-50); Mean Corpuscular HGB Conc 33.7 g/dL (31.8-35.4); Mean Corpuscular Hemoglobin 31.9 pg (27.0-31.2); Mean Corpuscular Volume 94.7 fl (81-99); Mean Platelet Volume 7.8 fl (7.4-10.4); Monocytes # 0.4 K/mm3 (0.1-1.0); Monocytes % 8.3 % (1.7-9.3); Neutrophils # 3.7 K/mm3 (1.8-7.8); Neutrophils % 73.7 % (37.0-80.0); Platelet Count 141 K/mm3 (142-424); Red Blood Count 4.19 M/mm3 (4.20-5.40); Red Cell Distribution Width 13.9 % (11.5-17.5)
[2023-01-25 09:14] LABS: Anion Gap 8.3 mEq/L (5-15); Blood Urea Nitrogen 15 mg/dl (7-17); Calcium 8.6 mg/dl (8.4-10.2); Carbon Dioxide 35 mmol/L (22.0-30.0); Chloride 94 mmol/L (98-107); Creatinine Clearance Estimated 52 mL/min (50-200); Estimated Glomerular Filt Rate 53 ml/min (>60); GFR (African American) 64 ML/MIN (>60); Glucose 83 mg/dl (74-100); Magnesium 2.5 mg/dl (1.6-2.3); Potassium 3.3 mmoL/L (3.5-5.1); Sodium 134 mmol/L (136-145)
--- NOTE | 2023-01-25 10:28 | EXP.CARD.PN ---
Subjective Subjective Date: 01/25/23 Time: 09:00 Principal diagnosis: acute on chronic diastolic CHF Interval history: This is an 82-year-old white female who presented to cardiology clinic yesterday with complaints of shortness of breath with activity and feeling like she was getting choked and coughing so hard that she was passing out. The patient states that her cough was so severe she felt like she was going to . The patient states that she felt like she was fluid overloaded but cannot increase her p.o. Lasix because of terrible leg cramps. The patient had been set up for a CardioMEMS implant on an outpatient basis but this has not been scheduled yet. The patient was offered hospital admission for acute exacerbation of chronic diastolic congestive heart failure. The patient did get diuresed overnight with IV Bumex. She does report having leg cramps this morning. She states that she feels short of breath all the time. She states that this has been getting worse but may be a little bit better overnight. She still has a cough. She denies chest pain or pressure. She denies any lower extremity edema. She denies any fever, chills, nausea, vomiting, diarrhea. She does have associated orthopnea with her shortness of breath. Exam Data for Last 24 hours Vital signs and Labs for Last 24 Hours: Temp Pulse Resp BP Pulse Ox 98.4 F 87 22 121/49 L 95 01/25/23 08:00 01/25/23 10:21 01/25/23 08:00 01/25/23 08:00 01/25/23 10:21 Laboratory Results - last 24 hr 01/24/23 12:21: SARS-CoV-2 (PCR) Not detected, Influenza A Untype (PCR) Not detected, Influenza Type B (PCR) Not detected 01/24/23 13:00: WBC 6.8, RBC 4.40, Hgb 13.6, Hct 42.0, MCV 95.4, MCH 30.9, MCHC 32.3, RDW 14.0, Plt Count 169, MPV 8.4, Neut % (Auto) 86.7 H, Lymph % (Auto) 7.1 L, [place] % (Auto) 3.2, Eos % (Auto) 2.4, Baso % (Auto) 0.5, Neut # (Auto) 5.9, Lymph # (Auto) 0.5 L, [place] # (Auto) 0.2, Eos # (Auto) 0.2, Baso # (Auto) 0.0, Total Counted 100, Neutrophils % (Manual) 90 H, Lymphocytes % (Manual) 8 L, Monocytes % (Manual) 2, Platelet Estimate Normal, RBC Morphology Normal 01/24/23 13:00: Sodium 137, Potassium 4.0, Chloride 93 L, Carbon Dioxide 35 H, Anion Gap 13.0, BUN 15, Creatinine 1.10 H, Estimated Creat Clear 44, Estimated GFR 47 L, Est GFR ( Amer) 57 L, Glucose 114 H, Calcium 9.2, NT-Pro-B Natriuret Pep 3010 H 01/25/23 07:50: WBC 5.0 D, RBC 4.19 L, Hgb 13.4, Hct 39.6, MCV 94.7, MCH 31.9 H, MCHC 33.7, RDW 13.9, Plt Count 141 L, MPV 7.8, Neut % (Auto) 73.7, Lymph % (Auto) 13.7, [place] % (Auto) 8.3, Eos % (Auto) 1.8, Baso % (Auto) 2.5 H, Neut # (Auto) 3.7, Lymph # (Auto) 0.7, [place] # (Auto) 0.4, Eos # (Auto) 0.1, Baso # (Auto) 0.1 01/25/23 07:50: Sodium 134 L, Potassium 3.3 L, Chloride 94 L, Carbon Dioxide 35 H, Anion Gap 8.3, BUN 15, Creatinine 1.00, Estimated Creat Clear 52, Estimated GFR 53 L, Est GFR ( Amer) 64, Glucose 83 D, Calcium 8.6, Magnesium 2.5 H I & O for Last 24 hours: Intake & Output 01/22/23 01/23/23 01/24/23 01/25/23 23:59 23:59 23:59 23:59 Intake Total 720 / 720 Output Total 500 / 500 500 / 500 Balance 220 / 220 -500 / -500 Weight 159 lb 3 oz 168 lb 12.8 oz Constitutional Constitutional: no acute distress and average body habitus *Routine HEENT Exam Head: Present normocephalic and atraumatic ENT: Present mucous membranes moist *Routine Neck Exam Neck: Present supple, full ROM and normal carotid upstroke; Absent JVD, carotid bruit or lymphadenopathy *Routine Respiratory Exam Respiratory: Present CTA bilaterally, normal respiratory effort, able to speak in complete sentences and symmetric chest movement *Routine Cardiovascular Exam Cardiovascular: Present RRR, Normal S1 and Normal S2; Absent murmur or gallop *Routine Abdominal Exam Abdominal: Present soft and normoactive bowel sounds; Absent tenderness, distended or organomegaly *Routine Extremities Exam Extremities: Present full ROM, pulses intact and normal capillary refill; Abse
--- NOTE | 2023-01-25 14:13 | PC.NURSE ---
Addendum entered by Annette Hankins RN 01/25/23 15:08: DR SUGGS CAME TO TALK TO PT AND SON. PT HAS NOW DECIDED TO PROCEED WITH PROCEDURE. IFEANYI STATES SHE CAN BE DISCHARGED AFTER PROCEDURE. Original Note: THIS NURSE ENTERED ROOM TO INFORM PT AND SON THAT HER PROCEDURE WILL BE ON A DELAY DUE TO AN EMERGENCY COMING IN. PT AND SON STATE THAT SHE HAS DECIDED TO NOT DO THE PROCEDURE TODAY, AND THAT SHE WANTS TO GO HOME TODAY. NOTIFIED DR MCBRIDE'S OFFICE AND CARDIOLOGY. DR MCBRIDE IS GOING TO D/C PATIENT.
[2023-01-25 16:34] LABS: CATHL Arterial O2 SAT 58.9 % (90-100); CATHL Venous O2 SAT 53.6 % (75-80)
--- NOTE | 2023-01-25 19:25 | PC.NURSE ---
PT HAS REMAINED A&OX4 T/O SHIFT. TOLERATED 3LNC WELL, TOLERATED PROCEDURE WELL. STITCH WAS REMOVED AT 1814, NO BLEEDING NOTED. DRESSING APPLIED. VSS. PT BEING RAISED IN BED SLOWLY AT THIS TIME. TOLERATED SUPPER WELL. SON REMAINS AT BEDSIDE. D/C INSTRUCTIONS WENT OVER WITH PT AND FAMILY AT THIS TIME (1930). V/U, NO NEEDS AT THIS TIME
--- NOTE | 2023-01-25 19:57 | PC.NURSE ---
d/c papers given by previous nurse.
--- NOTE | 2023-01-25 20:13 | PC.NURSE ---
Right groin site c/d/i. Pt. leaving with family. IV removed by nurse HOLM
--- NOTE | 2023-01-25 20:19 | PC.NURSE ---
Pt off floor to home @ this time
--- NOTE | 2023-01-27 23:14 | EXP.DC.SUM ---
General Admission date:: 01/24/23 Discharge date: 01/25/23 HPI HPI HPI: Ms. Gutierrez is an 82yo female with a fairly complicated medical history. She follows with cardiology at [facility] for her coronary artery disease, valvular heart disease, paroxysmal A-fib, pulmonary hypertension, and heart failure. She states over the past few days, she has been getting progressively more short of breath at home. She is currently on 3 to 4 L of oxygen continually at home along with neb treatments. She states these were not helping. She was seen in the cardiology office today and was felt to be in acute on chronic heart failure. They wanted her directly admitted for diuretic therapy and placement of a CardioMEMS device tomorrow. Hospital Course Hospital Course Hospital Course: The patient was started on diuretic therapy and admitted for CardioMEMS device placement. Her Xarelto was held. Her only complaint on 01/25/2023 was leg cramps. Her potassium was found to be low and she was started on higher dose of potassium. She did diurese and had to wait longer than expected for CardioMEMS placement. She decided she wanted to be discharged and would think about getting the CardioMEMS device at a later date. Exam Data for Last 24 hours Vital signs and Labs for Last 24 Hours: Temp Pulse Resp BP Pulse Ox 98.7 F 80 20 119/63 93 L 01/25/23 20:00 01/25/23 20:00 01/25/23 20:00 01/25/23 20:00 01/25/23 20:00 I & O for Last 24 hours: Intake & Output 01/25/23 01/26/23 01/27/23 01/28/23 11:59 11:59 11:59 11:59 Intake Total 720 / 720 240 / 240 Output Total 1000 / 1000 Balance -280 / -280 240 / 240 Weight 168 lb 12.8 oz 168 lb 10.458 oz Narrative: Constitutional Constitutional: no acute distress *Routine HEENT Exam Head: Present normocephalic and atraumatic Eye: Present EOMI and PERRL ENT: Present mucous membranes moist *Routine Neck Exam Neck: Present supple and full ROM *Routine Respiratory Exam Respiratory: Present decreased breath sounds and CTA bilaterally *Routine Cardiovascular Exam Cardiovascular: Present irregularly irregular *Routine Abdominal Exam Abdominal: Present soft and normoactive bowel sounds; Absent tenderness *Routine Rectal Exam Rectal:: deferred *Routine Genitalia Exam Genitalia:: deferred *Routine Extremities Exam Extremities: Present edema (bilateral LE's); Absent cyanosis or clubbing *Routine Skin Exam Skin: Present intact; Absent erythema *Routine Neurological Exam Neurological: Present alert and oriented X3 DS: Diagnosis Discharge Diagnosis (1) Acute on chronic diastolic CHF (congestive heart failure): Status: Acute (2) Paroxysmal atrial fibrillation: Status: Chronic (3) Valvular heart disease: Status: Chronic (4) Hypothyroidism: Status: Chronic (5) CAD (coronary artery disease): Status: Chronic (6) COPD (chronic obstructive pulmonary disease): Status: Chronic (7) GERD (gastroesophageal reflux disease): Status: Chronic (8) Presence of Watchman left atrial appendage closure device: Status: Acute (9) HTN (hypertension): Status: Chronic (10) Diastolic dysfunction: Status: Acute (11) PAD (peripheral artery disease): Status: Acute (12) intermediate accountant current use of diuretic: Status: Acute (13) Severe pulmonary hypertension: Status: Chronic (14) Moderate persistent asthma: Status: Chronic (15) Pulmonary fibrosis: Status: Chronic (16) Leg cramps: Status: Acute (17) Cough: Status: Acute (18) Dyspnea: Status: Acute Meds Home Medications and Allergies Home Medications Medication Instructions Recorded Confirmed Type sertraline 100 mg tablet 100 mg PO DAILY Depression 12/07/17 01/24/23 History gabapentin 600 mg tablet 600 mg PO QID Pain 12/08/17 01/24/23 History levothyroxine 88 mcg tablet 88 mcg PO DAILYDM THYROID 12/08/17 01/24/23 History
--- NOTE | 2023-01-28 13:37 | CARE MANAGER ---
Contacted patient related to hospital discharge. Patient states last night she became increased in shortness of breath and was trying to go to bed but started coughing and and having increase in sputum production. She has been using nebulizer and taking medications as prescribed. She has follow up appointment with cardiology tomorrow.
== END 2023-01-25 20:20 | disposition home or self-care (01) ==
PROVIDERS: Internal Medicine; Physician Assistant; Admitting Provider Family Medicine; PCP Family Medicine; Visit Provider Family Medicine
DX: I50.32 Chronic diastolic (congestive) heart failure (principal); I48.0 Paroxysmal atrial fibrillation; I38 Endocarditis, valve unspecified; E03.9 Hypothyroidism, unspecified; I25.10 Atherosclerotic heart disease of native coronary artery without angina pectoris; J44.9 Chronic obstructive pulmonary disease, unspecified; K21.9 Gastro-esophageal reflux disease without esophagitis; Z79.899 Other long term (current) drug therapy; I27.20 Pulmonary hypertension, unspecified; J45.40 Moderate persistent asthma, uncomplicated; J84.10 Pulmonary fibrosis, unspecified; I11.0 Hypertensive heart disease with heart failure; Z20.822 Contact with and (suspected) exposure to COVID-19
CPT/HCPCS: 33289; 80048; 82810; 83735; 83880; 85007; 85025; 94640; 99152; 99153; C1769; C2624; C9803; G0378; J1644; Q9967; U0003; U0005

== ENCOUNTER → 2023-03-15 14:52 | Outpatient (CLI) | payer MEDICARE, BC, SELFPAY ==
--- NOTE | 2023-03-15 15:00 | XR_ITS ---
FINAL REPORT CLINICAL HISTORY: PNEUMONIA COMPARISON: 06/27/2022 FINDINGS: TWO-VIEW CHEST There is cardiomegaly. The mediastinum is normal. There is mild scarring in the right lung. The lungs are otherwise clear. There is no pneumothorax. IMPRESSION: No acute cardiopulmonary process. Reviewed, Interpreted and Dictated by Bill Chiang III, MD Transcribed by Marita Jacobson Authenticated and [facility]
== END ==
PROVIDERS: PCP Family Medicine; Visit Provider Physician Assistant
DX: J18.9 Pneumonia, unspecified organism (principal)
CPT/HCPCS: 71046

== ENCOUNTER 2023-03-17 10:24 | Emergency (ER) | payer MEDICARE, BC, SELFPAY ==
[2023-03-17 10:24] VITALS: BP 119/57; PULSE 71; RESP 20; TEMP 36.8; O2SAT 94; BMI 23.4
--- NOTE | 2023-03-17 10:45 | PC.NURSE ---
DR WASHBURN AT BEDSIDE
--- NOTE | 2023-03-17 10:46 | XR_ITS ---
PROCEDURE INFORMATION: Exam: XR Thoracic Spine Exam date and time: 03/17/2023 10:49 AM Age: 83 years old Clinical indication: Pain in thoracic spine; Additional info: Backpain TECHNIQUE: Imaging protocol: Radiologic exam of the thoracic spine. Views: 2 views. COMPARISON: CT THORACIC SPINE WO CON 06/12/2022 7:01 PM FINDINGS: Bones/joints: There is an age-indeterminate compression fracture of a midthoracic vertebral body, likely T8, similar to 03/15/2023 but new from 06/12/2022. Similar mild wedging of the T12 vertebral body. Osteopenia. Moderate to advanced degenerative disc disease in the upper lumbar spine with partially imaged lumbar spinal fixation hardware. Soft tissues: Unremarkable. IMPRESSION: There is an age-indeterminate compression fracture of a midthoracic vertebral body, likely T8, similar to 03/15/2023 but new from 06/12/2022.
--- NOTE | 2023-03-17 10:46 | XR_ITS ---
PROCEDURE INFORMATION: Exam: XR Complete Acute Abdomen Series Including Chest Exam date and time: 03/17/2023 10:49 AM Age: 83 years old Clinical indication: Constipation and other: Cough; Additional info: Constipation and cough TECHNIQUE: Imaging protocol: Radiologic exam. Complete acute abdomen series, including 2 or more views of the abdomen and a single view chest. COMPARISON: CR XR CHEST 2V 03/15/2023 3:04 PM FINDINGS: Lungs: Normal. No consolidation. Pleural spaces: Normal. No pleural effusions. No pneumothorax. Heart/Mediastinum: Cardiomegaly. Gastrointestinal tract: Nonobstructive bowel gas pattern with moderate to large colonic stool burden. Intraperitoneal space: Normal. No free air. Bones/joints: Osteopenia. Lumbar spinal fixation hardware is seen. Soft tissues: Normal. IMPRESSION: Nonobstructive bowel gas pattern with moderate to large colonic stool burden.
--- NOTE | 2023-03-17 10:48 | HMH.EDGENADL ---
Discharge Plan Disposition Patient Disposition: Home, Self-Care Prescriptions Prescriptions: No Action torsemide 100 mg tablet 50 mg PO DAILY Qty: 15 2RF Rx Instructions: take 0.5 tablet daily hydrocodone-acetaminophen 7.5-325 mg tablet 1 tab PO PRN acetylcysteine 600 mg capsule 600 mg PO BID Qty: 60 0RF omeprazole 40 mg capsule,delayed release(DR/EC) 40 mg PO DAILY ipratropium-albuterol 3 ML solution for nebulization 3 ml IH TIDP PRN (Reason: Shortness Of Breath) sertraline 100 MG tablet 100 mg PO DAILY gabapentin 600 tablet 600 mg PO QID Label Comments: levothyroxine 88 MCG tablet 88 mcg PO DAILYDM montelukast 10 MG tablet 10 mg PO PM aspirin 81 mg tablet,delayed release (DR/EC) 81 mg PO DAILY Label Comments: TAKE ONE TABLET BY MOUTH EVERY DAY metoprolol succinate 100 MG tablet extended release 24 hr 100 mg PO DAILY ferrous sulfate [FeroSul] 325 mg (65 mg iron) tablet 325 mg PO DAILY Rx Instructions: TAKE ONE TABLET BY MOUTH EVERY DAY Trelegy Ellipta 200-62.5-25 mcg blister with device 1 inh inhalation DAILY spironolactone 100 mg tablet 100 mg PO DAILY Xarelto 2.5 mg tablet 2.5 mg PO BID potassium chloride 10 MEQ tablet,ER particles/crystals 10 meq PO BID Qty: 60 4RF Referrals Follow up/Referrals: Cari Reed MD [Primary Care Provider] - See instructions Activity Restrictions/Add. Instructions Additional Instructions/Restrictions: Please follow-up with your primary care doctor in the next week. Your x-rays today show that you have a compression fracture of T8. This is a new since May 2022. I believe this is causing your back pain. Your x-ray also shows that you have constipation. I highly recommend that you drink 1 bottle of magnesium citrate. This is available [id number]. You may take your prescribed Lortab pills for pain. Please return to the emergency department immediately if you feel worse in any way. Clinical Impressions Clinical Impression: Compression fracture of body of thoracic vertebra Constipation Qualifiers: Constipation type: unspecified constipation type Qualified Code(s): K59.00 - Constipation, unspecified Instructions Patient Instructions: DI for Vertebral Fracture, DI for Constipation Discharge ED Provider: Barrett Duran Adult HPI General Chief complaint: PAIN Stated complaint: cough, back pain Time Seen by Provider: 03/17/23 10:46 Mode of Arrival: Family Vehicle Source of Information: Patient and Relative Limitations: No Limitations History of Present Illness HPI narrative: The patient presents to the emergency department with multiple complaints. She complains of exacerbation of chronic back pain. She has a prescription for Lortab but refuses to take it because it causes constipation. She also complains of current constipation which seems to be resistant to daily Colace. Furthermore, the patient complains of a cough for which she has been treated with antibiotics after diagnosis of pneumonia as an outpatient. She is on home oxygen at all times. She has a history of asthma and congestive heart failure. She denies COPD. She states that she stopped smoking in the . Related Data Home Medications Medication Instructions Recorded Confirmed sertraline 100 mg tablet 100 mg PO DAILY Depression 12/07/17 02/19/23 gabapentin 600 mg tablet 600 mg PO QID Pain 12/08/17 02/19/23 levothyroxine 88 mcg tablet 88 mcg PO DAILYDM THYROID 12/08/17 02/19/23 aspirin 81 mg tablet,delayed 81 mg PO DAILY HEART HEALTH 07/12/20 02/19/23 release montelukast 10 mg tablet 10 mg PO PM ALLERGIES 07/12/20 02/19/23 ipratropium 0.5 mg-albuterol 3 mg 3 ml inhalation TIDP PRN Shortness 03/14/22 02/19/23 (2.5 mg base)/3 mL nebulization Of Breath soln omeprazole 40 mg capsule,delayed 40 mg PO DAILY acid reflux 09/24/22 02/19/23 release
[2023-03-17 11:30] VITALS: BP 140/79; PULSE 82; RESP 20; O2SAT 99
--- NOTE | 2023-03-17 11:33 | PC.NURSE ---
Assisted patient to bathrom via wheelchair and took patient back to room. Call light within reach
[2023-03-17 12:06] VITALS: BP 143/98; PULSE 62; RESP 20; O2SAT 98
--- NOTE | 2023-03-17 12:06 | PC.NURSE ---
pt able to have small bm, pt back in bed at this time, call light in reach
[2023-03-17 12:34] VITALS: BP 111/67; PULSE 81; RESP 18; TEMP 36.8; O2SAT 97
== END 2023-03-17 12:34 | disposition home or self-care (01) ==
PROVIDERS: Emergency Provider Emergency Medicine; PCP Family Medicine
DX: S22.000A Wedge compression fracture of unspecified thoracic vertebra, initial encounter for closed fracture (principal); K59.00 Constipation, unspecified; R05.9 Cough, unspecified; Z87.891 Personal history of nicotine dependence; X58.XXXA Exposure to other specified factors, initial encounter
CPT/HCPCS: 72070; 74021; 96372; 99284

== ENCOUNTER 2023-03-27 12:43 | Inpatient (IN) | payer MEDICARE, BC, SELFPAY ==
[2023-03-27] VITALS (10 sets, daily range): BP systolic 102–122; BP diastolic 48–75; PULSE 65–99; RESP 18–22; TEMP 36.6–36.8; O2SAT 93–99; BMI 23.9; BMI 21.8
--- NOTE | 2023-03-27 12:59 | PC.NURSE ---
DR WADE AT BEDSIDE
[2023-03-27 13:01] LABS: Microscopic, Urine URINE MICROSCOPIC (MICROSCOPIC)
--- NOTE | 2023-03-27 13:01 | XR_ITS ---
FINAL REPORT CLINICAL HISTORY: soa COMPARISON: 03/15/2023 FINDINGS: SINGLE-VIEW CHEST The heart size is normal. The mediastinum is normal. There are mild chronic changes at the bases. There is no pneumothorax. IMPRESSION: No acute cardiopulmonary process. Reviewed, Interpreted and Dictated by Anirudh Miller MD Transcribed by Marita Jacobson Authenticated and [facility]
--- NOTE | 2023-03-27 13:01 | CT_ITS ---
FINAL REPORT TECHNIQUE: Postcontrast axial images through the abdomen and pelvis were performed. This study was performed with techniques to keep radiation doses as low as reasonably achievable, (ALARA). Individualized dose reduction techniques using automated exposure control or adjustment of mA and/or kV according to the patient's size were employed. CLINICAL HISTORY: abdominal pain FINDINGS: Abdomen: There is chronic bibasilar scarring. The liver parenchyma is homogeneous. The gallbladder is not identified, probably surgically absent. The spleen is unremarkable. The adrenals are normal. The pancreas is unremarkable. The kidneys enhance appropriately. The aorta is normal in caliber. No free fluid or adenopathy is identified. No findings for mechanical bowel obstruction are identified. Streak artifact is seen from posterior fusion hardware bridging the lower lumbar spine. Pelvis: The appendix is not identified. There is fatty infiltration of the wall of the cecum and ascending colon which may be due to sequela of prior inflammatory disease. There is moderate sigmoid diverticulosis. There is minimal hazy stranding surrounding the proximal sigmoid colon which may be related to mild acute diverticulitis. Findings are well seen on images 85-87 of series 4. There is an exophytic fibroid arising from the lateral right margin of the uterus. The urinary bladder is unremarkable. No free fluid, free air, abscess or adenopathy is identified. IMPRESSION: Mild acute diverticulitis of the proximal sigmoid colon. Reviewed, Interpreted and Dictated by Anirudh Miller MD Transcribed by Marita Jacobson Authenticated and [facility]
--- NOTE | 2023-03-27 13:03 | HMH.EDGENADL ---
Discharge Plan Disposition Patient Disposition: Admitted As Inpatient Chief Complaint: Abdominal Pain Prescriptions Prescriptions: No Action potassium chloride 10 mEq capsule, extended release 10 meq PO TID Label Comments: TAKE ONE CAPSULE BY MOUTH THREE TIMES DAILY gabapentin 600 mg tablet 600 mg PO QID Label Comments: TAKE ONE TABLET BY MOUTH FOUR TIMES DAILY ipratropium-albuterol 0.5 mg-3 mg(2.5 mg base)/3 mL solution for nebulization 3 ml INHALATION TIDP PRN (Reason: Breathing Problems) Label Comments: INHALE ONE vial through nebulizer THREE TIMES DAILY NEEDED spironolactone 100 mg tablet 100 mg PO DAILY Label Comments: tAKE ONE TABLET BY MOUTH DAILY metoprolol succinate 100 mg tablet extended release 24 hr 100 mg PO DAILY Label Comments: TAKE ONE TABLET BY MOUTH EVERY DAY IN THE EVENING sertraline 100 mg tablet 100 mg PO DAILY Label Comments: TAKE ONE TABLET BY MOUTH EVERY DAY omeprazole 40 mg capsule,delayed release(DR/EC) 40 mg PO DAILY Label Comments: TAKE ONE CAPSULE BY MOUTH EVERY DAY aspirin 81 mg tablet,delayed release (DR/EC) 81 mg PO DAILY Label Comments: TAKE ONE TABLET BY MOUTH EVERY DAY levothyroxine 88 mcg tablet 88 mcg PO AM Label Comments: TAKE ONE TABLET BY MOUTH EVERY DAY torsemide 100 mg tablet 50 mg PO DAILY Label Comments: take 1/2 tablet BY MOUTH DAILY furosemide 80 mg tablet 80 mg PO DAILY Label Comments: TAKE ONE TABLET BY MOUTH EVERY DAY hydrocodone-acetaminophen 7.5-325 mg tablet 1 tab PO TIDP PRN (Reason: Pain) Label Comments: TAKE ONE TABLET BY MOUTH THREE TIMES DAILY NEEDED MAY CAUSE DROWSINESS ferrous sulfate [FeroSul] 325 mg (65 mg iron) tablet 325 mg PO DAILY Label Comments: TAKE ONE TABLET BY MOUTH EVERY DAY montelukast 10 mg tablet 10 mg PO DAILY Label Comments: TAKE ONE TABLET BY MOUTH EVERY EVENING metoprolol succinate 25 mg tablet extended release 24 hr 25 mg PO POSTTR albuterol sulfate [Ventolin HFA] 90 mcg/actuation HFA aerosol inhaler 2 inh INHALATION Q6HP PRN (Reason: Breathing Problems) Label Comments: INHALE TWO puffs EVERY 6 HOURS NEEDED acetylcysteine 600 mg capsule 600 mg PO BID Label Comments: TAKE ONE CAPSULE BY MOUTH TWICE DAILY Xarelto 2.5 mg tablet 2.5 mg PO BID Label Comments: TAKE ONE TABLET BY MOUTH TWICE DAILY Trelegy Ellipta 200-62.5-25 mcg blister with device 1 inh INHALATION DAILY Label Comments: INHALE ONE PUFF EVERY DAY - RINSE MOUTH AFTER USE methocarbamol 500 mg tablet 500 mg PO TIDP PRN (Reason: Pain) nystatin 100,000 unit/mL suspension 10 ml PO Q4H Label Comments: SPIT OR SWALLOW 10ML BY MOUTH EVERY 4 HOURS FOR 7 DAYS. RINSE FOR TWO MINUTES prednisone 20 mg tablet 20 mg PO DAILY gabapentin 300 mg capsule 300 mg PO TID Referrals Follow up/Referrals: Cari Reed MD [Primary Care Provider] - See instructions Clinical Impressions Clinical Impression: Acute diverticulitis Instructions Patient Instructions: DI for Acute Abdominal Pain Discharge ED Provider: Earl Peralta General Adult HPI General Chief complaint: Abdominal Pain Stated complaint: Nausea, vomiting, abd pain Time Seen by Provider: 03/27/23 12:45 History of Present Illness HPI narrative: 83-year-old female presents with diffuse abdominal pain. She says it has been going on for the last few days and feels she feels cramping especially in her left upper abdomen. She has nausea and vomiting as well nonbloody nonbilious. No fever no chills no dysuria. Related Data Home Medications Medication Instructions Recorded Confirmed acetylcysteine 600 mg capsule 600 mg PO BID Lung disease 03/27/23 03/27/23 albuterol sulfate 90 mcg/actuation 2 inh inhalation Q6HP PRN 03/27/23 03/27/23 aero
[2023-03-27 13:07] LABS: Appearance,Urine CLEAR (Clear); Bilirubin,Urine Negative (Negative); Blood, Urine TRACE-I (Negative); Color,Urine YELLOW (Yellow); Glucose,Urine (UA) Negative (Negative); Ketones,Urine Negative (Negative); Leukocyte Esterase,Urine 1+ (Negative); Nitrate,Urine POSITIVE (Negative); Protein,Urine TRACE (Negative); Urobilinogen,Urine 0.2 EU/dl (0.2)
[2023-03-27 13:26] LABS: Basophils # 0.1 K/mm3 (0-0.2); Basophils % 0.6 % (0.1-2.0); Eosinophils # 0.3 K/mm3 (0.0-0.4); Eosinophils % 1.5 % (0.1-12.0); Hematocrit 45.3 % (37.0-47.0); Hemoglobin 15.1 g/dL (12.2-16.2); Lymphocytes # 1.2 K/mm3 (0.7-4.5); Lymphocytes % 6.9 % (10-50); Mean Corpuscular HGB Conc 33.4 g/dL (31.8-35.4); Mean Corpuscular Hemoglobin 30.5 pg (27.0-31.2); Mean Corpuscular Volume 91.4 fl (81-99); Mean Platelet Volume 8.4 fl (7.4-10.4); Monocytes # 0.6 K/mm3 (0.1-1.0); Monocytes % 3.5 % (1.7-9.3); Neutrophils # 14.7 K/mm3 (1.8-7.8); Neutrophils % 87.6 % (37.0-80.0); Platelet Count 207 K/mm3 (142-424); Red Blood Count 4.96 M/mm3 (4.20-5.40); Red Cell Distribution Width 15.3 % (11.5-17.5); White Blood Count 16.8 K/mm3 (4.8-10.8)
[2023-03-27 13:27] LABS: MANUAL DIFFERENTIAL MANUAL DIFFERENTIAL (MANUAL DIFF); Potassium 3.2 mmoL/L (3.5-5.1); Sodium 127 mmol/L (136-145)
[2023-03-27 13:29] LABS: Alanine Aminotransferase 35 U/L (12-78); Alkaline Phosphatase 70 U/L (38-126); Aspartate Amino Transferase 56 U/L (14-36); Bilirubin,Total 1.5 mg/dl (0.2-1.3); Blood Urea Nitrogen 30 mg/dl (7-17); Creatinine Clearance Estimated 33 mL/min (50-200); Estimated Glomerular Filt Rate 36 ml/min (>60); GFR (African American) 43 ML/MIN (>60)
[2023-03-27 13:29] LABS: Bacteria,Urine Trace /lpf; RBC,Urine Occasional #/hpf (0-3); Squamous Epithelial Cell,Urine Occasional #/hpf (0-5)
[2023-03-27 13:30] LABS: Albumin Level 4.2 g/dl (3.5-5.0); Albumin/Globulin Ratio 1.4 (1.1-1.8); Calcium 9.4 mg/dl (8.4-10.2); Globulin 2.9 g/dL (1.3-3.2); Glucose 172 mg/dl (74-100); Total Protein,Serum 7.1 g/dl (6.3-8.2)
[2023-03-27 13:37] LABS: Anion Gap 17.2 mEq/L (5-15); Carbon Dioxide 39 mmol/L (22.0-30.0)
[2023-03-27 13:41] LABS: Troponin I 0.03 ng/ml (0.00-0.034)
[2023-03-27 13:42] LABS: Chloride 74 mmol/L (98-107)
--- NOTE | 2023-03-27 13:42 | PC.NURSE ---
MD aware of chloride of 74
[2023-03-27 14:01] LABS: Eosinophils % 1 % (0-3); Lymphocytes % 11 % (10-50); Monocytes % 8 % (2-9); Neutrophils % 80 % (42-76); Platelet Estimate Normal; RBC Morphology Normal; Total Cells Counted 100
--- NOTE | 2023-03-27 14:15 | PC.NURSE ---
PT TO CT
--- NOTE | 2023-03-27 14:34 | PC.NURSE ---
PT RETURNED FROM CT
--- NOTE | 2023-03-27 14:34 | PC.NURSE ---
vinayak vallejo on pt gave her a pillow call light at bs
--- NOTE | 2023-03-27 14:48 | PC.NURSE ---
ROUNDED ON PT AT THIS TIME, UPDATED. NO NEEDS AT THIS TIME. FAMILY AT BEDSIDE
--- NOTE | 2023-03-27 15:30 | PC.NURSE ---
calling dr amor office to speak with in er about admission
--- NOTE | 2023-03-27 15:32 | PC.NURSE ---
covid swab sent to lab
--- NOTE | 2023-03-27 15:34 | PC.NURSE ---
DR WADE SPEAKING WITH DR. MCBRIDE
[2023-03-27 15:35] LABS: Coronavirus 19, PCR Not Detected (NotDetected); Influenza A, PCR Not Detected (NotDetected); Influenza B, PCR Not Detected (NotDetected)
--- NOTE | 2023-03-27 15:35 | PC.NURSE ---
CARE MANAGEMENT NOTIFIED OF ADMISSION
--- NOTE | 2023-03-27 15:37 | PC.NURSE ---
pt assisted to restroom without complications. pt voided and had a small BM
--- NOTE | 2023-03-27 16:24 | PC.NURSE ---
rounded on pt and gave and update that we were waiting for room assignment then we could call report and move her upstairs to her room, no complaints at this time, call light at bs
--- NOTE | 2023-03-27 16:26 | PC.NURSE ---
report called to Christine VERA
--- NOTE | 2023-03-27 16:30 | EXP.HP ---
History of Present Illness *Admission Date: 03/27/23 *Reason for visit:: vomiting, diarrhea, abdominal pain *History of present illness: Ms. Gutierrez is an 83-year-old female with a history of coronary artery disease, CHF with diastolic dysfunction and presence of a Watchman device, COPD/asthma, hypothyroidism, paroxysmal A-fib, and PAD who began having vomiting and diarrhea as well as abdominal cramping the beginning of this week. The patient states she has been unable to keep down food or liquids. She presented the emergency room today and her white blood cell count was elevated. Her renal functions were also elevated and her sodium and potassium were low. A CT of the abdomen and pelvis showed a diverticulitis. She will be admitted and started on Levaquin and Flagyl. Of note she is also been complaining of some mid back pain that has been present since she was sick about a month ago with a possible pneumonia. X-ray from earlier in February did show a thoracic compression fracture which is likely the source of her pain [facility] Disclaimer: The information contained in this section may have been updated after the patient was seen, as this information can be updated by other users. 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 Moderate persistent asthma Multinodular goiter PAD (peripheral artery disease) Paroxysmal atrial fibrillation Presence of Watchman left atrial appendage closure device Pulmonary fibrosis Seroma Severe pulmonary hypertension Valvular heart disease Surgical History History of arthroscopic knee surgery History of back surgery History of cardiac cath History of cardiac radiofrequency ablation History of cataract surgery History of cholecystectomy History of colonoscopy History of hemorrhoidectomy History of lumbar fusion History of right knee joint replacement History of surgery on right wrist History of thyroidectomy History of tonsillectomy S/P ablation of atrial fibrillation Family History Stroke Social History Smoking Status: Former smoker alcohol intake: never substance use type: denies use current occupational status: retired Travel in the last 8 weeks: None household members: none housing: house current occupation: [employer] current occupational exposures/hazards: No caffeine: No Review of Systems Constitutional Constitutional: Reports fatigue, Denies headache(s) and Reports weakness Eyes Eyes: Denies blurry vision and Denies diplopia ENT Ears, Nose, Mouth, and Throat: Denies dizziness, Denies headache(s) and Denies nasal congestion *Cardiovascular Cardiovascular: Denies chest pain, Reports dyspnea, Reports irregular heart rhythm and Denies leg edema *Respiratory Respiratory: Reports cough and Reports dyspnea *Gastrointestinal Gastrointestinal: Reports abdominal pain (diffuse), Reports loose stools, Reports nausea and Reports vomiting *Genitourinary Genitourinary: Denies difficulty voiding and Denies dysuria *Musculoskeletal Musculoskeletal: Denies arthralgias, Reports back pain (mid back) and Denies myalgias *Neurologic Neurologic: Denies dizziness, Denies headache(s) and Reports weakness Endocrine Endocrine: Reports fatigue Meds Home Medications and Allergies Home Medications Medication Instructions Rec
--- NOTE | 2023-03-27 16:32 | PC.NURSE ---
montez is taking pt to [facility] to room 204
--- NOTE | 2023-03-27 16:35 | PC.NURSE ---
arrived to floor by stretcher from ED
[2023-03-27 17:35] LABS: Troponin I 0.02 ng/ml (0.00-0.034)
[2023-03-27 20:33] LABS: Troponin I 0.03 ng/ml (0.00-0.034)
[2023-03-28 04:00] VITALS: BP 118/62; PULSE 94; RESP 16; TEMP 37; O2SAT 98; BMI 22.8
[2023-03-28 08:00] VITALS: BP 92/53; PULSE 106; RESP 20; TEMP 36.8; O2SAT 92
--- NOTE | 2023-03-28 08:04 | HMH.PHAINT1 ---
Pharmacy Intervention Comments: home medication list verified using list from outpatient pharmacy
--- NOTE | 2023-03-28 08:11 | EXP.ACUTE.PN ---
Subjective *Date: 03/28/23 *Time: 08:11 Interval history: Pt is complaining of horrible back pain even with pain medication. She is still having vomiting and nausea. No diarrhea. Her abdomen is still hurting. Medical Exam Vital signs and Labs for Last 24 Hours: Vital Signs Temp Pulse Pulse Resp BP BP Pulse Ox 03/28/23 04:00 98.6 F 94 H 16 118/62 98 03/27/23 20:00 97.8 F 66 22 104/48 L 95 03/27/23 18:39 87 03/27/23 18:39 84 03/27/23 18:39 96 03/27/23 15:35 98.2 F 88 18 107/57 L 99 03/27/23 16:32 98.0 F 82 18 108/66 L 03/27/23 15:01 82 102/56 L 97 03/27/23 14:31 65 108/66 L 93 L 03/27/23 14:00 90 109/67 L 97 03/27/23 13:30 99 H 108/75 L 98 03/27/23 13:01 68 122/67 96 03/27/23 12:44 97.8 F 85 18 107/64 L 96 Intake and Output 03/27/23 03/28/23 03/28/23 19:59 03:59 11:59 Intake Total 240 / 1258 1018 / 1258 Output Total 0 / 0 0 / 0 Balance 240 / 1258 1018 / 1258 0 / 1258 Intake: Intake, Oral Amount 240 / 240 Intake, Total IV Amount 1018 / 1018 0.45% NaCl w/20mEq KCL 1,000 ml 918 / 918 @ 100 mls/hr IV .Q10H GAEL Rx#: [id number] Metronidaz/Sod Chl 500 mg In 100 / 100 100 ml @ 100 mls/hr IV Q12H GAEL Rx#:[id number] Output: Output, Urine Amount 0 / 0 0 / 0 Other: Number of Unmeasured Voids 0 1 Weight 143 lb 6.4 oz 151 lb Patient Weight 03/28/23 11:59 Weight 151 lb Laboratory Results - last 24 hr 03/27/23 12:58: Urine Color Yellow, Urine Appearance Clear, Urine pH 7.0, Ur Specific [place] 1.010, Urine Protein Trace, Urine Glucose (UA) Negative, Urine Ketones Negative, Urine Blood Trace-i, Urine Nitrate Positive, Urine Bilirubin Negative, Urine Urobilinogen 0.2, Ur Leukocyte Esterase 1+ A, Urine RBC Occasional, Urine WBC 3-5, Ur Squamous Epith Cells Occasional, Urine Bacteria Trace 03/27/23 13:12: WBC 16.8 H, RBC 4.96, Hgb 15.1, Hct 45.3, MCV 91.4, MCH 30.5, MCHC 33.4, RDW 15.3, Plt Count 207, MPV 8.4, Neut % (Auto) 87.6 H, Lymph % (Auto) 6.9 L, [place] % (Auto) 3.5, Eos % (Auto) 1.5, Baso % (Auto) 0.6, Neut # (Auto) 14.7 H, Lymph # (Auto) 1.2, [place] # (Auto) 0.6, Eos # (Auto) 0.3, Baso # (Auto) 0.1, Total Counted 100, Neutrophils % (Manual) 80 H, Lymphocytes % (Manual) 11, Monocytes % (Manual) 8, Eosinophils % (Manual) 1, Platelet Estimate Normal, RBC Morphology Normal 03/27/23 13:12: Sodium 127 L, Potassium 3.2 L, Chloride 74 L, Carbon Dioxide 39 H, Anion Gap 17.2 H, BUN 30 H, Creatinine 1.40 H, Estimated Creat Clear 33, Estimated GFR 36 L, Est GFR ( Amer) 43 L, Glucose 172 H, Calcium 9.4, Total Bilirubin 1.5 H, AST 56 H, ALT 35, Alkaline Phosphatase 70, Troponin I 0.03, Total Protein 7.1, Albumin 4.2, Globulin 2.9, Albumin/Globulin Ratio 1.4 03/27/23 15:31: SARS-CoV-2 (PCR) Not detected, Influenza A Untype (PCR) Not detected, Influenza Type B (PCR) Not detected 03/27/23 16:15: Troponin I 0.02 03/27/23 19:57: Troponin I 0.03 I & O for Labs for Last 24 Hours: Intake & Output 03/25/23 03/26/23 03/27/23 03/28/23 11:59 11:59 11:59 11:59 Intake Total 1258 / 1258 Output Total 0 / 0 Balance 1258 / 1258 Weight 151 lb Constitutional: Present no acute distress Respiratory: Present decreased breath sounds and CTA bilaterally Cardiac: Present Reg Rate and Rhythm Comment:: Irregularly irregular GI: Present soft, tenderness (diffuse) and normal bowel sounds; Absent distention Extremities: Absent edema, clubbing or cyanosis Skin: Present intact Neuro: Present alert and awake Assessment and Plan *Assessment and plan (1) Acute diverticulitis: Status: Acute Category: Medical Code(s): K57.92 - Diverticulitis of intestine, part unspecified, without perforation or abscess without bleeding (2) Compression fracture of body of thoracic vertebra: Status: Acute Category: Medical Code(s): S22.000A - Wedge compression f
[2023-03-28 09:10] LABS: Basophils % 0.1 % (0.1-2.0); Eosinophils # 0.1 K/mm3 (0.0-0.4); Eosinophils % 1.4 % (0.1-12.0); Hematocrit 35.9 % (37.0-47.0); Lymphocytes # 0.6 K/mm3 (0.7-4.5); Lymphocytes % 6.7 % (10-50); Mean Corpuscular HGB Conc 33.9 g/dL (31.8-35.4); Mean Corpuscular Hemoglobin 31.4 pg (27.0-31.2); Mean Corpuscular Volume 92.7 fl (81-99); Mean Platelet Volume 7.5 fl (7.4-10.4); Monocytes # 0.4 K/mm3 (0.1-1.0); Monocytes % 4.2 % (1.7-9.3); Neutrophils # 8.3 K/mm3 (1.8-7.8); Neutrophils % 87.5 % (37.0-80.0); Platelet Count 121 K/mm3 (142-424); Red Blood Count 3.88 M/mm3 (4.20-5.40); Red Cell Distribution Width 15.5 % (11.5-17.5); White Blood Count 9.5 K/mm3 (4.8-10.8)
[2023-03-28 09:13] VITALS: BP 111/52
[2023-03-28 09:13] LABS: MANUAL DIFFERENTIAL MANUAL DIFFERENTIAL (MANUAL DIFF)
[2023-03-28 09:32] LABS: Lymphocytes % 8 % (10-50); Monocytes % 7 % (2-9); Neutrophils % 85 % (42-76); Platelet Estimate Slight Decrease; RBC Morphology Normal; Total Cells Counted 100
[2023-03-28 09:36] LABS: Chloride 83 mmol/L (98-107)
[2023-03-28 09:37] LABS: Potassium 3.1 mmoL/L (3.5-5.1); Sodium 127 mmol/L (136-145)
[2023-03-28 09:39] LABS: Blood Urea Nitrogen 24 mg/dl (7-17); Creatinine Clearance Estimated 45 mL/min (50-200); Estimated Glomerular Filt Rate 53 ml/min (>60); GFR (African American) 64 ML/MIN (>60)
[2023-03-28 09:40] LABS: Anion Gap 17.1 mEq/L (5-15); Calcium 8.1 mg/dl (8.4-10.2); Carbon Dioxide 30 mmol/L (22.0-30.0); Chol/HDL Ratio 5.2 (1-3.5); Cholesterol 178 mg/dl (140-200); Glucose 73 mg/dl (74-100); HDL Cholesterol 34 mg/dl (40-60); Phosphorous 2.8 mg/dl (2.5-4.5); Triglycerides 184 mg/dl (30-150); VLDL Cholesterol 37 mg/dL (0-40)
[2023-03-28 09:52] LABS: Direct LDL Cholesterol 116.49 mg/dL (100-129)
--- NOTE | 2023-03-28 15:06 | PC.NURSE ---
pt c/o back pain 09/03. notified ryan, will communicate with liv
--- NOTE | 2023-03-28 15:35 | HMH.OTEV ---
OT Inpatient Evaluation Rehab OT IP Evaluation Start: 03/28/23 10:53 Freq: ONCE Status: Active Protocol: Document 03/28/23 14:45 JOSELUIS (Rec: 03/28/23 15:34 JOSELUIS [id number]) Rehab OT IP Assessment Subjective History Ms. Gutierrez is an 83-year-old female with a history of coronary artery disease, CHF with diastolic dysfunction and presence of a Watchman device , COPD/asthma, hypothyroidism, paroxysmal A-fib, and PAD who began having vomiting and diarrhea as well as abdominal cramping the beginning of this week. The patient states she has been unable to keep down food or liquids. She presented the emergency room today and her white blood cell count was elevated. Her renal functions were also elevated and her sodium and potassium were low. A CT of the abdomen and pelvis showed a diverticulitis. She will be admitted and started on Levaquin and Flagyl. Of note she is also been complaining of some mid back pain that has been present since she was sick about a month ago with a possible pneumonia. X-ray from earlier in February did show a thoracic compression fracture which is likely the source of her pain. Patient lives alone in [address]. Patient completed all ADLs independently. Patient ambulated independently. Family assisted with transportation as needed. Subjective Patient had a barf bag sitting upright in bed at arrival of tx. Instructed Patient on completing bed mobility of supine to sit @ EOB requiring Min A. Patient verbalize feeling nausea and needing Min A to briana B socks. Patient
--- NOTE | 2023-03-28 15:49 | HMH.PTEV ---
Physical Therapy Evaluation Rehab PT IP Evaluation Start: 03/28/23 10:53 Freq: ONCE Status: Active Protocol: Document 03/28/23 14:35 PHORNE (Rec: 03/28/23 15:49 PHORNE [id number]) Subjective/History History History 83 yowf adm to [facility] with diverticulitis. She has hx of CAD, CHF, COPD, and PAD. She reports she lives alone, 4-5 steps to enter the home, she uses a walker for ambulation which is limited at baseline. Subjective Subjective Pt c/o nausea and abdominal pain throughout treatment, but does agree to attempt mobility. Rehab PT IP Eval Objective Appearance Patient Behavior Appropriate Patient Orientation Person,Place,Time Difficulty following instructions none Speech Pattern Clear Ambulation Patient Able to Ambulate No Balance Ability to Arise Able, uses arms to help Sitting Balance Steady, safe Standing Balance Steady, wide stance Dynamic Sitting Balance Ability Good Dynamic Standing Balance Ability Poor Transfers Bed Transfer Ability Minimal x 2 (25% assist) Chair Transfer Ability Minimal x 2 (25% assist) Sit to Stand Bed Transfer Ability Minimal x 2 (25% assist) Sit to Stand Chair Transfer Ability Minimal x 2 (25% assist) ROM All Extremities PT ROM Status WFL MMT All Extremities PT MMT WFL Rehab PT IP prob,goals,plan Problems Date of Evaluation: 03/28/23 PT IP Problems Bed Mobility,Transfers,Gait Rehab Potential Rehab Potential Good Plan PT Intervention Plan Bed Mobility,Transfers,Gait, Therapeutic Exercise PT Plan Frequency Daily Duration LOS Discharge Goals Bed Transfer Ability Contact Guard/Hand Hold Sit to Stand Chair Transfer Ability Minimal x 1 (25% assist) Ambulation Assistive Device Rolling Walker Ambulation Distance (feet) 10 Discharge Plan PT Discharge Plan Pt is currently most appropriate for rehab placement once medically stable for d/c. If her mobility significantly improves, she may be able to return home with home health therapy. In her current state if she does not have skilled
[2023-03-28 15:53] VITALS: BP 99/52; PULSE 83; RESP 17; TEMP 36.6; O2SAT 92
[2023-03-28 19:12] VITALS: PULSE 70; PULSE 72; O2SAT 97
[2023-03-28 19:57] VITALS: BP 90/49; PULSE 98; RESP 17; TEMP 36.4; O2SAT 92
[2023-03-29 04:00] VITALS: BP 96/62; PULSE 82; RESP 14; TEMP 36.5; O2SAT 95; BMI 23.1
--- NOTE | 2023-03-29 04:55 | PC.NURSE ---
NO ACUTE CHANGES THIS SHIFT. PT HAS BEEN ALERT AND ORIENTED. REMAINS ON 3L NASAL CANNULA. HAS BEEN MEDICATED FOR PAIN X2 THIS SHIFT. VSS. LUNG SOUNDS CLEAR.
[2023-03-29 06:45] LABS: Basophils % 0.2 % (0.1-2.0); Eosinophils # 0.1 K/mm3 (0.0-0.4); Eosinophils % 1.5 % (0.1-12.0); Hematocrit 34.2 % (37.0-47.0); Hemoglobin 11.2 g/dL (12.2-16.2); Lymphocytes # 0.8 K/mm3 (0.7-4.5); Lymphocytes % 12.4 % (10-50); Mean Corpuscular HGB Conc 32.9 g/dL (31.8-35.4); Mean Corpuscular Hemoglobin 30.4 pg (27.0-31.2); Mean Corpuscular Volume 92.5 fl (81-99); Mean Platelet Volume 7.4 fl (7.4-10.4); Monocytes # 0.4 K/mm3 (0.1-1.0); Monocytes % 6.2 % (1.7-9.3); Neutrophils # 5.1 K/mm3 (1.8-7.8); Neutrophils % 79.8 % (37.0-80.0); Platelet Count 77 K/mm3 (142-424); Red Blood Count 3.69 M/mm3 (4.20-5.40); Red Cell Distribution Width 15.7 % (11.5-17.5); White Blood Count 6.4 K/mm3 (4.8-10.8)
[2023-03-29 07:38] LABS: Alanine Aminotransferase 19 U/L (12-78); Albumin Level 2.7 g/dl (3.5-5.0); Albumin/Globulin Ratio 1.4 (1.1-1.8); Alkaline Phosphatase 52 U/L (38-126); Anion Gap 11.8 mEq/L (5-15); Aspartate Amino Transferase 35 U/L (14-36); Bilirubin,Total 0.7 mg/dl (0.2-1.3); Blood Urea Nitrogen 16 mg/dl (7-17); Carbon Dioxide 26 mmol/L (22.0-30.0); Chloride 95 mmol/L (98-107); Creatinine Clearance Estimated 46 mL/min (50-200); Estimated Glomerular Filt Rate 68 ml/min (>60); GFR (African American) 83 ML/MIN (>60); Glucose 73 mg/dl (74-100); Potassium 3.8 mmoL/L (3.5-5.1); Sodium 129 mmol/L (136-145); Total Protein,Serum 4.7 g/dl (6.3-8.2)
--- NOTE | 2023-03-29 07:57 | SW/DCPLANNER ---
Addendum entered by Tessie Russ 03/29/23 14:40: Radha camarena/ [facility] stated that patient is a candidate for their facility and is currently waiting on a MD to accept. Dr Reed stated that patient could be ready for discharge tomorrow and Radha is aware. I have provided Radha camarena/ contact information for [facility] if accepted tomorrow. I have also attempted to call and update patient's son: no answer at this time VM left. Addendum entered by Tessie Russ 03/29/23 08:29: I called and spoke with patient's son this AM. Son stated that he is not interested in Rehab at [facility] and would prefer patient to return to [facility] or return home with family/sitter/home health. Patient information has been faxed to [facility]ha c[facility]/ [facility] at this time. Original Note: I spoke with patient this AM regarding plans once medically stable for discharge. PT/OT evaluated patient yesterday and recommended SNF level of care at time of discharge. Patient stated that she has been to [facility] in the past but would be interested in [facility] once medically stable for discharge. Patient has requested to be able to speak with her son when he arrives to [facility] today prior to making any decisions. I will follow up with patient and family once they arrive at [facility]. Discharge date is unknown at this time.
[2023-03-29 08:00] VITALS: BP 95/60; PULSE 81; RESP 16; TEMP 36.4; O2SAT 97
--- NOTE | 2023-03-29 08:33 | EXP.ACUTE.PN ---
Subjective *Date: 03/29/23 *Time: 08:33 Interval history: Patient states she is feeling a little better today. She is still having a lot of back pain but it is a little better. Her abdominal pain is improving. She has not had any further vomiting and has been able to eat small amounts. Medical Exam Vital signs and Labs for Last 24 Hours: Vital Signs Temp Pulse Pulse Resp BP Pulse Ox 03/29/23 04:00 97.7 F 82 14 96/62 L 95 03/28/23 19:57 97.5 F L 98 H 17 90/49 L 92 L 03/28/23 19:12 70 03/28/23 19:12 72 03/28/23 19:12 97 03/28/23 15:53 97.8 F 83 17 99/52 L 92 L 03/28/23 09:13 111/52 L Intake and Output 03/28/23 03/29/23 03/29/23 19:59 03:59 11:59 Intake Total 1470 / 1470 Output Total 650 / 1650 1000 / 1650 0 / 1650 Balance 820 / -180 -1000 / -180 0 / -180 Intake: Intake, Oral Amount 480 / 480 Intake, Total IV Amount 990 / 990 0.45% NaCl w/20mEq KCL 1,000 ml 890 / 890 @ 100 mls/hr IV .Q10H GAEL Rx#: [id number] Metronidaz/Sod Chl 500 mg In 100 / 100 100 ml @ 100 mls/hr IV Q12H GAEL Rx#:[id number] Output: Output, Urine Amount 650 / 1150 500 / 1150 0 / 1150 Output, Urine Amount (Catheter) 500 / 500 Sommer 500 / 500 Other: Number of Unmeasured Voids 1 1 Weight 152 lb 6.4 oz Patient Weight 03/29/23 11:59 Weight 152 lb 6.4 oz Laboratory Results - last 24 hr 03/28/23 08:40: WBC 9.5 D, RBC 3.88 L, Hgb 12.0 L D, Hct 35.9 L, MCV 92.7, MCH 31.4 H, MCHC 33.9, RDW 15.5, Plt Count 121 L D, MPV 7.5, Neut % (Auto) 87.5 H, Lymph % (Auto) 6.7 L, [place] % (Auto) 4.2, Eos % (Auto) 1.4, Baso % (Auto) 0.1, Neut # (Auto) 8.3 H, Lymph # (Auto) 0.6 L, [place] # (Auto) 0.4, Eos # (Auto) 0.1, Baso # (Auto) 0.0, Total Counted 100, Neutrophils % (Manual) 85 H, Lymphocytes % (Manual) 8 L, Monocytes % (Manual) 7, Platelet Estimate Slight decrease, RBC Morphology Normal 03/28/23 08:40: Sodium 127 L, Potassium 3.1 L, Chloride 83 L, Carbon Dioxide 30, Anion Gap 17.1 H, BUN 24 H, Creatinine 1.00 D, Estimated Creat Clear 45, Estimated GFR 53 L, Est GFR ( Amer) 64 D, Glucose 73 L D, Calcium 8.1 L, Phosphorus 2.8, Magnesium 2.0, Triglycerides 184 H, Cholesterol 178, LDL Cholesterol Direct 116.49, VLDL Cholesterol 37, HDL Cholesterol 34 L, Cholesterol/HDL Ratio 5.2 H 03/29/23 06:22: WBC 6.4 D, RBC 3.69 L, Hgb 11.2 L, Hct 34.2 L, MCV 92.5, MCH 30.4, MCHC 32.9, RDW 15.7, Plt Count 77 L D, MPV 7.4, Neut % (Auto) 79.8, Lymph % (Auto) 12.4, [place] % (Auto) 6.2, Eos % (Auto) 1.5, Baso % (Auto) 0.2, Neut # (Auto) 5.1, Lymph # (Auto) 0.8, [place] # (Auto) 0.4, Eos # (Auto) 0.1, Baso # (Auto) 0.0 03/29/23 06:22: Sodium 129 L, Potassium 3.8 D, Chloride 95 L, Carbon Dioxide 26, Anion Gap 11.8, BUN 16 D, Creatinine 0.80, Estimated Creat Clear 46, Estimated GFR 68, Est GFR ( Amer) 83 D, Glucose 73 L, Calcium 8.0 L, Total Bilirubin 0.7, AST 35 D, ALT 19 D, Alkaline Phosphatase 52, Total Protein 4.7 L D, Albumin 2.7 L, Globulin 2.0, Albumin/Globulin Ratio 1.4 I & O for Labs for Last 24 Hours: Intake & Output 03/26/23 03/27/23 03/28/23 03/29/23 11:59 11:59 11:59 11:59 Intake Total 1258 / 1258 1470 / 1470 Output Total 0 / 0 1650 / 1650 Balance 1258 / 1258 -180 / -180 Weight 151 lb 152 lb 6.4 oz Microbiology Reports for the Last 24 Hours: Microbiology 03/27/23 12:58 Urine,Clean Catch Urine Culture - Preliminary NO GROWTH AFTER 24 HOURS Constitutional: Present no acute distress Respiratory: Present decreased breath sounds and CTA bilaterally Cardiac: Present Reg Rate and Rhythm Comment:: Irregularly irregular GI: Present soft, tenderness (improving) and normal bowel sounds; Absent distention Extremities: Absent edema, clubbing or cyanosis Skin: Present intact Neuro: Present alert and awake Assessment and Plan *Assessment and plan (1) Acute diverticulitis: Status: Acute Categ
[2023-03-29 11:19] VITALS: BMI 23.1
--- NOTE | 2023-03-29 11:23 | PC.NURSE ---
pt family presented concerns regarding pt procedure with cardiology in the past. dr peck was contacted regarding pt concerns. cardiology consult ordered.
--- NOTE | 2023-03-29 12:56 | EXP.CARD.CON ---
History of Present Illness History of Present Illness Consult date: 03/29/23 Requesting physician: Cari Reed Chief complaint: back pain History of present illness: This is an 83-year-old white female who presented to the emergency department with complaints of nausea, vomiting, diarrhea and abdominal cramping. Patient has a known history of coronary artery disease, diastolic congestive heart failure status post CardioMEMS placement, COPD, paroxysmal atrial fibrillation and PAD. The patient states that she has been feeling sick with nausea and vomiting and abdominal cramping. She was unable to keep any food or liquids down. Then she had sudden onset of severe pain in her back. The patient states that she came to the emergency department because of her multiple symptoms. The patient was found to have an acute kidney injury and electrolyte abnormalities. Her CT of the abdomen did show diverticulitis. The patient was admitted to the hospital and started on antibiotics. The patient is concerned that his severe back pain may be from the CardioMEMS placement. Back pain has never been reported with CardioMEMS. Her back pain is most likely from her thoracic vertebrae fractures. She denies any chest pain or pressure. She denies any shortness of breath this morning. She denies any fever, chills, nausea, vomiting, diarrhea, PND or orthopnea. [facility] Disclaimer: The information contained in this section may have been updated after the patient was seen, as this information can be updated by other users. Medical History (Updated 03/29/23 @ 13:04 by Kate Villanueva APRN) Abnormal ankle brachial index (WENDY) Abscess Acute cervical sprain Acute on chronic diastolic CHF (congestive heart failure) Acute thoracic myofascial strain Anemia Blood loss anemia CAD (coronary artery disease) Concussion without loss of consciousness COPD (chronic obstructive pulmonary disease) Diastolic dysfunction Dysphagia Dyspnea on exertion Fibromyalgia GERD (gastroesophageal reflux disease) HTN (hypertension) Hyperuricemia Hypothyroidism Leg cramps detention current use of diuretic Moderate persistent asthma Multinodular goiter PAD (peripheral artery disease) Paroxysmal atrial fibrillation Presence of CardioMEMS HF system Pulmonary fibrosis Seroma Severe pulmonary hypertension Valvular heart disease Surgical History History of arthroscopic knee surgery History of back surgery History of cardiac cath History of cardiac radiofrequency ablation History of cataract surgery History of cholecystectomy History of colonoscopy History of hemorrhoidectomy History of lumbar fusion History of right knee joint replacement History of surgery on right wrist History of thyroidectomy History of tonsillectomy S/P ablation of atrial fibrillation Family History Stroke Social History (Updated 03/27/23 @ 17:37 by Mary Richard RN) Smoking Status: Former smoker alcohol intake: never substance use type: denies use current occupational status: retired Travel in the last 8 weeks: None household members: none housing: house current occupation: [employer] current occupational exposures/hazards: No caffeine: No Review of Systems Review of Systems Review of systems:: pertinent systems reviewed and negative unless documented below Constitutional Constitutional: Reports system reviewed and no additional complaints, except as documented, Denies headache(s) and Reports weakness Eyes Eyes: Reports system reviewed and no additional complaints, except as documented ENT Ears, Nose, Mouth, and Throat: Reports system reviewed and no additional complaints, except as documented, Denies dizziness and Denies headache(s) *Cardiovascular Cardiovascular: Reports system reviewed and no additional complaints, except as documented, Denies chest pain and Denies dyspnea *
[2023-03-29 13:30] VITALS: PULSE 78; PULSE 83
--- NOTE | 2023-03-29 13:44 | EXP.PAIN.OV ---
HPI Data of Consult Patient: new to practice Consult date: 03/29/23 Requesting Physician: Cari Reed MD Primary Care Provider: Cari Reed MD Consult Narrative Reason for consult: Mid back pain History of present illness: Ms. Gutierrez is a 83 year old female who presents today as a new patient. She is a consult from the floor related to a recent T8 compression fracture. Patient denies any significant fall or injury. She states that she has recently been under the weather with pneumonia and was coughing significantly. Patient states she does also have a history of osteoporosis and believes that the initial illness along with her osteoporosis because this fracture. She does rate her pain today an 8 out of 10. She describes it as an achy sensation with sharp pains at the site. Patient denies any radiating symptoms. She is stating that due to the recent fracture she has been having increased nausea and stomach upset. She is currently being managed with gabapentin 800 mg 3 times a day, oxycodone 5 mg 4 times daily, and prednisone 10 mg daily. Patient does have a cardiac history and is currently on Xarelto. CC: Cari Reed MD [facility] Disclaimer: The information contained in this section may have been updated after the patient was seen, as this information can be updated by other users. Medical History (Updated 03/29/23 @ 13:46 by Gwen Moreno APRN) Abnormal ankle brachial index (WENDY) Abscess Acute cervical sprain Acute on chronic diastolic CHF (congestive heart failure) Acute thoracic myofascial strain Anemia Blood loss anemia CAD (coronary artery disease) Concussion without loss of consciousness COPD (chronic obstructive pulmonary disease) Diastolic dysfunction Dysphagia Dyspnea on exertion Fibromyalgia GERD (gastroesophageal reflux disease) HTN (hypertension) Hyperuricemia Hypothyroidism Leg cramps snf current use of diuretic Moderate persistent asthma Multinodular goiter PAD (peripheral artery disease) Paroxysmal atrial fibrillation Presence of CardioMEMS HF system Pulmonary fibrosis Seroma Severe pulmonary hypertension Valvular heart disease Surgical History History of arthroscopic knee surgery History of back surgery History of cardiac cath History of cardiac radiofrequency ablation History of cataract surgery History of cholecystectomy History of colonoscopy History of hemorrhoidectomy History of lumbar fusion History of right knee joint replacement History of surgery on right wrist History of thyroidectomy History of tonsillectomy S/P ablation of atrial fibrillation Family History Stroke Social History (Updated 03/27/23 @ 17:37 by Mary Richard RN) Smoking Status: Former smoker alcohol intake: never substance use type: denies use current occupational status: retired Travel in the last 8 weeks: None household members: none housing: house current occupation: [employer] current occupational exposures/hazards: No caffeine: No Review of Systems Review of Systems Review of systems:: pertinent systems reviewed and negative unless documented below Review of systems (narrative): Review of Systems: General: No recent weight changes, no fever, no sleep disturbances Respiratory: No cough, no shortness of air, no recurring pulmonary infections Cardiovascular/peripheral vascular: No chest pain, no palpitations, no edema, no shortness of breath Gastrointestinal: No new onset incontinence, normal bowel movements reported Genitourinary: No new onset incontinence Musculoskeletal: Mid back pain Psychiatric: [Normal mood/affect] Neurological: [Denies weakness in extremities], [denies balance issues] Constitutional Constitutional: Denies headache(s) and Reports weakness ENT Ears, Nose, Mouth, and Throat: Denies dizziness and Denies headache(s) *Neurologic Neuro
--- NOTE | 2023-03-29 14:07 | CT_ITS ---
FINAL REPORT TECHNIQUE: Axial images were obtained of the thoracic spine by computed tomography. Coronal and sagittal reconstruction process performed. This study was performed with techniques to keep radiation doses as low as reasonably achievable (ALARA). Individualized dose reduction techniques using automated exposure control or adjustment of mA and/or kV according to the patient's size were employed. CLINICAL HISTORY: age indeterminate t8 compression fx COMPARISON: 06/12/2022 FINDINGS: There is stable indentation of the superior endplates of T2 and T3. Mild loss of height superior endplate of T5 is stable. There is 50% compression deformity of T8 which is new. There is sclerosis in the superior endplate of the T8 vertebra. There is mild loss of height at superior endplate of T12 with a small Schmorl's node. There is mild thoracic scoliosis convex to the left measuring about 15 degrees. IMPRESSION: Stable compression deformities of T2, T3, T5, and T12. New 50% compression deformity of T12 which could represent acute or subacute fracture. Recommend thoracic spine MRI to assess for marrow edema. Reviewed, Interpreted and Dictated by Anirudh Miller MD Transcribed by Kalie Olivo Authenticated and [facility]
[2023-03-29 16:00] VITALS: BP 98/60; PULSE 70; RESP 16; TEMP 37.1; O2SAT 98
[2023-03-29 20:00] VITALS: BP 95/63; PULSE 76; RESP 20; TEMP 36.7; O2SAT 99
[2023-03-29 23:29] VITALS: O2SAT 98
[2023-03-30] VITALS (9 sets, daily range): BP systolic 86–105; BP diastolic 43–62; PULSE 58–92; RESP 16–18; TEMP 36.4–36.8; O2SAT 90–100; BMI 23.6
--- NOTE | 2023-03-30 05:56 | PC.NURSE ---
PATIENT RECEIVED PRN IVP MORPHINE AT 2003 FOR C/O CHRONIC BACK PAIN. ALSO RECEIVING PO OXYCODONE, TYLENOL, AND GABAPENTIN SCHEDULED FOR PAIN. BPs DROPPED INTO 80s SYSTOLIC AND 40s DIASTOLIC. 5 AM OXYCODONE HELD DUE TO LOW BP. PATIENT SLEEPING WELL.
--- NOTE | 2023-03-30 09:31 | EXP.PHA.PN ---
Subjective *Date: 03/30/23 *Time: 09:31 Medical Exam Vital signs and Labs for Last 24 Hours: Vital Signs Temp Pulse Pulse Resp BP Pulse Ox 03/30/23 07:54 97.9 F 70 18 98/50 L 98 03/30/23 06:31 90 03/30/23 06:31 92 H 03/30/23 06:31 91 L 03/30/23 04:00 98.2 F 90 16 86/43 L 90 L 03/30/23 00:00 98.0 F 58 L 17 88/62 L 92 L 03/29/23 23:29 98 03/29/23 20:00 98.0 F 76 20 95/63 L 99 03/29/23 20:00 99 03/29/23 16:00 98.7 F 70 16 98/60 L 98 03/29/23 13:30 83 03/29/23 13:30 78 Intake and Output 03/29/23 03/30/23 03/30/23 23:59 07:59 15:59 Intake Total 360 / 1640 1300 / 1300 Output Total 1801 / 2901 1200 / 1200 Balance -1441 / -1261 100 / 100 Intake: Intake, Oral Amount 360 / 840 Intake, Total IV Amount 1300 / 1300 0.45% NaCl w/20mEq KCL 1,000 ml 1200 / 1200 @ 100 mls/hr IV .Q10H GAEL Rx#: [id number] Metronidaz/Sod Chl 500 mg In 100 / 100 100 ml @ 100 mls/hr IV Q12H GAEL Rx#:[id number] Output: Output, Urine Amount 1801 / 2401 1200 / 1200 Other: Number of Unmeasured Voids 150 1 Number of Bowel Movements 1 2 Weight 70.715 kg Patient Weight 03/30/23 23:59 Weight 70.715 kg I & O for Labs for Last 24 Hours: Intake & Output 03/27/23 03/28/23 03/29/23 03/30/23 23:59 23:59 23:59 23:59 Intake Total 240 / 1258 2488 / 2488 840 / 1640 1300 / 1300 Output Total 0 / 0 650 / 1650 2801 / 2901 1200 / 1200 Balance 240 / 1258 1838 / 838 -1961 / -1261 100 / 100 Weight 65.045 kg 68.492 kg 69.13 kg 70.715 kg Microbiology Reports for the Last 24 Hours: Microbiology 03/27/23 12:58 Urine,Clean Catch Urine Culture - Final NO GROWTH AFTER 48 HOURS The patient's infection will respond to the chosen ABx?: Yes Is the patient receiving the right drug, dose, and route?: Yes Could a more targeted ABx be ordered?: No (WBC 16.8 TO 6.4K, AFEBRILE, CONT. CURRENT ABX.)
--- NOTE | 2023-03-30 12:03 | EXP.ACUTE.PN ---
Subjective *Date: 03/30/23 *Time: 12:03 Interval history: She is still in considerable pain. With the assistance of physical therapy we placed her back brace. See the note from pain management. She was able to sleep a few hours last night. She is taking full liquids. Medical Exam Vital signs and Labs for Last 24 Hours: Vital Signs Temp Pulse Pulse Resp BP Pulse Ox 03/30/23 07:54 97.9 F 70 18 98/50 L 98 03/30/23 06:31 90 03/30/23 06:31 92 H 03/30/23 06:31 91 L 03/30/23 04:00 98.2 F 90 16 86/43 L 90 L 03/30/23 00:00 98.0 F 58 L 17 88/62 L 92 L 03/29/23 23:29 98 03/29/23 20:00 98.0 F 76 20 95/63 L 99 03/29/23 20:00 99 03/29/23 16:00 98.7 F 70 16 98/60 L 98 03/29/23 13:30 83 03/29/23 13:30 78 Intake and Output 03/30/23 03/30/23 03/30/23 03:59 11:59 19:59 Intake Total 800 / 2380 980 / 2380 Output Total 101 / 3001 1100 / 3001 Balance 699 / -621 -120 / -621 Intake: Intake, Oral Amount 480 / 1080 Intake, Total IV Amount 800 / 1300 500 / 1300 0.45% NaCl w/20mEq KCL 1,000 ml 800 / 1200 400 / 1200 @ 100 mls/hr IV .Q10H GAEL Rx#: [id number] Metronidaz/Sod Chl 500 mg In 100 / 100 100 ml @ 100 mls/hr IV Q12H [facility] Rx#:[id number] Output: Output, Urine Amount 101 / 3001 1100 / 3001 Other: Number of Unmeasured Voids 1 Number of Bowel Movements 1 2 Weight 155 lb 14.4 oz I & O for Labs for Last 24 Hours: Intake & Output 03/28/23 03/29/23 03/30/23 03/31/23 11:59 11:59 11:59 11:59 Intake Total 1258 / 1258 1710 / 1710 2380 / 2380 Output Total 0 / 0 1650 / 1650 3001 / 3001 Balance 1258 / 1258 60 / 60 -621 / -621 Weight 151 lb 152 lb 6.489 oz 155 lb 14.4 oz Microbiology Reports for the Last 24 Hours: Microbiology 03/27/23 12:58 Urine,Clean Catch Urine Culture - Final NO GROWTH AFTER 48 HOURS Head: Present normocephalic Neck: Present normal inspection Respiratory: Present CTA bilaterally Cardiac: Present Regular Rate GI: Present soft; Absent distention or tenderness Rectal (female): Present deferred (female): Present other (Sommer catheter) Extremities: Absent tenderness or edema Skin: Present intact Neuro: Present alert and oriented x 3 Comment:: And pain with movement of the back. Assessment and Plan *Assessment and plan (1) Compression fracture of body of thoracic vertebra: Status: Acute Category: Medical Code(s): S22.000A - Wedge compression fracture of unspecified thoracic vertebra, initial encounter for closed fracture (2) Mid back pain: Status: Acute Category: Medical Code(s): M54.9 - Dorsalgia, unspecified (3) Acute diverticulitis: Status: Acute Category: Medical Code(s): K57.92 - Diverticulitis of intestine, part unspecified, without perforation or abscess without bleeding (4) Paroxysmal atrial fibrillation: Status: Chronic Category: Medical Code(s): I48.0 - Paroxysmal atrial fibrillation (5) Hypothyroidism: Status: Chronic Category: Medical Code(s): E03.9 - Hypothyroidism, unspecified (6) Pulmonary hypertension: Status: Chronic Category: Medical Code(s): I27.20 - Pulmonary hypertension, unspecified (7) Thoracic back pain: Status: Chronic Category: Medical Code(s): M54.6 - Pain in thoracic spine Plan Continue present regimen. Treat with pain medications. She received a Dulcolax suppository last night for her bowels. Constipation has been a problem. The back brace hopefully will help give support and decrease her back pain.
[2023-03-31 04:00] VITALS: BP 94/56; PULSE 71; RESP 18; TEMP 36.8; O2SAT 95; BMI 23.8
[2023-03-31 06:05] VITALS: PULSE 82; PULSE 85; O2SAT 92
--- NOTE | 2023-03-31 06:10 | PC.NURSE ---
PATIENT C/O NAUSEA AT 1999 AND RECEIVED ZOFRAN 4 MG IVP WITH OUT RELIEF. RECEIVED PHENERGAN 12.5 MG IN 25 ML NS IV AND PATIENT WAS SEDATED. 2299 OXYCODONE AND TYLENOL HELD DUT TO PATIENT SLEEPING SOUNDLY. POSSIBLE TRANSFER TO [facility] TODAY.
[2023-03-31 07:39] VITALS: BP 95/32; PULSE 74; RESP 18; TEMP 35.8; O2SAT 93
[2023-03-31 08:12] LABS: Anion Gap 8.7 mEq/L (5-15); Blood Urea Nitrogen 8 mg/dl (7-17); Calcium 8.1 mg/dl (8.4-10.2); Carbon Dioxide 34 mmol/L (22.0-30.0); Chloride 98 mmol/L (98-107); Creatinine Clearance Estimated 47 mL/min (50-200); Estimated Glomerular Filt Rate 68 ml/min (>60); GFR (African American) 83 ML/MIN (>60); Glucose 74 mg/dl (74-100); Potassium 4.7 mmoL/L (3.5-5.1); Sodium 136 mmol/L (136-145)
--- NOTE | 2023-03-31 08:28 | EXP.DC.SUM ---
General Admission date:: 03/27/23 HPI HPI HPI: Ms. Gutierrez is an 83-year-old female with a history of coronary artery disease, CHF with diastolic dysfunction and presence of a Watchman device, COPD/asthma, hypothyroidism, paroxysmal A-fib, and PAD who began having vomiting and diarrhea as well as abdominal cramping the beginning of this week. The patient states she has been unable to keep down food or liquids. She presented the emergency room today and her white blood cell count was elevated. Her renal functions were also elevated and her sodium and potassium were low. A CT of the abdomen and pelvis showed a diverticulitis. She will be admitted and started on Levaquin and Flagyl. Of note she is also been complaining of some mid back pain that has been present since she was sick about a month ago with a possible pneumonia. X-ray from earlier in February did show a thoracic compression fracture which is likely the source of her pain Hospital Course Hospital Course Hospital Course: The initial concern on admission was for diverticulitis. Her white blood cell count was elevated over 16,000. She had some abdominal tenderness. Her CT scan indicated evidence of diverticulitis. She was placed on metronidazole and levofloxacin. She seemed to stabilize fairly quickly with treatment but the overriding difficulty for the remainder of hospitalization was her severe back pain related to evidence of a thoracic vertebral compression fracture. She received p.o. pain medications and IV morphine for control of pain. She was seen in consultation by pain management who recommended a back brace. The possibility of kyphoplasty was considered for future treatment. Unfortunately the back brace never seem to give much relief and she seemed to do better without it in place. In addition to an elevated white count she had hyponatremia and hypokalemia. These were corrected. At the time of discharge her electrolytes were normal. The patient was also seen in consultation by cardiology since they had been following her as outpatient anyway. The patient was accepted for transfer to [facility] for rehabilitation and improvement in pain control. She was stable for transfer on March 31, 2023. Exam Data for Last 24 hours Vital signs and Labs for Last 24 Hours: Temp Pulse Resp BP Pulse Ox FiO2 96.5 F L 74 18 95/32 L 93 L 28 03/31/23 07:39 03/31/23 07:39 03/31/23 07:39 03/31/23 07:39 03/31/23 07:39 03/30/23 20:30 Laboratory Results - last 24 hr 03/31/23 06:41: Sodium 136, Potassium 4.7 D, Chloride 98, Carbon Dioxide 34 H, Anion Gap 8.7, BUN 8 D, Creatinine 0.80, Estimated Creat Clear 47, Estimated GFR 68, Est GFR ( Amer) 83, Glucose 74, Calcium 8.1 L I & O for Last 24 hours: Intake & Output 03/28/23 03/29/23 03/30/23 03/31/23 11:59 11:59 11:59 11:59 Intake Total 1258 / 1258 1710 / 1710 2380 / 2380 3408 / 3408 Output Total 0 / 0 1650 / 1650 5501 / 5501 1400 / 1400 Balance 1258 / 1258 60 / 60 -3121 / -3121 2007 Weight 151 lb 152 lb 6.489 oz 155 lb 14.4 oz 157 lb 8 oz Constitutional Constitutional: moderate distress (Due to her back pain) *Routine HEENT Exam Head: Present normocephalic Eye: Absent conjunctival icterus or scleral injection ENT: Present mucous membranes dry (Slightly dry.) *Routine Neck Exam Neck: Present supple and full ROM; Absent JVD Routine Chest/Breast/Axilla Exam Chest wall: Absent tenderness *Routine Respiratory Exam Respiratory: Present CTA bilaterally; Absent respiratory distress *Routine Cardiovascular Exam Cardiovascular: Present RRR (Occasional ectopics. Regular rate.) *Routine Abdominal Exam Abdominal: Present soft; Absent tenderness, distended, organomegaly or mass *Routine Rectal Exam Comments: Deferred *Routine Exam Comments: Sommer catheter in place. Will DC prior to discharge *Routine Extremities Exam Extremities: Absent cyanosis, clubbing or edema Routine Back/Spine/Pelvis Exam Back/S
--- NOTE | 2023-03-31 09:01 | EXP.ACUTE.PN ---
Subjective *Date: 03/31/23 *Time: 09:01 Interval history: [facility] was scheduled to take this patient on transfer. Discharge was completed essentially when [facility] called and said they would not take the patient because they have too many patients admitted today . She is stable and ready for discharge. Medical Exam Vital signs and Labs for Last 24 Hours: Vital Signs Temp Pulse Pulse Resp BP Pulse Ox FiO2 03/31/23 07:39 96.5 F L 74 18 95/32 L 93 L 03/31/23 06:05 85 03/31/23 06:05 82 03/31/23 06:05 92 L 03/31/23 04:00 98.3 F 71 18 94/56 L 95 03/30/23 20:00 100 03/30/23 20:30 28 03/30/23 20:29 83 03/30/23 20:29 85 03/30/23 20:00 97.6 F 75 18 101/48 L 100 03/30/23 16:00 98.0 F 64 18 102/55 L 96 03/30/23 13:57 91 H 03/30/23 13:57 89 03/30/23 11:51 97.9 F 77 18 105/56 L 97 Intake and Output 03/30/23 03/31/23 03/31/23 19:59 03:59 11:59 Intake Total 720 / 3408 2328 / 3408 360 / 3408 Output Total 0 / 1400 1400 / 1400 Balance 2007 -1039 Intake: Intake, Oral Amount 720 / 1080 360 / 1080 Intake, Total IV Amount 2327 / 2327 0.45% NaCl w/20mEq KCL 1,000 ml 2228 / 2228 @ 100 mls/hr IV .Q10H GAEL Rx#: [id number] Metronidaz/Sod Chl 500 mg In 100 / 100 100 ml @ 100 mls/hr IV Q12H GAEL Rx#:[id number] Output: Output, Urine Amount 0 / 1400 1400 / 1400 Other: Number of Unmeasured Voids 1 1 Weight 157 lb 8 oz Patient Weight 03/31/23 11:59 Weight 157 lb 8 oz Laboratory Results - last 24 hr 03/31/23 06:41: Sodium 136, Potassium 4.7 D, Chloride 98, Carbon Dioxide 34 H, Anion Gap 8.7, BUN 8 D, Creatinine 0.80, Estimated Creat Clear 47, Estimated GFR 68, Est GFR ( Amer) 83, Glucose 74, Calcium 8.1 L I & O for Labs for Last 24 Hours: Intake & Output 03/28/23 03/29/23 03/30/23 03/31/23 11:59 11:59 11:59 11:59 Intake Total 1258 / 1258 1710 / 1710 2380 / 2380 3408 / 3408 Output Total 0 / 0 1650 / 1650 5501 / 5501 1400 / 1400 Balance 1258 / 1258 60 / 60 -3121 / -3121 2007 Weight 151 lb 152 lb 6.489 oz 155 lb 14.4 oz 157 lb 8 oz Head: Present normocephalic Neck: Present normal inspection Respiratory: Present CTA bilaterally Cardiac: Present Regular Rate GI: Absent soft or tenderness Rectal (female): Present deferred (female): Present deferred Extremities: Absent edema Skin: Present intact Neuro: Present alert and oriented x 3 Assessment and Plan *Assessment and plan (1) Thoracic radiculopathy: Status: Acute Category: Medical Code(s): M54.14 - Radiculopathy, thoracic region (2) Mid back pain: Status: Acute Category: Medical Code(s): M54.9 - Dorsalgia, unspecified (3) Hyponatremia: Status: Acute Category: Medical Code(s): E87.1 - Hypo-osmolality and hyponatremia (4) Hypokalemia: Status: Acute Category: Medical Code(s): E87.6 - Hypokalemia (5) Compression fracture of body of thoracic vertebra: Status: Acute Category: Medical Code(s): S22.000A - Wedge compression fracture of unspecified thoracic vertebra, initial encounter for closed fracture (6) Constipation: Status: Acute Qualifiers: Constipation type: unspecified constipation type Qualified Code(s): K59.00 - Constipation, unspecified Category: Medical Code(s): K59.00 - Constipation, unspecified (7) Acute diverticulitis: Status: Acute Category: Medical Code(s): K57.92 - Diverticulitis of intestine, part unspecified, without perforation or abscess without bleeding (8) Paroxysmal atrial fibrillation: Status: Chronic Category: Medical Code(s): I48.0 - Paroxysmal atrial fibrillation (9) CAD (coronary artery disease): Status: Chronic Qualifiers: Coronary
--- NOTE | 2023-03-31 09:29 | PC.NURSE ---
Current Medications Acetaminophen (Acetaminophen 325mg Tab) 650 mg PO Q6 GAEL Stop: 04/27/23 16:59 Last Admin: 03/31/23 05:32 Dose: Not Given Albuterol/Ipratropium (Ipratropium/Albuterol 3 Ml Neb) 3 ml IH TIDRT GAEL Stop: 04/26/23 19:59 Last Admin: 03/31/23 06:05 Dose: 3 ml Furosemide (Furosemide 80 Mg Tablet) 80 mg PO DAILY GAEL Stop: 04/27/23 08:59 Last Admin: 03/30/23 08:13 Dose: 80 mg Gabapentin (Gabapentin 800mg Tablet) 800 mg PO TID GAEL Stop: 04/26/23 20:59 Last Admin: 03/30/23 20:22 Dose: 800 mg Metronidazole (Flagyl 500mg/100ml Ivpb) 500 mg in 100 mls @ 100 mls/hr IV Q12H GAEL Stop: 04/10/23 15:44 Last Admin: 03/31/23 03:52 Dose: 100 mls/hr Potassium Chloride/Sodium Chloride (Kcl 20 Meq In 0.45% Nacl 1000mls) 1,000 mls @ 100 mls/hr IV .Q10H GAEL Stop: 04/26/23 18:29 Last Admin: 03/31/23 03:45 Dose: 100 mls/hr Levofloxacin/Dextrose (Levofloxacin 750mg/150ml Premix) 750 mg in 150 mls @ 100 mls/hr IV Q48H GAEL Stop: 04/10/23 14:59 Last Admin: 03/29/23 15:30 Dose: 100 mls/hr Levothyroxine Sodium (Levothyroxine 88mcg (0.088mg) Tab) 88 mcg PO DAILYDM GAEL Stop: 04/27/23 06:59 Last Admin: 03/31/23 06:44 Dose: 88 mcg Metoprolol Succinate (Metoprolol Succinate Xl 100mg Tablet) 100 mg PO DAILY GAEL Stop: 04/27/23 08:59 Last Admin: 03/30/23 08:12 Dose: 100 mg Morphine Sulfate (Morphine 2mg/Ml Syringe) 2 mg IV Q4HP PRN PRN Reason: Severe Pain Stop: 04/27/23 15:09 Last Admin: 03/29/23 20:04 Dose: 2 mg Ondansetron HCl (Ondansetron 4mg/2ml Vial) 4 mg IV Q8HP PRN PRN Reason: Nausea Stop: 04/26/23 15:37 Last Admin: 03/30/23 20:19 Dose: 4 mg Oxycodone HCl (Oxycodone 5mg Immediate Release Tablet) 5 mg PO Q6 [facility] Stop: 04/27/23 16:59 Last Admin: 03/31/23 05:37 Dose: Not Given Potassium Chloride (Potassium Chloride 20meq Tab) 20 meq PO BID [facility] Stop: 04/29/23 20:59 Last Admin: 03/30/23 20:22 Dose: 20 meq Prednisone (Prednisone 10mg Tab) 10 mg PO DAILY [facility] Stop: 04/27/23 08:59 Last Admin: 03/30/23 08:13 Dose: 10 mg Promethazine HCl (Promethazine Hcl 25mg/Ml 1ml Vial) 12.5 mg IV Q6HP PRN PRN Reason: Nausea And Vomiting Stop: 04/26/23 18:26 Last Admin: 03/30/23 22:01 Dose: 12.5 mg Rivaroxaban (Rivaroxaban 2.5mg Tablet) 2.5 mg PO BID [facility] Stop: 04/26/23 20:59 Last Admin: 03/30/23 20:22 Dose: 2.5 mg Sodium Chloride (Sodium Chloride 0.9% 25ml Bag) 25 ml IV NEEDED PRN PRN Reason: for Use with IV Promethazine Stop: 04/26/23 18:26 Sodium Chloride (Sodium Chloride 0.9% 10ml Flush Syringe) 10 ml IV NEEDED PRN PRN Reason: Maintain IV Site Stop: 04/27/23 08:15 Spironolactone (Spironolactone 25mg Tablet) 50 mg PO DAILY [facility] Stop: 04/27/23 08:59 Last Admin: 03/30/23 08:13 Dose: 50 mg
== END 2023-03-31 11:24 | DRG 392 ==
LOC: ER 15:38 → 2ND 16:15
PROVIDERS: Admitting Provider Family Medicine; Emergency Provider Emergency Medicine; PCP Family Medicine; Visit Provider Family Medicine
DX: K57.92 Diverticulitis of intestine, part unspecified, without perforation or abscess without bleeding (principal); M48.54XA Collapsed vertebra, not elsewhere classified, thoracic region, initial encounter for fracture; E87.1 Hypo-osmolality and hyponatremia; I48.0 Paroxysmal atrial fibrillation; E03.9 Hypothyroidism, unspecified; I27.20 Pulmonary hypertension, unspecified; E87.6 Hypokalemia; K59.00 Constipation, unspecified
CPT/HCPCS: 36415; 71045; 72128; 74177; 80048; 80053; 80061; 81001; 83735; 84100; 84484; 85007; 85025; 87086; 94640; 94760; 94761; 97162; 97165; 97530; 99285; C9803; J1956; J2405; Q9967; U0003; U0005

== ENCOUNTER → 2023-04-18 16:55 | Outpatient (CLI) | payer MEDICARE, BC, SELFPAY ==
--- NOTE | 2023-04-18 | XR_ITS ---
PROCEDURE INFORMATION: Exam: XR Complete Acute Abdomen Series Including Chest Exam date and time: 04/18/2023 4:57 PM Age: 83 years old Clinical indication: Nausea and vomiting; Additional info: Nausea, vomiting TECHNIQUE: Imaging protocol: Radiologic exam. Complete acute abdomen series, including 2 or more views of the abdomen and a single view chest. COMPARISON: CR XR ACUTE ABDOMEN SERIES 03/17/2023 10:49 AM FINDINGS: Lungs: Normal. No consolidation. Pleural spaces: Tiny right pleural effusion. No pneumothorax Heart/Mediastinum: Normal. Stable cardiomegaly. Gastrointestinal tract: Nonobstructive bowel gas pattern. Small colonic stool burden. Intraperitoneal space: No free air seen. Bones/joints: ORIF of L3/4. Degenerative changes of thoracolumbar spine. Degenerative changes of both hips and sacroiliac joints. Soft tissues: Normal. IMPRESSION: 1. Nonobstructive bowel gas pattern. 2. Tiny right pleural effusion.
[2023-04-19 14:41] LABS: Chloride 99 mmol/L (98-107); Potassium 3.8 mmoL/L (3.5-5.1); Sodium 136 mmol/L (136-145)
[2023-04-19 14:43] LABS: Alanine Aminotransferase 15 U/L (12-78); Amylase 91 U/L (30-110); Aspartate Amino Transferase 34 U/L (14-36); Blood Urea Nitrogen 6 mg/dl (7-17); Estimated Glomerular Filt Rate 80 ml/min (>60); GFR (African American) 96 ML/MIN (>60)
[2023-04-19 14:44] LABS: Albumin Level 2.9 g/dl (3.5-5.0); Albumin/Globulin Ratio 1.4 (1.1-1.8); Alkaline Phosphatase 85 U/L (38-126); Anion Gap 9.8 mEq/L (5-15); Bilirubin,Total 0.8 mg/dl (0.2-1.3); Calcium 8.5 mg/dl (8.4-10.2); Carbon Dioxide 31 mmol/L (22.0-30.0); Globulin 2.1 g/dL (1.3-3.2); Glucose 71 mg/dl (74-100); Lipase 284 U/L (23-300)
[2023-04-19 14:53] LABS: NT Pro Brain Natriuretic Pep. 3480 pg/mL (0-450)
== END ==
PROVIDERS: PCP Physician Assistant; Visit Provider Physician Assistant
DX: R11.2 Nausea with vomiting, unspecified (principal); I50.9 Heart failure, unspecified; R06.09 Other forms of dyspnea; B96.29 Other Escherichia coli [E. coli] as the cause of diseases classified elsewhere; R82.90 Unspecified abnormal findings in urine
CPT/HCPCS: 74021; 80053; 82150; 83690; 83880; 87086; 87088; 87186

== ENCOUNTER → 2023-04-19 14:07 | Outpatient (CLI) | payer MEDICARE, BC, SELFPAY | PROVIDERS: PCP Physician Assistant; Visit Provider Physician Assistant | DX: R11.2 Nausea with vomiting, unspecified (principal); R60.0 Localized edema ==

== ENCOUNTER 2023-04-21 16:27 | Observation (INO) | payer MEDICARE, BC, SELFPAY ==
[2023-04-21] VITALS (10 sets, daily range): BP systolic 111–157; BP diastolic 44–104; PULSE 68–100; RESP 16–23; TEMP 36.6–36.9; O2SAT 96–99; BMI 21.9; BMI 23.3
--- NOTE | 2023-04-21 16:34 | HMH.EDGENADL ---
Discharge Plan Disposition Patient Disposition: Admitted Chief Complaint: Abdominal Pain Prescriptions Prescriptions: No Action clindamycin HCl 300 mg capsule 300 mg PO BID sucralfate 1 gram tablet 1 g PO ACHS Label Comments: TAKE ONE TABLET BY MOUTH FOUR TIMES DAILY (BEFORE meals AND AT BEDTIME) gabapentin 400 mg capsule 400 mg PO HS sertraline 100 mg tablet 100 mg PO DAILY potassium chloride 10 mEq tablet extended release 10 meq PO DAILY omeprazole 40 mg capsule,delayed release(DR/EC) 40 mg PO BID Label Comments: TAKE ONE CAPSULE BY MOUTH TWICE DAILY aspirin 81 mg tablet,delayed release (DR/EC) 81 mg PO DAILY Label Comments: TAKE ONE TABLET BY MOUTH EVERY DAY spironolactone 25 mg tablet 25 mg PO DAILY levothyroxine 88 mcg tablet 88 mcg PO AM ferrous sulfate [FeroSul] 325 mg (65 mg iron) tablet 325 mg PO DAILY Label Comments: TAKE ONE TABLET BY MOUTH EVERY DAY promethazine 25 mg tablet 25 mg PO Q6HP PRN (Reason: Nausea) Label Comments: TAKE ONE TABLET BY MOUTH EVERY 6 HOURS NEEDED MAY CAUSE DROWSINESS montelukast 10 mg tablet 10 mg PO DAILY digoxin 125 mcg (0.125 mg) tablet 125 mcg PO DAILY metoprolol succinate 25 mg tablet extended release 24 hr 25 mg PO DAILY albuterol sulfate [Ventolin HFA] 90 mcg/actuation HFA aerosol inhaler 2 inh INHALATION Q6HP PRN (Reason: Breathing Problems) Label Comments: INHALE TWO puffs EVERY 6 HOURS NEEDED Xarelto 2.5 mg tablet 2.5 mg PO DAILY Trelegy Ellipta 200-62.5-25 mcg blister with device 1 inh INHALATION DAILY Referrals Follow up/Referrals: Cari Reed MD [Primary Care Provider] - See instructions Clinical Impressions Clinical Impression: Nausea, Abdominal pain, Acute dehydration Instructions Patient Instructions: DI for Acute Abdominal Pain Discharge ED Provider: Dion Jennings General Adult HPI General Chief complaint: Abdominal Pain Stated complaint: nausea,gagging Time Seen by Provider: 04/21/23 16:34 History of Present Illness HPI narrative: Patient is an 83-year-old medically complex patient accompanied by her [id number] who has had a very complex last month and a half of medical care. This is included a diagnosis of pneumonia as well as diverticulitis and she has been in the [facility] has been multiple different antibiotics including antibiotics for pneumonia and diverticulitis as well as lower extremity toe infection. She has had severe nausea since that time and has lost significant amounts of weight and she has been moaning in pain nearly perpetually according to her [id number] over the last month. Today the patient had a little bit of numbness in her upper lip and has been gagging and due to the ongoing severity of all of her symptoms that are brought her into the emergency department. The patient has been able to answer my questions appropriately and she states that she just feels sicker than I have ever been . When I asked her to articulate what this means she states that she is just severely nauseated. She also states that her mouth is extremely dry, she was recently reinitiated on furosemide for her heart failure. She states she has some abdominal discomfort but this has been chronic but her abdomen to be more distended than normal lately. She is having bowel movements in fact had 5 today. She states she denies having loose stools or vomiting but has been severely nauseated. She denies any chest pain fevers or chills. She is on home oxygen 3 L and has not had any increasing oxygen requirement. Her daughter states that she has been gagging quite a bit especially with drinking. Related Data Home Medications Medication Instructions Recorded Confirmed albuterol sulfate 90 mcg/actuation 2 inh inhalation Q6HP PRN 04/21/23 04/21/23 aerosol inhaler (Ventolin HFA) Breathing
--- NOTE | 2023-04-21 16:50 | CT_ITS ---
PROCEDURE INFORMATION: Exam: CT Chest With Contrast; Diagnostic Exam date and time: 04/21/2023 5:19 PM Age: 83 years old Clinical indication: Dyspnea; Additional info: Severe nausea, dyspnea (chronic) TECHNIQUE: Imaging protocol: Diagnostic computed tomography of the chest with contrast. Radiation optimization: All CT scans at this facility use at least one of these dose optimization techniques: automated exposure control; mA and/or kV adjustment per patient size (includes targeted exams where dose is matched to clinical indication); or iterative reconstruction. Contrast material: ISOVUE; Contrast volume: 75 ml; Contrast route: IV; REPORTING DATA: Count of CT and Cardiac NM exams in prior 12 months: This patient has received 6 known CTs and 0 known cardiac nuclear medicine studies in the 12 months prior to the current study. COMPARISON: CT CHEST WO/W CON 09/28/2022 1:15 PM FINDINGS: Lungs: Moderate bibasilar atelectasis and scarring. The central airways are patent. No suspicious pulmonary consolidation, nodule, or mass. Pleural spaces: No pleural effusion or pneumothorax. Heart: [id number] cardiomegaly. No pericardial effusion. Lymph nodes: Unremarkable. No enlarged lymph nodes. Vasculature: Coronary artery and aortic atherosclerosis. No aortic aneurysm. The main pulmonary artery is dilated, measuring 30 mm. No pulmonary embolism. Bones/joints: Persistent compression deformities of T2, T3, T5, and T12, most severe at T8, which demonstrates at least 75% height loss and T12 which demonstrates at least 50% height loss. Thoracic spine MRI is again recommended to assess for marrow edema. Partially visualized posterior spinal fusion hardware at L3-L4. Soft tissues: Fatty atrophy of the pancreas. No adrenal lesions. IMPRESSION: 1. Moderate bibasilar atelectasis and scarring. The central airways are patent. No suspicious pulmonary consolidation, nodule, or mass. 2. Coronary artery and aortic atherosclerosis. No aortic aneurysm. 3. Persistent compression deformities of T2, T3, T5, and T12, most severe at T8, which demonstrates at least 75% height loss and T12 which demonstrates at least 50% height loss. Thoracic spine MRI is again recommended to assess for marrow edema. 4. The main pulmonary artery is dilated, measuring 30 mm. No pulmonary embolism. 5. Mild to moderate cardiomegaly.
--- NOTE | 2023-04-21 16:50 | CT_ITS ---
PROCEDURE INFORMATION: Exam: CT Abdomen And Pelvis With Contrast Exam date and time: 04/21/2023 5:19 PM Age: 83 years old Clinical indication: Nausea; Additional info: Severe nausea, dyspnea TECHNIQUE: Imaging protocol: Computed tomography of the abdomen and pelvis with contrast. Radiation optimization: All CT scans at this facility use at least one of these dose optimization techniques: automated exposure control; mA and/or kV adjustment per patient size (includes targeted exams where dose is matched to clinical indication); or iterative reconstruction. Contrast material: ISOVUE; Contrast volume: 75 ml; Contrast route: IV; REPORTING DATA: Count of CT and Cardiac NM exams in prior 12 months: This patient has received 6 known CTs and 0 known cardiac nuclear medicine studies in the 12 months prior to the current study. COMPARISON: CT ABDOMEN PELVIS W CON 03/27/2023 2:16 PM FINDINGS: Lungs: Moderate bibasilar atelectasis and scarring. Liver: Normal. No mass. Gallbladder and bile ducts: The gallbladder is not well visualized, likely due to post cholecystectomy. Pancreas: Fatty atrophy of the pancreas. No main pancreatic ductal dilatation. Spleen: Splenomegaly measuring 13.7 cm. Adrenal glands: Normal. No mass. Kidneys and ureters: Normal. No hydronephrosis. Stomach and bowel: Colonic diverticulosis , without inflammatory changes. Appendix: No evidence of appendicitis. Intraperitoneal space: Unremarkable. No free air. No significant fluid collection. Vasculature: Aortoiliac atherosclerosis. No aneurysm. Lymph nodes: Unremarkable. No enlarged lymph nodes. Urinary bladder: Unremarkable as visualized. Reproductive: Atrophic uterus, with a 2.1 x 2.1 cm fibroid along the right superior posterior aspect of the uterus. Bones/joints: Posterior spinal fusion hardware extending from L3-L4. Soft tissues: Diffuse pelvic muscular atrophy. IMPRESSION: 1. No acute abdominopelvic abnormality. 2. Fatty atrophy of the pancreas. No main pancreatic ductal dilatation. 3. Colonic diverticulosis , without inflammatory changes. 4. Splenomegaly measuring 13.7 cm.
--- NOTE | 2023-04-21 17:05 | ECG_ITS ---
APPROVED REPORT Exam: Resting ECG HR:74 bpm ECG Measurements Heart Rate 74 AXES QRSd 90 QRS 39 QT 393 T -3 QTc 421 Conclusion ATRIAL FIBRILLATION NONSPECIFIC ST & T-WAVE ABNORMALITY ABNORMAL RHYTHM ECG UNCONFIRMED REPORT Electronically signed by : Jairon Andrade MD 04/23/2023 17:33:08
[2023-04-21 17:06] LABS: Basophils % 0.5 % (0.1-2.0); Eosinophils # 0.2 K/mm3 (0.0-0.4); Eosinophils % 3.1 % (0.1-12.0); Hematocrit 42.3 % (37.0-47.0); Hemoglobin 13.3 g/dL (12.2-16.2); Lymphocytes # 0.9 K/mm3 (0.7-4.5); Lymphocytes % 18.6 % (10-50); Mean Corpuscular HGB Conc 31.4 g/dL (31.8-35.4); Mean Corpuscular Hemoglobin 30.2 pg (27.0-31.2); Mean Corpuscular Volume 96.4 fl (81-99); Mean Platelet Volume 8.1 fl (7.4-10.4); Monocytes # 0.2 K/mm3 (0.1-1.0); Neutrophils # 3.8 K/mm3 (1.8-7.8); Neutrophils % 73.9 % (37.0-80.0); Platelet Count 205 K/mm3 (142-424); Red Blood Count 4.39 M/mm3 (4.20-5.40); Red Cell Distribution Width 14.8 % (11.5-17.5); White Blood Count 5.1 K/mm3 (4.8-10.8)
[2023-04-21 17:12] LABS: Alanine Aminotransferase 18 U/L (12-78); Albumin Level 3.5 g/dl (3.5-5.0); Albumin/Globulin Ratio 1.5 (1.1-1.8); Alkaline Phosphatase 94 U/L (38-126); Anion Gap 16.6 mEq/L (5-15); Aspartate Amino Transferase 36 U/L (14-36); Bilirubin,Total 0.8 mg/dl (0.2-1.3); Blood Urea Nitrogen 5 mg/dl (7-17); Calcium 8.2 mg/dl (8.4-10.2); Carbon Dioxide 30 mmol/L (22.0-30.0); Chloride 93 mmol/L (98-107); Creatinine Clearance Estimated 42 mL/min (50-200); Estimated Glomerular Filt Rate 80 ml/min (>60); GFR (African American) 96 ML/MIN (>60); Globulin 2.3 g/dL (1.3-3.2); Glucose 76 mg/dl (74-100); Potassium 3.6 mmoL/L (3.5-5.1); Sodium 136 mmol/L (136-145); Total Protein,Serum 5.8 g/dl (6.3-8.2)
[2023-04-21 17:13] LABS: Lipase 124 U/L (23-300); Magnesium 1.6 mg/dl (1.6-2.3); Phosphorous 3.5 mg/dl (2.5-4.5)
[2023-04-21 17:24] LABS: Troponin I 0.02 ng/ml (0.00-0.034)
--- NOTE | 2023-04-21 17:31 | PC.NURSE ---
pt arrived back to room from ct
[2023-04-21 18:01] LABS: Microscopic, Urine URINE MICROSCOPIC (MICROSCOPIC)
[2023-04-21 18:06] LABS: Appearance,Urine CLEAR (Clear); Blood, Urine 1+ (Negative); Color,Urine YELLOW (Yellow); Glucose,Urine (UA) Negative (Negative); Ketones,Urine 1+ (Negative); Leukocyte Esterase,Urine TRACE (Negative); Nitrate,Urine Negative (Negative); PH,Urine 6.5 (5.0-8.5); Protein,Urine Negative (Negative); Specific Gravity, Urine <= 1.005 (1.005-1.030); Urobilinogen,Urine 0.2 EU/dl (0.2)
[2023-04-21 18:15] LABS: Bilirubin,Urine 1+ (Negative)
[2023-04-21 18:32] LABS: Bacteria,Urine Trace /lpf; Squamous Epithelial Cell,Urine Occasional #/hpf (0-5); WBC,Urine Occasional #/hpf (0-3); Yeast,Urine 1+ /lpf
--- NOTE | 2023-04-21 18:35 | PC.NURSE ---
nicole chavez at
--- NOTE | 2023-04-21 18:43 | PC.NURSE ---
Dr Jennings speaking with Dr Veloz
--- NOTE | 2023-04-21 18:53 | PC.NURSE ---
nava chaparro for dr peck pt
[2023-04-21 19:02] LABS: Coronavirus 19, PCR Not Detected (NotDetected); Influenza A, PCR Not Detected (NotDetected); Influenza B, PCR Not Detected (NotDetected)
--- NOTE | 2023-04-21 19:36 | PC.NURSE ---
PATIENT ADMITTED TO [facility] WITH DX OF FAILURE TO THRIVE TO SERVICE OF DR. VILLAREAL.
--- NOTE | 2023-04-21 20:00 | PC.NURSE ---
Report has been called to CHUY Da Silva. Waiting for 2nd floor to transport patient up. Patient and family at bedside notified
--- NOTE | 2023-04-21 20:15 | PC.NURSE ---
2nd floor here to transport patient.
--- NOTE | 2023-04-21 20:25 | PC.NURSE ---
Pt arrived to floor via stretcher @ 2019
[2023-04-21 21:48] LABS: Troponin I 0.02 ng/ml (0.00-0.034)
[2023-04-21 23:38] LABS: Troponin I 0.03 ng/ml (0.00-0.034)
[2023-04-22] VITALS (7 sets, daily range): BP systolic 123–137; BP diastolic 50–67; PULSE 68–102; RESP 18–20; TEMP 36.8–36.9; O2SAT 93–97; BMI 23.3
--- NOTE | 2023-04-22 04:34 | PC.NURSE ---
Pt is aox4, vss, bed alarm on, purewick in place, 90's on 02-2L NC, 20g R AC with NS@ 125, npo and has a wound on left big toe.
--- NOTE | 2023-04-22 09:40 | EXP.HP ---
History of Present Illness *Admission Date: 04/21/23 *Reason for visit:: Nausea, vomiting *History of present illness: ?Mrs. Gutierrez is an 83-year-old medically complex patient admitted through the [facility]. She was accompanied by her [id number]. She has chronic health issues including A-fib and recent GI issues. She has felt ill over the last month and a half. She has had a recent diagnosis of pneumonia as well as diverticulitis and she has been hospitalized at [facility]. She has been treated with multiple antibiotics for pneumonia and diverticulitis. She has recently dealt with a left great toe infection.? She has been experiencing severe nausea and has lost significant amounts of weight. She has been moaning in pain nearly continuously according to her [id number] over the last month.? Prior to this admission she had a little bit of numbness in her upper lip and has been gagging. In the ER the patient was able to answer questions appropriately. She states that she just feels sicker than I have ever been .? Her main complaint was the nausea.? Her mouth has been extremely dry. She was recently reinitiated on furosemide for her heart failure.? She has had some abdominal discomfort but this has been chronic. Her abdomen, however, seems to be more distended than normal lately.? She reported 5 bowel movements on the day of admission.? Her nausea has continued through the night of admission. She states she denies having loose stools or vomiting but has been severely nauseated.? She denies any chest pain fevers or chills.? She is on home oxygen 3 L and has not had any increasing oxygen requirement.? She is not short of breath. Her daughter states that she has been gagging quite a bit especially with drinking. [facility] Disclaimer: The information contained in this section may have been updated after the patient was seen, as this information can be updated by other users. 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 of surgery on right wrist History of thyroidectomy History of tonsillectomy S/P ablation of atrial fibrillation S/P ablation of atrial fibrillation Family History Stroke Social History (Updated 04/21/23 @ 20:59 by Alex Osman, CHUY) Smoking Status: Never smoker alcohol intake: never substance use type: denies use current occupational status: retired Travel in the last 8 weeks: None household members: none housing: house current occupation: [employer] current occupational exposures/hazards: No caffeine: No Review of Systems Constitutional Constitutional: Reports body ache(s), Denies chills, Denies daytime sleepiness, Reports difficulty sleeping, Reports fatigue and Denies fever(
--- NOTE | 2023-04-22 09:53 | EXP.SURG.CON ---
History of Present Illness *Admission Date: 04/21/23 *Reason for visit:: abdominal pain *History of present illness: This is an 83-year-old female seen in consultation after evaluation emergency department for abdominal pain and nausea. Please see HPI forwarded from Emergency Department evaluation below. She states that she feels just a little bit better this morning. Forwarded from Emergency Department evaluation: General Chief complaint: Abdominal Pain Stated complaint: nausea,gagging Time Seen by Provider: 04/21/23 16:34 History of Present Illness HPI narrative: Patient is an 83-year-old medically complex patient accompanied by her [id number] who has had a very complex last month and a half of medical care.? This is included a diagnosis of pneumonia as well as diverticulitis and she has been in the [facility] has been multiple different antibiotics including antibiotics for pneumonia and diverticulitis as well as lower extremity toe infection.? She has had severe nausea since that time and has lost significant amounts of weight and she has been moaning in pain nearly perpetually according to her [id number]-[id number] over the last month.? Today the patient had a little bit of numbness in her upper lip and has been gagging and due to the ongoing severity of all of her symptoms that are brought her into the emergency department.? The patient has been able to answer my questions appropriately and she states that she just feels sicker than I have ever been .? When I asked her to articulate what this means she states that she is just severely nauseated.? She also states that her mouth is extremely dry, she was recently reinitiated on furosemide for her heart failure.? She states she has some abdominal discomfort but this has been chronic but her abdomen to be more distended than normal lately.? She is having bowel movements in fact had 5 today.? She states she denies having loose stools or vomiting but has been severely nauseated.? She denies any chest pain fevers or chills.? She is on home oxygen 3 L and has not had any increasing oxygen requirement.? Her daughter states that she has been gagging quite a bit especially with drinking. [facility] PFSH Disclaimer: The information contained in this section may have been updated after the patient was seen, as this information can be updated by other users. Medical History (Updated 04/22/23 @ 09:59 by Marcellus Veloz MD) Abnormal ankle brachial index (WENDY) Abnormal ECG Abscess Acute cervical sprain Acute on chronic diastolic CHF (congestive heart failure) Acute thoracic myofascial strain Anemia Blood loss anemia CAD (coronary artery disease) Concussion without loss of consciousness COPD (chronic obstructive pulmonary disease) Diastolic dysfunction Dysphagia Dyspnea on exertion Fibromyalgia GERD (gastroesophageal reflux disease) HTN (hypertension) Hyperuricemia Hypothyroidism Intermittent claudication Leg cramps CHCF current use of 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 of surgery on right wrist History of thyroidectomy History of tonsillectomy S/P ablation of atrial fibrillation S/P ablation of atrial fibrillation Family History
[2023-04-22 12:16] LABS: MANUAL DIFFERENTIAL MANUAL DIFFERENTIAL (MANUAL DIFF)
[2023-04-22 12:18] LABS: Basophils % 0.5 % (0.1-2.0); Eosinophils # 0.1 K/mm3 (0.0-0.4); Eosinophils % 2.4 % (0.1-12.0); Hematocrit 39.9 % (37.0-47.0); Hemoglobin 12.2 g/dL (12.2-16.2); Lymphocytes # 0.5 K/mm3 (0.7-4.5); Lymphocytes % 12.1 % (10-50); Mean Corpuscular HGB Conc 30.7 g/dL (31.8-35.4); Mean Corpuscular Hemoglobin 30.3 pg (27.0-31.2); Mean Corpuscular Volume 98.7 fl (81-99); Mean Platelet Volume 8.3 fl (7.4-10.4); Monocytes # 0.1 K/mm3 (0.1-1.0); Monocytes % 3.5 % (1.7-9.3); Neutrophils # 3.1 K/mm3 (1.8-7.8); Neutrophils % 81.5 % (37.0-80.0); Platelet Count 176 K/mm3 (142-424); Red Blood Count 4.04 M/mm3 (4.20-5.40); White Blood Count 3.8 K/mm3 (4.8-10.8)
[2023-04-22 12:23] LABS: Chloride 99 mmol/L (98-107)
[2023-04-22 12:24] LABS: Potassium 3.4 mmoL/L (3.5-5.1); Sodium 138 mmol/L (136-145)
[2023-04-22 12:27] LABS: Alanine Aminotransferase 17 U/L (12-78); Albumin Level 2.9 g/dl (3.5-5.0); Alkaline Phosphatase 71 U/L (38-126); Anion Gap 14.4 mEq/L (5-15); Aspartate Amino Transferase 32 U/L (14-36); Bilirubin,Total 0.6 mg/dl (0.2-1.3); Blood Urea Nitrogen 3 mg/dl (7-17); Calcium 7.8 mg/dl (8.4-10.2); Carbon Dioxide 28 mmol/L (22.0-30.0); Creatinine Clearance Estimated 45 mL/min (50-200); Estimated Glomerular Filt Rate 95 ml/min (>60); GFR (African American) 115 ML/MIN (>60); Glucose 59 mg/dl (74-100); Total Protein,Serum 5.2 g/dl (6.3-8.2)
[2023-04-22 12:28] LABS: Albumin/Globulin Ratio 1.3 (1.1-1.8); Globulin 2.3 g/dL (1.3-3.2)
--- NOTE | 2023-04-22 12:41 | HMH.PHAINT1 ---
Pharmacy Intervention Comments: Home medication list verified through list from outside pharmacy and by speaking with the patient.
[2023-04-22 12:46] LABS: Eosinophils % 2 % (0-3); Lymphocytes % 12 % (10-50); Monocytes % 4 % (2-9); Neutrophils % 82 % (42-76); Platelet Estimate Normal; RBC Morphology Normal; Total Cells Counted 50
[2023-04-22 12:59] LABS: Thyroid Stimulating Hormone 2.24 uIU/mL (0.465-4.68)
--- NOTE | 2023-04-22 16:57 | PC.NURSE ---
pt is a&o x4. NC 2L. assist x1. pt has had c/o nausea and frequent gagging episodes without relief. pt reports vomiting, but maryana bag has only contained small amounts of spit. pt states i don't feel right . 18g LFA NS @ 125. left great toe wound, liv took dsg off and open. bilateral lower extremities edema +1 and tender. LS clear. up to BSC. pt can have full liquid diet and advance as tolerated. at 1200 pt didn't tolerate full liquids well and began to dry heave. advised pt to do ice chips slowly. family brought in home meds. EGD scheduled 04/23. call light within reach. bed alarm on. bed locked and in lowest position.
[2023-04-23] VITALS (22 sets, daily range): BP systolic 72–146; BP diastolic 34–89; PULSE 73–95; RESP 16–22; TEMP 36.2–37.1; O2SAT 81–99; BMI 23.4
--- NOTE | 2023-04-23 03:27 | PC.NURSE ---
No acute changes over night.
--- NOTE | 2023-04-23 06:40 | EXP.SURG.PN ---
Subjective Patient reports: no new complaints Narrative: She states that she is gagging a little bit less . Otherwise she claims to be about the same . She believes that her bowel movements have been a little loose . Exam Data for Last 24 hours Vital signs and Labs for Last 24 Hours: Temp Pulse Resp BP Pulse Ox 98.1 F 84 18 123/57 L 96 04/23/23 04:00 04/23/23 04:00 04/23/23 04:00 04/23/23 04:00 04/23/23 04:00 Laboratory Results - last 24 hr 04/22/23 12:04: WBC 3.8 L D, RBC 4.04 L, Hgb 12.2, Hct 39.9, MCV 98.7, MCH 30.3, MCHC 30.7 L, RDW 15.0, Plt Count 176, MPV 8.3, Neut % (Auto) 81.5 H, Lymph % (Auto) 12.1, [place] % (Auto) 3.5, Eos % (Auto) 2.4, Baso % (Auto) 0.5, Neut # (Auto) 3.1, Lymph # (Auto) 0.5 L, [place] # (Auto) 0.1, Eos # (Auto) 0.1, Baso # (Auto) 0.0, Total Counted 50, Neutrophils % (Manual) 82 H, Lymphocytes % (Manual) 12, Monocytes % (Manual) 4, Eosinophils % (Manual) 2, Platelet Estimate Normal, RBC Morphology Normal 04/22/23 12:04: Sodium 138, Potassium 3.4 L, Chloride 99, Carbon Dioxide 28, Anion Gap 14.4, BUN 3 L D, Creatinine 0.60, Estimated Creat Clear 45, Estimated GFR 95, Est GFR ( Amer) 115, Glucose 59 L D, Calcium 7.8 L, Total Bilirubin 0.6, AST 32, ALT 17, Alkaline Phosphatase 71, Total Protein 5.2 L, Albumin 2.9 L D, Globulin 2.3, Albumin/Globulin Ratio 1.3 04/22/23 12:04: Digoxin 0.80 04/22/23 12:04: TSH 2.24 I & O for Last 24 hours: Intake & Output 04/20/23 04/21/23 04/22/23 04/23/23 11:59 11:59 11:59 11:59 Intake Total 1250 / 1250 2052 Output Total 550 / 550 550 / 550 Balance 700 / 700 1503 / 1503 Weight 148 lb 14.4 oz 149 lb 7 oz Constitutional Constitutional: no acute distress *Routine Respiratory Exam Respiratory: Absent respiratory distress *Routine Cardiovascular Exam Cardiovascular: Absent tachycardia Progress Note: A&P Assessment and plan (1) Nausea: Status: Acute Assessment and plan: Plan esophagogastroduodenoscopy later today (2) Episode of gagging: Status: Acute (3) Abdominal pain: Status: Acute
--- NOTE | 2023-04-23 07:45 | EXP.ACUTE.PN ---
Subjective *Date: 04/23/23 *Time: 07:52 Interval history: Patient patient states she feels terrible. She remains nauseated and states so most of the time. She might be just a little bit better. She is n.p.o. currently for an EGD sometime today. Her bowels have started to move and she states she has diarrhea. She notes no blood in any place. Medical Exam Vital signs and Labs for Last 24 Hours: Vital Signs Temp Pulse Pulse Resp BP Pulse Ox 04/23/23 07:40 98.2 F 75 17 133/53 L 95 04/23/23 04:00 98.1 F 84 18 123/57 L 96 04/22/23 19:00 94 L 04/22/23 20:00 102 H 04/22/23 20:00 97 04/22/23 19:57 98.4 F 70 18 131/50 L 95 04/22/23 15:13 98.5 F 68 18 137/56 L 93 L 04/22/23 07:52 93 L Intake and Output 04/22/23 04/23/23 04/23/23 19:59 03:59 11:59 Intake Total 1053 / 1053 1000 / 2053 Output Total 250 / 250 150 / 400 150 / 550 Balance 803 / 803 850 / 1653 -150 / 1503 Intake: Intake, Oral Amount 460 / 460 Intake, Total IV Amount 593 / 593 1000 / 1593 0.9 % Sodium Chloride 1000ML 1, 593 / 593 000 ml @ 125 mls/hr IV .Q8H [facility] Rx#:[id number] 0.9 % Sodium Chloride 1000ML 1, 1000 / 1000 000 ml @ 125 mls/hr IV .Q8H [facility] Rx#:[id number] Output: Output, Urine Amount 250 / 250 150 / 400 150 / 550 Other: Number of Unmeasured Voids 1 Number of Bowel Movements 1 1 Weight 149 lb 7 oz Patient Weight 04/23/23 11:59 Weight 149 lb 7 oz Laboratory Results - last 24 hr 04/22/23 12:04: WBC 3.8 L D, RBC 4.04 L, Hgb 12.2, Hct 39.9, MCV 98.7, MCH 30.3, MCHC 30.7 L, RDW 15.0, Plt Count 176, MPV 8.3, Neut % (Auto) 81.5 H, Lymph % (Auto) 12.1, [place] % (Auto) 3.5, Eos % (Auto) 2.4, Baso % (Auto) 0.5, Neut # (Auto) 3.1, Lymph # (Auto) 0.5 L, [place] # (Auto) 0.1, Eos # (Auto) 0.1, Baso # (Auto) 0.0, Total Counted 50, Neutrophils % (Manual) 82 H, Lymphocytes % (Manual) 12, Monocytes % (Manual) 4, Eosinophils % (Manual) 2, Platelet Estimate Normal, RBC Morphology Normal 04/22/23 12:04: Sodium 138, Potassium 3.4 L, Chloride 99, Carbon Dioxide 28, Anion Gap 14.4, BUN 3 L D, Creatinine 0.60, Estimated Creat Clear 45, Estimated GFR 95, Est GFR ( Amer) 115, Glucose 59 L D, Calcium 7.8 L, Total Bilirubin 0.6, AST 32, ALT 17, Alkaline Phosphatase 71, Total Protein 5.2 L, Albumin 2.9 L D, Globulin 2.3, Albumin/Globulin Ratio 1.3 04/22/23 12:04: Digoxin 0.80 04/22/23 12:04: TSH 2.24 I & O for Labs for Last 24 Hours: Intake & Output 04/20/23 04/21/23 04/22/23 04/23/23 11:59 11:59 11:59 11:59 Intake Total 1250 / 1250 2052 / 2053 Output Total 550 / 550 550 / 550 Balance 700 / 700 1503 / 1503 Weight 148 lb 14.4 oz 149 lb 7 oz Constitutional: Present no acute distress Comment:: Lying on her left side and appears comfortable. Respiratory: Present CTA bilaterally (Anteriorly and posteriorly) Cardiac: Present Irregularly Regular GI: Present soft and normal bowel sounds; Absent distention, tenderness or guarding Extremities: Present edema (Trace bilateral) Neuro: Present alert and oriented x 3 Assessment and Plan *Assessment and plan (1) Nausea: Status: Acute Category: Medical Code(s): R11.0 - Nausea (2) Episode of gagging: Status: Acute Category: Medical Code(s): R19.8 - Other specified symptoms and signs involving the digestive system and abdomen (3) Abdominal pain: Status: Acute Category: Medical Code(s): R10.9 - Unspecified abdominal pain (4) Mid back pain: Status: Acute Category: Medical Code(s): M54.9 - Dorsalgia, unspecified (5) Compression fracture of body of thoracic vertebra: Status: Acute Category: Medical Code(s): S22.000A - Wedge compression fracture of unspecified thoracic vertebra, initial encounter for closed fracture (6) Paroxysmal atrial fibrillation: Status: Chronic Category: Medical Cod
--- NOTE | 2023-04-23 07:54 | PC.NURSE ---
Pt off floor for procedure.
--- NOTE | 2023-04-23 08:25 | EXP.ANES.CKL ---
[facility] Disclaimer: The information contained in this section may have been updated after the patient was seen, as this information can be updated by other users. 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 of surgery on right wrist History of thyroidectomy History of tonsillectomy S/P ablation of atrial fibrillation S/P ablation of atrial fibrillation Family History Other Stroke Social History Smoking Status: Never smoker alcohol intake: never substance use type: denies use current occupational status: retired Travel in the last 8 weeks: None household members: none housing: house current occupation: [employer] current occupational exposures/hazards: No caffeine: No [facility] Anesthesia Checklist Patient Identification Patient Identification: Arm Band and Verbal (Name & ) Structural Data Admitted From: Inpatient Planned Operative Procedure/s: EGD Consent for Planned Operative Procedure(s) Verified: Yes NPO Status Verified Time NPO: 00:00 Chart Verification Results Verified: CBC and BMP Additional verifications Anesthesia Reactions: No Airway Assessment C-Spine Mobility Assessed: Yes TMJ Mobility Assessed: Yes Dentition: Poor Dentition Neurological Assessment Level of Consciousness: Awake Hx Seizures: No Numbness or tingling in extremities: No Anesthesia Plan Anesthesia Risk discussed: Yes Anesthesia Plan: Verified ASA Class: IV (E) Anesthesia Type: MAC
--- NOTE | 2023-04-23 08:49 | HMH.SCOPE ---
Procedure: Date: 04/23/23 Patient Date of :: 1940 Procedure Performed:: Esophagogastroduodenoscopy with biopsy Indications:: Nausea Gagging Reflux Abdominal pain Performing Provider:: Marcellus Veloz MD Referring Provider:: Dr. Reed Sedation:: Monitored anesthesia care Procedure:: After informed consent was obtained the patient was taken to the endoscopy suite. Sedation ensued after the patient was transferred to the left lateral decubitus position. Pulse, blood pressure, and oxygen saturation were monitored throughout the procedure. The endoscope was advanced beyond the duodenal bulb. Retroflexion within the gastric lumen was accomplished. The gastroscope was carefully removed and the patient was transferred to recovery in stable condition. Please see findings and specimens below for detail. Findings:: Fairly tortuous (somewhat corkscrew) esophagus Gastroesophageal junction 40 cm Sliding hiatal hernia No esophageal inflammation No esophageal stricture Severe focal distal gastric body/antral inflammation with friable mucosa No active bleeding No cratered ulcerations Specimens:: Multiple antral biopsies (area of increased inflammatory change) Recommendations:: Follow-up pathology Continue proton pump inhibition Complications:: No immediate Estimated blood obtained (mL): 1
--- NOTE | 2023-04-23 09:32 | PC.NURSE ---
pt back to room from OR. call ight within reach, bed locked and in lowest position, bed alarm on.
--- NOTE | 2023-04-23 14:55 | PC.NURSE ---
Addendum entered by Daysi Fofana 04/23/23 14:58: at 1340 pt had c/o nausea. administered prn zofran. nausea relieved on 15min check. Original Note: pt had c/o nausea. administered prn zofran. nausea relieved on 15min check.
--- NOTE | 2023-04-23 17:49 | PC.NURSE ---
no acute changes. a&o x4. assist x1. non pitting edema +1 bilateral lower extremities. O2 2L NC with humidity. pt has c/o nausea 1x after lunch, but hasn't otherwise. no vomiting. has not tolerated bland diet well r/t poor appetite. call light within reach. bed alarm on. bed locked and in lowest position.
--- NOTE | 2023-04-23 18:36 | PC.NURSE ---
pt c/o nausea and was gagging, non productive. administered phenagran.
--- NOTE | 2023-04-24 03:36 | PC.NURSE ---
pt is a&o x4. NC 2L. assist x1. pt has had c/o nausea, 22g LFA NS+ 40K @ 100, left great toe wound open to air, bilateral lower extremities edema +1 and tender. LS clear. up to BSC. pt is on a bland diet, call light within reach. bed alarm on. bed locked and in lowest position.
[2023-04-24 03:57] VITALS: BP 106/44; PULSE 96; RESP 22; TEMP 36.9; O2SAT 95; BMI 23.3
[2023-04-24 06:48] LABS: Basophils % 0.4 % (0.1-2.0); Eosinophils # 0.1 K/mm3 (0.0-0.4); Eosinophils % 3.4 % (0.1-12.0); Hematocrit 38.4 % (37.0-47.0); Lymphocytes # 0.6 K/mm3 (0.7-4.5); Lymphocytes % 16.9 % (10-50); Mean Corpuscular HGB Conc 31.4 g/dL (31.8-35.4); Mean Corpuscular Hemoglobin 30.8 pg (27.0-31.2); Mean Platelet Volume 8.3 fl (7.4-10.4); Monocytes # 0.2 K/mm3 (0.1-1.0); Monocytes % 6.1 % (1.7-9.3); Neutrophils # 2.6 K/mm3 (1.8-7.8); Neutrophils % 73.1 % (37.0-80.0); Platelet Count 180 K/mm3 (142-424); Red Blood Count 3.91 M/mm3 (4.20-5.40); Red Cell Distribution Width 14.9 % (11.5-17.5); White Blood Count 3.5 K/mm3 (4.8-10.8)
[2023-04-24 06:57] LABS: Alanine Aminotransferase 11 U/L (12-78); Albumin Level 2.6 g/dl (3.5-5.0); Albumin/Globulin Ratio 1.2 (1.1-1.8); Alkaline Phosphatase 70 U/L (38-126); Anion Gap 16.8 mEq/L (5-15); Aspartate Amino Transferase 30 U/L (14-36); Bilirubin,Total 0.6 mg/dl (0.2-1.3); Calcium 7.5 mg/dl (8.4-10.2); Carbon Dioxide 20 mmol/L (22.0-30.0); Chloride 106 mmol/L (98-107); Creatinine Clearance Estimated 45 mL/min (50-200); Estimated Glomerular Filt Rate 118 ml/min (>60); GFR (African American) 142 ML/MIN (>60); Globulin 2.2 g/dL (1.3-3.2); Glucose 51 mg/dl (74-100); Potassium 3.8 mmoL/L (3.5-5.1); Sodium 139 mmol/L (136-145); Total Protein,Serum 4.8 g/dl (6.3-8.2)
[2023-04-24 07:06] LABS: Blood Urea Nitrogen < 2 mg/dl (7-17)
--- NOTE | 2023-04-24 07:11 | EXP.SURG.PN ---
Subjective Patient reports: feels better Exam Data for Last 24 hours Vital signs and Labs for Last 24 Hours: Temp Pulse Resp BP Pulse Ox 98.5 F 96 H 22 106/44 L 95 04/24/23 03:57 04/24/23 03:57 04/24/23 03:57 04/24/23 03:57 04/24/23 03:57 Laboratory Results - last 24 hr 04/24/23 05:37: WBC 3.5 L, RBC 3.91 L, Hgb 12.0 L, Hct 38.4, MCV 98.0, MCH 30.8, MCHC 31.4 L, RDW 14.9, Plt Count 180, MPV 8.3, Neut % (Auto) 73.1, Lymph % (Auto) 16.9, [place] % (Auto) 6.1, Eos % (Auto) 3.4, Baso % (Auto) 0.4, Neut # (Auto) 2.6, Lymph # (Auto) 0.6 L, [place] # (Auto) 0.2, Eos # (Auto) 0.1, Baso # (Auto) 0.0 04/24/23 05:37: Sodium 139, Potassium 3.8, Chloride 106, Carbon Dioxide 20 L, Anion Gap 16.8 H, BUN < 2 L D, Creatinine 0.50 L, Estimated Creat Clear 45, Estimated GFR 118, Est GFR ( Amer) 142 D, Glucose 51 L, Calcium 7.5 L, Total Bilirubin 0.6, AST 30, ALT 11 L D, Alkaline Phosphatase 70, Total Protein 4.8 L, Albumin 2.6 L, Globulin 2.2, Albumin/Globulin Ratio 1.2 I & O for Last 24 hours: Intake & Output 04/21/23 04/22/23 04/23/23 04/24/23 11:59 11:59 11:59 11:59 Intake Total 1250 / 1250 2053 / 2053 920 / 920 Output Total 550 / 550 550 / 550 3450 / 3450 Balance 700 / 700 1503 / 1503 -2530 / -2530 Weight 148 lb 14.4 oz 149 lb 7 oz 148 lb 9.6 oz Constitutional Constitutional: no acute distress *Routine Respiratory Exam Respiratory: Absent respiratory distress *Routine Cardiovascular Exam Cardiovascular: Absent tachycardia Progress Note: A&P Assessment and plan (1) Gastritis: Status: Acute Assessment and plan: Continue proton pump inhibition Follow-up pathology from recent esophagogastroduodenoscopy (2) Nausea: Status: Acute Assessment and plan: Patient reports improvement currently (3) Episode of gagging: Status: Acute Assessment and plan: The patient reports improvement currently (4) Abdominal pain: Status: Acute Assessment and plan: The patient reports improvement currently
[2023-04-24 07:39] VITALS: BP 101/86; PULSE 101; RESP 18; TEMP 36.8; O2SAT 94
[2023-04-24 08:11] VITALS: PULSE 102
--- NOTE | 2023-04-24 08:17 | EXP.ACUTE.PN ---
Subjective *Date: 04/24/23 *Time: 08:17 Interval history: Patient is still extremely nauseated. She was only able to eat a few bites of breakfast. She denies any pain. She rested off and on last night. Medical Exam Vital signs and Labs for Last 24 Hours: Vital Signs Temp Pulse Pulse Resp BP Pulse Ox 04/24/23 08:11 102 H 04/24/23 07:39 98.2 F 101 H 18 101/86 L 94 L 04/24/23 03:57 98.5 F 96 H 22 106/44 L 95 04/23/23 20:00 97 04/23/23 20:00 98.7 F 89 22 137/54 L 94 L 04/23/23 16:00 97 04/23/23 16:20 73 17 128/53 L 95 04/23/23 15:20 82 16 139/68 94 L 04/23/23 14:20 77 16 140/62 95 04/23/23 13:20 77 17 134/65 97 04/23/23 12:20 95 H 18 133/57 L 98 04/23/23 11:50 74 18 146/55 H 98 04/23/23 11:20 82 16 135/69 97 04/23/23 10:50 78 16 130/77 99 04/23/23 10:20 75 16 125/89 98 04/23/23 10:05 79 16 125/59 L 98 04/23/23 09:50 87 16 130/72 95 04/23/23 09:19 97.2 F L 79 16 125/80 98 04/23/23 09:09 97.2 F L 73 16 112/61 95 04/23/23 09:35 98 F 79 16 117/59 L 95 04/23/23 09:30 97.2 F L 87 18 121/57 L 96 04/23/23 08:59 97.2 F L 75 16 80/42 L 84 L 04/23/23 08:49 97.2 F L 78 16 72/34 L 81 L Intake and Output 04/23/23 04/24/23 04/24/23 19:59 03:59 11:59 Intake Total 120 / 1040 800 / 1040 120 / 1040 Output Total 600 / 3450 2450 / 3450 400 / 3450 Balance -480 / -2410 -1650 / -2410 -280 / -2410 Intake: Intake, Oral Amount 120 / 240 120 / 240 Intake, Total IV Amount 800 / 800 0.9% NaCl w/40mEq KCL 1,000 ml 800 / 800 @ 100 mls/hr IV .Q10H [facility] Rx#: [id number] Output: Output, Urine Amount 600 / 3450 2450 / 3450 400 / 3450 Other: Number of Unmeasured Voids 0 1 Number of Bowel Movements 1 1 Weight 148 lb 9.6 oz Patient Weight 04/24/23 11:59 Weight 148 lb 9.6 oz Laboratory Results - last 24 hr 04/24/23 05:37: WBC 3.5 L, RBC 3.91 L, Hgb 12.0 L, Hct 38.4, MCV 98.0, MCH 30.8, MCHC 31.4 L, RDW 14.9, Plt Count 180, MPV 8.3, Neut % (Auto) 73.1, Lymph % (Auto) 16.9, Ford % (Auto) 6.1, Eos % (Auto) 3.4, Baso % (Auto) 0.4, Neut # (Auto) 2.6, Lymph # (Auto) 0.6 L, Ford # (Auto) 0.2, Eos # (Auto) 0.1, Baso # (Auto) 0.0 04/24/23 05:37: Sodium 139, Potassium 3.8, Chloride 106, Carbon Dioxide 20 L, Anion Gap 16.8 H, BUN < 2 L D, Creatinine 0.50 L, Estimated Creat Clear 45, Estimated GFR 118, Est GFR ( Amer) 142 D, Glucose 51 L, Calcium 7.5 L, Total Bilirubin 0.6, AST 30, ALT 11 L D, Alkaline Phosphatase 70, Total Protein 4.8 L, Albumin 2.6 L, Globulin 2.2, Albumin/Globulin Ratio 1.2 I & O for Labs for Last 24 Hours: Intake & Output 04/21/23 04/22/23 04/23/23 04/24/23 11:59 11:59 11:59 11:59 Intake Total 1250 / 1250 2053 / 2053 1040 / 1040 Output Total 550 / 550 550 / 550 3450 / 3450 Balance 700 / 700 1503 / 1503 -2410 / -2410 Weight 148 lb 14.4 oz 149 lb 7 oz 148 lb 9.6 oz Constitutional: Present no acute distress Respiratory: Present CTA bilaterally (Anteriorly and posteriorly) Comment:: irregularly irregular GI: Present soft and normal bowel sounds; Absent distention, tenderness or guarding Extremities: Present edema (Trace bilateral) Neuro: Present alert and oriented x 3 Assessment and Plan *Assessment and plan (1) Nausea: Status: Acute Category: Medical Code(s): R11.0 - Nausea (2) Episode of gagging: Status: Acute Category: Medical Code(s): R19.8 - Other specified symptoms and signs involving the digestive system and abdomen (3) Abdominal pain: Status: Acute Category: Medical Code(s): R10.9 - Unspecified abdominal pain (4) Mid back pain: Status: Acute Category: Medical Code(s): M54.9 - Dorsalgia, unspecified (5) Compression fracture of body of thoracic vertebra: Status: Acute Category: Medical Code(s): S22.000A - We
[2023-04-24 09:36] LABS: Adenovirus F 40/41, stool Not Detected (NotDetected); Astrovirus Not Detected (NotDetected); Campylobacter Not Detected (NotDetected); Clostridium Difficile A/B, PCR Not Detected (NotDetected); Cryptosporidium Not Detected (NotDetected); Cyclospora Cayetanesis Not Detected (NotDetected); Entamoeba histolytica Not Detected (NotDetected); Enteroaggregative E coli Not Detected (NotDetected); Enteropathogenic E coli Not Detected (NotDetected); Enterotoxigenic E coli Not Detected (NotDetected); Giardia lamblia Not Detected (NotDetected); Norovirus Not Detected (NotDetected); Plesimonas Shigalloides, PCR Not Detected (NotDetected); Rotavirus A Not Detected (NotDetected); Salmonella, PCR Not Detected (NotDetected); Sapovirus Not Detected (NotDetected); Shiga-like toxin E coli Not Detected (NotDetected); Shigella Enterovasive E coli Not Detected (NotDetected); Vibrio Cholerae Not Detected (NotDetected); Vibrio, PCR Not Detected (NotDetected); Yersinia Entercolitica, PCR Not Detected (NotDetected)
[2023-04-24 11:12] VITALS: BMI 23.3
--- NOTE | 2023-04-24 13:50 | HMH.PTEV ---
Physical Therapy Evaluation Rehab PT IP Evaluation Start: 04/24/23 09:31 Freq: ONCE Status: Active Protocol: Document 04/24/23 13:42 PHORNE (Rec: 04/24/23 13:50 PHORNE [id number]) Subjective/History History History 83 yowf adm to [facility] with N/V and failure to thrive. She reports she has been nauseated for ~ 1 mo. She reports she lives alone, 5 steps to enter the home and she is generally independent with ambulation with RW at baseline. She also reports she is independent with all ADLs at baseline. Subjective Subjective Pt reports pain 8/10 in low back this pm. Rehab PT IP Eval Objective Appearance Patient Behavior Appropriate Patient Orientation Person,Place,Time Difficulty following instructions none Speech Pattern Clear Ambulation Patient Able to Ambulate Yes Ambulation Observation IP General Gait Pattern Observation Shuffling Step Ambulation Distance (feet) 8 Ambulation Assistive Device Rolling Walker Ambulation Ability Minimal x 1 (25% assist) Balance Ability to Arise Able, uses arms to help Sitting Balance Steady, safe Standing Balance Steady, wide stance Dynamic Sitting Balance Ability Good Dynamic Standing Balance Ability Fair Transfers Bed Transfer Ability Minimal x 1 (25% assist) Chair Transfer Ability Minimal x 1 (25% assist) Sit to Stand Bed Transfer Ability Minimal x 1 (25% assist) Sit to Stand Chair Transfer Ability Minimal x 1 (25% assist) ROM All Extremities PT ROM Status WFL MMT All Extremities PT MMT WFL Rehab PT IP prob,goals,plan Problems Date of Evaluation: 04/24/23 PT IP Problems Bed Mobility,Transfers,Gait Rehab Potential Rehab Potential Good Plan PT Intervention Plan Bed Mobility,Transfers,Gait, Therapeutic Exercise PT Plan Frequency Daily Duration LOS Discharge Goals Bed Transfer Ability Contact Guard/Hand Hold Sit to Stand Chair Transfer Ability Contact Guard/Hand Hold Ambulation Assistive Device Rolling Walker Ambulation Distance (feet) 20 Discharge Plan PT Discharge Plan Pt is most appropriate for rehab placement at this time once medically stable for d/c. However, she may be able to
--- NOTE | 2023-04-24 14:11 | SW/DCPLANNER ---
Addendum entered by Kristy Cárdenas RN 04/24/23 15:45: [facility] will admit. Original Note: I spoke with this patient regarding plans once medically stable for discharge. PT/OT recommended placement for this patient. I presented options of [facility] (recently discharged) vs SNF at private pay due to not having a qualifying stay vs home w/ family and home health. Patient stated that she prefer to return home with family that will be present 17/06 and home health services. Patient recently was established with [facility] and prefers to use them at discharge. Discharge date is unknown at this time.
--- NOTE | 2023-04-24 15:03 | P.CONPHA_ITS ---
Pharmacy Intervention Comments: Discharge medication counseling completed. Patient was starting the following medications: -acetaminophen: 2 tabs every 6 hours as needed for pain. Told her to try to keep track of how many she was taking each day and when she took her last dose. -duloxetine: once daily. Told her it was replacing her sertraline and that it works in a similar way, but might take a few weeks to work its best. Told of possible side effects of nausea/headache but these would likely go away within a week or so if they occurred and to let her provider know if they persisted. -gabapentin: patient was switching from 800 mg TID to 600 mg TID. Patient claimed she had taken 600 mg TID in the past. -promethazine: 12.5 mg scheduled every 6 hours. Told patient this was to help with her nausea. Main possible side effect is drowsiness. The patient was told to stop taking the following medications: -clindamycin: told patient that, if she still had some at home from where she had gotten it a few days before admission, not to take it anymore. -gabapentin: switching from two of the 400 mg tabs TID to 600 mg TID. -promethazine: had been given rx for 25mg q6h prn. Told her to instead take the new prescription for 12.5 every 6 hours. -sertraline -Xarelto The medications were sent to the patient's preferred pharmacy in [place] and she said her son helps her with her meds and she would have him go pick them up for her. She verbalized understanding of what medications to start and stop and had no questions.
--- NOTE | 2023-04-25 08:10 | EXP.DC.SUM ---
General Admission date:: 04/21/23 Discharge date: 04/24/23 HPI HPI HPI: ?Mrs. Gutierrez is an 83-year-old medically complex patient admitted through the [facility] ER. She was accompanied by her [id number]. She has chronic health issues including A-fib and recent GI issues. She has felt ill over the last month and a half. She has had a recent diagnosis of pneumonia as well as diverticulitis and she has been hospitalized at [facility]. She has been treated with multiple antibiotics for pneumonia and diverticulitis. She has recently dealt with a left great toe infection.? She has been experiencing severe nausea and has lost significant amounts of weight. She has been moaning in pain nearly continuously according to her [id number] over the last month.? Prior to this admission she had a little bit of numbness in her upper lip and has been gagging. In the ER the patient was able to answer questions appropriately. She states that she just feels sicker than I have ever been .? Her main complaint was the nausea.? Her mouth has been extremely dry. She was recently reinitiated on furosemide for her heart failure.? She has had some abdominal discomfort but this has been chronic. Her abdomen, however, seems to be more distended than normal lately.? She reported 5 bowel movements on the day of admission.? Her nausea has continued through the night of admission. She states she denies having loose stools or vomiting but has been severely nauseated.? She denies any chest pain fevers or chills.? She is on home oxygen 3 L and has not had any increasing oxygen requirement.? She is not short of breath. Her daughter states that she has been gagging quite a bit especially with drinking. Hospital Course Hospital Course Hospital Course: The patient was admitted and started on Reglan as well as a PPI. Surgery was consulted for an EGD. She was seen by Dr. Veloz and he took her to the OR on 04/23/2023. The EGD showed severe focal distal gastritis. She was started on Carafate and was continued on Protonix and Reglan. She did develop diarrhea during her hospital stay and had hypokalemia, which was treated both with IV and p.o. supplement. She was started back on her digoxin. By 04/24/2023 she was feeling better but continued to remain nauseated. She was able to eat small amounts of food. Her Phenergan was scheduled every 6 hours. She still had some stools, therefore a stool PCR was ordered. It was negative. She was switched to 30 mg of duloxetine for pain control. Her home medication was sertraline and this was discontinued. Trelegy was ordered and a PT evaluation was ordered as well. Dr. Reed was reluctant to resume her Xarelto due to gastritis. She was seen by physical therapy and they felt she was most appropriate for rehab placement once medically stable, but that she could return home with family assistance if necessary. The patient wanted to be discharged to her son's home and she was stable for discharge. She will follow-up with Dr. Reed in the office. Exam Data for Last 24 hours Vital signs and Labs for Last 24 Hours: Temp Pulse Resp BP Pulse Ox 98.2 F 102 H 18 101/86 L 94 L 04/24/23 07:39 04/24/23 08:11 04/24/23 07:39 04/24/23 07:39 04/24/23 07:39 Laboratory Results - last 24 hr 04/24/23 08:30: Stl Aeromonas (PCR) Not detected, Stl C. cayetanensis PCR Not detected, Stool Rotavirus (PCR) Not detected, Stl Adenov F 40/41 PCR Not detected, Stool Astrovirus (PCR) Not detected, Stool Campylobacter PCR Not detected, Stl C.difficile Tox PCR Not detected, Stool Cryptosporidium PCR Not detected, Stl E.coli Shiga Tox PCR Not detected, Stool E coli O157 PCR Not detected, Stl Enterotoxigenic E PCR Not detected, Stool EPEC (PCR) Not detected, Stool EAEC (PCR) Not detected, Stl E. histolytica PCR Not detected, Stool Giardia Lamblia PCR Not detected, Stool Salmonella PCR Not detected, Stool Sapovirus (PCR) Not detected, Stl P. shigelloides PCR Not detecte
--- NOTE | 2023-04-30 15:03 | CARE MANAGER ---
Unable to reach patient to discuss recent discharge. Attempted x 2 with VM and no return call.
== END 2023-04-24 17:05 | disposition home health service (06) ==
LOC: ER 19:38 → 2ND 19:54
PROVIDERS: Surgery; Admitting Provider Family Medicine; Emergency Provider Student in an Organized Health Care Education/Training Program; PCP Family Medicine; Visit Provider Family Medicine
PROC: 0DJ08ZZ Inspection of Upper Intestinal Tract, Via Natural or Artificial Opening Endoscopic (ICD-10-PCS; CPT 43235; principal; 2023-04-23 08:00)
DX: R11.0 Nausea (principal); I48.0 Paroxysmal atrial fibrillation; E03.9 Hypothyroidism, unspecified; I25.10 Atherosclerotic heart disease of native coronary artery without angina pectoris; I10 Essential (primary) hypertension; Z79.899 Other long term (current) drug therapy; I27.20 Pulmonary hypertension, unspecified; J44.9 Chronic obstructive pulmonary disease, unspecified; K21.9 Gastro-esophageal reflux disease without esophagitis; K22.4 Dyskinesia of esophagus; K44.9 Diaphragmatic hernia without obstruction or gangrene; Z99.81 Dependence on supplemental oxygen; E87.6 Hypokalemia; S22.060D Wedge compression fracture of T7-T8 vertebra, subsequent encounter for fracture with routine healing
CPT/HCPCS: 43239; G0378; 36415; 71260; 74177; 80053; 80162; 81001; 83605; 83690; 83735; 84100; 84443; 84484; 85007; 85014; 85018; 85025; 85048; 85049; 87506; 87635; 87636; 88305; 88342; 93005; 97163; 99285; C9803; J2405; Q9967; U0003; U0005

== ENCOUNTER 2023-05-20 19:33 | Observation (INO) | payer MEDICARE, BC, SELFPAY ==
[2023-05-20] VITALS (10 sets, daily range): BP systolic 107–169; BP diastolic 50–88; PULSE 70–95; RESP 20; TEMP 36.8; O2SAT 95–100; BMI 20.3
--- NOTE | 2023-05-20 20:28 | XR_ITS ---
PROCEDURE INFORMATION: Exam: XR Chest Exam date and time: 05/20/2023 9:02 PM Age: 83 years old Clinical indication: Other: Gen weakness TECHNIQUE: Imaging protocol: Radiologic exam of the chest. Views: 1 view. COMPARISON: CT CHEST W CON 21/04/2023 17:19 FINDINGS: Tubes, catheters and devices: Left atrial appendage device is noted. 1.5 cm partially metallic device projecting over the left lower lobe the pulmonary artery, unchanged. Lungs: Unremarkable. No consolidation. Pleural spaces: Unremarkable. No pleural effusion. No pneumothorax. Heart/Mediastinum: Cardiomegaly. Vasculature: Vascular calcifications. Bones/joints: Unremarkable. IMPRESSION: No acute findings.
[2023-05-20 20:42] LABS: Chloride 94 mmol/L (98-107)
[2023-05-20 20:43] LABS: Basophils % 0.7 % (0.1-2.0); Eosinophils # 0.1 K/mm3 (0.0-0.4); Eosinophils % 2.4 % (0.1-12.0); Hemoglobin 14.2 g/dL (12.2-16.2); Lymphocytes # 1.1 K/mm3 (0.7-4.5); Lymphocytes % 19.7 % (10-50); Mean Corpuscular HGB Conc 30.9 g/dL (31.8-35.4); Mean Corpuscular Hemoglobin 30.2 pg (27.0-31.2); Mean Corpuscular Volume 97.5 fl (81-99); Mean Platelet Volume 8.6 fl (7.4-10.4); Monocytes # 0.4 K/mm3 (0.1-1.0); Monocytes % 7.8 % (1.7-9.3); Neutrophils # 3.8 K/mm3 (1.8-7.8); Neutrophils % 69.5 % (37.0-80.0); Platelet Count 212 K/mm3 (142-424); Potassium 3.2 mmoL/L (3.5-5.1); Red Blood Count 4.71 M/mm3 (4.20-5.40); Red Cell Distribution Width 14.1 % (11.5-17.5); Sodium 135 mmol/L (136-145); White Blood Count 5.4 K/mm3 (4.8-10.8)
[2023-05-20 20:45] LABS: Alanine Aminotransferase 17 U/L (12-78); Albumin Level 3.6 g/dl (3.5-5.0); Albumin/Globulin Ratio 1.3 (1.1-1.8); Alkaline Phosphatase 80 U/L (38-126); Anion Gap 16.2 mEq/L (5-15); Aspartate Amino Transferase 37 U/L (14-36); Bilirubin,Total 0.7 mg/dl (0.2-1.3); Blood Urea Nitrogen 6 mg/dl (7-17); Carbon Dioxide 28 mmol/L (22.0-30.0); Creatinine Clearance Estimated 39 mL/min (50-200); Estimated Glomerular Filt Rate 95 ml/min (>60); GFR (African American) 115 ML/MIN (>60); Globulin 2.7 g/dL (1.3-3.2); Lactic Acid 1.1 mmol/L (0.7-2.1); Total Protein,Serum 6.3 g/dl (6.3-8.2)
[2023-05-20 20:46] LABS: Calcium 8.6 mg/dl (8.4-10.2); Glucose 75 mg/dl (74-100)
[2023-05-20 21:01] LABS: C-Reactive Protein 4.9 mg/L (0-4)
[2023-05-20 21:09] LABS: Magnesium 1.7 mg/dl (1.6-2.3)
[2023-05-20 21:19] LABS: Erythrocyte Sedimentation Rate 8 mm/hr (0-30)
[2023-05-20 21:22] LABS: Troponin I 0.03 ng/ml (0.00-0.034)
[2023-05-20 21:24] LABS: Microscopic, Urine URINE MICROSCOPIC (MICROSCOPIC)
[2023-05-20 21:42] LABS: Appearance,Urine CLEAR (Clear); Blood, Urine 1+ (Negative); Color,Urine YELLOW (Yellow); Glucose,Urine (UA) Negative (Negative); Ketones,Urine 2+ (Negative); Leukocyte Esterase,Urine Negative (Negative); Nitrate,Urine Negative (Negative); Protein,Urine TRACE (Negative); Specific Gravity, Urine >= 1.030 (1.005-1.030); Urobilinogen,Urine 0.2 EU/dl (0.2)
[2023-05-20 21:44] LABS: Bilirubin,Urine 2+ (Negative)
--- NOTE | 2023-05-20 21:48 | HMH.EDUROGF ---
Discharge Plan Disposition Patient Disposition: Admitted Chief Complaint: Urogenital-Female Clinical Impressions Clinical Impression: Enteritis Discharge ED Provider: Familia (ED),Orion Parker Female Urogenital HPI General Chief complaint: Urogenital-Female Stated complaint: sent by Amandeep Aguiar UTI poss Cdiff Time Seen by Provider: 05/20/23 21:48 Mode of Arrival: Wheelchair Source of Information: Patient and Relative Limitations: Physical Limitations Description of Symptoms (Recalled from ER Triage Doc. by RN): Pt seen by Ronald for possible UTI/Cdiff on Saturday followed up today, Ronald sent her her for admission. Family states she has been sick since February and recently hospitalized. History of Present Illness HPI Narrative: pt with loose stool and dec po intake worse over the last few days - has had issues over the last few weeks - MD Complaint: dysuria and other (loose stool) Onset (ago): day(s) Severity: moderate Related Data Home Medications Medication Instructions Recorded Confirmed albuterol sulfate 90 mcg/actuation 2 inh inhalation Q6HP PRN 04/21/23 05/20/23 aerosol inhaler (Ventolin HFA) Breathing Problems aspirin 81 mg tablet,delayed 81 mg PO DAILY Heart health 04/21/23 05/20/23 release fluticasone fur. 200 mcg-umeclid 1 inh inhalation DAILY Breathing 04/21/23 05/20/23 62.5 mcg-vilant 25 mcg problems inhalat.powder (Trelegy Ellipta) levothyroxine 88 mcg tablet 88 mcg PO AM Thyroid 04/21/23 05/20/23 metoprolol succinate 25 mg 25 mg PO DAILY Heart rhythm 04/21/23 05/20/23 tablet,extended release 24 hr omeprazole 40 mg capsule,delayed 40 mg PO BID Acid reflux 04/21/23 05/20/23 release potassium chloride 10 mEq 10 meq PO DAILY Supplement 04/21/23 05/20/23 tablet,extended release spironolactone 25 mg tablet 25 mg PO DAILY Fluid 04/21/23 05/20/23 sucralfate 1 gram tablet 1 g PO ACHS Gastric ulcer 04/21/23 05/20/23 ipratropium 0.5 mg-albuterol 3 mg 3 ml inhalation TIDP PRN Shortness 04/22/23 05/20/23 (2.5 mg base)/3 mL nebulization Of Breath Or Wheezing soln acetaminophen 325 mg tablet 650 mg PO Q6 Pain 05/20/23 05/20/23 gabapentin 600 mg tablet 600 mg PO TID Heart disease 05/20/23 05/20/23 promethazine 12.5 mg tablet 12.5 mg PO Q6 Heart failure 05/20/23 05/20/23 Allergies Allergy/AdvReac Type Severity Reaction Status Date / Time No Known Allergies Allergy Verified 05/17/23 13:07 [facility] Disclaimer: The information contained in this section may have been updated after the patient was seen, as this information can be updated by other users. Medical History Abnormal ankle brachial index (WENDY) Abnormal ECG Abscess Acute cervical sprain Acute diverticulitis Acute on chronic diastolic CHF (congestive heart failure) Acute thoracic myofascial strain Anemia Blood loss anemia CAD (coronary artery disease) CHF (congestive heart failure) Compression fracture of body of thoracic vertebra Concussion without loss of consciousness Constipation COPD (chronic obstructive pulmonary disease) Diastolic dysfunction Dysphagia Dyspnea on exertion Fibromyalgia GERD (gastroesophageal reflux disease) HTN (hypertension) Hyperuricemia Hypothyroidism Intermittent claudication 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
[2023-05-20 21:49] LABS: Squamous Epithelial Cell,Urine Occasional #/hpf (0-5)
--- NOTE | 2023-05-20 21:49 | CT_ITS ---
PROCEDURE INFORMATION: Exam: CT Abdomen And Pelvis With Contrast Exam date and time: 05/20/2023 10:11 PM Age: 83 years old Clinical indication: Nausea and vomiting; Abdominal pain; Additional info: Pain, diarrhea, n/v TECHNIQUE: Imaging protocol: Computed tomography of the abdomen and pelvis with contrast. Radiation optimization: All CT scans at this facility use at least one of these dose optimization techniques: automated exposure control; mA and/or kV adjustment per patient size (includes targeted exams where dose is matched to clinical indication); or iterative reconstruction. Contrast material: ISOVUE; Contrast volume: 75 ml; Contrast route: IV; REPORTING DATA: Count of CT and Cardiac NM exams in prior 12 months: This patient has received 8 known CTs and 0 known cardiac nuclear medicine studies in the 12 months prior to the current study. COMPARISON: CT ABDOMEN PELVIS W CON 21/04/2023 17:19 FINDINGS: Lungs: Mild scarring and atelectasis in the lower lungs. Heart: Cardiomegaly. Mitral and aortic valve calcifications. Coronary arteries: Coronary artery calcifications. Diaphragm: Small hiatal hernia. Liver: Mild fatty infiltration of the liver along the falciform ligament. Gallbladder and bile ducts: Gallbladder is absent. Pancreas: [id number] pancreatic atrophy. Spleen: Normal. No splenomegaly. Adrenal glands: Normal. No mass. Kidneys and ureters: Normal. No hydronephrosis. Stomach and bowel: Moderate sigmoid diverticulosis without diverticulitis. The majority of the colon is collapsed, which is a nonspecific appearance that can correlate with colitis in the appropriate clinical setting. Nonspecific bowel wall thickening of segments of small bowel and colon. Appendix: No evidence of appendicitis. Intraperitoneal space: Unremarkable. No free air. No significant fluid collection. Vasculature: Unremarkable. No abdominal aortic aneurysm. Lymph nodes: Unremarkable. No enlarged lymph nodes. Urinary bladder: Subtle haziness in the fat around the urinary bladder. Reproductive: Unremarkable as visualized. Bones/joints: L3-L4 fusion. Hardware appears intact. Chronic T12 superior endplate fracture. Soft tissues: Unremarkable. Other findings: Stigmata of old granulomatous disease. IMPRESSION: 1. Findings most likely represent enterocolitis. 2. Subtle haziness in the fat around the urinary bladder. Please exclude infection.
[2023-05-20 21:57] LABS: Lipase 104 U/L (23-300)
[2023-05-20 23:34] LABS: Coronavirus 19, PCR Not Detected (NotDetected); Influenza A, PCR Not Detected (NotDetected); Influenza B, PCR Not Detected (NotDetected)
[2023-05-21] VITALS (9 sets, daily range): BP systolic 132–170; BP diastolic 63–93; PULSE 69–88; RESP 16–20; TEMP 36.4–37; O2SAT 97–100; BMI 20.4
--- NOTE | 2023-05-21 00:06 | HMH.EDUROGF ---
Discharge Plan Disposition Patient Disposition: Admitted Clinical Impressions Clinical Impression: Enteritis Discharge ED Provider: Familia (ED),Orion Parker Female Urogenital HPI General Chief complaint: Urogenital-Female Stated complaint: sent by Amandeep Aguiar, UTI poss Cdiff Time Seen by Provider: 05/20/23 21:48 Mode of Arrival: Wheelchair Source of Information: Patient and Relative Limitations: Physical Limitations Description of Symptoms (Recalled from ER Triage Doc. by RN): Pt seen by Ronald for possible UTI/Cdiff on Saturday followed up today, Ronald sent her her for admission. Family states she has been sick since February and recently hospitalized. History of Present Illness Severity: moderate Related Data Home Medications Medication Instructions Recorded Confirmed albuterol sulfate 90 mcg/actuation 2 inh inhalation Q6HP PRN 04/21/23 05/20/23 aerosol inhaler (Ventolin HFA) Breathing Problems aspirin 81 mg tablet,delayed 81 mg PO DAILY [facility] health 04/21/23 05/20/23 release fluticasone fur. 200 mcg-umeclid 1 inh inhalation DAILY Breathing 04/21/23 05/20/23 62.5 mcg-vilant 25 mcg problems inhalat.powder (Trelegy Ellipta) levothyroxine 88 mcg tablet 88 mcg PO AM Thyroid 04/21/23 05/20/23 omeprazole 40 mg capsule,delayed 40 mg PO BID Acid reflux 04/21/23 05/21/23 release potassium chloride 10 mEq 20 meq PO DAILY Supplement 04/21/23 05/21/23 tablet,extended release sucralfate 1 gram tablet 1 g PO ACHS Gastric ulcer 04/21/23 05/20/23 ipratropium 0.5 mg-albuterol 3 mg 3 ml inhalation TIDP PRN Shortness 04/22/23 05/20/23 (2.5 mg base)/3 mL nebulization Of Breath Or Wheezing soln acetaminophen 325 mg tablet 325 mg PO Q6 PRN Pain 05/20/23 05/21/23 gabapentin 600 mg tablet 600 mg PO TID Pain 05/20/23 05/20/23 promethazine 12.5 mg tablet 12.5 mg PO Q6 PRN Nausea 05/20/23 05/20/23 digoxin 125 mcg (0.125 mg) tablet 125 mcg PO DAILY HEART HEALTH 05/21/23 05/21/23 metoprolol succinate 100 mg 100 mg PO DAILY blood pressure 05/21/23 05/21/23 tablet,extended release 24 hr sertraline 100 mg tablet 100 mg PO DAILY mood 05/21/23 05/21/23 spironolactone 100 mg tablet 100 mg PO DAILY Diuretic 05/21/23 05/21/23 Allergies Allergy/AdvReac Type Severity Reaction Status Date / Time No Known Allergies Allergy Verified 05/17/23 13:07 [facility] Disclaimer: The information contained in this section may have been updated after the patient was seen, as this information can be updated by other users. Medical History Abnormal ankle brachial index (WENDY) Abnormal ECG Abscess Acute cervical sprain Acute diverticulitis Acute on chronic diastolic CHF (congestive heart failure) Acute thoracic myofascial strain Anemia Blood loss anemia CAD (coronary artery disease) CHF (congestive heart failure) Compression fracture of body of thoracic vertebra Concussion without loss of consciousness Constipation COPD (chronic obstructive pulmonary disease) Diastolic dysfunction Dysphagia Dyspnea on exertion Fibromyalgia GERD (gastroesophageal reflux disease) HTN (hypertension) Hyperuricemia Hypothyroidism Intermittent claudication 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 of surgery on right wrist History of thyroidectomy History of tonsillectomy S/P abl
[2023-05-21 00:23] LABS: Ammonia < 9 umol/L (9-30)
[2023-05-21 00:35] LABS: Troponin I 0.04 ng/ml (0.00-0.034)
--- NOTE | 2023-05-21 00:46 | PC.NURSE ---
pt arrived to floor at this time
[2023-05-21 01:02] LABS: Vitamin B12 714 pg/mL (239-931)
[2023-05-21 04:30] LABS: Troponin I 0.04 ng/ml (0.00-0.034)
[2023-05-21 06:37] LABS: Basophils % 0.6 % (0.1-2.0); Eosinophils # 0.2 K/mm3 (0.0-0.4); Eosinophils % 4.3 % (0.1-12.0); Hematocrit 39.5 % (37.0-47.0); Lymphocytes # 0.8 K/mm3 (0.7-4.5); Mean Corpuscular HGB Conc 31.6 g/dL (31.8-35.4); Mean Corpuscular Hemoglobin 30.1 pg (27.0-31.2); Mean Corpuscular Volume 95.5 fl (81-99); Mean Platelet Volume 8.8 fl (7.4-10.4); Monocytes # 0.3 K/mm3 (0.1-1.0); Monocytes % 6.6 % (1.7-9.3); Neutrophils # 2.7 K/mm3 (1.8-7.8); Neutrophils % 69.5 % (37.0-80.0); Platelet Count 163 K/mm3 (142-424); Red Blood Count 4.14 M/mm3 (4.20-5.40); Red Cell Distribution Width 14.1 % (11.5-17.5); White Blood Count 3.9 K/mm3 (4.8-10.8)
[2023-05-21 06:41] LABS: Chloride 100 mmol/L (98-107); Sodium 135 mmol/L (136-145)
[2023-05-21 06:44] LABS: Blood Urea Nitrogen 3 mg/dl (7-17); Creatinine Clearance Estimated 39 mL/min (50-200); Estimated Glomerular Filt Rate 118 ml/min (>60); GFR (African American) 142 ML/MIN (>60)
[2023-05-21 06:45] LABS: Calcium 7.5 mg/dl (8.4-10.2); Carbon Dioxide 24 mmol/L (22.0-30.0); Glucose 59 mg/dl (74-100)
[2023-05-21 06:47] LABS: Hemoglobin 12.5 g/dL (12.2-16.2)
--- NOTE | 2023-05-21 08:29 | EXP.HP ---
History of Present Illness *Admission Date: 05/21/23 *Reason for visit:: Sent to the ER for possible UTI. *History of present illness: Ms. Gutierrez is an 83-year-old female with an extensive medical history to include lumbar disc disease with recent compression thoracic back fracture, fibromyalgia, asthma, atrial fibrillation with ablation in 2018, valvular heart disease, and diverticulitis with recent [facility] admission 04/18 through 04/24/2023 for gastritis with failure to thrive. She had an EGD on this admission 04/23/2023 which showed severe Gastric inflammation confirmed with the biopsies. She had a follow-up visit with Dr. Womack on 05/17/2023 with similar symptoms of nausea, vomiting and abdominal pain. He planned barium swallow with upper GI with small bowel follow-through. According to notes she was seen by Wicho for from an last week with follow-up yesterday. She was sent to the emergency room by Wicho for admission. At the time of this exam patient states she has had abdominal pain with continued nausea, vomiting, and diarrhea. She is a very poor historian this a.m. and does were not remember yesterday. She was able to confirm the symptoms though. She denies chest pain and shortness of breath and any upper respiratory symptoms. She also to describes a headache. She does not remember falling. She states she has been unable to eat. With evaluation in the emergency room she was found to be afebrile with satisfactory vital signs. White blood cell count was normal. Urine showed 2+ bilirubin and otherwise was negative. She did receive a liter of IV fluids. CT of the chest showed no acute findings. CT of the abdomen and pelvis revealed findings most likely representing enterocolitis With subtle haziness in the fat around the urinary bladder. This a.m. she does try to answer questions but is slow with responses. She giggles frequently. Again she does admit to some abdominal discomfort and having had headaches. [facility] Disclaimer: The information contained in this section may have been updated after the patient was seen, as this information can be updated by other users. Medical History Abnormal ankle brachial index (WENDY) Abnormal ECG Abscess Acute cervical sprain Acute diverticulitis Acute on chronic diastolic CHF (congestive heart failure) Acute thoracic myofascial strain Anemia Blood loss anemia CAD (coronary artery disease) CHF (congestive heart failure) Compression fracture of body of thoracic vertebra Concussion without loss of consciousness Constipation COPD (chronic obstructive pulmonary disease) Diastolic dysfunction Dysphagia Dyspnea on exertion Fibromyalgia GERD (gastroesophageal reflux disease) HTN (hypertension) Hyperuricemia Hypothyroidism Intermittent claudication Leg cramps long-term current use of 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 of surgery on right wrist History of thyroidectomy History of tonsillectomy S/P ablation of atrial fibrillation S/P ablation of atrial fibrillation Family History Other Stroke Social History Smoking Status: Never smoker alcohol intake: never substance use type: denies use current oc
--- NOTE | 2023-05-21 08:50 | CT_ITS ---
FINAL REPORT TECHNIQUE: Multiple axial CT sections were performed from the foramen magnum to the vertex. Coronal reformatted images were also obtained. Precontrast and postcontrast injection images were obtained. This study was performed with technique to keep radiation doses as low as reasonably achievable, (ALARA). Individualized dose reduction techniques using automated exposure control or adjustment of mA and/or kV according to the patient size were employed. CLINICAL HISTORY: New altered mental status COMPARISON: 06/12/2022 FINDINGS: There is atrophy appropriate for age as well as moderate microvascular/gliotic white matter changes. There is no evidence of hemorrhage. No masses are identified. No extra-axial fluid collection is seen. The sinuses are normal. No osseous abnormality is seen on the bone window images. Postcontrast images demonstrate no abnormal enhancement. IMPRESSION: Atrophy appropriate for age as well as moderate ischemic/gliotic microvascular change in the white matter. This is essentially unchanged since the prior head CT of May 2022. Reviewed, Interpreted and Dictated by Bill Chiang III, MD Transcribed by Mercedez Valiente Authenticated and [facility]
--- NOTE | 2023-05-21 08:56 | HMH.PHAINT1 ---
Pharmacy Intervention Comments: Patient's home medications reviewed with primary care provider. -Reilly Mcgregor, Pharm Student
--- NOTE | 2023-05-21 10:09 | HMH.OTEV ---
OT Inpatient Evaluation Rehab OT IP Evaluation Start: 05/21/23 08:11 Freq: ONCE Status: Active Protocol: Document 05/21/23 09:57 JOSELUIS (Rec: 05/21/23 10:08 JOSELUIS [id number]) Rehab OT IP Assessment Subjective History Ms. Gutierrez is an 83-year-old female with an extensive medical history to include lumbar disc disease with recent compression thoracic back fracture, fibromyalgia, asthma, atrial fibrillation with ablation in 2018, valvular heart disease, and diverticulitis with recent [facility] admission 04/18 through 2022 for gastritis with failure to thrive. She had an EGD on this admission 2022 which showed severe Gastric inflammation confirmed with the biopsies. She had a follow-up visit with Dr. Womack on 05/17/2023 with similar symptoms of nausea, vomiting and abdominal pain. He planned barium swallow with upper GI with small bowel follow-through. According to notes she was seen by Wicho for from an last week with follow-up yesterday. She was sent to the emergency room by Wicho for admission. At the time of this exam patient states she has had abdominal pain with continued nausea, vomiting, and diarrhea. She is a very poor historian this a.m. and does were not remember yesterday. She was able to confirm the symptoms though. She denies chest pain and shortness of breath and any upper respiratory symptoms. She also to describes a headache. She does not remember falling. She states she has been unable to eat.
--- NOTE | 2023-05-21 11:46 | SW/DCPLANNER ---
Addendum entered by Patricia Jennings RN 05/24/23 11:43: Patient discharged 05/23/2023 with resumption of HH services, provided by [facility]. Addendum entered by Tessie Russ 05/22/23 15:19: I called and spoke with patient's son today regarding discharge plans. Son stated that the plan is still to return home w/ home health services and they are not interested in placement. Son also stated that after speaking with Dr Reed last night they are no longer interested in Hospice services at this time. I will continue to follow up with patient/family and MD. Addendum entered by Tessie Russ 05/21/23 14:57: [facility] has arranged with the family to have a meeting on Saturday05/24/23. Addendum entered by Tessie Russ 05/21/23 13:47: I spoke with patient's son regarding discharge plans. PT/OT evaluated patient and recommended SNF level of care at time of discharge. Son stated they were recently interested in placement at [facility]. However due to patient being on OBS status this would be private pay (family stated that patient is not a candidate for Medicaid). Family stated that due to private pay they would rather patient return home with son and daughter in law. I did explain to son that patient is not able to ambulate. Son then requested that patient information to be faxed to [facility] and a nurse w/ Hospice follow up with him regarding services at home. Patient information has been faxed to [facility] at this time. Patient does currently have home health services with [facility]. I will continue to follow up with patient/family, MD and [facility]. Original Note: I have attempted to contact patient's son regarding discharge plans: no answer at this time/VM left.
--- NOTE | 2023-05-21 12:16 | HMH.PTEV ---
Physical Therapy Evaluation Rehab PT IP Evaluation Start: 05/21/23 08:09 Freq: ONCE Status: Active Protocol: Document 05/21/23 12:10 PHORNE (Rec: 05/21/23 12:16 PHORNE [id number]) Subjective/History History History 83 yowf adm to [facility] with enterocolitis. Significant PMH with multiple co-morbid conditions including DDD, thor comp fx, fibromyalgia, PAD, diverticulitis. She is pleasant, but very confused this am. She reports she lives alone, 5 steps to enter the hoem and she uses a standard walker for ambulation, but this information is unreliable due to no family present and pt confusion. Subjective Subjective Pt reports no c/o this am except feeling tired. Rehab PT IP Eval Objective Appearance Patient Behavior Confused Patient Orientation Name Difficulty following instructions mild Speech Pattern Clear Ambulation Patient Able to Ambulate No Balance Ability to Arise Able, uses arms to help Sitting Balance Steady, safe Standing Balance Steady, wide stance Dynamic Sitting Balance Ability Good Dynamic Standing Balance Ability Fair Transfers Bed Transfer Ability Contact Guard/Hand Hold Chair Transfer Ability Contact Guard/Hand Hold Sit to Stand Bed Transfer Ability Contact Guard/Hand Hold Sit to Stand Chair Transfer Ability Contact Guard/Hand Hold ROM All Extremities PT ROM Status WFL MMT All Extremities PT MMT WFL Rehab PT IP prob,goals,plan Problems Date of Evaluation: 05/21/23 PT IP Problems Bed Mobility,Transfers,Gait Rehab Potential Rehab Potential Good Plan PT Intervention Plan Bed Mobility,Transfers,Gait, Therapeutic Exercise PT Plan Frequency Daily Duration LOS Discharge Goals Bed Transfer Ability Supervision/Stand by Sit to Stand Chair Transfer Ability Supervision/Stand by Ambulation Assistive Device Rolling Walker Ambulation Distance (feet) 10 Discharge Plan PT Discharge Plan Pt is currently most appropriate for rehab placement once medically stable for d/c. If she does not receive skilled
--- NOTE | 2023-05-21 15:24 | PC.NURSE ---
Bladderscan with > 724 ML. I and O cath with 775 ML OUT.
[2023-05-21 20:28] LABS: Adenovirus F 40/41, stool Not Detected (NotDetected); Astrovirus Not Detected (NotDetected); Campylobacter Not Detected (NotDetected); Clostridium Difficile A/B, PCR Not Detected (NotDetected); Cryptosporidium Not Detected (NotDetected); Cyclospora Cayetanesis Not Detected (NotDetected); Entamoeba histolytica Not Detected (NotDetected); Enteroaggregative E coli Not Detected (NotDetected); Enteropathogenic E coli Not Detected (NotDetected); Enterotoxigenic E coli Not Detected (NotDetected); Giardia lamblia Not Detected (NotDetected); Norovirus Not Detected (NotDetected); Plesimonas Shigalloides, PCR Not Detected (NotDetected); Rotavirus A Not Detected (NotDetected); Salmonella, PCR Not Detected (NotDetected); Sapovirus Not Detected (NotDetected); Shiga-like toxin E coli Not Detected (NotDetected); Shigella Enterovasive E coli Not Detected (NotDetected); Vibrio Cholerae Not Detected (NotDetected); Vibrio, PCR Not Detected (NotDetected); Yersinia Entercolitica, PCR Not Detected (NotDetected)
[2023-05-22] VITALS: BP 140/80; PULSE 91; RESP 18; TEMP 37.2; O2SAT 100
[2023-05-22 04:00] VITALS: BP 146/93; PULSE 87; RESP 18; TEMP 37.2; O2SAT 99; BMI 21.2
--- NOTE | 2023-05-22 06:48 | PC.NURSE ---
Patient has been awake most of the night, pleasantly confused, refused medications despite multiple attempts to administer. Patient has been with a sitter all shift due to impulsiveness and attempting to exit bed.
[2023-05-22 07:39] VITALS: BP 144/58; PULSE 60; RESP 18; TEMP 36.4; O2SAT 98
--- NOTE | 2023-05-22 07:41 | PC.NURSE ---
after multiple attempts pt refuses to eat her breakfast. an alternative breakfast choice were offered but pt still declined.
--- NOTE | 2023-05-22 08:07 | EXP.ACUTE.PN ---
Subjective *Date: 05/22/23 *Time: 08:07 Interval history: Patient states she is tired this am. She slept off and on throughout the night. She refused her night medication according to nursing. She also refuses to eat. Her son sent a list of what she eats at home and she has refused that as well. She denies any abdominal pain and states she is just not hungry. Medical Exam Vital signs and Labs for Last 24 Hours: Vital Signs Temp Pulse Resp BP Pulse Ox 05/22/23 07:39 97.6 F 60 18 144/58 H 98 05/22/23 04:00 98.9 F 87 18 146/93 H 99 05/22/23 00:00 99.0 F 91 H 18 140/80 100 05/21/23 20:00 98.3 F 88 18 155/65 H 100 05/21/23 15:00 97.8 F 70 16 141/93 H 99 05/21/23 11:00 98.0 F 69 17 157/87 H 100 Intake and Output 05/21/23 05/22/23 05/22/23 19:59 03:59 11:59 Intake Total 805 / 1468 663 / 1468 Output Total 200 / 400 200 / 400 Balance 805 / 1068 463 / 1068 -200 / 1068 Intake: Intake, Oral Amount 300 / 300 Intake, Total IV Amount 505 / 1168 663 / 1168 0.9 % Sodium Chloride 1000ML 1, 505 / 1168 663 / 1168 000 ml @ 75 mls/hr IV .[id number] [facility] Rx#:[id number] Output: Output, Urine Amount 200 / 400 200 / 400 Other: Number of Unmeasured Voids 0 Number of Bowel Movements 1 Weight 130 lb 1.164 oz 135 lb 1 oz Patient Weight 05/22/23 11:59 Weight 135 lb 1 oz Laboratory Results - last 24 hr 05/20/23 20:30: Stl Aeromonas (PCR) Not detected, Stl C. cayetanensis PCR Not detected, Stool Rotavirus (PCR) Not detected, Stl Adenov F 40/41 PCR Not detected, Stool Astrovirus (PCR) Not detected, Stool Campylobacter PCR Not detected, Stl C.difficile Tox PCR Not detected, Stool Cryptosporidium PCR Not detected, Stl E.coli Shiga Tox PCR Not detected, Stool E coli O157 PCR Not detected, Stl Enterotoxigenic E PCR Not detected, Stool EPEC (PCR) Not detected, Stool EAEC (PCR) Not detected, Stl E. histolytica PCR Not detected, Stool Giardia Lamblia PCR Not detected, Stool Salmonella PCR Not detected, Stool Sapovirus (PCR) Not detected, Stl P. shigelloides PCR Not detected, Stl Shigella/EIEC PCR Not detected, St Y.enterocolitica PCR Not detected, Stool Vibrio (PCR) Not detected, Stl Vibrio cholerae PCR Not detected, Stl Norovirus GI/GII PCR Not detected I & O for Labs for Last 24 Hours: Intake & Output 05/19/23 05/20/23 05/21/23 05/22/23 11:59 11:59 11:59 11:59 Intake Total 1440 / 1440 1468 / 1468 Output Total 0 / 0 400 / 400 Balance 1440 / 1440 1068 / 1068 Weight 130 lb 1.164 oz 135 lb 1 oz Radiology Reports for the Last 24 Hours: Head CT - Atrophy appropriate for age as well as moderate ischemic/gliotic microvascular change in the white matter.? This is essentially unchanged since the prior head CT of May 2022. Constitutional: Present no acute distress Respiratory: Present decreased breath sounds and CTA bilaterally Cardiac: Present Other (Irregular rhythm) GI: Present soft; Absent distention, tenderness or guarding Extremities: Present edema (trace in bilateral LE's) Skin: Present intact Neuro: Present alert and oriented x 3 Assessment and Plan *Assessment and plan (1) Altered mental status: Status: Acute Category: Medical Code(s): R41.82 - Altered mental status, unspecified (2) Failure to thrive in adult: Status: Acute Category: Medical Code(s): R62.7 - Adult failure to thrive (3) Nausea: Status: Acute Category: Medical Code(s): R11.0 - Nausea (4) Episode of gagging: Status: Resolved Category: Medical Code(s): R19.8 - Other specified symptoms and signs involving the digestive system and abdomen (5) Abdominal pain: Status: Resolved Category: Medical Code(s): R10.9 - Unspecified abdominal pain (6) Mid back pain: Status: Acute Category: Medical Code(s): M54.9 - Dorsalgia, unspecified (7) Compression fracture of body o
--- NOTE | 2023-05-22 08:16 | PC.NURSE ---
Pt. took her Xifaxan then refused the rest of her morning medications.
--- NOTE | 2023-05-22 08:19 | DIET.NUTRFU ---
Spoke to HANGER who saw patient today. Upon visit she denies any GI distress or pain. She just does not want to eat. She triggers for severe protein calorie malnutrition, provider aware. Refusing pills and ensure today, also. May benefit from appetite stimulate, provider to review. Family also is requesting hospice eval. Will continue current diet and supplements and encourage po intake
[2023-05-22 09:04] LABS: Chloride 101 mmol/L (98-107); Sodium 137 mmol/L (136-145)
[2023-05-22 09:05] LABS: Potassium 3.1 mmoL/L (3.5-5.1)
[2023-05-22 09:07] LABS: Alanine Aminotransferase 12 U/L (12-78); Albumin/Globulin Ratio 1.3 (1.1-1.8); Alkaline Phosphatase 65 U/L (38-126); Anion Gap 14.1 mEq/L (5-15); Aspartate Amino Transferase 27 U/L (14-36); Bilirubin,Total 0.5 mg/dl (0.2-1.3); Carbon Dioxide 25 mmol/L (22.0-30.0); Creatinine Clearance Estimated 41 mL/min (50-200); Estimated Glomerular Filt Rate 118 ml/min (>60); GFR (African American) 142 ML/MIN (>60); Globulin 2.3 g/dL (1.3-3.2); Total Protein,Serum 5.3 g/dl (6.3-8.2)
[2023-05-22 09:08] LABS: Glucose 60 mg/dl (74-100)
[2023-05-22 09:10] LABS: Blood Urea Nitrogen < 2 mg/dl (7-17)
[2023-05-22 09:20] LABS: Basophils % 0.7 % (0.1-2.0); Eosinophils # 0.3 K/mm3 (0.0-0.4); Eosinophils % 6.9 % (0.1-12.0); Hematocrit 42.2 % (37.0-47.0); Lymphocytes # 0.7 K/mm3 (0.7-4.5); Lymphocytes % 15.5 % (10-50); Mean Corpuscular HGB Conc 30.8 g/dL (31.8-35.4); Mean Corpuscular Hemoglobin 30.3 pg (27.0-31.2); Mean Corpuscular Volume 98.3 fl (81-99); Mean Platelet Volume 8.8 fl (7.4-10.4); Monocytes # 0.3 K/mm3 (0.1-1.0); Monocytes % 6.3 % (1.7-9.3); Neutrophils # 3.1 K/mm3 (1.8-7.8); Neutrophils % 70.6 % (37.0-80.0); Platelet Count 158 K/mm3 (142-424); White Blood Count 4.3 K/mm3 (4.8-10.8)
--- NOTE | 2023-05-22 10:00 | PC.NURSE ---
Pt. pulled out IV. Pt. refused new IV and IV fluids at this time. Dr. Reed notified.
[2023-05-22 11:28] VITALS: BP 125/61; PULSE 67; RESP 16; TEMP 36.9; O2SAT 99
[2023-05-22 15:47] VITALS: BP 131/87; PULSE 85; RESP 18; TEMP 36.9; O2SAT 95
--- NOTE | 2023-05-22 18:47 | PC.NURSE ---
Pt. has pulled her IV out. Pt. states she doesn't remember pulling out her IV.
[2023-05-22 20:00] VITALS: BP 132/66; PULSE 74; RESP 16; TEMP 36.8; O2SAT 98
--- NOTE | 2023-05-23 00:46 | PC.NURSE ---
Resting in bed at this time, no c/o voiced. Alarm in place to alert staff of unsafe transfers
[2023-05-23 04:00] VITALS: BP 130/64; PULSE 72; RESP 16; TEMP 36.7; O2SAT 98; BMI 21.2
[2023-05-23 07:45] VITALS: BP 164/72; PULSE 87; RESP 18; TEMP 36.6; O2SAT 95
--- NOTE | 2023-05-23 07:48 | PC.NURSE ---
Told in report that patient has been refusing her medications and also refused another iv placement. Will try and get an iv placed this morning.
[2023-05-23 08:00] VITALS: O2SAT 97
--- NOTE | 2023-05-23 08:48 | EXP.ACUTE.PN ---
Subjective *Date: 05/23/23 *Time: 08:48 Interval history: Patient is feeling a little better today. She ate small amounts yesterday. Denies any abdominal pain or nausea. Slept well. Says she may be hungry this am. Medical Exam Vital signs and Labs for Last 24 Hours: Vital Signs Temp Pulse Resp BP Pulse Ox 05/23/23 08:00 97 05/23/23 07:45 97.8 F 87 18 164/72 H 95 05/23/23 04:00 98.1 F 72 16 130/64 98 05/22/23 20:00 98.2 F 74 16 132/66 98 05/22/23 15:47 98.4 F 85 18 131/87 95 05/22/23 11:28 98.4 F 67 16 125/61 99 Intake and Output 05/22/23 05/23/23 05/23/23 19:59 03:59 11:59 Intake Total 0 / 0 Balance 0 / 0 Intake: Intake, Oral Amount 0 / 0 Other: Weight 135 lb 0.989 oz Patient Weight 05/23/23 11:59 Weight 135 lb 0.989 oz Laboratory Results - last 24 hr 05/22/23 08:38: WBC 4.3 L, RBC 4.30, Hgb 13.0, Hct 42.2, MCV 98.3, MCH 30.3, MCHC 30.8 L, RDW 14.0, Plt Count 158, MPV 8.8, Neut % (Auto) 70.6, Lymph % (Auto) 15.5, Bacon % (Auto) 6.3, Eos % (Auto) 6.9, Baso % (Auto) 0.7, Neut # (Auto) 3.1, Lymph # (Auto) 0.7, Bacon # (Auto) 0.3, Eos # (Auto) 0.3, Baso # (Auto) 0.0, Sodium 137, Potassium 3.1 L, Chloride 101, Carbon Dioxide 25, Anion Gap 14.1, BUN < 2 L D, Creatinine 0.50 L, Estimated Creat Clear 41, Estimated GFR 118, Est GFR ( Amer) 142, Glucose 60 L, Calcium 8.0 L, Total Bilirubin 0.5, AST 27 D, ALT 12 D, Alkaline Phosphatase 65, Total Protein 5.3 L, Albumin 3.0 L, Globulin 2.3, Albumin/Globulin Ratio 1.3 I & O for Labs for Last 24 Hours: Intake & Output 05/20/23 05/21/23 05/22/23 05/23/23 11:59 11:59 11:59 11:59 Intake Total 1440 / 1440 1468 / 1468 0 / 0 Output Total 0 / 0 400 / 400 Balance 1440 / 1440 1068 / 1068 0 / 0 Weight 130 lb 1.164 oz 135 lb 1 oz 135 lb 0.989 oz Microbiology Reports for the Last 24 Hours: Microbiology 05/20/23 20:00 Blood Blood Culture - Preliminary NO GROWTH AFTER 48 HOURS 05/20/23 20:00 Blood Blood Culture - Preliminary NO GROWTH AFTER 48 HOURS Constitutional: Present no acute distress Respiratory: Present decreased breath sounds and CTA bilaterally Cardiac: Present Other (Irregular rhythm) GI: Present soft; Absent distention, tenderness or guarding Extremities: Present edema (trace in bilateral LE's) Skin: Present intact Neuro: Present alert and oriented x 3 Assessment and Plan *Assessment and plan (1) Altered mental status: Status: Acute Category: Medical Code(s): R41.82 - Altered mental status, unspecified (2) Failure to thrive in adult: Status: Acute Category: Medical Code(s): R62.7 - Adult failure to thrive (3) Nausea: Status: Acute Category: Medical Code(s): R11.0 - Nausea (4) Episode of gagging: Status: Resolved Category: Medical Code(s): R19.8 - Other specified symptoms and signs involving the digestive system and abdomen (5) Abdominal pain: Status: Resolved Category: Medical Code(s): R10.9 - Unspecified abdominal pain (6) Mid back pain: Status: Acute Category: Medical Code(s): M54.9 - Dorsalgia, unspecified (7) Compression fracture of body of thoracic vertebra: Status: Inactive Category: Medical Code(s): S22.000A - Wedge compression fracture of unspecified thoracic vertebra, initial encounter for closed fracture (8) Paroxysmal atrial fibrillation: Status: Chronic Category: Medical Code(s): I48.0 - Paroxysmal atrial fibrillation (9) Hypothyroidism: Status: Chronic Category: Medical Code(s): E03.9 - Hypothyroidism, unspecified (10) Fibromyalgia: Status: Inactive Category: Medical Code(s): M79.7 - Fibromyalgia (11) CAD (coronary artery disease): Status: Chronic Qualifiers: Coronary Disease-Associated A
--- NOTE | 2023-05-23 10:05 | PC.NURSE ---
COURTESY TECH NOTE; ROUNDED ON PT 0800, PT DENIED NEED FOR DRINK, ASSISTANCE WITH RESTROOM, AND NEED TO REPOSITION IN BED. CALL LIGHT WITHIN REACH, NO FURTHER REQUESTS AT THIS TIME KRISTINA JEFFREY
--- NOTE | 2023-05-23 10:10 | PC.NURSE ---
NOTIFIED PT'S SON ABOUT PT'S DISCHARGE. PT'S SON STATED HE WAS VERY CONCERNED AFTER FINDING 6 BATS IN HIS MOTHERS HOUSE THAT SHE COULD POSSIBLY HAVE RABIES AND WAS WANTING TO KNOW IF COULD TEST FOR THIS WHILE IN THE HOSPITAL. WAS NOTIFIED.
--- NOTE | 2023-05-23 10:58 | HMH.PHAINT1 ---
Pharmacy Intervention Comments: PATIENT'S DISCHARGE MEDICATIONS REVIEWED WITH PATIENT: -RISPERIDONE (WATCH FOR INCREASE IN TIREDNESS) NO FURTHER QUESTIONS. -ERINN WEINBERG, PHARM STUDENT
[2023-05-23 11:03] LABS: Anion Gap 18.3 mEq/L (5-15); Blood Urea Nitrogen 2 mg/dl (7-17); Calcium 8.4 mg/dl (8.4-10.2); Carbon Dioxide 25 mmol/L (22.0-30.0); Chloride 99 mmol/L (98-107); Creatinine Clearance Estimated 41 mL/min (50-200); Estimated Glomerular Filt Rate 118 ml/min (>60); GFR (African American) 142 ML/MIN (>60); Glucose 66 mg/dl (74-100); Potassium 3.3 mmoL/L (3.5-5.1); Sodium 139 mmol/L (136-145)
[2023-05-23 11:47] VITALS: BP 159/74; PULSE 84; RESP 16; TEMP 36.5; O2SAT 94
--- NOTE | 2023-05-27 15:41 | CARE MANAGER ---
Attempted to call patient x 2, not able to reach via phone to discuss recent discharge.
--- NOTE | 2023-05-31 08:18 | EXP.DC.SUM ---
General Admission date:: 05/21/23 Discharge date: 05/23/23 HPI HPI HPI: Ms. Gutierrez is an 83-year-old female with an extensive medical history to include lumbar disc disease with recent compression thoracic back fracture, fibromyalgia, asthma, atrial fibrillation with ablation in 2018, valvular heart disease, and diverticulitis with recent [facility] admission 04/18 through 04/24/2023 for gastritis with failure to thrive. She had an EGD on this admission 04/23/2023 which showed severe Gastric inflammation confirmed with the biopsies. She had a follow-up visit with Dr. Womack on 05/17/2023 with similar symptoms of nausea, vomiting and abdominal pain. He planned barium swallow with upper GI with small bowel follow-through. According to notes she was seen by [facility] for from an last week with follow-up yesterday. She was sent to the emergency room by [facility] for admission. At the time of this exam patient states she has had abdominal pain with continued nausea, vomiting, and diarrhea. She is a very poor historian this a.m. and does were not remember yesterday. She was able to confirm the symptoms though. She denies chest pain and shortness of breath and any upper respiratory symptoms. She also to describes a headache. She does not remember falling. She states she has been unable to eat. With evaluation in the emergency room she was found to be afebrile with satisfactory vital signs. White blood cell count was normal. Urine showed 2+ bilirubin and otherwise was negative. She did receive a liter of IV fluids. CT of the chest showed no acute findings. CT of the abdomen and pelvis revealed findings most likely representing enterocolitis With subtle haziness in the fat around the urinary bladder. This a.m. she does try to answer questions but is slow with responses. She giggles frequently. Again she does admit to some abdominal discomfort and having had headaches. Hospital Course Hospital Course Hospital Course: The patient was seen by Dr. Reed and started on potassium, Xifaxan, and hyoscyamine. Home medications of Protonix and sucralfate along with metoprolol, levothyroxine, and aspirin were ordered a CTA of her head was ordered due to new altered mental status. The patient refused to eat and take some of her medications initially. Her stool panel was negative. Her head CT showed nothing acute. The patient's son requested evaluation by hospice. Dr. Reed felt her dementia seem to be progressive and hospice was consulted. He also started her on some risperdal. By 05/23/2023, she was eating small amounts and denied any abdominal pain or nausea. It was felt she was stable to be discharged home with home health and should continue on Risperdal. Hospice arranged a meeting with the family on 05/24/2023. Exam Data for Last 24 hours Vital signs and Labs for Last 24 Hours: Temp Pulse Resp BP Pulse Ox O2 Del Method O2 Flow Rate 97.7 F 84 16 159/74 H 94 L Room Air 3 05/23/23 11:47 05/23/23 11:47 05/23/23 11:47 05/23/23 11:47 05/23/23 11:47 05/23/23 11:47 05/23/23 08:35 Narrative: Constitutional Constitutional: no acute distress Comments: Sitting up in the bed and eating her breakfast. She is very helpful and assist with exam *Routine HEENT Exam Head: Present normocephalic and atraumatic Eye: Present PERRL; Absent conjunctival icterus, scleral injection or conjunctivae pink ENT: Present mucous membranes moist *Routine Neck Exam Neck: Present supple; Absent carotid bruit, lymphadenopathy or thyromegaly *Routine Respiratory Exam Respiratory: Present CTA bilaterally (Anteriorly and posteriorly) *Routine Cardiovascular Exam Cardiovascular: Present irregular rhythm *Routine Abdominal Exam Abdominal: Present soft and normoactive bowel sounds; Absent tenderness or distended *Routine Rectal Exam Rectal:: deferred *Routine Genitalia Exam Genitalia:: deferred *Routine Extremities Exam Extremities: Present pulses int
== END 2023-05-23 13:06 | disposition home health service (06) ==
LOC: ER 21:14 → 2ND 05-21
PROVIDERS: Admitting Provider Family Medicine; Emergency Provider Emergency Medicine; PCP Family Medicine; Visit Provider Family Medicine
DX: K52.9 Noninfective gastroenteritis and colitis, unspecified (principal); N39.0 Urinary tract infection, site not specified; Z79.899 Other long term (current) drug therapy; R62.7 Adult failure to thrive; R10.9 Unspecified abdominal pain; M54.9 Dorsalgia, unspecified; I48.0 Paroxysmal atrial fibrillation; E03.9 Hypothyroidism, unspecified; I25.10 Atherosclerotic heart disease of native coronary artery without angina pectoris
CPT/HCPCS: G0378; 36415; 70470; 71045; 74177; 80048; 80053; 80162; 81001; 82140; 82607; 83605; 83690; 83735; 84145; 84484; 85025; 85651; 86140; 87040; 87507; 87635; 87636; 93005; 97110; 97163; 97165; 97530; 99285; C9803; Q9966; Q9967; U0003; U0005